=== PATIENT | female | born 1945 | race African-American/Black ===

== ENCOUNTER 2017-06-28 02:36 | Inpatient (IN) | payer MEDICARE, OTHER ==
[2017-06-28] VITALS (8 sets, daily range): BP systolic 96–124; BP diastolic 43–59
[~2017-06-28] VITALS: Ht 172.7 cm; Wt 132.5 kg
--- NOTE | 2017-06-28 02:41 | Emergency Room Report ---
History of Present Illness General Chief Complaint: Abdominal Pain Source: Patient Present Illness HPI Is a 71-year-old female who had a laparoscopic cholecystectomy 2 days ago. She was discharged home and was doing well. Since then she's been vomiting. Unable to keep anything down. She was passing gas after the surgery but since then none. Complaining of diffuse abdominal pain also. Vomiting is nonbloody nonbilious. No diarrhea. No fever or chills. Allergies: Coded Allergies: No Known Allergies (Unverified , 06/28/17) Patient History Past Medical History: see triage record, old chart reviewed Past Surgical History: bridget Pertinent Family History: none Social History: Denies: smoking Now: No Immunizations: other Reviewed Nursing Documentation: PMH: Agreed, PSxH: Agreed Nursing Documentation-PMH Hx Cardiac Problems: No - hyperlipidemia Hx Hypertension: Yes Hx Diabetes: Yes Hx Gastrointestinal Problems: No - cholecystectomy Review of Systems Eye: Denies: eye pain, blurred vision ENT: Denies: ear pain, nose congestion, throat swelling Respiratory: Denies: cough, shortness of breath Cardiovascular: Denies: chest pain, palpitations Gastrointestinal: Reports: nausea, vomiting, Denies: abdominal pain, diarrhea Musculoskeletal: Denies: back pain, joint pain Skin: Denies: rash Neurological: Denies: headache, numbness Endocrine: Denies: increased thirst, increased urine Hematologic/Lymphatic: Denies: easy bruising All Other Systems: negative except mentioned in HPI Physical Exam Vital Signs Date Time Temp Pulse Resp B/P (MAP) Pulse Ox O2 Delivery O2 Flow Rate FiO2 06/28/17 02:29 98.2 120 14 99/42 96 Room Air vitals with tachycardia Sp02 EP Interpretation: reviewed, normal General Appearance: well appearing, no apparent distress, alert Head: normocephalic, atraumatic Eyes: bilateral eye PERRL, bilateral eye EOMI ENT: hearing grossly normal, normal pharynx Neck: full range of motion, supple, no meningismus Respiratory: chest non-tender, lungs clear, normal breath sounds Cardiovascular #1: regular rate, rhythm, no murmur Gastrointestinal: normal bowel sounds, no mass, no organomegaly, no bruit, non- distended, tenderness - Mild, diffuse, decreased bowel sounds Musculoskeletal: back normal, gait/station normal, normal range of motion Psychiatric: mood/affect normal Skin: warm/dry Medical Decision Making Diagnostic Impression: Primary Impression: Postoperative ileus Additional Impressions: Hyperglycemia due to type 2 diabetes mellitus Qualified Codes: E11.65 - Type 2 diabetes mellitus with hyperglycemia Abdominal pain of unknown etiology Intractable vomiting with nausea Qualified Codes: R11.2 - Nausea with vomiting, unspecified ER Course Patient presents with postoperative ileus. No evidence of infection. His glucose is high. She was a little it better but still vomiting. Because of this will admit or transfer for further IV fluids and monitoring. Laboratory Tests Test 06/28/17 03:00 06/28/17 03:05 White Blood Count 12.3 K/UL (4.8-10.8) H Red Blood Count 5.24 M/UL (4.20-5.40) Hemoglobin 14.7 G/DL (12.0-16.0) Hematocrit 47.0 % (37.0-47.0) Mean Corpuscular Volume 90 FL (80-99) Mean Corpuscular Hemoglobin 28.1 PG (27.0-31.0) Mean Corpuscular Hemoglobin Concent 31.3 G/DL (32.0-36.0) L Red Cell Distribution Width 12.7 % (11.6-14.8) Platelet Count 128 K/UL (150-450) L Mean Platelet Volume 14.2 FL (6.5-10.1) H Neutrophils (%) (Auto) % (45.0-75.0) Lymphocytes (%) (Auto) % (20.0-45.0) Monocytes (%) (Auto) % (1.0-10.0) Eosinophils (%) (Auto) % (0.0-3.0) Basophils (%) (Auto) % (0.0-2.0) Differential Total Cells Counted 100 Neutrophils % (Manual) 88 % (45-75) H Lymphocytes % (Manual) 7 % (20-45) L Monocytes % (Manual) 3 % (1-10) Eosinophils % (Manual) 0 % (0-3) Basophils % (Manual) 0 % (0-2) Band Neutrophils 2 % (0-8) Platelet Estimate Decreased L Platelet Morphology Normal Urine Color Brown Urine Appearance Slightly cloudy Urine pH 6 (4.5-8.0) Urine Specific [place] 1.020 (1.005-1.035) Urine Protein 2+ (NEGATIVE) H Urine Glucose (UA) 4+ (NEGATIVE) H Urine Ketones 2+ (NEGATIVE) H Urine Occult Blood 1+ (NEGATIVE) H Urine Nitrite Negative (NEGATIVE) Urine Bilirubin Negative (NEGATIVE) Urine Urobilinogen 1 MG/DL (0.0-1.0) H Urine Leukocyte Esterase Negative (NEGATIVE) Urine RBC 0-2 /HPF (0 - 2) Urine WBC 0-2 /HPF (0 - 2) Urine Squamous Epithelial Cells Few /LPF (NONE/OCC) Urine Amorphous Sediment Moderate /LPF (NONE) H Urine Bacteria Few /HPF (NONE) Urine Mucus Few /LPF (NONE/OCC) H Sodium Level 136 MMOL/L (136-145) Potassium Level 3.8 MMOL/L (3.5-5.1) Chloride Level 98 MMOL/L (98-107) Carbon Dioxide Level 25 MMOL/L (21-32) Anion Gap 13 mmol/L (5-15) Blood Urea Nitrogen 33 mg/dL (7-18) H Creatinine 1.9 MG/DL (0.55-1.30) H Estimat Glomerular Filtration Rate mL/min (>60) Glucose Level 436 MG/DL (74-106) H Calcium Level 9.4 MG/DL (8.5-10.1) Total Bilirubin 1.4 MG/DL (0.2-1.0) H Direct Bilirubin 0.5 MG/DL (0.0-0.3) H Aspartate Amino Transf (AST/SGOT) 75 U/L (15-37) H Alanine Aminotransferase (ALT/SGPT) 65 U/L (12-78) Alkaline Phosphatase 74 U/L (46-116) Total Protein 7.5 G/DL (6.4-8.2) Albumin 2.8 G/DL (3.4-5.0) L Globulin 4.7 g/dL Albumin/Globulin Ratio 0.6 (1.0-2.7) L Lipase 47 U/L (73-393) L Lab Results Impression labs with elevated creatinine glucose Rhythm Strip Diag. Results Rhythm Strip Time: 05:26 EP Interpretation: yes Rate: 110 Rhythm: NSR, no PVC's, no ectopy CT/MRI/US Diagnostic Results CT/MRI/US Diagnostic Results : Imaging Test Ordered: CT abdomen and pelvis Impression Read by radiologist. Postsurgical changes. Prominent intra-abdominal gas. Last Vital Signs Date Time Temp Pulse Resp B/P (MAP) Pulse Ox O2 Delivery O2 Flow Rate FiO2 06/28/17 02:29 98.2 120 14 99/42 96 Room Air Status: improved Disposition: ADMITTED INPATIENT Condition: Serious PAUL SWAN M.D. Jun 28, 2017 02:41
[2017-06-28] MEDS ORDERED: CRESTOR10 M2 ORAL (02:44)
[2017-06-28] MEDS ORDERED: BENAZEPRIL HCL10 MG ORAL (02:44)
[2017-06-28] MEDS ORDERED: PANTOPRAZOLE SO40 MG ORAL (02:44)
[2017-06-28] MEDS ORDERED: VESICARE5 MG ORAL (02:44)
[2017-06-28] MEDS ORDERED: AMLODIPINE BES2.5 MG ORAL (02:44)
[2017-06-28] MEDS ORDERED: BENZTROPINE ME0.5 MG PO (02:44)
[2017-06-28] MEDS ORDERED: CEPHALEXIN125 MG/5 M ORAL (02:44)
[2017-06-28] MEDS ORDERED: GABAPENTIN300 MG ORAL (02:44)
[2017-06-28] MEDS ORDERED: VICODIN 5-3001 EACH ORAL (02:44)
[2017-06-28 03:15] LABS: APPEARANCE,URINE SLIGHTLY CLOUDY; BILIRUBIN, URINE NEGATIVE (NEGATIVE); COLOR,URINE BROWN; GLUCOSE, URINE (UA) 4+ (NEGATIVE); KETONES,URINE 2+ (NEGATIVE); LEUKOCYTE ESTERASE ,URINE NEGATIVE (NEGATIVE); NITRITE,URINE NEGATIVE (NEGATIVE); PH,URINE 6 (4.5-8.0); PROTEIN,URINE 2+ (NEGATIVE); UROBILINOGEN,URINE 1 MG/DL (0.0-1.0)
[2017-06-28 03:15] LABS: HEMOGLOBIN 14.7 G/DL (12.0-16.0); MEAN CORPUSCULAR VOLUME 90 FL (80-99); PLATELET COUNT 128 K/UL (150-450); RED BLOOD COUNT 5.24 M/UL (4.20-5.40); RED CELL DISTRIBUTION WIDTH 12.7 % (11.6-14.8); WHITE BLOOD COUNT 12.3 K/UL (4.8-10.8)
[2017-06-28 03:23] LABS: ANION GAP 13 mmol/L (5-15); BLOOD UREA NITROGEN 33 mg/dL (7-18); CALCIUM 9.4 MG/DL (8.5-10.1); CARBON DIOXIDE 25 MMOL/L (21-32); CHLORIDE 98 MMOL/L (98-107); CREATININE 1.9 MG/DL (0.55-1.30); POTASSIUM 3.8 MMOL/L (3.5-5.1); SODIUM 136 MMOL/L (136-145)
[2017-06-28 03:33] LABS: ALANINE AMINOTRANSFERASE 65 U/L (12-78); ALBUMIN 2.8 G/DL (3.4-5.0); ALBUMIN/GLOBULIN RATIO 0.6 (1.0-2.7); ALKALINE PHOSPHATASE 74 U/L (46-116); ASPARTATE AMINO TRANSFERASE 75 U/L (15-37); BILIRUBIN,DIRECT 0.5 MG/DL (0.0-0.3); BILIRUBIN,TOTAL 1.4 MG/DL (0.2-1.0)
[2017-06-28] MEDS ORDERED: HYDROmorphone 1mg/ml Carpuject IVP ONE (04:45)
[2017-06-28] MEDS ORDERED: Enoxaparin 40mg Inj SUBQ SCH (10:00)
[2017-06-28] MEDS: Pantoprazole Inj IVP SCH (10:47)
[2017-06-28] MEDS: D5NS 1,000 ML IV SCH ×2 (10:48→20:00)
--- NOTE | 2017-06-28 10:52 | Diagnostic Imaging Report ---
Indication: Abdominal pain. Recent laparoscopic cholecystectomy Technique: CT of the abdomen and pelvis utilizing automated exposure control without oral or intravenous contrast. CT dose: Total DLP 1760 mGycm; CTDI vol 35.1 mGy Comparison: None Findings: Please note that evaluation of the abdominal and pelvic viscera is limited without the use of intravenous and oral contrast. Within these limitations, the following observations are made: There are trace bilateral pleural effusions with moderate bilateral lower lobe consolidations which may be related to atelectasis. Imposed pneumonia is not entirely excluded. Heart size within normal limits. There is no pericardial effusion. Postsurgical changes along the anterior abdominal wall with subcutaneous foci of gas, skin piper and mild pneumoperitoneum in keeping with history of recent laparoscopic surgery. The gallbladder is surgically absent. There is minimal fluid in the gallbladder fossa which is likely postsurgical in etiology. No well-defined collection is seen. No focal liver lesion is appreciated. Noncontrast evaluation of the spleen and adrenal glands is grossly unremarkable. There is mild fatty atrophy of the pancreas. There is nonspecific bilateral perinephric stranding. No urinary tract stones or hydronephrosis seen. The bladder is decompressed, limiting its evaluation. Bladder wall thickening likely related to underdistention. The patient is status post hysterectomy. A 5.6 cm cystic lesion in the pelvis. The adnexal in origin. This may contain internal septations or soft tissue components along its periphery. Pelvic ultrasound is recommended for better characterization. The stomach is moderately distended. Small bowel loops are normal in caliber. There is fecalization of small bowel contents in the ileum. There is amorphous collection of air and soft tissue attenuation in the right lower abdomen/pelvis with dissection of gas into the abdominal wall musculature and extraperitoneal space. This is cannot entirely be from some adjacent small bowel loops and the possibility of a bowel perforation cannot entirely be excluded. Repeat exam with enteric contrast is recommended for better evaluation. Dominator is normal in caliber with scattered atherosclerotic calcification. Small mesenteric lymph nodes are likely reactive in etiology. No acute osseous abnormality is seen. Impression: Limited evaluation without intravenous or oral contrast. * Postsurgical change in keeping with history of recent laparoscopic cholecystectomy. Minimal fluid in the gallbladder fossa is likely postoperative in etiology. * Mild to moderate amount of pneumoperitoneum with amorphous focus of gas and soft tissue attenuation in the right lower abdomen/pelvis as detailed above. This is closely associated with some adjacent small bowel loops and the possibility of a perforation is not entirely excluded. Repeat exam with enteric contrast is recommended for better evaluation. This was discussed with the treating surgeon Dr. Patrick at approximately 10:30 AM of 06/28/2017. * No bowel obstruction. * 5.6 cm cystic lesion possibly adnexal in origin. There may be septal/soft tissue components within this lesion. Correlation with pelvic ultrasound is recommended for better characterization. * Trace bilateral pleural effusions with moderate bilateral lower lobe atelectasis. Superimposed pneumonia should be excluded clinically. * Bladder wall thickening likely related to underdistention. Correlate with urinalysis to exclude cystitis. This corresponds with the statrad preliminary report. The CT scanner at [facility] is accredited by the [employer] and the scans are performed using protocols designed to limit radiation exposure to as low as reasonably achievable to attain images of sufficient resolution adequate for diagnostic evaluation.
[2017-06-28] MEDS ORDERED: Metoclopramide 10mg/2ml Inj IVP PRN (11:00)
[2017-06-28] MEDS ORDERED: Acetaminophen 650 MG SUPP RECTAL PRN (11:00)
[2017-06-28] MEDS: Morphine Sulfate 2mg/ml Inj IVP PRN (11:09)
--- NOTE | 2017-06-28 12:45 | Consultation ---
Consult Note Consult Note REFERRING PHYSICIAN: Margarito Reilly MD REASON FOR CONSULTATION: Cough/SOB HPI: 71 F smoker h/o HTN, HL and DM POD 2 S/P elective lap bridget p/w epigastric pain, N/V, cough and SOB, no F/C, no CP, no LE pain or inc MT edema, no wheezing, no hemoptysis, last BM this am. CT A/P in the ED was inconclusive for perforation but otherwise showed post-op changes and atelectasis. PMH: HTN, HL, DM PSH: lap bridget ALL: NKDA Active Scripts Medications Dose Route/Sig Max Daily Dose Days Date Category Cogentin* (Benztropine Mesylate) 0.5 Mg Tablet Unknown Dose PO 06/28/17 Reported Pantoprazole* (Pantoprazole) 40 Mg Tablet.dr Unknown Dose ORAL UNKNOWN 06/28/17 Reported Gabapentin* (Gabapentin) 300 Mg Capsule Unknown Dose ORAL UNKNOWN 06/28/17 Reported Crestor* (Rosuvastatin Calcium) 10 Mg Tablet Unknown Dose ORAL UNKNOWN 06/28/17 Reported Vesicare* (Solifenacin) 5 Mg Tablet Unknown Dose ORAL UNKNOWN 06/28/17 Reported Benazepril Hcl* (Benazepril HCl) 10 Mg Tablet Unknown Dose ORAL UNKNOWN 06/28/17 Reported Amlodipine Besylate* (Amlodipine Besylate) 2.5 Mg Tablet Unknown Dose ORAL UNKNOWN 06/28/17 Reported Cephalexin* (Cephalexin) 125 Mg/5 Ml Susp.recon Unknown Dose ORAL UNKNOWN 7 06/28/17 Reported Vicodin 5-300 Mg Tablet (Acetaminophen/Hydrocodone Bitart) 1 Each Tablet Unknown Dose ORAL UNKNOWN PRN 06/28/17 Reported Current Medications Medications (Trade) Dose Ordered Sig/Teresa Route PRN Reason Start Time Stop Time Status Last Admin Dose Admin Acetaminophen (Tylenol) 650 mg Q4H PRN RECTAL Mild Pain (Pain Scale 1-3) 06/28/17 11:00 07/28/17 10:59 Dextrose (Dextrose 50%) STAT PRN IV Hypoglycemia 06/28/17 10:00 07/28/17 09:59 Dextrose/Sodium Chloride 1,000 ml @ 100 mls/hr Q10H IV 06/28/17 10:00 07/28/17 09:59 06/28/17 10:48 Insulin Aspart (NovoLOG) Q6H SUBQ 06/28/17 12:00 07/28/17 11:59 Metoclopramide HCl (Reglan) 10 mg Q8H PRN IVP Nausea & Vomiting 06/28/17 11:00 07/28/17 10:59 06/28/17 11:10 Morphine Sulfate (Morphine Sulfate) 2 mg EVERY 8 HOURS PRN IVP Severe Pain (Pain Scale 7-10) 06/28/17 10:00 07/05/17 09:59 06/28/17 11:09 Pantoprazole (Protonix) 40 mg DAILY IVP 06/28/17 10:00 07/28/17 09:59 06/28/17 10:47 Piperacillin Sod/ Tazobactam Sod 3.375 gm/Dextrose 55 ml @ 13.75 mls/ hr EVERY 8 HOURS IVPB 06/28/17 14:00 07/03/17 13:59 SHx: + tob, no EtOH or drug use FHx: N/C ROS: Negative other than HPI PE: Vital Sign - Last 24 Hours 06/28/17 06/28/17 06/28/17 06/28/17 02:29 03:11 04:44 06:11 Temp 98.2 98.2 98.2 98.2 Pulse 120 114 115 115 Resp 14 36 36 36 B/P (MAP) 99/42 106/56 106/54 96/49 Pulse Ox 96 95 95 95 O2 Delivery Room Air Room Air Room Air Room Air 06/28/17 06/28/17 06/28/17 06/28/17 06:47 06:55 08:57 11:54 Temp 98.2 98.2 97.7 97.9 Pulse 103 103 106 109 Resp 24 24 21 21 B/P (MAP) 113/50 113/50 103/43 124/47 Pulse Ox 95 95 95 95 O2 Delivery Nasal Cannula Nasal Cannula GEN: NAD, obese femal HEENT: NC/AT, OPC c MMM NECK: Supple s LAD or JVD CHEST: CTA COR: RRR ABD: S, wound dressed, mild diffuse TTP, + NABS EXT: No C/C, 1+ edema Laboratory Tests Test 06/28/17 03:00 06/28/17 03:05 White Blood Count 12.3 K/UL (4.8-10.8) H Red Blood Count 5.24 M/UL (4.20-5.40) Hemoglobin 14.7 G/DL (12.0-16.0) Hematocrit 47.0 % (37.0-47.0) Mean Corpuscular Volume 90 FL (80-99) Mean Corpuscular Hemoglobin 28.1 PG (27.0-31.0) Mean Corpuscular Hemoglobin Concent 31.3 G/DL (32.0-36.0) L Red Cell Distribution Width 12.7 % (11.6-14.8) Platelet Count 128 K/UL (150-450) L Mean Platelet Volume 14.2 FL (6.5-10.1) H Neutrophils (%) (Auto) % (45.0-75.0) Lymphocytes (%) (Auto) % (20.0-45.0) Monocytes (%) (Auto) % (1.0-10.0) Eosinophils (%) (Auto) % (0.0-3.0) Basophils (%) (Auto) % (0.0-2.0) Differential Total Cells Counted 100 Neutrophils % (Manual) 88 % (45-75) H Lymphocytes % (Manual) 7 % (20-45) L Monocytes % (Manual) 3 % (1-10) Eosinophils % (Manual) 0 % (0-3) Basophils % (Manual) 0 % (0-2) Band Neutrophils 2 % (0-8) Platelet Estimate Decreased L Platelet Morphology Normal Hemoglobin A1c 8.2 % (4.3-6.0) H Urine Color Brown Urine Appearance Slightly cloudy Urine pH 6 (4.5-8.0) Urine Specific [place] 1.020 (1.005-1.035) Urine Protein 2+ (NEGATIVE) H Urine Glucose (UA) 4+ (NEGATIVE) H Urine Ketones 2+ (NEGATIVE) H Urine Occult Blood 1+ (NEGATIVE) H Urine Nitrite Negative (NEGATIVE) Urine Bilirubin Negative (NEGATIVE) Urine Urobilinogen 1 MG/DL (0.0-1.0) H Urine Leukocyte Esterase Negative (NEGATIVE) Urine RBC 0-2 /HPF (0 - 2) Urine WBC 0-2 /HPF (0 - 2) Urine Squamous Epithelial Cells Few /LPF (NONE/OCC) Urine Amorphous Sediment Moderate /LPF (NONE) H Urine Bacteria Few /HPF (NONE) Urine Mucus Few /LPF (NONE/OCC) H Sodium Level 136 MMOL/L (136-145) Potassium Level 3.8 MMOL/L (3.5-5.1) Chloride Level 98 MMOL/L (98-107) Carbon Dioxide Level 25 MMOL/L (21-32) Anion Gap 13 mmol/L (5-15) Blood Urea Nitrogen 33 mg/dL (7-18) H Creatinine 1.9 MG/DL (0.55-1.30) H Estimat Glomerular Filtration Rate mL/min (>60) Glucose Level 436 MG/DL (74-106) H Calcium Level 9.4 MG/DL (8.5-10.1) Total Bilirubin 1.4 MG/DL (0.2-1.0) H Direct Bilirubin 0.5 MG/DL (0.0-0.3) H Aspartate Amino Transf (AST/SGOT) 75 U/L (15-37) H Alanine Aminotransferase (ALT/SGPT) 65 U/L (12-78) Alkaline Phosphatase 74 U/L (46-116) Total Protein 7.5 G/DL (6.4-8.2) Albumin 2.8 G/DL (3.4-5.0) L Globulin 4.7 g/dL Albumin/Globulin Ratio 0.6 (1.0-2.7) L Lipase 47 U/L (73-393) L Assessment/Plan ASSESSMENT: 71 F smoker h/o HTN, HL and DM POD 2 S/P elective lap bridget p/w epigastric pain , N/V, cough and SOB concerning for acute intra-abdominal pathology, clinically not presenting with acute abdomen but imaging inconclusive for perforation. She is relatively stable from a respiratory standpoint and her symptoms are likely 2/2 post-op atelectasis but will obtain CXR, ABG and LE venous duplex to evaluate for VTE. PROBLEM LIST: -POD 2 S/P lap bridget -Abd pain/N/V, R/O perf -Cough, likely 2/2 atelectasis -Abnormal renal function, ELIDIA vs CKD -DM, HTN, HL PLAN: -Supportive care: pain control, anti-emetic therapy, serial abdominal exam -Optimize pulmonary hygiene/mobilize as tolerated -Incentive spirometry -Abx -NPO -Surgical evaluation -CXR -ABG -Duplex LE US -DVT Px: LMWH Thank you, Dr. Reilly, for allowing me to assist in the care of your patient. If I may be of any assistance in the future please do not hesitate to ask. Vicky Koroma MD, [facility] Pulmonary & Critical Care Medicine. VICKY KOROMA M.D. Jun 28, 2017 12:45
--- NOTE | 2017-06-28 12:53 | History & Physical ---
History and Physical History & Physicial seen and examined. Dict completed Margarito Reilly MD Jun 28, 2017 12:53
--- NOTE | 2017-06-28 12:55 | General Progress Note ---
Assessment/Plan Status: unchanged Assessment/Plan 1- Acute Abdomen 2- Post Elective Lap Veronika 3- DM 4- Abn LFT 5- low PLT 6- Renal Failure Plan: Hepatitis panel Surgeon GI Nephro are consulted Subjective ROS Limited/Unobtainable: No Constitutional: Reports: no symptoms HEENT: Reports: no symptoms Gastrointestinal/Abdominal: Reports: abdomen distended, abdominal pain Allergies: Coded Allergies: No Known Allergies (Unverified , 06/28/17) Objective Last 24 Hour Vital Signs Date Time Temp Pulse Resp B/P (MAP) Pulse Ox O2 Delivery O2 Flow Rate FiO2 06/28/17 11:54 97.9 109 21 124/47 95 06/28/17 11:39 97.9 06/28/17 08:57 97.7 106 21 103/43 95 06/28/17 06:55 98.2 103 24 113/50 95 Nasal Cannula 06/28/17 06:47 98.2 103 24 113/50 95 Nasal Cannula 06/28/17 06:11 98.2 115 36 96/49 95 Room Air 06/28/17 04:44 98.2 115 36 106/54 95 Room Air 06/28/17 03:11 98.2 114 36 106/56 95 Room Air 06/28/17 02:29 98.2 120 14 99/42 96 Room Air Laboratory Tests 06/28/17 03:00: White Blood Count 12.3H, Red Blood Count 5.24, Hemoglobin 14.7, Hematocrit 47.0 , Mean Corpuscular Volume 90, Mean Corpuscular Hemoglobin 28.1, Mean Corpuscular Hemoglobin Concent 31.3L, Red Cell Distribution Width 12.7, Platelet Count 128L, Mean Platelet Volume 14.2H, Neutrophils (%) (Auto) , Lymphocytes (%) (Auto) , Monocytes (%) (Auto) , Eosinophils (%) (Auto) , Basophils (%) (Auto) , Differential Total Cells Counted 100, Neutrophils % ( Manual) 88H, Lymphocytes % (Manual) 7L, Monocytes % (Manual) 3, Eosinophils % ( Manual) 0, Basophils % (Manual) 0, Band Neutrophils 2, Platelet Estimate DecreasedL, Platelet Morphology Normal, Hemoglobin A1c 8.2H 06/28/17 03:05: Urine Color Brown, Urine Appearance Slightly cloudy, Urine pH 6, Urine Specific [place] 1.020, Urine Protein 2+H, Urine Glucose (UA) 4+H, Urine Ketones 2+H, Urine Occult Blood 1+H, Urine Nitrite Negative, Urine Bilirubin Negative, Urine Urobilinogen 1H, Urine Leukocyte Esterase Negative, Urine RBC 0-2, Urine WBC 0-2 , Urine Squamous Epithelial Cells Few, Urine Amorphous Sediment ModerateH, Urine Bacteria Few, Urine Mucus FewH, Sodium Level 136, Potassium Level 3.8, Chloride Level 98, Carbon Dioxide Level 25, Anion Gap 13, Blood Urea Nitrogen 33H, Creatinine 1.9H, Estimat Glomerular Filtration Rate , Glucose Level 436H, Calcium Level 9.4, Total Bilirubin 1.4H, Direct Bilirubin 0.5H, Aspartate Amino Transf (AST/SGOT) 75H, Alanine Aminotransferase (ALT/SGPT) 65, Alkaline Phosphatase 74, Total Protein 7.5, Albumin 2.8L, Globulin 4.7, Albumin/Globulin Ratio 0.6L, Lipase 47L Height (Feet): 5 Height (Inches): 7.00 Weight (Pounds): 261 General Appearance: no apparent distress EENT: PERRL/EOMI Neck: supple Cardiovascular: normal rate Respiratory/Chest: lungs clear Abdomen: guarding Extremities: non-tender Neurologic: retail operations manager II-XII grossly normal Margarito Reilly MD Jun 28, 2017 12:55
[2017-06-28] MEDS: NovoLOG Insulin Flexpen SUBQ SCH ×2 (14:43→19:03)
[2017-06-28] MEDS ORDERED: Albuterol/Ipratropium 3ml neb HHN PRN (16:00)
[2017-06-28] MEDS: Piperacillin/Tazobactam 3.375 GM in D5W 55 ML IVPB SCH ×2 (16:14→22:12)
--- NOTE | 2017-06-28 17:14 | General Progress Note ---
Assessment/Plan Problem List: (1) Hyperglycemia due to type 2 diabetes mellitus ICD Codes: E11.65 - Type 2 diabetes mellitus with hyperglycemia SNOMED: 599153729193642, [id number] Qualifiers: Qualified Codes: E11.65 - Type 2 diabetes mellitus with hyperglycemia (2) Postoperative ileus ICD Codes: K91.89 - Other postprocedural complications and disorders of digestive system; K56.7 - Ileus, unspecified SNOMED: 545573085, 808731071 (3) Intractable vomiting with nausea ICD Codes: R11.2 - Nausea with vomiting, unspecified SNOMED: 637071186, [id number] Qualifiers: Qualified Codes: R11.2 - Nausea with vomiting, unspecified Assessment/Plan add Levemir 10 units bid continue Novolog sliding scale every 6 hours Subjective Allergies: Coded Allergies: No Known Allergies (Unverified , 06/28/17) All Systems: reviewed and negative except above Subjective admitted with post op ileus glucose is 400+ at home she is on Tradenta Objective Last 24 Hour Vital Signs Date Time Temp Pulse Resp B/P (MAP) Pulse Ox O2 Delivery O2 Flow Rate FiO2 06/28/17 16:13 97.6 101 20 118/59 95 06/28/17 15:50 118 26 93 Nasal Cannula 2.0 28 06/28/17 15:40 118 26 93 Nasal Cannula 2.0 28 06/28/17 15:40 28 06/28/17 15:40 118 26 Nasal Cannula 2.0 28 06/28/17 11:54 97.9 109 21 124/47 95 06/28/17 11:39 97.9 06/28/17 08:57 97.7 106 21 103/43 95 06/28/17 06:55 98.2 103 24 113/50 95 Nasal Cannula 06/28/17 06:47 98.2 103 24 113/50 95 Nasal Cannula 06/28/17 06:11 98.2 115 36 96/49 95 Room Air 06/28/17 04:44 98.2 115 36 106/54 95 Room Air 06/28/17 03:11 98.2 114 36 106/56 95 Room Air 06/28/17 02:29 98.2 120 14 99/42 96 Room Air Laboratory Tests 06/28/17 03:00: White Blood Count 12.3H, Red Blood Count 5.24, Hemoglobin 14.7, Hematocrit 47.0 , Mean Corpuscular Volume 90, Mean Corpuscular Hemoglobin 28.1, Mean Corpuscular Hemoglobin Concent 31.3L, Red Cell Distribution Width 12.7, Platelet Count 128L, Mean Platelet Volume 14.2H, Neutrophils (%) (Auto) , Lymphocytes (%) (Auto) , Monocytes (%) (Auto) , Eosinophils (%) (Auto) , Basophils (%) (Auto) , Differential Total Cells Counted 100, Neutrophils % ( Manual) 88H, Lymphocytes % (Manual) 7L, Monocytes % (Manual) 3, Eosinophils % ( Manual) 0, Basophils % (Manual) 0, Band Neutrophils 2, Platelet Estimate DecreasedL, Platelet Morphology Normal, Hemoglobin A1c 8.2H 06/28/17 03:05: Urine Color Brown, Urine Appearance Slightly cloudy, Urine pH 6, Urine Specific Rock 1.020, Urine Protein 2+H, Urine Glucose (UA) 4+H, Urine Ketones 2+H, Urine Occult Blood 1+H, Urine Nitrite Negative, Urine Bilirubin Negative, Urine Urobilinogen 1H, Urine Leukocyte Esterase Negative, Urine RBC 0-2, Urine WBC 0-2 , Urine Squamous Epithelial Cells Few, Urine Amorphous Sediment ModerateH, Urine Bacteria Few, Urine Mucus FewH, Sodium Level 136, Potassium Level 3.8, Chloride Level 98, Carbon Dioxide Level 25, Anion Gap 13, Blood Urea Nitrogen 33H, Creatinine 1.9H, Estimat Glomerular Filtration Rate , Glucose Level 436H, Calcium Level 9.4, Total Bilirubin 1.4H, Direct Bilirubin 0.5H, Aspartate Amino Transf (AST/SGOT) 75H, Alanine Aminotransferase (ALT/SGPT) 65, Alkaline Phosphatase 74, Total Protein 7.5, Albumin 2.8L, Globulin 4.7, Albumin/Globulin Ratio 0.6L, Lipase 47L 06/28/17 16:02: Arterial Blood pH 7.350, Arterial Blood Partial Pressure CO2 36.7, Arterial Blood Partial Pressure O2 57.8L, Arterial Blood HCO3 20.7L, Arterial Blood Oxygen Saturation 89.7L, Arterial Blood Base Excess -4.8, Brandyn Test Positive Height (Feet): 5 Height (Inches): 7.00 Weight (Pounds): 261 General Appearance: no apparent distress EENT: normal ENT inspection Cardiovascular: normal rate Respiratory/Chest: lungs clear Abdomen: absent bowel sounds Edema: no edema noted Arm (L), no edema noted Arm (R), no edema noted Leg (L), no edema noted Leg (R), no edema noted Pedal (L), no edema noted Pedal (R), no edema noted Generalized Objective Current Medications Medications (Trade) Dose Ordered Sig/Teresa Route PRN Reason Start Time Stop Time Status Last Admin Dose Admin Acetaminophen (Tylenol) 650 mg Q4H PRN RECTAL Mild Pain (Pain Scale 1-3) 06/28/17 11:00 07/28/17 10:59 Albuterol/ Ipratropium (Albuterol/ Ipratropium) 3 ml Q4H PRN HHN Shortness of Breath 06/28/17 16:00 07/03/17 15:59 06/28/17 15:39 Albuterol/ Ipratropium (Albuterol/ Ipratropium) 3 ml Q6HRT HHN 06/28/17 19:00 07/03/17 18:59 Dextrose (Dextrose 50%) STAT PRN IV Hypoglycemia 06/28/17 10:00 07/28/17 09:59 Dextrose/Sodium Chloride 1,000 ml @ 100 mls/hr Q10H IV 06/28/17 10:00 07/28/17 09:59 06/28/17 10:48 Insulin Aspart (NovoLOG) Q6H SUBQ 06/28/17 12:00 07/28/17 11:59 06/28/17 14:43 Metoclopramide HCl (Reglan) 10 mg Q8H PRN IVP Nausea & Vomiting 06/28/17 11:00 07/28/17 10:59 06/28/17 11:10 Morphine Sulfate (Morphine Sulfate) 2 mg EVERY 8 HOURS PRN IVP Severe Pain (Pain Scale 7-10) 06/28/17 10:00 07/05/17 09:59 06/28/17 11:09 Pantoprazole (Protonix) 40 mg DAILY IVP 06/28/17 10:00 07/28/17 09:59 06/28/17 10:47 Piperacillin Sod/ Tazobactam Sod 3.375 gm/Dextrose 55 ml @ 13.75 mls/ hr EVERY 8 HOURS IVPB 06/28/17 14:00 07/03/17 13:59 06/28/17 16:14 LEANN COLE Jun 28, 2017 17:14
[2017-06-28] MEDS: Ketorolac 30mg Inj IV PRN (18:41)
[2017-06-28] MEDS: Levemir Flexpen SUBQ SCH (19:04)
[2017-06-28 19:40] LABS: BILIRUBIN,TOTAL 0.8 MG/DL (0.2-1.0)
[2017-06-28] MEDS: Albuterol/Ipratropium 3ml neb HHN SCH (19:56)
--- NOTE | 2017-06-28 21:30 | History and Physical Report ---
DATE OF ADMISSION: 06/28/2017 HISTORY OF PRESENT ILLNESS: The patient is a pleasant 71-year-old female. The patient is status post laparoscopic abdominal surgery at [facility], presented with ileus, nausea, vomitus and pain, it started postop after the discharge from hospital. The patient lives with her sister. Has been presented for treatment to our hospital. At the time of evaluation, the patient is complaining of [id number] pain. Denies any severe pain. Denies any nausea. The patient has 1 bowel movement. No abnormal bleeding is reported. PAST MEDICAL HISTORY: Hypertension, hyperlipidemia and bladder incontinence. PAST SURGICAL HISTORY: Laparoscopic cholecystectomy about a week ago. HOSPITAL MEDICATIONS: Including but not limited to sliding scale insulin, morphine sulfate and Zosyn. ALLERGIES: NKDA. SOCIAL HISTORY: The patient lives with her sister. The patient denies history of illicit drug abuse, smoking, or alcohol abuse. FAMILY HISTORY: Reviewed and noncontributory. PHYSICAL EXAMINATION: VITAL SIGNS: Blood pressure 99/40, temperature 98.2, pulse rate 115-200 to 440, and pulse oximetry 96% on room air. HEAD AND NECK: Atraumatic and normocephalic. CHEST: Clear to auscultation. HEART: S1 and S2. Regular rate and rhythm. ABDOMEN: Positive for tenderness on deep palpation. Positive for bloated and tympanism. MUSCULOSKELETAL: No gross focal motor deficit. NEUROLOGIC: Awake, alert and oriented x3. PSYCHIATRIC: Mood and affect are appropriate. LABORATORY DATA: Laboratories dated 06/28/2017, WBC 12.3, hemoglobin 14.7, and platelets 128. Sodium 136, potassium 3.8, BUN 33, creatinine 1.9, and glucose 446. A1c 8.2. Total bilirubin of 1.4. Urinalysis, unremarkable. ASSESSMENT AND PLAN: 1. Acute abdomen post inpatient surgery. Differential diagnosis are partial to complete obstruction/ileus. 2. Diabetes type 2, uncontrolled. 3. Renal failure, age indeterminate. 4. Thrombocytopenia. 5. Abnormal liver function test. 6. Gastrointestinal and deep vein thrombosis prophylaxes. PLAN OF CARE: I will order the hepatitis panel. Gastrointestinal surgeon consulted, agree with the current empiric antibiotic regimen. We will check hepatitis panel. Product Test Engineer Dr. Donovan is consulted. Margarito Reilly M.D. DR: AMBER JOB#: [id number] CC:
[2017-06-29] VITALS: BP 93/57
[2017-06-29] MEDS: NovoLOG Insulin Flexpen SUBQ SCH ×4 (00:36→18:00)
[2017-06-29 01:14] VITALS: BP 100/50
[2017-06-29] MEDS: Albuterol/Ipratropium 3ml neb HHN SCH ×3 (02:06→13:57)
[2017-06-29 04:00] VITALS: BP 115/73
--- NOTE | 2017-06-29 04:00 | Consultation ---
DATE OF CONSULTATION: 06/28/2017 CONSULTING PHYSICIAN: Mario Patrick M.D. REQUESTING PHYSICIAN: Margarito Reilly M.D. REASON FOR CONSULTATION: Vomiting. HISTORY OF PRESENT ILLNESS: This is a 71-year-old female, who presented to emergency room for vomiting. She stated that two days ago, which was 06/26/2017, she underwent laparoscopic cholecystectomy at [facility] and she was discharged home the same day. She stated that since the surgery, she has been vomiting and she has been unable to tolerate any food or any medication. She claims that she had a bowel movement this morning. She had mild abdominal pain, but she has received injection in the emergency room and at the present time she does not have any pain. She denied any fever, cough, dysuria, or frequency. PAST MEDICAL HISTORY: She denies allergies, asthma, cardiac and renal diseases. She has a history of diabetes and hypertension. PAST SURGICAL HISTORY: Include laparoscopic cholecystectomy and hysterectomy. MEDICATIONS: Please see the medicine reconciliation form. SOCIAL HISTORY: The patient is a 71-year-old female, who is a without any children. She denies smoking or drinking. REVIEW OF SYSTEMS: Noncontributory. PHYSICAL EXAMINATION: GENERAL: The patient appeared to be a well-developed, well-nourished, morbidly obese, 71-year-old female, lying in bed, tachypneic. HEENT: Head is normocephalic and atraumatic. Eyes, pupils are equal, round, and reactive to light. Mouth is clear, but dry. NECK: There is no palpable thyromegaly or adenopathy. CHEST: She has mild wheezing on both sides. HEART: There is no gallop or murmur. S1 and S2 are within normal limits. ABDOMEN: Obese, pendulous, and protuberant. She has a scar of the laparoscopic cholecystectomy, which includes paraumbilical incision and three small incisions at the upper abdomen. The abdomen seems to be hard, but it is not rigid. Bowel sounds are hypoactive. The patient did not have tenderness. GENITAL: Deferred. EXTREMITIES: Within normal limits. LABORATORY AND DIAGNOSTIC DATA: CBC has shown WBC of 12,300 with left shift. Chemistry is within normal limits except for the glucose, which is 436, creatinine 1.9, and BUN of 33. Total bilirubin is 1.4 with direct bilirubin of 0.5, but alkaline phosphatase is normal. Liver enzymes are normal. The CAT scan of the abdomen, I had a long discussion with the radiologist. It showed a small amount of the intraperitoneal air, which is due to the surgery, but there is an area of air which we were not sure if it was intraabdominal or extraabdominal, but anyway the radiologist felt that we have to make sure about the source of this air, which is located at the right lower quadrant. ASSESSMENT: Vomiting, postoperative. RECOMMENDATION: I took the liberty of ordering a stat CAT scan of the abdomen and pelvis with p.o. and rectal contrast with recommendation of the radiologist. Besides, she requires to be NPO on IV fluids and I feel that she requires a GI consultation. Thank you, Dr. Reilly, for asking me to participate in the management of this patient. I will follow the patient with you. Mario Patrick M.D. DR: Mata JOB#: [id number] CC:
[2017-06-29] MEDS: Morphine Sulfate 2mg/ml Inj IVP PRN ×2 (05:07→14:58)
[2017-06-29] MEDS: Piperacillin/Tazobactam 3.375 GM in D5W 55 ML IVPB SCH (05:57)
[2017-06-29] MEDS: D5NS 1,000 ML IV SCH ×2 (05:57→16:00)
[2017-06-29 08:15] VITALS: BP 100/67
--- NOTE | 2017-06-29 08:24 | General Progress Note ---
Assessment/Plan Status: stable Assessment/Plan 1. Acute abdomen post inpatient surgery. Differential diagnosis are partial to complete obstruction/ileus. 2. Diabetes type 2, uncontrolled. 3. Renal failure, age indeterminate. 4. Thrombocytopenia. 5. Abnormal liver function test. 6. Gastrointestinal and deep vein thrombosis prophylaxes. Plan: Surgeon GI notes are reviewed current surgical observation management. D/c pending to surgeon's clearance Subjective ROS Limited/Unobtainable: No Gastrointestinal/Abdominal: Reports: no symptoms, abdomen distended, other - FLANK PAIN Neurologic/Psychiatric: Reports: no symptoms Allergies: Coded Allergies: No Known Allergies (Unverified , 06/28/17) Objective Last 24 Hour Vital Signs Date Time Temp Pulse Resp B/P (MAP) Pulse Ox O2 Delivery O2 Flow Rate FiO2 06/29/17 06:17 112 Venturi Mask 8.0 06/29/17 05:37 98.2 06/29/17 04:00 98.2 117 22 115/73 94 06/29/17 02:19 112 20 97 Venturi Mask 8.0 40 06/29/17 02:04 105 22 94 Venturi Mask 8.0 40 06/29/17 01:14 106 100/50 06/29/17 00:00 98.1 107 20 93/57 98 06/29/17 00:00 Venturi Mask 10.0 06/28/17 20:10 108 20 94 Venturi Mask 8.0 40 06/28/17 20:00 Nasal Cannula 3.0 06/28/17 20:00 98.6 111 20 108/57 94 06/28/17 19:55 Nasal Cannula 2.0 28 06/28/17 19:55 97 22 91 Nasal Cannula 2.0 28 06/28/17 19:55 91 Nasal Cannula 2.0 28 06/28/17 19:11 97.6 06/28/17 16:13 97.6 101 20 118/59 95 06/28/17 16:00 Nasal Cannula 2.0 06/28/17 15:50 118 26 93 Nasal Cannula 2.0 28 06/28/17 15:40 118 26 93 Nasal Cannula 2.0 28 06/28/17 15:40 28 06/28/17 15:40 118 26 Nasal Cannula 2.0 28 06/28/17 12:00 Nasal Cannula 2.0 06/28/17 11:54 97.9 109 21 124/47 95 06/28/17 08:57 97.7 106 21 103/43 95 Laboratory Tests 06/28/17 16:02: Arterial Blood pH 7.350, Arterial Blood Partial Pressure CO2 36.7, Arterial Blood Partial Pressure O2 57.8L, Arterial Blood HCO3 20.7L, Arterial Blood Oxygen Saturation 89.7L, Arterial Blood Base Excess -4.8, Brandyn Test Positive 06/28/17 19:05: Total Bilirubin 0.8, Gamma Glutamyl Transpeptidase 19, Hepatitis A IgM Antibody [Pending], Hepatitis B Surface Antigen [Pending], Hepatitis B Core IgM Antibody [Pending], Hepatitis C Antibody [Pending] Height (Feet): 5 Height (Inches): 7.00 Weight (Pounds): 261 General Appearance: no apparent distress EENT: PERRL/EOMI Neck: supple Cardiovascular: normal rate Respiratory/Chest: lungs clear Abdomen: soft Extremities: non-tender Neurologic: explosive expert II-XII grossly normal Margarito Reilly MD Jun 29, 2017 08:24
[2017-06-29] MEDS: Pantoprazole Inj IVP SCH (09:00)
[2017-06-29] MEDS: Levemir Flexpen SUBQ SCH ×2 (09:03→18:00)
[2017-06-29 09:38] LABS: ALANINE AMINOTRANSFERASE 55 U/L (12-78); ALBUMIN 2.1 G/DL (3.4-5.0); ALBUMIN/GLOBULIN RATIO 0.5 (1.0-2.7); ALKALINE PHOSPHATASE 86 U/L (46-116); AMYLASE 59 U/L (25-115); ANION GAP 14 mmol/L (5-15); ASPARTATE AMINO TRANSFERASE 64 U/L (15-37); BILIRUBIN,TOTAL 0.8 MG/DL (0.2-1.0); BLOOD UREA NITROGEN 51 mg/dL (7-18); CALCIUM 8.4 MG/DL (8.5-10.1); CARBON DIOXIDE 20 MMOL/L (21-32); CHLORIDE 102 MMOL/L (98-107); CREATININE 3.1 MG/DL (0.55-1.30); POTASSIUM 4.4 MMOL/L (3.5-5.1); SODIUM 135 MMOL/L (136-145)
--- NOTE | 2017-06-29 10:39 | GI Initial Consult Note ---
Kaylan Pradhanh Gary N.P. 06/29/17 1039: History of Present Illness General Date patient seen: Jun 29, 2017 Time patient seen: 10:37 Reason for Hospitalization: Abdominal Pain Referring physician: MAGUE Reason for Consultation: POST OPERATIVE ILEUS Present Illness HPI Is a 71-year-old female who had a laparoscopic cholecystectomy 2 days ago. She was discharged home and was doing well. Since then she's been vomiting. Unable to keep anything down. She was passing gas after the surgery but since then none. Complaining of diffuse abdominal pain also. Vomiting is nonbloody nonbilious. No diarrhea. No fever or chills. GI consulted for post operative ileus. HPI as noted above. Pt seen on floor , awake A&Ox4 NAD with no active s/sx of N/V/D. Surgical incisions noted. Abdomen distended and tympanic. Just returned from [facility]. Presents today mild leukocytosis and hyperbilirubinemia. Lipase normal. Unknown history of endoscopic /colonoscopies. Home Meds Reported Medications Benztropine Mesylate* (COGENTIN*) 0.5 Mg Tablet, PO, TAB 06/28/17 Pantoprazole* (PANTOPRAZOLE*) 40 Mg Tablet.dr, ORAL unknown , TAB 06/28/17 Gabapentin* (GABAPENTIN*) 300 Mg Capsule, ORAL unknown , CAP 0 Refills 06/28/17 Rosuvastatin Calcium* (CRESTOR*) 10 Mg Tablet, ORAL unknown , TAB 06/28/17 Solifenacin Succinate* (VESICARE*) 5 Mg Tablet, ORAL unknown , TAB 06/28/17 Benazepril Hcl* (BENAZEPRIL HCL*) 10 Mg Tablet, ORAL unknown , TAB 06/28/17 Amlodipine Besylate* (AMLODIPINE BESYLATE*) 2.5 Mg Tablet, ORAL unknown , TAB 06/28/17 Cephalexin* (CEPHALEXIN*) 125 Mg/5 Ml Susp.recon, ORAL unknown for 7 Days, ML 0 Refills 06/28/17 Hydrocodone Bit/Acetaminophen (VICODIN 5-300 MG TABLET) 1 Each Tablet, ORAL unknown Y for For Pain, #30 TAB 0 Refills 06/28/17 Med list reviewed/reconciled: Yes Allergies: Coded Allergies: No Known Allergies (Unverified , 06/28/17) Patient History PMH Narrative Past Medical History: see triage record, old chart reviewed Past Surgical History: bridget Pertinent Family History: none Social History: Denies: smoking Now: No Immunizations: other Reviewed Nursing Documentation: PMH: Agreed, PSxH: Agreed Nursing Documentation-PMH Hx Cardiac Problems: No - hyperlipidemia Hx Hypertension: Yes Hx Diabetes: Yes Hx Gastrointestinal Problems: No - cholecystectomy ER ROS - General Review of Systems Eye: Denies: eye pain, blurred vision ENT: Denies: ear pain, nose congestion, throat swelling Respiratory: Denies: cough, shortness of breath Cardiovascular: Denies: chest pain, palpitations Gastrointestinal: Reports: nausea, vomiting, Denies: abdominal pain, diarrhea Musculoskeletal: Denies: back pain, joint pain Skin: Denies: rash Neurological: Denies: headache, numbness Endocrine: Denies: increased thirst, increased urine Hematologic/Lymphatic: Denies: easy bruising All Other Systems: negative except mentioned in HPI Review of Systems All Other Systems: negative except mentioned in HPI Physical Exam Vital Signs Date Time Temp Pulse Resp B/P (MAP) Pulse Ox O2 Delivery O2 Flow Rate FiO2 06/28/17 02:29 98.2 120 14 99/42 96 Room Air 06/28/17 08:00 2.0 06/28/17 15:40 28 Sp02 EP Interpretation: reviewed, normal Labs Laboratory Tests Test 06/28/17 16:02 06/28/17 19:05 06/29/17 07:30 Arterial Blood pH 7.350 (7.350-7.450) Arterial Blood Partial Pressure CO2 36.7 mmHg (35.0-45.0) Arterial Blood Partial Pressure O2 57.8 mmHg (75.0-100.0) L Arterial Blood HCO3 20.7 mmol/L (22.0-26.0) L Arterial Blood Oxygen Saturation 89.7 % (92.0-98.0) L Arterial Blood Base Excess -4.8 Brandyn Test Positive Total Bilirubin 0.8 MG/DL (0.2-1.0) 0.8 MG/DL (0.2-1.0) Gamma Glutamyl Transpeptidase 19 U/L (5-85) Hepatitis A IgM Antibody Pending Hepatitis B Surface Antigen Pending Hepatitis B Core IgM Antibody Pending Hepatitis C Antibody Pending Sodium Level 135 MMOL/L (136-145) L Potassium Level 4.4 MMOL/L (3.5-5.1) Chloride Level 102 MMOL/L (98-107) Carbon Dioxide Level 20 MMOL/L (21-32) L Anion Gap 14 mmol/L (5-15) Blood Urea Nitrogen 51 mg/dL (7-18) H Creatinine 3.1 MG/DL (0.55-1.30) #H Estimat Glomerular Filtration Rate mL/min (>60) Glucose Level 301 MG/DL (74-106) #H Calcium Level 8.4 MG/DL (8.5-10.1) L Aspartate Amino Transf (AST/SGOT) 64 U/L (15-37) H Alanine Aminotransferase (ALT/SGPT) 55 U/L (12-78) Alkaline Phosphatase 86 U/L (46-116) Total Protein 6.7 G/DL (6.4-8.2) Albumin 2.1 G/DL (3.4-5.0) L Globulin 4.6 g/dL Albumin/Globulin Ratio 0.5 (1.0-2.7) L Amylase Level 59 U/L (25-115) Lipase 47 U/L (73-393) L General Appearance: well appearing, no apparent distress, alert, obese Head: normocephalic EENT: PERRL/EOMI, normal ENT inspection Neck: supple Respiratory: normal breath sounds, no respiratory distress Cardiovascular: normal rate Gastrointestinal: non tender, distended - tympanic Rectal: deferred Genitourinary: no CVA tenderness Musculoskeletal: normal inspection, back normal Neurologic: normal inspection, alert, oriented x3, responsive Psychiatric: normal inspection, judgement/insight normal, memory normal Skin: normal inspection, normal color, no rash, warm/dry, palpation normal, well hydrated Lymphatic: normal inspection, no adenopathy Current Medications Current Medications Medications (Trade) Dose Ordered Sig/Teresa Route PRN Reason Start Time Stop Time Status Last Admin Dose Admin Acetaminophen (Tylenol) 650 mg Q4H PRN RECTAL Mild Pain (Pain Scale 1-3) 06/28/17 11:00 07/28/17 10:59 Albuterol/ Ipratropium (Albuterol/ Ipratropium) 3 ml Q4H PRN HHN Shortness of Breath 06/28/17 16:00 07/03/17 15:59 06/28/17 15:39 Albuterol/ Ipratropium (Albuterol/ Ipratropium) 3 ml Q6HRT HHN 06/28/17 19:00 07/03/17 18:59 06/29/17 08:33 Dextrose (Dextrose 50%) STAT PRN IV Hypoglycemia 06/28/17 10:00 07/28/17 09:59 Dextrose/Sodium Chloride 1,000 ml @ 100 mls/hr Q10H IV 06/28/17 10:00 07/28/17 09:59 06/29/17 05:57 Insulin Aspart (NovoLOG) Q6H SUBQ 06/28/17 12:00 07/28/17 11:59 06/29/17 05:57 Insulin Detemir (Levemir) 10 units BID SUBQ 06/28/17 18:30 07/28/17 18:29 06/29/17 09:03 Ketorolac Tromethamine (Toradol 30mg) 30 mg BIDPRN PRN IV breakthrough pain 06/28/17 18:15 07/03/17 18:14 06/28/17 18:41 Metoclopramide HCl (Reglan) 10 mg Q8H PRN IVP Nausea & Vomiting 06/28/17 11:00 07/28/17 10:59 06/28/17 11:10 Morphine Sulfate (Morphine Sulfate) 2 mg EVERY 8 HOURS PRN IVP Severe Pain (Pain Scale 7-10) 06/28/17 10:00 07/05/17 09:59 06/29/17 05:07 Pantoprazole (Protonix) 40 mg DAILY IVP 06/28/17 10:00 07/28/17 09:59 06/29/17 09:00 Piperacillin Sod/ Tazobactam Sod 3.375 gm/Dextrose 55 ml @ 13.75 mls/ hr EVERY 8 HOURS IVPB 06/28/17 14:00 07/03/17 13:59 06/29/17 05:57 GI: Plan Problems: (1) Postoperative ileus (2) Intractable vomiting with nausea (3) Hyperglycemia due to type 2 diabetes mellitus (4) Abdominal pain of unknown etiology Plan supportive care pain mgmt IV/PO hydration electrolyte correction bowel rest >> NPO + IVFs bowel decompression if indicated nutritional support fu CT AP with contrast >> serial imaging prn ppi fu labs Discussed with Dr. Mckeon. Thank you for this patient referral, we will follow. CANDIS MCKEON 06/30/17 0834: History of Present Illness General Reason for Hospitalization: Abdominal Pain Present Illness Home Meds Reported Medications Benztropine Mesylate* (COGENTIN*) 0.5 Mg Tablet, PO, TAB 06/28/17 Pantoprazole* (PANTOPRAZOLE*) 40 Mg Tablet.dr, ORAL unknown , TAB 06/28/17 Gabapentin* (GABAPENTIN*) 300 Mg Capsule, ORAL unknown , CAP 0 Refills 06/28/17 Rosuvastatin Calcium* (CRESTOR*) 10 Mg Tablet, ORAL unknown , TAB 06/28/17 Solifenacin Succinate* (VESICARE*) 5 Mg Tablet, ORAL unknown , TAB 06/28/17 Benazepril Hcl* (BENAZEPRIL HCL*) 10 Mg Tablet, ORAL unknown , TAB 06/28/17 Amlodipine Besylate* (AMLODIPINE BESYLATE*) 2.5 Mg Tablet, ORAL unknown , TAB 06/28/17 Cephalexin* (CEPHALEXIN*) 125 Mg/5 Ml Susp.recon, ORAL unknown for 7 Days, ML 0 Refills 06/28/17 Hydrocodone Bit/Acetaminophen (VICODIN 5-300 MG TABLET) 1 Each Tablet, ORAL unknown Y for For Pain, #30 TAB 0 Refills 06/28/17 Allergies: Coded Allergies: No Known Allergies (Unverified , 06/28/17) GI: Plan Plan The patient was seen and examined at bedside and all new and available data was reviewed in the patients chart. I agree with the above findings, impression and plan. (Patient seen earlier today. Signature stamp does not reflect patient encounter time.). - MD Carolynn JacobsenDignity Health [facility] Gary N.P. Jun 29, 2017 10:39 CANDIS MCKEON Jun 30, 2017 08:34
--- NOTE | 2017-06-29 11:07 | Wound Nurse Progress Note ---
Wound RN Progress Note Wound Consult FOLLOW UP WITH MD for further orders regarding surgical sites. MELE CLEMONS Jun 29, 2017 11:07
[2017-06-29] MEDS: Ketorolac 30mg Inj IV PRN (11:17)
--- NOTE | 2017-06-29 11:35 | Pulmonology Progress Note ---
Assessment/Plan Assessment/Plan ASSESSMENT: 71 F smoker h/o HTN, HL and DM POD 3 S/P elective lap bridget p/w epigastric pain , N/V, cough and SOB concerning for acute intra-abdominal pathology, clinically not presenting with acute abdomen but imaging inconclusive for perforation. She has become progressively more hypoxemic last 24 hours, concern Re: pulmonary edema vs atelectasis vs VE/PTE, does not clinically appear infected. PROBLEM LIST: -Hypoxemic RF likely 2/2 atx vs edema vs VTE, doubt PNA -POD 3 S/P lap bridget -Abd pain/N/V, R/O perf -Cough, likely 2/2 atelectasis -Abnormal renal function, ELIDIA on likely CKD -DM, HTN, HL PLAN: -STAT CXR and ABG -FC to be placed, ELIDIA needs to be w/u, consider renal consult -TTE, BNP, monitor volumes -F/U DUPLEX -F/U GI and surgery recs -Supportive care: pain control, anti-emetic therapy, serial abdominal exam -Optimize pulmonary hygiene/mobilize as tolerated -RTC and PRN DUOnebs -Incentive spirometry -Continue Abx, F/U Cx's -NPO -DVT Px: LMWH Subjective Allergies: Coded Allergies: No Known Allergies (Unverified , 06/28/17) Subjective Inc O2 needs --> now on 8L VM, + SOB, no cough, no F/C, no CP UO unrecorded but states voided this am, BUN/CR 51/3.1 + pain, no N/V, hungry, no F/C Objective Last 24 Hour Vital Signs Date Time Temp Pulse Resp B/P (MAP) Pulse Ox O2 Delivery O2 Flow Rate FiO2 06/29/17 08:42 103 20 98 Venturi Mask 8.0 40 06/29/17 08:36 98 Venturi Mask 8.0 40 06/29/17 08:36 Venturi Mask 8.0 40 06/29/17 08:36 102 22 98 Venturi Mask 8.0 40 06/29/17 08:15 97.4 109 21 100/67 94 06/29/17 06:17 112 Venturi Mask 8.0 06/29/17 05:37 98.2 06/29/17 04:00 98.2 117 22 115/73 94 06/29/17 02:19 112 20 97 Venturi Mask 8.0 40 06/29/17 02:04 105 22 94 Venturi Mask 8.0 40 06/29/17 01:14 106 100/50 06/29/17 00:00 98.1 107 20 93/57 98 06/29/17 00:00 Venturi Mask 10.0 06/28/17 20:10 108 20 94 Venturi Mask 8.0 40 06/28/17 20:00 Nasal Cannula 3.0 06/28/17 20:00 98.6 111 20 108/57 94 06/28/17 19:55 Nasal Cannula 2.0 28 06/28/17 19:55 97 22 91 Nasal Cannula 2.0 28 06/28/17 19:55 91 Nasal Cannula 2.0 28 06/28/17 19:11 97.6 06/28/17 16:13 97.6 101 20 118/59 95 06/28/17 16:00 Nasal Cannula 2.0 06/28/17 15:50 118 26 93 Nasal Cannula 2.0 28 06/28/17 15:40 118 26 93 Nasal Cannula 2.0 28 06/28/17 15:40 28 06/28/17 15:40 118 26 Nasal Cannula 2.0 28 06/28/17 12:00 Nasal Cannula 2.0 06/28/17 11:54 97.9 109 21 124/47 95 General Appearance: other - mild distress, AAOX3 HEENT: normocephalic, atraumatic, mucous membranes moist, other - MP 4 Respiratory/Chest: chest wall non-tender, lungs clear, crackles/rales - BiB rales Cardiovascular: normal peripheral pulses, normal rate, regular rhythm Abdomen: normal bowel sounds, distended, tender Extremities: no cyanosis, other - Trace MT Laboratory Tests 06/28/17 16:02: Arterial Blood pH 7.350, Arterial Blood Partial Pressure CO2 36.7, Arterial Blood Partial Pressure O2 57.8L, Arterial Blood HCO3 20.7L, Arterial Blood Oxygen Saturation 89.7L, Arterial Blood Base Excess -4.8, Brandyn Test Positive 06/28/17 19:05: Total Bilirubin 0.8, Gamma Glutamyl Transpeptidase 19, Hepatitis A IgM Antibody [Pending], Hepatitis B Surface Antigen [Pending], Hepatitis B Core IgM Antibody [Pending], Hepatitis C Antibody [Pending] 06/29/17 07:30: Total Bilirubin 0.8, Sodium Level 135L, Potassium Level 4.4, Chloride Level 102 , Carbon Dioxide Level 20L, Anion Gap 14, Blood Urea Nitrogen 51H, Creatinine 3.1#H, Estimat Glomerular Filtration Rate , Glucose Level 301#H, Calcium Level 8.4L, Aspartate Amino Transf (AST/SGOT) 64H, Alanine Aminotransferase (ALT/SGPT ) 55, Alkaline Phosphatase 86, Total Protein 6.7, Albumin 2.1L, Globulin 4.6, Albumin/Globulin Ratio 0.5L, Amylase Level 59, Lipase 47L Current Medications Medications (Trade) Dose Ordered Sig/Teresa Route PRN Reason Start Time Stop Time Status Last Admin Dose Admin Acetaminophen (Tylenol) 650 mg Q4H PRN RECTAL Mild Pain (Pain Scale 1-3) 06/28/17 11:00 07/28/17 10:59 Albuterol/ Ipratropium (Albuterol/ Ipratropium) 3 ml Q4H PRN HHN Shortness of Breath 06/28/17 16:00 07/03/17 15:59 06/28/17 15:39 Albuterol/ Ipratropium (Albuterol/ Ipratropium) 3 ml Q6HRT HHN 06/28/17 19:00 07/03/17 18:59 06/29/17 08:33 Dextrose (Dextrose 50%) STAT PRN IV Hypoglycemia 06/28/17 10:00 07/28/17 09:59 Dextrose/Sodium Chloride 1,000 ml @ 100 mls/hr Q10H IV 06/28/17 10:00 07/28/17 09:59 06/29/17 05:57 Insulin Aspart (NovoLOG) Q6H SUBQ 06/28/17 12:00 07/28/17 11:59 06/29/17 05:57 Insulin Detemir (Levemir) 10 units BID SUBQ 06/28/17 18:30 07/28/17 18:29 06/29/17 09:03 Ketorolac Tromethamine (Toradol 30mg) 30 mg BIDPRN PRN IV breakthrough pain 06/28/17 18:15 07/03/17 18:14 06/29/17 11:17 Metoclopramide HCl (Reglan) 10 mg Q8H PRN IVP Nausea & Vomiting 06/28/17 11:00 07/28/17 10:59 06/28/17 11:10 Morphine Sulfate (Morphine Sulfate) 2 mg EVERY 8 HOURS PRN IVP Severe Pain (Pain Scale 7-10) 06/28/17 10:00 07/05/17 09:59 06/29/17 05:07 Pantoprazole (Protonix) 40 mg DAILY IVP 06/28/17 10:00 07/28/17 09:59 06/29/17 09:00 Piperacillin Sod/ Tazobactam Sod 3.375 gm/Dextrose 55 ml @ 13.75 mls/ hr EVERY 8 HOURS IVPB 06/28/17 14:00 07/03/17 13:59 06/29/17 05:57 VICKY GUERRERO M.D. Jun 29, 2017 11:35
[2017-06-29 12:15] VITALS: BP 106/67
--- NOTE | 2017-06-29 12:40 | Diagnostic Imaging Report ---
Indication: Dyspnea Comparison: 06/28/2017 A single view chest radiograph was obtained. Findings: Interstitial edema has improved since the last examination. Basilar atelectasis is mild at the moment. Infiltrate not entirely excluded at the left lung base. IMPRESSION: Improved CHF. Left basal infiltrate versus atelectasis
--- NOTE | 2017-06-29 12:54 | Diagnostic Imaging Report ---
Indication: Tachypnea Comparison: None A single view chest radiograph was obtained. Findings: Suspected interstitial edema with prominent vascularity although lung volumes are quite low. Heart size is prominent. IMPRESSION: Suspected CHF
[2017-06-29 15:37] LABS: HEMATOCRIT 33.6 % (37.0-47.0); HEMOGLOBIN 10.6 G/DL (12.0-16.0); MEAN CORPUSCULAR VOLUME 90 FL (80-99); PLATELET COUNT 112 K/UL (150-450); RED BLOOD COUNT 3.75 M/UL (4.20-5.40); RED CELL DISTRIBUTION WIDTH 12.8 % (11.6-14.8); WHITE BLOOD COUNT 12.2 K/UL (4.8-10.8)
--- NOTE | 2017-06-29 16:16 | Consultation ---
Consult Note Consult Note asked to eval for rising Cr Cr 1.9 to 3.1 s a 71-year-old female who had a laparoscopic cholecystectomy 2 days ago. She was discharged home and was doing well. Since then she's been vomiting. Unable to keep anything down. She was passing gas after the surgery but since then none. Complaining of diffuse abdominal pain also. Vomiting is nonbloody nonbilious. No diarrhea. No fever or chills. Past Surgical History: bridget Hx Cardiac Problems: No - hyperlipidemia Hx Hypertension: Yes Hx Diabetes: Yes Hx Gastrointestinal Problems: No - cholecystectomy Assessment/Plan Acute renal failure, post op ( done 3 days ago in [facility]) , likely multifactorial including low BP, and dehydration due to vomiting Underlying chronic renal failure due to DM and HTN with 3+ Proteinuria Other: - Acute abdomen post inpatient surgery , Lap Bridget. - Diabetes type 2, uncontrolled. - Thrombocytopenia. - Abnormal liver function test. Plan: Rocha Hydrate Monitor renal parameters Avoid Nephrotoxics- Stopped TORADOL for pain urine studies monitor renal parameters ANU FAIRBANKS Jun 29, 2017 16:16
--- NOTE | 2017-06-29 16:20 | Diagnostic Imaging Report ---
Indication: Abdominal pain Technique: Continuous helical transaxial imaging of the abdomen and pelvis was obtained from the lung bases to the pubic symphysis. No intravenous contrast was administered. Coronal 2-D reformats were also obtained. Automatic Exposure Control was utilized. Total Dose length Product (DLP): 1152.[address] Dose Index Volume (CTDIvol): 19.95 mGy Comparison: 06/29/2017 Findings: There is a small collection of contrast 3.8 x 3.3 cm in the right lower quadrant of the abdomen which is probably extraluminal (for example image 122 of series 5.). Findings are suspicious for a focus of perforated bowel with extraluminal extension of air and contrast material. The patient has had recent abdominal surgery accounting for some of the free air. However there is moderate asymmetric accumulation of air in the right anterior abdominal wall extending into the right groin which may be associated with the perforation. Please correlate clinically. There is an umbilical hernia containing fat. There is a 5 cm cyst in the right adnexa likely ovarian. Moderate arterial calcification of the aorta and iliac arteries noted. Cholecystectomy clips are present. Basilar atelectasis and/or pneumonia noted at the visualized lung bases. Small hiatal hernia is present. There is no evidence of bowel obstruction. Rocha catheter is present in good position. This is present on the initial scan but on the subsequent repeat Rocha catheter was removed. IMPRESSION: Probable extraluminal contrast collection measuring 3.8 x 3.3 cm in the right lower quadrant likely associated with perforated small bowel. Extraluminal air in the lower part of the right anterior abdominal wall and right inguinal region likely associated with this, but has improved since the previous day. Findings discussed with Dr. Patrick and Tommie critical value communication Other findings as above The CT scanner at [facility] is accredited by the [employer] and the scans are performed using dose optimization techniques as appropriate to a performed exam including Automatic Exposure control.
[2017-06-29] MEDS ORDERED: Sodium Chloride 500ML 500 ML IV ONE (16:45)
[2017-06-29] MEDS ORDERED: Nimbex 2mg/ml Inj 10ML IVP ONE (17:00)
[2017-06-29] MEDS ORDERED: LR 1000ml ONE (17:00)
[2017-06-29] MEDS ORDERED: Propofol 200mg/20ml IV ONE (17:00)
[2017-06-29] MEDS ORDERED: Midazolam 2mg/2ml Inj ONE ×2 (17:00)
[2017-06-29] MEDS ORDERED: fentaNYL 100 mcg/2 mL IV ONE (17:00)
[2017-06-29] MEDS ORDERED: Sodium Chloride 500ML 550 ML IV ONE (17:15)
[2017-06-29] MEDS ORDERED: NeoSporin Gu Irrig 1ml Amp IRRIG ONE ×2 (19:06→20:57)
[2017-06-29] MEDS ORDERED: Bacitracin 50000 Units Vial ONE ×2 (19:06→20:57)
--- NOTE | 2017-06-29 19:13 | General Progress Note ---
Assessment/Plan Problem List: (1) Hyperglycemia due to type 2 diabetes mellitus ICD Codes: E11.65 - Type 2 diabetes mellitus with hyperglycemia SNOMED: 144318719464160, [id number] Qualifiers: Qualified Codes: E11.65 - Type 2 diabetes mellitus with hyperglycemia (2) Postoperative ileus ICD Codes: K91.89 - Other postprocedural complications and disorders of digestive system; K56.7 - Ileus, unspecified SNOMED: 278813727, 685013724 (3) Intractable vomiting with nausea ICD Codes: R11.2 - Nausea with vomiting, unspecified SNOMED: 654034218, [id number] Qualifiers: Qualified Codes: R11.2 - Nausea with vomiting, unspecified (4) ELIDIA (acute kidney injury) ICD Codes: N17.9 - Acute kidney failure, unspecified SNOMED: 86124971 Assessment/Plan increase Levemir to 16 units bid continue Novolog sliding scale every 6 hours Subjective Allergies: Coded Allergies: No Known Allergies (Unverified , 06/28/17) All Systems: reviewed and negative except above Subjective events noted Objective Last 24 Hour Vital Signs Date Time Temp Pulse Resp B/P (MAP) Pulse Ox O2 Delivery O2 Flow Rate FiO2 06/29/17 15:28 98.1 06/29/17 14:04 84 22 98 Nasal Cannula 4.0 36 06/29/17 14:00 93 Nasal Cannula 4.0 06/29/17 13:57 84 22 94 Nasal Cannula 3.0 32 06/29/17 12:15 98.1 77 20 106/67 99 06/29/17 12:00 Venturi Mask 8.0 06/29/17 11:47 98.1 06/29/17 08:42 103 20 98 Venturi Mask 8.0 40 06/29/17 08:36 98 Venturi Mask 8.0 40 06/29/17 08:36 Venturi Mask 8.0 40 06/29/17 08:36 102 22 98 Venturi Mask 8.0 40 06/29/17 08:15 97.4 109 21 100/67 94 06/29/17 08:00 Venturi Mask 8.0 06/29/17 06:17 112 Venturi Mask 8.0 06/29/17 04:00 98.2 117 22 115/73 94 06/29/17 02:19 112 20 97 Venturi Mask 8.0 40 06/29/17 02:04 105 22 94 Venturi Mask 8.0 40 06/29/17 01:14 106 100/50 06/29/17 00:00 98.1 107 20 93/57 98 06/29/17 00:00 Venturi Mask 10.0 06/28/17 20:10 108 20 94 Venturi Mask 8.0 40 06/28/17 20:00 Nasal Cannula 3.0 06/28/17 20:00 98.6 111 20 108/57 94 06/28/17 19:55 Nasal Cannula 2.0 28 06/28/17 19:55 97 22 91 Nasal Cannula 2.0 28 06/28/17 19:55 91 Nasal Cannula 2.0 28 Intake and Output 06/29/17 06/30/17 19:00 07:00 Output Total 100 ml Balance -100 ml Output Urine Total 100 ml Laboratory Tests 06/29/17 07:30: Sodium Level 135L, Potassium Level 4.4, Chloride Level 102, Carbon Dioxide Level 20L, Anion Gap 14, Blood Urea Nitrogen 51H, Creatinine 3.1#H, Estimat Glomerular Filtration Rate , Glucose Level 301#H, Calcium Level 8.4L, Total Bilirubin 0.8, Aspartate Amino Transf (AST/SGOT) 64H, Alanine Aminotransferase ( ALT/SGPT) 55, Alkaline Phosphatase 86, Total Protein 6.7, Albumin 2.1L, Globulin 4.6, Albumin/Globulin Ratio 0.5L, Amylase Level 59, Lipase 47L 06/29/17 14:50: White Blood Count 12.2H, Red Blood Count 3.75L, Hemoglobin 10.6L, Hematocrit 33.6L, Mean Corpuscular Volume 90, Mean Corpuscular Hemoglobin 28.3, Mean Corpuscular Hemoglobin Concent 31.5L, Red Cell Distribution Width 12.8, Platelet Count 112L, Mean Platelet Volume 12.1H, Neutrophils (%) (Auto) , Lymphocytes (%) (Auto) , Monocytes (%) (Auto) , Eosinophils (%) (Auto) , Basophils (%) (Auto) , Differential Total Cells Counted 100, Neutrophils % ( Manual) 68, Lymphocytes % (Manual) 13L, Monocytes % (Manual) 4, Eosinophils % ( Manual) 3, Basophils % (Manual) 0, Band Neutrophils 12H, Platelet Estimate DecreasedL, Platelet Morphology Normal, Hypochromasia 1+, Anisocytosis 1+, D- Dimer 17.47H, Lactic Acid Level 1.70, Pro-B-Type Natriuretic Peptide 266H 06/29/17 15:00: Urine Random Sodium 22 Height (Feet): 5 Height (Inches): 8.00 Weight (Pounds): 267 General Appearance: no apparent distress EENT: pale conjunctivae Neck: normal alignment Cardiovascular: normal rate Respiratory/Chest: decreased breath sounds Abdomen: hypoactive bowel sounds Pelvis: normal external exam Edema: 1+ Arm (L), 1+ Arm (R), 1+ Leg (L), 1+ Leg (R), 1+ Pedal (L), 1+ Pedal ( R), 1+ Generalized Objective Current Medications Medications (Trade) Dose Ordered Sig/Teresa Route PRN Reason Start Time Stop Time Status Last Admin Dose Admin Acetaminophen (Tylenol) 650 mg Q4H PRN RECTAL Mild Pain (Pain Scale 1-3) 06/28/17 11:00 07/28/17 10:59 Albuterol/ Ipratropium (Albuterol/ Ipratropium) 3 ml Q4H PRN HHN Shortness of Breath 06/28/17 16:00 07/03/17 15:59 06/28/17 15:39 Albuterol/ Ipratropium (Albuterol/ Ipratropium) 3 ml Q6HRT HHN 06/28/17 19:00 07/03/17 18:59 06/29/17 13:57 Dextrose (Dextrose 50%) STAT PRN IV Hypoglycemia 06/28/17 10:00 07/28/17 09:59 Dextrose/Sodium Chloride 1,000 ml @ 100 mls/hr Q10H IV 06/28/17 10:00 07/28/17 09:59 06/29/17 05:57 Enoxaparin Sodium (Lovenox) 60 mg DAILY SUBQ 06/30/17 09:00 07/30/17 08:59 Insulin Aspart (NovoLOG) Q6H SUBQ 06/28/17 12:00 07/28/17 11:59 06/29/17 13:33 Insulin Detemir (Levemir) 10 units BID SUBQ 06/28/17 18:30 07/28/17 18:29 06/29/17 09:03 Metoclopramide HCl (Reglan) 10 mg Q8H PRN IVP Nausea & Vomiting 06/28/17 11:00 07/28/17 10:59 06/28/17 11:10 Morphine Sulfate (Morphine Sulfate) 2 mg EVERY 8 HOURS PRN IVP Severe Pain (Pain Scale 7-10) 06/28/17 10:00 07/05/17 09:59 06/29/17 14:58 Pantoprazole (Protonix) 40 mg Q12HR IVP 06/29/17 21:00 07/28/17 09:59 Piperacillin Sod/ Tazobactam Sod 3.375 gm/Dextrose 55 ml @ 13.75 mls/ hr Q12HR IVPB 06/29/17 21:00 07/06/17 20:59 Item Value Date Time Bedside Blood Glucose 229 mg/dl H 06/29/17 1800 Bedside Blood Glucose 304 mg/dl H 06/29/17 1333 Bedside Blood Glucose 348 mg/dl H 06/29/17 0903 Bedside Blood Glucose 348 mg/dl H 06/29/17 0617 Bedside Blood Glucose 299 mg/dl H 06/29/17 0036 Bedside Blood Glucose 311 mg/dl H 06/28/17 1904 Bedside Blood Glucose 311 mg/dl H 06/28/17 1800 Bedside Blood Glucose 351 mg/dl H 06/28/17 1443 LEANN COLE Jun 29, 2017 19:13
--- NOTE | 2017-06-29 19:22 | Pre-Procedure Note/Attestation ---
Pre-Procedure Note/Attestation Complete Prior to Procedure Planned Procedure: not applicable Procedure Narrative: Exploratory Laparotomy Indications for Procedure Pre-Operative Diagnosis: R/O perforated Bowel Attestation I attest that I discussed the nature of the procedure; its benefits; risks and complications; and alternatives (and the risks and benefits of such alternatives ), prior to the procedure, with the patient (or the patient's legal sales representative malt liquors). I attest that, if there was a reasonable possibility of needing a blood transfusion, the patient (or the patient's legal sales representative malt liquors) was given the [facility] standardized written summary, pursuant to the [place] Blood Safety Act ([place] Health and Safety Code # 1645, as amended). I attest that I re-evaluated the patient just prior to the surgery and that there has been no change in the patient's H&P, except as documented below: KIRT BECK Jun 29, 2017 19:22
[2017-06-29] MEDS ORDERED: LORazepam Inj 2mg/ml 1ml IV PRN ×2 (21:00→23:45)
[2017-06-29] MEDS ORDERED: Hydromorphone 0.5mg/0.5ml inj IVP PRN ×2 (21:00→22:15)
[2017-06-29] MEDS ORDERED: Piperacillin/Tazobactam 3.375 GM in D5W 55 ML IVPB SCH ×2 (21:00→22:15)
[2017-06-29] MEDS ORDERED: DiphenhydrAMINE 50mg/ml Inj IVP PRN ×2 (21:00→23:45)
[2017-06-29] MEDS ORDERED: Pantoprazole Inj IVP SCH (21:00)
--- NOTE | 2017-06-29 21:02 | Anethesia Preoperative Eval ---
Anesthesia Pre-op PMH/ROS General Date of Evaluation: Jun 29, 2017 Time of Evaluation: 19:00 Anesthesiologist: Steve ASA Score: ASA 4 Mallampati Score Class I : Soft palate, uvula, fauces, pillars visible Class II: Soft palate, uvula, fauces visible Class III: Soft palate, base of uvula visible Class IV: Only hard plate visible Mallampati Classification: Class IV Surgeon: Celina Diagnosis: Perforated bowel Surgical Procedure: Exploratory laparotomy, SB repair Family History: no anesthesia problems Allergies: Coded Allergies: No Known Allergies (Unverified , 06/28/17) Medications: see eMAR Past Medical History Cardiovascular: Reports: HTN, Denies: CAD, [place], valve dz, arrhythmia, other Pulmonary: Denies: asthma, COPD, GE[place]GINA, other Gastrointestinal/Genitourinary: Reports: other - ARF, Denies: GERD, CRI, ESRD Neurologic/Psychiatric: Denies: dementia, CVA, depression/anxiety, TIA, other Endocrine: Reports: DM, Denies: hypothyroidism, steroids, other HEENT: Denies: cataract (L), cataract (R), glaucoma, [place] (L), [place] (R), other Hematology/Immune: Denies: anemia, DVT, bleeding disorder, other Other: obesity PMH Narrative: HTN, DM, Morbid obesity, oxygen dependent, s/p lap bridget, now with perforated small bowel PSxH Narrative: Lap bridget, Hysterectomy Anesthesia Pre-op Phys. Exam Physician Exam Last Vital Signs Date Time Temp Pulse Resp B/P (MAP) Pulse Ox O2 Delivery O2 Flow Rate FiO2 06/29/17 19:40 Nasal Cannula 3.0 32 06/29/17 15:28 98.1 06/29/17 14:04 84 22 98 06/29/17 12:15 106/67 Constitutional: other - Patient is on NC oxygen and is tachypneic Neurologic: CN 2-12 intact Respiratory: other - Oxygen dependent, NC O2, tachypneic, hypoxic (SaO2= 89% on 4L NCO2), using accessory muscles Gastrointestinal: other - Distended, tender Airway Exam Mallampati Score: Class IV MO: full ROM: full Teeth: intact Anesthesia Pre-op A/P Labs Hematology Test 06/29/17 14:50 White Blood Count 12.2 K/UL (4.8-10.8) H Red Blood Count 3.75 M/UL (4.20-5.40) L Hemoglobin 10.6 G/DL (12.0-16.0) L Hematocrit 33.6 % (37.0-47.0) L Mean Corpuscular Volume 90 FL (80-99) Mean Corpuscular Hemoglobin 28.3 PG (27.0-31.0) Mean Corpuscular Hemoglobin Concent 31.5 G/DL (32.0-36.0) L Red Cell Distribution Width 12.8 % (11.6-14.8) Platelet Count 112 K/UL (150-450) L Mean Platelet Volume 12.1 FL (6.5-10.1) H Neutrophils (%) (Auto) % (45.0-75.0) Lymphocytes (%) (Auto) % (20.0-45.0) Monocytes (%) (Auto) % (1.0-10.0) Eosinophils (%) (Auto) % (0.0-3.0) Basophils (%) (Auto) % (0.0-2.0) Differential Total Cells Counted 100 Neutrophils % (Manual) 68 % (45-75) Lymphocytes % (Manual) 13 % (20-45) L Monocytes % (Manual) 4 % (1-10) Eosinophils % (Manual) 3 % (0-3) Basophils % (Manual) 0 % (0-2) Band Neutrophils 12 % (0-8) H Platelet Estimate Decreased L Platelet Morphology Normal Hypochromasia 1+ Anisocytosis 1+ Coagulation Test 06/29/17 14:50 D-Dimer 17.47 mg/L FEU (0.00-0.49) H Chemistry Test 06/29/17 07:30 06/29/17 14:50 Sodium Level 135 MMOL/L (136-145) L Potassium Level 4.4 MMOL/L (3.5-5.1) Chloride Level 102 MMOL/L (98-107) Carbon Dioxide Level 20 MMOL/L (21-32) L Anion Gap 14 mmol/L (5-15) Blood Urea Nitrogen 51 mg/dL (7-18) H Creatinine 3.1 MG/DL (0.55-1.30) #H Estimat Glomerular Filtration Rate mL/min (>60) Glucose Level 301 MG/DL (74-106) #H Calcium Level 8.4 MG/DL (8.5-10.1) L Total Bilirubin 0.8 MG/DL (0.2-1.0) Aspartate Amino Transf (AST/SGOT) 64 U/L (15-37) H Alanine Aminotransferase (ALT/SGPT) 55 U/L (12-78) Alkaline Phosphatase 86 U/L (46-116) Total Protein 6.7 G/DL (6.4-8.2) Albumin 2.1 G/DL (3.4-5.0) L Globulin 4.6 g/dL Albumin/Globulin Ratio 0.5 (1.0-2.7) L Amylase Level 59 U/L (25-115) Lipase 47 U/L (73-393) L Lactic Acid Level 1.70 mmol/L (0.66-2.22) Pro-B-Type Natriuretic Peptide 266 pg/mL (0-125) H Studies Pre-op Studies: other - CT abdomen- free air suspicious of bowel perforation Risk Assessment & Plan Assessment: Class 4 patient for emergency exploratory laparotomy. Plan: GETA, transfer directly to ICU intubated. Status Change Before Surgery: No Pre-Antibiotics Drug: Patient on antibiotics THUAN PEREZ M.D. Jun 29, 2017 21:02
--- NOTE | 2017-06-29 21:03 | Immediate Post-Op Evaluation ---
Immediate Post-Op Evalulation Immediate Post-Op Evalulation Procedure: Exploratory laparotomy, repair of small bowel perforation Date of Evaluation: Jun 29, 2017 Time of Evaluation: 23:00 IV Fluids: 4400 Estimated Blood Loss: 50 Urinary Output: 100 Blood Pressure Systolic: 136 Blood Pressure Diastolic: 44 Pulse Rate: 98 Respiratory Rate: 16 O2 Sat by Pulse Oximetry: 100 Pain Score (1-10): 0 Nausea: No Vomiting: No Complications No complication Patient Status: no response, ventilated, none Hydration Status: adequate Drug: None THUAN PEREZ M.D. Jun 29, 2017 21:03
[2017-06-29] MEDS ORDERED: LR 1000ml 1,000 ML IVLG SCH ×2 (21:30→23:45)
[2017-06-29] MEDS ORDERED: D5 1/2NS w/KCl 20mEq 1,000 ML IV SCH ×2 (22:10→23:45)
--- NOTE | 2017-06-29 22:10 | Brief Operative Note ---
Immediate Post Operative Note Operative Note Pre-op Diagnosis: R/O perforated Bowel Procedure: Exploratory Laparotomy, Small Bowel resection with primary anastomosis, Lysis of adhesions , Drainage of intra abdominal abscess Post-op Diagnosis: perforated small bowel and intra abdominal abscess Surgeon: MD Barry [employer] Supervisor: none Anesthesiologist: Dr. Stephenson Anesthesia: general Specimen: yes Complications: none Condition: stable Fluids: per anesthesialogist Estimated Blood Loss: volume - 100 Drains: BAKARI Implant(s) used?: No KIRT BECK Jun 29, 2017 22:10
[2017-06-29] MEDS ORDERED: Metoclopramide 10mg/2ml Inj IVP PRN (22:15)
[2017-06-29] MEDS ORDERED: Acetaminophen 650 MG SUPP RECTAL PRN (22:15)
[2017-06-29] MEDS ORDERED: HYDROmorphone 1mg/ml Carpuject IVP PRN (22:15)
--- NOTE | 2017-06-29 22:44 | 48 Hour Post Anesthesia Eval ---
Post Anesthesia Evaluation Procedure: Exploratory laparotomy, repair of small bowel perforation Date of Evaluation: Jun 29, 2017 Time of Evaluation: 23:30 Blood Pressure Systolic: 133 0: 52 Pulse Rate: 108 Respiratory Rate: 12 O2 Sat by Pulse Oximetry: 100 Airway: other - Vent-550/12/30%/Peep 5. Nausea: No Vomiting: No Pain Intensity: 0 Hydration Status: adequate Cardiopulmonary Status: Stable Mental Status/LOC: other - Patient intubated. To be evaluated for extubation tomorrow. Follow-up Care/Observations: As per surgery and ICU Post-Anesthesia Complications: No anesthetic complication Follow-up care needed: N/A THUAN PEREZ M.D. Jun 29, 2017 22:44
[2017-06-29 23:00] VITALS: BP 100/40
[2017-06-29] MEDS ORDERED: D5NS 1,000 ML IV SCH (23:45)
[2017-06-30] VITALS (25 sets, daily range): BP systolic 80–119; BP diastolic 30–54
[2017-06-30] MEDS ORDERED: NovoLOG Insulin Flexpen SUBQ SCH
[2017-06-30] MEDS ORDERED: Albuterol/Ipratropium 3ml neb HHN PRN
[2017-06-30] MEDS: NovoLOG Insulin Flexpen SUBQ SCH ×4 (00:29→17:35)
[2017-06-30] MEDS ORDERED: HYDROmorphone 1mg/ml Carpuject IVP PRN (01:15)
[2017-06-30] MEDS: Albuterol/Ipratropium 3ml neb HHN SCH ×4 (01:52→19:00)
[2017-06-30] MEDS ORDERED: Acetaminophen 650 MG SUPP RECTAL PRN (02:15)
--- NOTE | 2017-06-30 02:15 | Operative Note - Dictated ---
DATE OF OPERATION: 06/29/2017 PREOPERATIVE DIAGNOSIS: Rule out perforated bowel. POSTOPERATIVE DIAGNOSIS: Perforated small bowel with intra-abdominal abscess. OPERATIONS: 1. Exploratory laparotomy. 2. Small bowel resection and primary anastomosis. 3. Lysis of the adhesion. 4. Drainage of the intra-abdominal abscess. COMPLICATIONS: None. SURGEON: Mario Patrick M.D. WEB SERVICES MANAGER: None. ANESTHESIA: General with endotracheal tube. ANESTHESIOLOGIST: Dr. Wilson. INDICATIONS: This is a 71-year-old female with history of diabetes, who has undergone laparoscopic cholecystectomy on 06/26/2017 at [facility]. She stated that she was discharged home the same afternoon. She had severe vomiting. Finally, she presented to our facility yesterday afternoon. The physical examination on admission showed morbidly obese female and abdomen was not tender, but at the time of the examination, the patient was under the effect of the injection, analgesic, but the abdomen was not very soft, but she had bowel sounds and she in fact had bowel movement. CBC showed WBC of 12,000 with left shift. Chemistry showed the blood glucose over 400 and the CAT scan of the abdomen showed extraluminal air, which the radiologist was not sure about the location. I had a long discussion with the radiologist about this air, the source of which was not very clear, but this was located at right lower quadrant and extended in the subcutaneous. As I felt that that was probably the cause of the perforation of the bowel with a Veress needle, we decided to order CAT scan with p.o. contrast and rectal contrast. This study was finally performed today, which was reported possible perforated small bowel, but the patient developed drainage of the bilious fluid from the incision below the umbilicus. It should be noted that this patient has had hysterectomy before and she has a scar of the incision, which extends from above the umbilicus to pubis and for the laparoscopic cholecystectomy. It seemed that the trocar was placed below the umbilicus through the scar tissue. As the patient had drainage of the bilious fluid, the decision was made to go ahead with exploratory laparotomy. The risks and benefits were explained to the patient. DESCRIPTION OF PROCEDURE: The patient was placed supine on the operating table and after general anesthesia with endotracheal tube, the abdomen was properly prepped and draped. A midline incision was given above the umbilicus and was extended all the way to the pubis. Later, I had to extend this incision cephalad. The intra-abdominal cavity was entered and it was noticed that there was extensive adhesion of the omentum to the posterior aspect of the anterior abdominal wall and the patient had a large amount of bilious fluid. The adhesion of the omentum was released and the intra-abdominal cavity was entered. The patient had extensive adhesion, but anyway gradually initially the omentum was released from over the small bowel and it was noticed that the patient had perforation of the small bowel with small bowel feces in the area. After this, the adhesion of the small bowel to the pelvis was gradually released with sharp dissection. During this procedure, the laceration in the small bowel was extended, but anyway after extensive lysis of the adhesion, the loop of the bowel, which was perforated was completely exposed and as far as possible, the small bowel was released. The perforated area was ligated and transected with the help of the RYLAN stapler. The mesentery was ligated with #0 silk and the perforated part was removed. The end-to-end functional anastomosis was performed with a RYLAN stapler and the mesentery was repaired with multiple interrupted suture of 3-0 silk. Further exploration was performed and large abscess containing the bilious fluid was discovered in the right lower quadrant, which was completely drained. The intra-abdominal cavity was thoroughly irrigated with antibiotic solution and the infected part was debrided as much as possible. Again, the area was copiously irrigated with antibiotic solution. A Bernardo drain was placed in the area of the abscess on the right lower quadrant and extended into the pelvis and was brought out from the separate stab wound at the left lower quadrant of the abdomen. After this, the incision was approximated with running suture of #1 Prolene. The skin was approximated with multiple skin piper. Prior to this, the umbilicus and the infected incision below the umbilicus was removed. After the closure of the incision, the incision was packed in between the piper with the iodoform new gauze. The patient tolerated the procedure very well and was transferred to ICU intubated. The sponge and needle count correct. Estimated blood loss 100 mL. Condition of the patient at the end of procedure is stable. Mario Patrick M.D. DR: Mata JOB#: [id number] CC:
[2017-06-30] MEDS ORDERED: Metoclopramide 10mg/2ml Inj IVP PRN (04:15)
[2017-06-30 05:22] LABS: HEMATOCRIT 28.9 % (37.0-47.0); HEMOGLOBIN 9.2 G/DL (12.0-16.0); MEAN CORPUSCULAR VOLUME 90 FL (80-99); PLATELET COUNT 115 K/UL (150-450); RED CELL DISTRIBUTION WIDTH 12.8 % (11.6-14.8); WHITE BLOOD COUNT 9.3 K/UL (4.8-10.8)
[2017-06-30 05:54] LABS: CREATINE KINASE 1039 U/L (26-308); GAMMA GLUTAMYL TRANSPEPTIDASE 23 U/L (5-85); PHOSPHORUS 4.2 MG/DL (2.5-4.9)
[2017-06-30 05:57] LABS: ALANINE AMINOTRANSFERASE 62 U/L (12-78); ALBUMIN 1.8 G/DL (3.4-5.0); ALBUMIN/GLOBULIN RATIO 0.4 (1.0-2.7); ALKALINE PHOSPHATASE 78 U/L (46-116); ANION GAP 10 mmol/L (5-15); ASPARTATE AMINO TRANSFERASE 70 U/L (15-37); BILIRUBIN,TOTAL 0.8 MG/DL (0.2-1.0); BLOOD UREA NITROGEN 57 mg/dL (7-18); CALCIUM 7.9 MG/DL (8.5-10.1); CARBON DIOXIDE 22 MMOL/L (21-32); CHLORIDE 105 MMOL/L (98-107); CREATININE 3.5 MG/DL (0.55-1.30); POTASSIUM 3.8 MMOL/L (3.5-5.1); SODIUM 137 MMOL/L (136-145)
[2017-06-30] MEDS ORDERED: Piperacillin/Tazobactam 3.375 GM in D5W 55 ML IVPB SCH (06:00)
[2017-06-30] MEDS ORDERED: Morphine Sulfate 2mg/ml Inj IVP PRN (06:00)
[2017-06-30] MEDS: Hydromorphone 0.5mg/0.5ml inj IVP PRN ×2 (06:01→22:52)
[2017-06-30] MEDS ORDERED: Sodium Chloride 500ML 500 ML IV PRN (06:45)
--- NOTE | 2017-06-30 08:31 | General Progress Note ---
Assessment/Plan Status: stable, unchanged Assessment/Plan 1. Acute abdomen 2- RLL abdominal Abcess secondary to Iatrogenic SB perforation 3- S/P Expl Lap and SB resection with Primary Anastomosis, POST OP #1 2. Diabetes type 2, uncontrolled. 3. Renal failure, age indeterminate. 4. Thrombocytopenia. 5. Abnormal liver function test. 7. Asthma 8. Abnormal BNP, pending Echo 6. Gastrointestinal and deep vein thrombosis prophylaxes. Plan: Surgeon GI notes are reviewed Discussed the care with surgeon Worsening Renal Function, Nephro will follows. Subjective ROS Limited/Unobtainable: Yes Allergies: Coded Allergies: No Known Allergies (Unverified , 06/28/17) Objective Last 24 Hour Vital Signs Date Time Temp Pulse Resp B/P (MAP) Pulse Ox O2 Delivery O2 Flow Rate FiO2 06/30/17 08:06 113 20 99 Mechanical Ventilator 45 06/30/17 07:53 115 21 98 Mechanical Ventilator 45 06/30/17 07:50 117 24 45 06/30/17 07:00 114 20 86/38 100 Mechanical Ventilator 50 06/30/17 06:31 98.7 06/30/17 06:00 114 20 101/41 100 Mechanical Ventilator 50 06/30/17 05:53 118 20 50 06/30/17 05:00 117 24 114/43 100 Mechanical Ventilator 50 06/30/17 04:00 98.7 120 24 108/53 100 Mechanical Ventilator 50 06/30/17 04:00 50 06/30/17 03:00 112 24 106/50 100 Mechanical Ventilator 50 06/30/17 02:40 111 20 50 06/30/17 02:00 112 24 119/44 100 Mechanical Ventilator 50 06/30/17 01:59 118 22 98 Mechanical Ventilator 50 06/30/17 01:49 110 22 97 Mechanical Ventilator 50 06/30/17 01:49 110 21 50 06/30/17 01:00 110 24 100/40 100 Mechanical Ventilator 50 06/30/17 00:52 98.1 06/30/17 00:14 50 06/30/17 00:05 116 20 50 06/30/17 00:00 110 24 100/40 100 Mechanical Ventilator 50 06/30/17 00:00 120 06/30/17 00:00 50 06/29/17 23:00 98.7 118 24 100/40 100 Mechanical Ventilator 50 06/29/17 22:44 108 12 100 12/18/17 22:40 98 16 100 06/29/17 19:40 Nasal Cannula 3.0 32 06/29/17 19:39 Nasal Cannula 3.0 32 06/29/17 19:39 Venturi Mask 8.0 40 06/29/17 19:39 8.0 40 06/29/17 15:28 98.1 06/29/17 14:04 84 22 98 Nasal Cannula 4.0 36 06/29/17 14:00 93 Nasal Cannula 4.0 06/29/17 13:57 84 22 94 Nasal Cannula 3.0 32 06/29/17 12:15 98.1 77 20 106/67 99 06/29/17 12:00 Venturi Mask 8.0 06/29/17 11:47 98.1 06/29/17 08:42 103 20 98 Venturi Mask 8.0 40 06/29/17 08:36 98 Venturi Mask 8.0 40 06/29/17 08:36 Venturi Mask 8.0 40 06/29/17 08:36 102 22 98 Venturi Mask 8.0 40 Laboratory Tests 06/29/17 14:50: White Blood Count 12.2H, Red Blood Count 3.75L, Hemoglobin 10.6L, Hematocrit 33.6L, Mean Corpuscular Volume 90, Mean Corpuscular Hemoglobin 28.3, Mean Corpuscular Hemoglobin Concent 31.5L, Red Cell Distribution Width 12.8, Platelet Count 112L, Mean Platelet Volume 12.1H, Neutrophils (%) (Auto) , Lymphocytes (%) (Auto) , Monocytes (%) (Auto) , Eosinophils (%) (Auto) , Basophils (%) (Auto) , Differential Total Cells Counted 100, Neutrophils % ( Manual) 68, Lymphocytes % (Manual) 13L, Monocytes % (Manual) 4, Eosinophils % ( Manual) 3, Basophils % (Manual) 0, Band Neutrophils 12H, Platelet Estimate DecreasedL, Platelet Morphology Normal, Hypochromasia 1+, Anisocytosis 1+, D- Dimer 17.47H, Lactic Acid Level 1.70, Pro-B-Type Natriuretic Peptide 266H 06/29/17 15:00: Urine Random Sodium 22 06/29/17 22:40: Arterial Blood pH 7.220*L, Arterial Blood Partial Pressure CO2 46.7H, Arterial Blood Partial Pressure O2 64.9L, Arterial Blood HCO3 18.7L, Arterial Blood Oxygen Saturation 89.7L, Arterial Blood Base Excess -8.7, Brandyn Test Positive 06/30/17 04:00: Urine Eosinophils [Pending] 06/30/17 04:05: White Blood Count 9.3, Red Blood Count 3.20L, Hemoglobin 9.2L, Hematocrit 28.9L , Mean Corpuscular Volume 90, Mean Corpuscular Hemoglobin 28.8, Mean Corpuscular Hemoglobin Concent 31.8L, Red Cell Distribution Width 12.8, Platelet Count 115L, Mean Platelet Volume 10.6H, Neutrophils (%) (Auto) , Lymphocytes (%) (Auto) , Monocytes (%) (Auto) , Eosinophils (%) (Auto) , Basophils (%) (Auto) , Hemoglobin A1c 9.8H, Lactic Acid Level 0.90, Uric Acid 9.8H, Phosphorus Level 4.2, Magnesium Level 1.6L, Gamma Glutamyl Transpeptidase 23, Total Creatine Kinase 1039H, C-Reactive Protein, Quantitative > 70.0H, Pro-B -Type Natriuretic Peptide 301H, Amylase Level 45, Lipase 46L, Thyroid Stimulating Hormone (TSH) 0.761 06/30/17 04:25: Sodium Level 137, Potassium Level 3.8, Chloride Level 105, Carbon Dioxide Level 22, Anion Gap 10, Blood Urea Nitrogen 57H, Creatinine 3.5H, Estimat Glomerular Filtration Rate , Glucose Level 198#H, Calcium Level 7.9L, Total Bilirubin 0.8, Aspartate Amino Transf (AST/SGOT) 70H, Alanine Aminotransferase (ALT/SGPT) 62, Alkaline Phosphatase 78, Total Protein 5.9L, Albumin 1.8L, Globulin 4.1, Albumin /Globulin Ratio 0.4L Height (Feet): 5 Height (Inches): 8.00 Weight (Pounds): 295 General Appearance: no apparent distress EENT: PERRL/EOMI Neck: supple Cardiovascular: normal rate Respiratory/Chest: rhonchi - bilaterally Abdomen: soft Extremities: non-tender, other - spontaneous movement Neurologic: other - intubated. limited exam Margarito Reilly MD Jun 30, 2017 08:30
[2017-06-30 08:42] LABS: CHOLESTEROL 64 MG/DL (< 200); HDL CHOLESTEROL 15 MG/DL (40-60); TRIGLYCERIDES 85 MG/DL (30-150)
[2017-06-30 08:54] LABS: FERRITIN 349 NG/ML (8-388)
[2017-06-30] MEDS ORDERED: Enoxaparin 40mg Inj SUBQ SCH (09:00)
[2017-06-30] MEDS ORDERED: Enoxaparin 30mg Inj SUBQ SCH (09:00)
[2017-06-30] MEDS ORDERED: Enoxaparin 60mg Inj SUBQ SCH (09:00)
[2017-06-30] MEDS ORDERED: Pantoprazole Inj IVP SCH (09:00)
[2017-06-30] MEDS ORDERED: Levemir Flexpen SUBQ SCH (09:00)
[2017-06-30] MEDS: Pantoprazole Inj IVP SCH ×2 (09:30→20:44)
[2017-06-30] MEDS: Enoxaparin 60mg Inj SUBQ SCH (09:32)
[2017-06-30] MEDS: Levemir Flexpen SUBQ SCH ×2 (09:33→17:36)
--- NOTE | 2017-06-30 09:43 | Critical Care Progress Note ---
Assessment/Plan Problem List: (1) Metabolic acidosis (2) Obesity (3) Ventilator dependent (4) Small bowel perforation (5) S/P exploratory laparotomy (6) Postoperative ileus (7) ELIDIA (acute kidney injury) (8) Hyperglycemia due to type 2 diabetes mellitus Status Narrative -VDRF -POD 4 S/P lap bridget and POD 1 S/P repeat ex-lab for SB perf -Metabolic acidosis (NAGMA) with respiratory compensation -ELIDIA, likely on CKD -DM, HTN, HL Assessment/Plan PLAN: -SBT, ABG in 30 min, possible extubation -FC to be placed, ELIDIA needs to be w/u, consider renal consult -F/U TTE -Duplex neg, elevated DD likely post-op, doubt VTE, cannot do CT in light of renal failure and VQ would be of limited utility -F/U GI and surgery recs, post-op care -F/U renal recs, IVF, consider HCO3 -Optimize pulmonary hygiene/mobilize as tolerated -RTC and PRN DUOnebs -Incentive spirometry -Continue Abx, F/U Cx's -NPO -DVT Px: LMWH Critical Care - Subjective ROS Limited/Unobtainable: Yes Intubation Day: S/P ex-lap with primary re-anastamosis for SB perf, kept intubated Condition: critical IV Access: central EKG Rhythm: Sinus Rhythm IV Fluids: NS Critical Care - Objective ET-Tube: 7.0 ET Position: 22 Last 24 Hour Vital Signs Date Time Temp Pulse Resp B/P (MAP) Pulse Ox O2 Delivery O2 Flow Rate FiO2 06/30/17 08:06 113 20 99 Mechanical Ventilator 45 06/30/17 07:53 115 21 98 Mechanical Ventilator 45 06/30/17 07:50 117 24 45 06/30/17 07:00 114 20 86/38 100 Mechanical Ventilator 50 06/30/17 06:31 98.7 06/30/17 06:00 114 20 101/41 100 Mechanical Ventilator 50 06/30/17 05:53 118 20 50 06/30/17 05:00 117 24 114/43 100 Mechanical Ventilator 50 06/30/17 04:00 98.7 120 24 108/53 100 Mechanical Ventilator 50 06/30/17 04:00 50 06/30/17 03:00 112 24 106/50 100 Mechanical Ventilator 50 06/30/17 02:40 111 20 50 12/19/17 02:00 112 24 119/44 100 Mechanical Ventilator 50 06/30/17 01:59 118 22 98 Mechanical Ventilator 50 06/30/17 01:49 110 22 97 Mechanical Ventilator 50 06/30/17 01:49 110 21 50 06/30/17 01:00 110 24 100/40 100 Mechanical Ventilator 50 06/30/17 00:52 98.1 06/30/17 00:14 50 06/30/17 00:05 116 20 50 06/30/17 00:00 110 24 100/40 100 Mechanical Ventilator 50 06/30/17 00:00 120 06/30/17 00:00 50 06/29/17 23:00 98.7 118 24 100/40 100 Mechanical Ventilator 50 06/29/17 22:44 108 12 100 06/29/17 22:40 98 16 100 06/29/17 19:40 Nasal Cannula 3.0 32 06/29/17 19:39 Nasal Cannula 3.0 32 06/29/17 19:39 Venturi Mask 8.0 40 06/29/17 19:39 8.0 40 06/29/17 15:28 98.1 06/29/17 14:04 84 22 98 Nasal Cannula 4.0 36 06/29/17 14:00 93 Nasal Cannula 4.0 06/29/17 13:57 84 22 94 Nasal Cannula 3.0 32 06/29/17 12:15 98.1 77 20 106/67 99 06/29/17 12:00 Venturi Mask 8.0 06/29/17 11:47 98.1 Status: awake Condition: improving HEENT: atraumatic, normocephalic, other - ETT, NGT Neck: no JVD Lungs: normal breath sounds Heart: normal peripheral pulses, normal rate, regular rhythm Abdomen: other - Wound dressed, + BAKARI, S, mild diffuse TTP, no R/G Extremities: other - 1+ MT, no C/C Micro: Microbiology Date/Time Source Procedure Growth Status 06/28/17 05:45 Nasal Nares MRSA Culture - Final NO METHICILLIN RESISTANT STAPH AUREUS... Complete 06/29/17 15:00 Indwelling Cath Urine Culture - Preliminary NO GROWTH Resulted 06/28/17 05:45 Rectum VRE Culture - Final NO VANCOMYCIN RESISTANT ENTEROCOCCUS ... Complete Accucheck: 214 NARAGHI,VICKY M.D. Jun 30, 2017 09:43
[2017-06-30 10:06] LABS: % IRON SATURATION 4 % (15-50); IRON 14 ug/dL (50-175); TOTAL IRON BINDING CAPACITY 326 ug/dL (250-450)
--- NOTE | 2017-06-30 12:00 | Nephrology Progress Note ---
Assessment/Plan Problem List: (1) ELIDIA (acute kidney injury) (2) Obesity (3) Small bowel perforation (4) Hyperglycemia due to type 2 diabetes mellitus (5) Anemia Assessment Acute renal failure, post op ( done 3 days ago in [facility]) , likely multifactorial including low BP, and dehydration due to vomiting Post surgery again last night, now in ICu intubated Underlying chronic renal failure due to DM and HTN with 3+ Proteinuria Other: - Acute abdomen post inpatient surgery , Lap Veronika. - Diabetes type 2, uncontrolled. - Thrombocytopenia. - Abnormal liver function test. Plan Plan: Rocha Hydrate Monitor renal parameters Avoid Nephrotoxics- Stopped TORADOL for pain urine studies monitor renal parameters antibiotics gastric support Subjective ROS Limited/Unobtainable: Yes Objective Objective Last 24 Hour Vital Signs Date Time Temp Pulse Resp B/P (MAP) Pulse Ox O2 Delivery O2 Flow Rate FiO2 06/30/17 11:32 40 06/30/17 11:02 133 26 40 06/30/17 11:00 125 20 92/54 100 Mechanical Ventilator 45 06/30/17 10:00 115 20 106/48 100 Mechanical Ventilator 45 06/30/17 09:45 45 06/30/17 09:10 119 19 45 06/30/17 09:00 114 20 97/37 100 Mechanical Ventilator 45 06/30/17 08:06 113 20 99 Mechanical Ventilator 45 06/30/17 08:00 45 06/30/17 08:00 98.7 114 20 97/43 100 Mechanical Ventilator 45 06/30/17 07:53 115 21 98 Mechanical Ventilator 45 06/30/17 07:50 117 24 45 06/30/17 07:30 50 06/30/17 07:00 114 20 86/38 100 Mechanical Ventilator 50 06/30/17 06:31 98.7 06/30/17 06:00 114 20 101/41 100 Mechanical Ventilator 50 06/30/17 05:53 118 20 50 06/30/17 05:00 117 24 114/43 100 Mechanical Ventilator 50 06/30/17 04:00 98.7 120 24 108/53 100 Mechanical Ventilator 50 06/30/17 04:00 50 06/30/17 03:00 112 24 106/50 100 Mechanical Ventilator 50 06/30/17 02:40 111 20 50 06/30/17 02:00 112 24 119/44 100 Mechanical Ventilator 50 06/30/17 01:59 118 22 98 Mechanical Ventilator 50 06/30/17 01:49 110 22 97 Mechanical Ventilator 50 06/30/17 01:49 110 21 50 06/30/17 01:00 110 24 100/40 100 Mechanical Ventilator 50 06/30/17 00:52 98.1 06/30/17 00:14 50 06/30/17 00:05 116 20 50 06/30/17 00:00 110 24 100/40 100 Mechanical Ventilator 50 06/30/17 00:00 120 06/30/17 00:00 50 06/29/17 23:00 98.7 118 24 100/40 100 Mechanical Ventilator 50 06/29/17 22:44 108 12 100 06/29/17 22:40 98 16 100 06/29/17 19:40 Nasal Cannula 3.0 32 06/29/17 19:39 Nasal Cannula 3.0 32 06/29/17 19:39 Venturi Mask 8.0 40 06/29/17 19:39 8.0 40 06/29/17 15:28 98.1 06/29/17 14:04 84 22 98 Nasal Cannula 4.0 36 06/29/17 14:00 93 Nasal Cannula 4.0 06/29/17 13:57 84 22 94 Nasal Cannula 3.0 32 06/29/17 12:15 98.1 77 20 106/67 99 06/29/17 12:00 Venturi Mask 8.0 Intake and Output 06/30/17 07/01/17 19:00 07:00 Output Total 145 ml Balance -145 ml Output Urine Total 25 ml Drainage Total 120 ml Laboratory Tests 06/29/17 14:50: White Blood Count 12.2H, Red Blood Count 3.75L, Hemoglobin 10.6L, Hematocrit 33.6L, Mean Corpuscular Volume 90, Mean Corpuscular Hemoglobin 28.3, Mean Corpuscular Hemoglobin Concent 31.5L, Red Cell Distribution Width 12.8, Platelet Count 112L, Mean Platelet Volume 12.1H, Neutrophils (%) (Auto) , Lymphocytes (%) (Auto) , Monocytes (%) (Auto) , Eosinophils (%) (Auto) , Basophils (%) (Auto) , Differential Total Cells Counted 100, Neutrophils % ( Manual) 68, Lymphocytes % (Manual) 13L, Monocytes % (Manual) 4, Eosinophils % ( Manual) 3, Basophils % (Manual) 0, Band Neutrophils 12H, Platelet Estimate DecreasedL, Platelet Morphology Normal, Hypochromasia 1+, Anisocytosis 1+, D- Dimer 17.47H, Lactic Acid Level 1.70, Pro-B-Type Natriuretic Peptide 266H 06/29/17 15:00: Urine Random Sodium 22 06/29/17 22:40: Arterial Blood pH 7.220*L, Arterial Blood Partial Pressure CO2 46.7H, Arterial Blood Partial Pressure O2 64.9L, Arterial Blood HCO3 18.7L, Arterial Blood Oxygen Saturation 89.7L, Arterial Blood Base Excess -8.7, Brandyn Test Positive 06/30/17 04:00: Urine Eosinophils None seen, Iron Level 14L, Total Iron Binding Capacity 326, Percent Iron Saturation 4L, Unsaturated Iron Binding 312, Ferritin 349, Triglycerides Level 85, Cholesterol Level 64, LDL Cholesterol 32, HDL Cholesterol 15L, Cholesterol/HDL Ratio 4.3, Vitamin B12 Level 2273H, Folate 10.0 06/30/17 04:05: White Blood Count 9.3, Red Blood Count 3.20L, Hemoglobin 9.2L, Hematocrit 28.9L , Mean Corpuscular Volume 90, Mean Corpuscular Hemoglobin 28.8, Mean Corpuscular Hemoglobin Concent 31.8L, Red Cell Distribution Width 12.8, Platelet Count 115L, Mean Platelet Volume 10.6H, Neutrophils (%) (Auto) , Lymphocytes (%) (Auto) , Monocytes (%) (Auto) , Eosinophils (%) (Auto) , Basophils (%) (Auto) , Hemoglobin A1c 9.8H, Lactic Acid Level 0.90, Uric Acid 9.8H, Phosphorus Level 4.2, Magnesium Level 1.6L, Gamma Glutamyl Transpeptidase 23, Total Creatine Kinase 1039H, C-Reactive Protein, Quantitative > 70.0H, Pro-B -Type Natriuretic Peptide 301H, Amylase Level 45, Lipase 46L, Thyroid Stimulating Hormone (TSH) 0.761 06/30/17 04:25: Sodium Level 137, Potassium Level 3.8, Chloride Level 105, Carbon Dioxide Level 22, Anion Gap 10, Blood Urea Nitrogen 57H, Creatinine 3.5H, Estimat Glomerular Filtration Rate , Glucose Level 198#H, Calcium Level 7.9L, Total Bilirubin 0.8, Aspartate Amino Transf (AST/SGOT) 70H, Alanine Aminotransferase (ALT/SGPT) 62, Alkaline Phosphatase 78, Total Protein 5.9L, Albumin 1.8L, Globulin 4.1, Albumin /Globulin Ratio 0.4L 06/30/17 09:10: Arterial Blood pH 7.329L, Arterial Blood Partial Pressure CO2 38.1, Arterial Blood Partial Pressure O2 96.4, Arterial Blood HCO3 19.6L, Arterial Blood Oxygen Saturation 96.9, Arterial Blood Base Excess -5.8, Brandyn Test Positive Height (Feet): 5 Height (Inches): 8.00 Weight (Pounds): 295 General Appearance: other - obese EENT: other - intubated on vent Cardiovascular: tachycardia Respiratory/Chest: decreased breath sounds Abdomen: distended ANU FAIRBANKS Jun 30, 2017 12:00
[2017-06-30] MEDS ORDERED: Sodium Chloride 500ML 500 ML IV ONE (12:30)
[2017-06-30] MEDS ORDERED: Iron Sucrose 200 MG in NS 110 ML IV ONE (13:30)
--- NOTE | 2017-06-30 13:49 | GI Progress Note ---
Assessment/Plan Problems: (1) Anemia ICD Codes: D64.9 - Anemia, unspecified SNOMED: 506550300 (2) Small bowel perforation ICD Codes: K63.1 - Perforation of intestine (nontraumatic) SNOMED: 829470966 (3) Obesity ICD Codes: E66.9 - Obesity, unspecified SNOMED: 510231269 (4) Perforated bowel ICD Codes: K63.1 - Perforation of intestine (nontraumatic) SNOMED: 88694477 (5) Postoperative ileus ICD Codes: K91.89 - Other postprocedural complications and disorders of digestive system; K56.7 - Ileus, unspecified SNOMED: 871488887, 073356763 (6) S/P exploratory laparotomy ICD Codes: Z98.890 - Other specified postprocedural states SNOMED: 67276687, 70722749, 737963048 Status: not improved Status Narrative Discussed with Dr. Mckeon. Assessment/Plan CT AP reviewed > perforated small bowel, see full report. fu surgical recs supportive care pain mgmt IV hydration + electrolyte correction bowel rest >> NPO + IVFs nutritional support ppi fu labs Subjective Gastrointestinal/Abdominal: Reports: abdomen distended Subjective abdominal pain Objective Last 24 Hour Vital Signs Date Time Temp Pulse Resp B/P (MAP) Pulse Ox O2 Delivery O2 Flow Rate FiO2 06/30/17 13:40 121 25 98 Mechanical Ventilator 40 06/30/17 13:40 122 26 40 06/30/17 12:00 115 06/30/17 11:32 40 06/30/17 11:02 133 26 40 06/30/17 11:00 125 20 92/54 100 Mechanical Ventilator 45 06/30/17 10:00 115 20 106/48 100 Mechanical Ventilator 45 06/30/17 09:45 45 06/30/17 09:10 119 19 45 06/30/17 09:00 114 20 97/37 100 Mechanical Ventilator 45 06/30/17 08:06 113 20 99 Mechanical Ventilator 45 06/30/17 08:00 129 06/30/17 08:00 45 06/30/17 08:00 98.7 114 20 97/43 100 Mechanical Ventilator 45 06/30/17 07:53 115 21 98 Mechanical Ventilator 45 06/30/17 07:50 117 24 45 06/30/17 07:30 50 06/30/17 07:00 114 20 86/38 100 Mechanical Ventilator 50 06/30/17 06:31 98.7 06/30/17 06:00 114 20 101/41 100 Mechanical Ventilator 50 06/30/17 05:53 118 20 50 06/30/17 05:00 117 24 114/43 100 Mechanical Ventilator 50 06/30/17 04:00 98.7 120 24 108/53 100 Mechanical Ventilator 50 06/30/17 04:00 50 06/30/17 03:00 112 24 106/50 100 Mechanical Ventilator 50 06/30/17 02:40 111 20 50 06/30/17 02:00 112 24 119/44 100 Mechanical Ventilator 50 06/30/17 01:59 118 22 98 Mechanical Ventilator 50 06/30/17 01:49 110 22 97 Mechanical Ventilator 50 06/30/17 01:49 110 21 50 06/30/17 01:00 110 24 100/40 100 Mechanical Ventilator 50 06/30/17 00:52 98.1 06/30/17 00:14 50 06/30/17 00:05 116 20 50 06/30/17 00:00 110 24 100/40 100 Mechanical Ventilator 50 06/30/17 00:00 120 06/30/17 00:00 50 06/29/17 23:00 98.7 118 24 100/40 100 Mechanical Ventilator 50 06/29/17 22:44 108 12 100 06/29/17 22:40 98 16 100 06/29/17 19:40 Nasal Cannula 3.0 32 06/29/17 19:39 Nasal Cannula 3.0 32 06/29/17 19:39 Venturi Mask 8.0 40 06/29/17 19:39 8.0 40 06/29/17 15:28 98.1 06/29/17 14:04 84 22 98 Nasal Cannula 4.0 36 06/29/17 14:00 93 Nasal Cannula 4.0 06/29/17 13:57 84 22 94 Nasal Cannula 3.0 32 Intake and Output 06/30/17 07/01/17 19:00 07:00 Output Total 145 ml Balance -145 ml Output Urine Total 25 ml Drainage Total 120 ml Laboratory Tests Test 06/29/17 14:50 06/29/17 15:00 06/29/17 22:40 06/30/17 03:00 White Blood Count 12.2 K/UL (4.8-10.8) H Red Blood Count 3.75 M/UL (4.20-5.40) L Hemoglobin 10.6 G/DL (12.0-16.0) L Hematocrit 33.6 % (37.0-47.0) L Mean Corpuscular Volume 90 FL (80-99) Mean Corpuscular Hemoglobin 28.3 PG (27.0-31.0) Mean Corpuscular Hemoglobin Concent 31.5 G/DL (32.0-36.0) L Red Cell Distribution Width 12.8 % (11.6-14.8) Platelet Count 112 K/UL (150-450) L Mean Platelet Volume 12.1 FL (6.5-10.1) H Neutrophils (%) (Auto) % (45.0-75.0) Lymphocytes (%) (Auto) % (20.0-45.0) Monocytes (%) (Auto) % (1.0-10.0) Eosinophils (%) (Auto) % (0.0-3.0) Basophils (%) (Auto) % (0.0-2.0) Differential Total Cells Counted 100 Neutrophils % (Manual) 68 % (45-75) Lymphocytes % (Manual) 13 % (20-45) L Monocytes % (Manual) 4 % (1-10) Eosinophils % (Manual) 3 % (0-3) Basophils % (Manual) 0 % (0-2) Band Neutrophils 12 % (0-8) H Platelet Estimate Decreased L Platelet Morphology Normal Hypochromasia 1+ Anisocytosis 1+ D-Dimer 17.47 mg/L FEU (0.00-0.49) H Lactic Acid Level 1.70 mmol/L (0.66-2.22) Pro-B-Type Natriuretic Peptide 266 pg/mL (0-125) H Urine Random Sodium 22 MEQ/L (20-110) Arterial Blood pH 7.220 (7.350-7.450) Arterial Blood Partial Pressure CO2 46.7 mmHg (35.0-45.0) H Arterial Blood Partial Pressure O2 64.9 mmHg (75.0-100.0) L Arterial Blood HCO3 18.7 mmol/L (22.0-26.0) L Arterial Blood Oxygen Saturation 89.7 % (92.0-98.0) L Arterial Blood Base Excess -8.7 Brandyn Test Positive Random Vancomycin Level < 2.0 ug/mL Test 06/30/17 04:00 06/30/17 04:05 06/30/17 04:25 06/30/17 09:10 Urine Eosinophils None seen Iron Level 14 ug/dL (50-175) L Total Iron Binding Capacity 326 ug/dL (250-450) Percent Iron Saturation 4 % (15-50) L Unsaturated Iron Binding 312 ug/dL (112-346) Ferritin 349 NG/ML (8-388) Triglycerides Level 85 MG/DL (30-150) Cholesterol Level 64 MG/DL (< 200) LDL Cholesterol 32 mg/dL (<100) HDL Cholesterol 15 MG/DL (40-60) L Cholesterol/HDL Ratio 4.3 (3.3-4.4) Vitamin B12 Level 2273 PG/ML (193-986) H Folate 10.0 NG/ML (8.6-58.9) White Blood Count 9.3 K/UL (4.8-10.8) Red Blood Count 3.20 M/UL (4.20-5.40) L Hemoglobin 9.2 G/DL (12.0-16.0) L Hematocrit 28.9 % (37.0-47.0) L Mean Corpuscular Volume 90 FL (80-99) Mean Corpuscular Hemoglobin 28.8 PG (27.0-31.0) Mean Corpuscular Hemoglobin Concent 31.8 G/DL (32.0-36.0) L Red Cell Distribution Width 12.8 % (11.6-14.8) Platelet Count 115 K/UL (150-450) L Mean Platelet Volume 10.6 FL (6.5-10.1) H Neutrophils (%) (Auto) % (45.0-75.0) Lymphocytes (%) (Auto) % (20.0-45.0) Monocytes (%) (Auto) % (1.0-10.0) Eosinophils (%) (Auto) % (0.0-3.0) Basophils (%) (Auto) % (0.0-2.0) Hemoglobin A1c 9.8 % (4.3-6.0) H Lactic Acid Level 0.90 mmol/L (0.66-2.22) Uric Acid 9.8 MG/DL (2.6-7.2) H Phosphorus Level 4.2 MG/DL (2.5-4.9) Magnesium Level 1.6 MG/DL (1.8-2.4) L Gamma Glutamyl Transpeptidase 23 U/L (5-85) Total Creatine Kinase 1039 U/L (26-308) H C-Reactive Protein, Quantitative > 70.0 mg/dL (0.00-0.90) H Pro-B-Type Natriuretic Peptide 301 pg/mL (0-125) H Amylase Level 45 U/L (25-115) Lipase 46 U/L (73-393) L Thyroid Stimulating Hormone (TSH) 0.761 uiU/mL (0.358-3.740) Sodium Level 137 MMOL/L (136-145) Potassium Level 3.8 MMOL/L (3.5-5.1) Chloride Level 105 MMOL/L (98-107) Carbon Dioxide Level 22 MMOL/L (21-32) Anion Gap 10 mmol/L (5-15) Blood Urea Nitrogen 57 mg/dL (7-18) H Creatinine 3.5 MG/DL (0.55-1.30) H Estimat Glomerular Filtration Rate mL/min (>60) Glucose Level 198 MG/DL (74-106) #H Calcium Level 7.9 MG/DL (8.5-10.1) L Total Bilirubin 0.8 MG/DL (0.2-1.0) Aspartate Amino Transf (AST/SGOT) 70 U/L (15-37) H Alanine Aminotransferase (ALT/SGPT) 62 U/L (12-78) Alkaline Phosphatase 78 U/L (46-116) Total Protein 5.9 G/DL (6.4-8.2) L Albumin 1.8 G/DL (3.4-5.0) L Globulin 4.1 g/dL Albumin/Globulin Ratio 0.4 (1.0-2.7) L Arterial Blood pH 7.329 (7.350-7.450) Arterial Blood Partial Pressure CO2 38.1 mmHg (35.0-45.0) Arterial Blood Partial Pressure O2 96.4 mmHg (75.0-100.0) Arterial Blood HCO3 19.6 mmol/L (22.0-26.0) L Arterial Blood Oxygen Saturation 96.9 % (92.0-98.0) Arterial Blood Base Excess -5.8 Brandyn Test Positive Microbiology Date/Time Source Procedure Growth Status 06/29/17 15:00 Indwelling Cath Urine Culture - Preliminary NO GROWTH Resulted 06/29/17 14:13 Abdomen Gram Stain - Final Resulted 06/29/17 14:13 Abdomen Wound Culture Pending Resulted Height (Feet): 5 Height (Inches): 8.00 Weight (Pounds): 295 General Appearance: WD/WN, no apparent distress, alert Cardiovascular: normal rate Respiratory/Chest: normal breath sounds, no respiratory distress Abdominal Exam: normal bowel sounds, non tender, soft, distended Extremities: normal range of motion, non-tender Luisa Pradhan N.P. Jun 30, 2017 13:49
[2017-06-30] MEDS: Acetaminophen 650 MG SUPP RECTAL PRN (14:36)
[2017-06-30] MEDS ORDERED: LR 1000ml ONE (17:00)
--- NOTE | 2017-06-30 17:47 | General Surgery Progress Note ---
General Surgery-Progress Note Subjective Procedure Performed Exploratory Laparotomy, Small Bowel resection with primary anastomosis, Lysis of adhesions , Drainage of intra abdominal abscess Objective Last 24 Hour Vital Signs Date Time Temp Pulse Resp B/P (MAP) Pulse Ox O2 Delivery O2 Flow Rate FiO2 06/30/17 17:08 111 21 45 06/30/17 17:00 99.0 108 20 93/38 98 Mechanical Ventilator 40 06/30/17 16:00 40 06/30/17 16:00 99.4 113 20 83/35 100 Mechanical Ventilator 40 06/30/17 16:00 114 06/30/17 15:53 114 21 45 06/30/17 15:06 99.0 06/30/17 15:00 113 20 97/40 100 Mechanical Ventilator 40 06/30/17 14:30 101.1 96/ 06/30/17 14:05 40 06/30/17 14:04 124 34 97 Mechanical Ventilator 40 06/30/17 14:00 114 20 80/45 100 Mechanical Ventilator 45 06/30/17 13:40 121 25 98 Mechanical Ventilator 40 06/30/17 13:40 122 26 40 06/30/17 13:00 121 20 112/48 100 Mechanical Ventilator 45 06/30/17 12:00 115 06/30/17 12:00 40 06/30/17 12:00 112 20 80/30 100 Mechanical Ventilator 45 06/30/17 11:32 40 06/30/17 11:02 133 26 40 06/30/17 11:00 125 20 92/54 100 Mechanical Ventilator 45 06/30/17 10:00 115 20 106/48 100 Mechanical Ventilator 45 06/30/17 09:45 45 06/30/17 09:10 119 19 45 06/30/17 09:00 114 20 97/37 100 Mechanical Ventilator 45 06/30/17 08:06 113 20 99 Mechanical Ventilator 45 06/30/17 08:00 129 06/30/17 08:00 45 06/30/17 08:00 98.7 114 20 97/43 100 Mechanical Ventilator 45 06/30/17 07:53 115 21 98 Mechanical Ventilator 45 06/30/17 07:50 117 24 45 06/30/17 07:30 50 06/30/17 07:00 114 20 86/38 100 Mechanical Ventilator 50 06/30/17 06:31 98.7 06/30/17 06:00 114 20 101/41 100 Mechanical Ventilator 50 06/30/17 05:53 118 20 50 06/30/17 05:00 117 24 114/43 100 Mechanical Ventilator 50 06/30/17 04:00 98.7 120 24 108/53 100 Mechanical Ventilator 50 06/30/17 04:00 50 06/30/17 03:00 112 24 106/50 100 Mechanical Ventilator 50 06/30/17 02:40 111 20 50 06/30/17 02:00 112 24 119/44 100 Mechanical Ventilator 50 06/30/17 01:59 118 22 98 Mechanical Ventilator 50 06/30/17 01:49 110 22 97 Mechanical Ventilator 50 06/30/17 01:49 110 21 50 06/30/17 01:00 110 24 100/40 100 Mechanical Ventilator 50 06/30/17 00:52 98.1 06/30/17 00:14 50 06/30/17 00:05 116 20 50 06/30/17 00:00 110 24 100/40 100 Mechanical Ventilator 50 06/30/17 00:00 120 06/30/17 00:00 50 06/29/17 23:00 98.7 118 24 100/40 100 Mechanical Ventilator 50 06/29/17 22:44 108 12 100 06/29/17 22:40 98 16 100 06/29/17 19:40 Nasal Cannula 3.0 32 06/29/17 19:39 Nasal Cannula 3.0 32 06/29/17 19:39 Venturi Mask 8.0 40 06/29/17 19:39 8.0 40 I&O Intake and Output 06/30/17 07/01/17 19:00 07:00 Output Total 175 ml Balance -175 ml Output Urine Total 55 ml Drainage Total 120 ml Dressing: dry Drains: chiquita Respiratory: clear Abdomen: soft, flat, tenderness, absent bowel sounds Extremities: no tenderness Laboratory Tests Test 06/29/17 22:40 06/30/17 03:00 06/30/17 04:00 06/30/17 04:05 Arterial Blood pH 7.220 (7.350-7.450) Arterial Blood Partial Pressure CO2 46.7 mmHg (35.0-45.0) H Arterial Blood Partial Pressure O2 64.9 mmHg (75.0-100.0) L Arterial Blood HCO3 18.7 mmol/L (22.0-26.0) L Arterial Blood Oxygen Saturation 89.7 % (92.0-98.0) L Arterial Blood Base Excess -8.7 Brandyn Test Positive Random Vancomycin Level < 2.0 ug/mL Urine Eosinophils None seen Iron Level 14 ug/dL (50-175) L Total Iron Binding Capacity 326 ug/dL (250-450) Percent Iron Saturation 4 % (15-50) L Unsaturated Iron Binding 312 ug/dL (112-346) Ferritin 349 NG/ML (8-388) Triglycerides Level 85 MG/DL (30-150) Cholesterol Level 64 MG/DL (< 200) LDL Cholesterol 32 mg/dL (<100) HDL Cholesterol 15 MG/DL (40-60) L Cholesterol/HDL Ratio 4.3 (3.3-4.4) Vitamin B12 Level 2273 PG/ML (193-986) H Folate 10.0 NG/ML (8.6-58.9) White Blood Count 9.3 K/UL (4.8-10.8) Red Blood Count 3.20 M/UL (4.20-5.40) L Hemoglobin 9.2 G/DL (12.0-16.0) L Hematocrit 28.9 % (37.0-47.0) L Mean Corpuscular Volume 90 FL (80-99) Mean Corpuscular Hemoglobin 28.8 PG (27.0-31.0) Mean Corpuscular Hemoglobin Concent 31.8 G/DL (32.0-36.0) L Red Cell Distribution Width 12.8 % (11.6-14.8) Platelet Count 115 K/UL (150-450) L Mean Platelet Volume 10.6 FL (6.5-10.1) H Neutrophils (%) (Auto) % (45.0-75.0) Lymphocytes (%) (Auto) % (20.0-45.0) Monocytes (%) (Auto) % (1.0-10.0) Eosinophils (%) (Auto) % (0.0-3.0) Basophils (%) (Auto) % (0.0-2.0) Hemoglobin A1c 9.8 % (4.3-6.0) H Lactic Acid Level 0.90 mmol/L (0.66-2.22) Uric Acid 9.8 MG/DL (2.6-7.2) H Phosphorus Level 4.2 MG/DL (2.5-4.9) Magnesium Level 1.6 MG/DL (1.8-2.4) L Gamma Glutamyl Transpeptidase 23 U/L (5-85) Total Creatine Kinase 1039 U/L (26-308) H C-Reactive Protein, Quantitative > 70.0 mg/dL (0.00-0.90) H Pro-B-Type Natriuretic Peptide 301 pg/mL (0-125) H Amylase Level 45 U/L (25-115) Lipase 46 U/L (73-393) L Thyroid Stimulating Hormone (TSH) 0.761 uiU/mL (0.358-3.740) Test 06/30/17 04:25 06/30/17 09:10 Sodium Level 137 MMOL/L (136-145) Potassium Level 3.8 MMOL/L (3.5-5.1) Chloride Level 105 MMOL/L (98-107) Carbon Dioxide Level 22 MMOL/L (21-32) Anion Gap 10 mmol/L (5-15) Blood Urea Nitrogen 57 mg/dL (7-18) H Creatinine 3.5 MG/DL (0.55-1.30) H Estimat Glomerular Filtration Rate mL/min (>60) Glucose Level 198 MG/DL (74-106) #H Calcium Level 7.9 MG/DL (8.5-10.1) L Total Bilirubin 0.8 MG/DL (0.2-1.0) Aspartate Amino Transf (AST/SGOT) 70 U/L (15-37) H Alanine Aminotransferase (ALT/SGPT) 62 U/L (12-78) Alkaline Phosphatase 78 U/L (46-116) Total Protein 5.9 G/DL (6.4-8.2) L Albumin 1.8 G/DL (3.4-5.0) L Globulin 4.1 g/dL Albumin/Globulin Ratio 0.4 (1.0-2.7) L Arterial Blood pH 7.329 (7.350-7.450) Arterial Blood Partial Pressure CO2 38.1 mmHg (35.0-45.0) Arterial Blood Partial Pressure O2 96.4 mmHg (75.0-100.0) Arterial Blood HCO3 19.6 mmol/L (22.0-26.0) L Arterial Blood Oxygen Saturation 96.9 % (92.0-98.0) Arterial Blood Base Excess -5.8 Brandyn Test Positive Assessment Post-op Diagnosis perforated small bowel and intra abdominal abscess Additional Comments low Blood Presser and urine output Plan Additional Comments continue current treatment KIRT BECK Jun 30, 2017 17:47
[2017-06-30] MEDS: Piperacillin/Tazobactam 3.375 GM in D5W 55 ML IVPB SCH (20:44)
[2017-07-01] VITALS (24 sets, daily range): BP systolic 74–127; BP diastolic 31–51
[2017-07-01] MEDS: Albuterol/Ipratropium 3ml neb HHN SCH ×4 (01:44→19:17)
[2017-07-01] MEDS: Hydromorphone 0.5mg/0.5ml inj IVP PRN ×3 (02:39→21:53)
[2017-07-01 04:39] LABS: BASOPHILS % (AUTO) 0.8 % (0.0-2.0); EOSINOPHILS % (AUTO) 2.1 % (0.0-3.0); HEMATOCRIT 27.6 % (37.0-47.0); HEMOGLOBIN 8.5 G/DL (12.0-16.0); LYMPHOCYTES % (AUTO) 7.1 % (20.0-45.0); MEAN CORPUSCULAR VOLUME 89 FL (80-99); MONOCYTES % (AUTO) 9.4 % (1.0-10.0); NEUTROPHILS % (AUTO) 80.6 % (45.0-75.0); PLATELET COUNT 112 K/UL (150-450); RED CELL DISTRIBUTION WIDTH 12.9 % (11.6-14.8); WHITE BLOOD COUNT 9.8 K/UL (4.8-10.8)
[2017-07-01 04:51] LABS: AMYLASE 37 U/L (25-115)
[2017-07-01 05:06] LABS: CREATINE KINASE 1394 U/L (26-308); GAMMA GLUTAMYL TRANSPEPTIDASE 34 U/L (5-85); PHOSPHORUS 3.9 MG/DL (2.5-4.9)
[2017-07-01 05:10] LABS: ALANINE AMINOTRANSFERASE 59 U/L (12-78); ALBUMIN 1.9 G/DL (3.4-5.0); ALBUMIN/GLOBULIN RATIO 0.5 (1.0-2.7); ALKALINE PHOSPHATASE 80 U/L (46-116); ANION GAP 12 mmol/L (5-15); ASPARTATE AMINO TRANSFERASE 81 U/L (15-37); BILIRUBIN,TOTAL 1.1 MG/DL (0.2-1.0); BLOOD UREA NITROGEN 61 mg/dL (7-18); CALCIUM 7.9 MG/DL (8.5-10.1); CARBON DIOXIDE 20 MMOL/L (21-32); CHLORIDE 109 MMOL/L (98-107); CREATININE 4.2 MG/DL (0.55-1.30); POTASSIUM 3.6 MMOL/L (3.5-5.1); SODIUM 141 MMOL/L (136-145)
[2017-07-01 05:17] LABS: BILIRUBIN,DIRECT 0.7 MG/DL (0.0-0.3)
[2017-07-01] MEDS: NovoLOG Insulin Flexpen SUBQ SCH ×5 (05:38→23:59)
[2017-07-01] MEDS: Acetaminophen 650 MG SUPP RECTAL PRN ×2 (06:40→20:04)
--- NOTE | 2017-07-01 07:06 | General Progress Note ---
Assessment/Plan Problem List: (1) Hyperglycemia due to type 2 diabetes mellitus ICD Codes: E11.65 - Type 2 diabetes mellitus with hyperglycemia SNOMED: 859050636915457, 80734091 Qualifiers: Qualified Codes: E11.65 - Type 2 diabetes mellitus with hyperglycemia (2) Postoperative ileus ICD Codes: K91.89 - Other postprocedural complications and disorders of digestive system; K56.7 - Ileus, unspecified SNOMED: 356321279, 378763634 (3) Intractable vomiting with nausea ICD Codes: R11.2 - Nausea with vomiting, unspecified SNOMED: 828190957, 902999202 Qualifiers: Qualified Codes: R11.2 - Nausea with vomiting, unspecified (4) ELIDIA (acute kidney injury) ICD Codes: N17.9 - Acute kidney failure, unspecified SNOMED: 23870338 (5) S/P exploratory laparotomy ICD Codes: Z98.890 - Other specified postprocedural states SNOMED: 82568876, 58582900, 087698324 (6) Small bowel perforation ICD Codes: K63.1 - Perforation of intestine (nontraumatic) SNOMED: 016530259 Assessment/Plan reduce Levemir to 10 units bid continue Novolog sliding scale every 6 hours Subjective Allergies: Coded Allergies: No Known Allergies (Unverified , 06/28/17) All Systems: reviewed and negative except above Subjective events noted status post exploratory Laparotomy, Small Bowel resection with primary anastomosis, Lysis of adhesions , Drainage of intra abdominal abscess in ICU asymptomatic hypoglycemia this morning Objective Last 24 Hour Vital Signs Date Time Temp Pulse Resp B/P (MAP) Pulse Ox O2 Delivery O2 Flow Rate FiO2 07/01/17 06:32 109 24 99 Mechanical Ventilator 40 07/01/17 06:30 110 24 40 07/01/17 06:00 105 24 108/45 98 Mechanical Ventilator 40 07/01/17 05:17 98 22 40 07/01/17 05:00 105 24 108/43 98 Mechanical Ventilator 40 07/01/17 04:00 99.3 105 21 101/38 98 Mechanical Ventilator 40 07/01/17 04:00 40 07/01/17 04:00 100 07/01/17 03:33 98 23 40 07/01/17 03:09 99.3 07/01/17 03:00 101 24 104/39 98 Mechanical Ventilator 40 07/01/17 02:00 100 24 113/44 98 Mechanical Ventilator 40 07/01/17 01:55 112 26 97 Mechanical Ventilator 40 07/01/17 01:44 102 24 98 Mechanical Ventilator 40 07/01/17 01:44 102 25 40 07/01/17 01:00 102 22 88/36 98 Mechanical Ventilator 40 07/01/17 00:00 40 07/01/17 00:00 99.3 102 20 88/38 98 Mechanical Ventilator 40 07/01/17 00:00 103 06/30/17 23:22 99.3 06/30/17 23:13 101 23 40 06/30/17 23:00 100 22 88/40 98 Mechanical Ventilator 40 06/30/17 22:00 102 22 101/41 98 Mechanical Ventilator 40 06/30/17 21:00 104 25 91/38 96 Mechanical Ventilator 40 06/30/17 20:37 101 26 40 06/30/17 20:17 100 21 98 Mechanical Ventilator 40 06/30/17 20:17 Mechanical Ventilator 06/30/17 20:15 101 23 40 06/30/17 20:00 40 06/30/17 20:00 110 06/30/17 20:00 99.3 101 20 96/41 99 Mechanical Ventilator 40 06/30/17 19:00 115 22 83/41 98 Mechanical Ventilator 40 06/30/17 18:00 111 22 91/34 98 Mechanical Ventilator 40 06/30/17 17:08 111 21 45 06/30/17 17:00 99.0 108 20 93/38 98 Mechanical Ventilator 40 06/30/17 16:00 40 06/30/17 16:00 99.4 113 20 83/35 100 Mechanical Ventilator 40 06/30/17 16:00 114 06/30/17 15:53 114 21 45 06/30/17 15:06 99.0 06/30/17 15:00 113 20 97/40 100 Mechanical Ventilator 40 06/30/17 14:30 101.1 96/ 06/30/17 14:05 40 06/30/17 14:04 124 34 97 Mechanical Ventilator 40 06/30/17 14:00 114 20 80/45 100 Mechanical Ventilator 45 06/30/17 13:40 121 25 98 Mechanical Ventilator 40 06/30/17 13:40 122 26 40 06/30/17 13:00 121 20 112/48 100 Mechanical Ventilator 45 06/30/17 12:00 115 06/30/17 12:00 40 06/30/17 12:00 112 20 80/30 100 Mechanical Ventilator 45 06/30/17 11:32 40 06/30/17 11:02 133 26 40 06/30/17 11:00 125 20 92/54 100 Mechanical Ventilator 45 06/30/17 10:00 115 20 106/48 100 Mechanical Ventilator 45 06/30/17 09:45 45 06/30/17 09:10 119 19 45 06/30/17 09:00 114 20 97/37 100 Mechanical Ventilator 45 06/30/17 08:06 113 20 99 Mechanical Ventilator 45 06/30/17 08:00 129 06/30/17 08:00 45 06/30/17 08:00 98.7 114 20 97/43 100 Mechanical Ventilator 45 06/30/17 07:53 115 21 98 Mechanical Ventilator 45 06/30/17 07:50 117 24 45 06/30/17 07:30 50 Laboratory Tests 06/30/17 09:10: Arterial Blood pH 7.329L, Arterial Blood Partial Pressure CO2 38.1, Arterial Blood Partial Pressure O2 96.4, Arterial Blood HCO3 19.6L, Arterial Blood Oxygen Saturation 96.9, Arterial Blood Base Excess -5.8, Brandyn Test Positive 07/01/17 03:25: White Blood Count 9.8, Red Blood Count 3.10L, Hemoglobin 8.5L, Hematocrit 27.6L , Mean Corpuscular Volume 89, Mean Corpuscular Hemoglobin 27.5, Mean Corpuscular Hemoglobin Concent 30.9L, Red Cell Distribution Width 12.9, Platelet Count 112L, Mean Platelet Volume 10.0, Neutrophils (%) (Auto) 80.6H, Lymphocytes (%) (Auto) 7.1L, Monocytes (%) (Auto) 9.4, Eosinophils (%) (Auto) 2.1, Basophils (%) (Auto) 0.8, Sodium Level 141, Potassium Level 3.6, Chloride Level 109H, Carbon Dioxide Level 20L, Anion Gap 12, Blood Urea Nitrogen 61H, Creatinine 4.2H, Estimat Glomerular Filtration Rate , Glucose Level 64#L, Lactic Acid Level 0.70, Uric Acid 10.8H, Calcium Level 7.9L, Phosphorus Level 3.9, Magnesium Level 1.6L, Total Bilirubin 1.1H, Direct Bilirubin 0.7H, Gamma Glutamyl Transpeptidase 34, Aspartate Amino Transf (AST/SGOT) 81H, Alanine Aminotransferase (ALT/SGPT) 59, Alkaline Phosphatase 80, Total Creatine Kinase 1394H, C-Reactive Protein, Quantitative > 70.0H, Pro-B-Type Natriuretic Peptide 1041H, Total Protein 5.6L, Albumin 1.9L, Globulin 3.7, Albumin/Globulin Ratio 0.5L, Amylase Level 37, Lipase 49L 07/01/17 04:00: Urine Eosinophils [Pending] Height (Feet): 5 Height (Inches): 8.00 Weight (Pounds): 295 General Appearance: no apparent distress Neck: normal alignment Cardiovascular: tachycardia Respiratory/Chest: decreased breath sounds Abdomen: hypoactive bowel sounds Pelvis: normal external exam Edema: 1+ Arm (L), 1+ Arm (R), 1+ Leg (L), 1+ Leg (R), 1+ Pedal (L), 1+ Pedal ( R), 1+ Generalized Objective Current Medications Medications (Trade) Dose Ordered Sig/Teresa Route PRN Reason Start Time Stop Time Status Last Admin Dose Admin Acetaminophen (Tylenol) 650 mg Q4H PRN RECTAL FEVER 06/30/17 02:15 07/29/17 22:14 Acetaminophen (Tylenol) 650 mg Q4H PRN RECTAL Mild Pain (Pain Scale 1-3) 06/30/17 03:00 07/28/17 10:59 07/01/17 06:40 Albuterol/ Ipratropium (Albuterol/ Ipratropium) 3 ml Q4H PRN HHN Shortness of Breath 06/30/17 00:00 07/03/17 15:59 Albuterol/ Ipratropium (Albuterol/ Ipratropium) 3 ml Q6HRT HHN 06/30/17 01:00 07/03/17 18:59 07/01/17 06:53 Dextrose (Dextrose 50%) STAT PRN IV Hypoglycemia 06/30/17 10:00 07/28/17 09:59 07/01/17 05:34 Enoxaparin Sodium (Lovenox) 60 mg DAILY SUBQ 06/30/17 09:00 07/30/17 08:59 06/30/17 09:32 Hydromorphone HCl (Dilaudid) 0.5 mg Q3H PRN IVP Pain Score 1-3 06/30/17 01:15 07/06/17 22:14 06/30/17 22:52 Hydromorphone HCl (Dilaudid) 1 mg Q3H PRN IVP pain score 4-6 06/30/17 06:45 07/06/17 22:14 07/01/17 02:39 Hydromorphone HCl (Dilaudid) 2 mg Q3H PRN IVP pain score 7-10 06/30/17 01:15 07/06/17 22:14 Insulin Aspart (NovoLOG) Q6H SUBQ 06/30/17 00:00 07/29/17 00:00 06/30/17 17:35 Insulin Detemir (Levemir) 16 units BID SUBQ 06/30/17 09:00 07/30/17 08:59 06/30/17 17:36 Metoclopramide HCl (Reglan) 5 mg Q6H PRN IVP Nausea & Vomiting 06/30/17 04:15 07/29/17 22:14 Ondansetron HCl (Zofran) 4 mg Q6H PRN IVP Nausea & Vomiting 06/30/17 04:15 07/29/17 22:14 Pantoprazole (Protonix) 40 mg Q12HR IVP 06/30/17 09:00 07/27/17 00:00 06/30/17 20:44 Piperacillin Sod/ Tazobactam Sod 3.375 gm/Dextrose 55 ml @ 13.75 mls/ hr EVERY 12 HOURS IVPB 06/30/17 21:00 07/05/17 20:59 06/30/17 20:44 Sodium Chloride 1,000 ml @ 75 mls/hr [id number] IV 06/30/17 12:05 07/30/17 12:04 07/01/17 01:14 Item Value Date Time Bedside Blood Glucose 87 mg/dl 07/01/17 0625 Glucose Level 64 MG/DL L # 07/01/17 0325 Bedside Blood Glucose 78 mg/dl 07/01/17 0000 Bedside Blood Glucose 130 mg/dl H 06/30/17 1736 Bedside Blood Glucose 170 mg/dl H 06/30/17 1239 Bedside Blood Glucose 214 mg/dl H 06/30/17 0933 Bedside Blood Glucose 214 mg/dl H 06/30/17 0600 LEANN COLE Jul 01, 2017 07:06
[2017-07-01] MEDS: Piperacillin/Tazobactam 3.375 GM in D5W 55 ML IVPB SCH ×2 (09:35→20:41)
[2017-07-01] MEDS: Pantoprazole Inj IVP SCH ×2 (09:35→20:41)
[2017-07-01] MEDS: Enoxaparin 60mg Inj SUBQ SCH (09:36)
--- NOTE | 2017-07-01 09:41 | Nephrology Progress Note ---
Assessment/Plan Problem List: (1) ELIDIA (acute kidney injury) (2) Obesity (3) Small bowel perforation (4) Hyperglycemia due to type 2 diabetes mellitus (5) Anemia Assessment Acute renal failure, post op ( done 3 days ago in [facility]) , likely multifactorial including low BP, and dehydration due to vomiting Post surgery again last night, now in ICu intubated, Cr rising Underlying chronic renal failure due to DM and HTN with 3+ Proteinuria Other: - Acute abdomen post inpatient surgery , Lap Veronika. - Diabetes type 2, uncontrolled. - Thrombocytopenia. - Abnormal liver function test. Plan Plan: Albumin 5% PRN Vanco one dose- ID eval Cath for HD discussed with RN Hydrate Monitor renal parameters Avoid Nephrotoxics- Stopped TORADOL for pain monitor renal parameters antibiotics gastric support Subjective ROS Limited/Unobtainable: Yes Objective Objective Last 24 Hour Vital Signs Date Time Temp Pulse Resp B/P (MAP) Pulse Ox O2 Delivery O2 Flow Rate FiO2 07/01/17 09:14 100 07/01/17 09:10 104 20 40 07/01/17 08:00 40 07/01/17 08:00 101 07/01/17 07:12 105 20 100 Mechanical Ventilator 40 07/01/17 07:10 100.1 07/01/17 07:00 100.1 105 24 115/45 98 Mechanical Ventilator 40 07/01/17 06:32 109 24 99 Mechanical Ventilator 40 07/01/17 06:30 110 24 40 07/01/17 06:00 105 24 108/45 98 Mechanical Ventilator 40 07/01/17 05:17 98 22 40 07/01/17 05:00 105 24 108/43 98 Mechanical Ventilator 40 07/01/17 04:00 99.3 105 21 101/38 98 Mechanical Ventilator 40 07/01/17 04:00 40 07/01/17 04:00 100 07/01/17 03:33 98 23 40 07/01/17 03:09 99.3 07/01/17 03:00 101 24 104/39 98 Mechanical Ventilator 40 07/01/17 02:00 100 24 113/44 98 Mechanical Ventilator 40 07/01/17 01:55 112 26 97 Mechanical Ventilator 40 07/01/17 01:44 102 24 98 Mechanical Ventilator 40 07/01/17 01:44 102 25 40 07/01/17 01:00 102 22 88/36 98 Mechanical Ventilator 40 07/01/17 00:00 40 07/01/17 00:00 99.3 102 20 88/38 98 Mechanical Ventilator 40 07/01/17 00:00 103 06/30/17 23:22 99.3 06/30/17 23:13 101 23 40 06/30/17 23:00 100 22 88/40 98 Mechanical Ventilator 40 06/30/17 22:00 102 22 101/41 98 Mechanical Ventilator 40 06/30/17 21:00 104 25 91/38 96 Mechanical Ventilator 40 06/30/17 20:37 101 26 40 06/30/17 20:17 100 21 98 Mechanical Ventilator 40 06/30/17 20:17 Mechanical Ventilator 06/30/17 20:15 101 23 40 06/30/17 20:00 40 06/30/17 20:00 110 06/30/17 20:00 99.3 101 20 96/41 99 Mechanical Ventilator 40 06/30/17 19:00 115 22 83/41 98 Mechanical Ventilator 40 06/30/17 18:00 111 22 91/34 98 Mechanical Ventilator 40 06/30/17 17:08 111 21 45 06/30/17 17:00 99.0 108 20 93/38 98 Mechanical Ventilator 40 06/30/17 16:00 40 06/30/17 16:00 99.4 113 20 83/35 100 Mechanical Ventilator 40 06/30/17 16:00 114 06/30/17 15:53 114 21 45 06/30/17 15:00 113 20 97/40 100 Mechanical Ventilator 40 06/30/17 14:30 101.1 96/ 06/30/17 14:05 40 06/30/17 14:04 124 34 97 Mechanical Ventilator 40 06/30/17 14:00 114 20 80/45 100 Mechanical Ventilator 45 06/30/17 13:40 121 25 98 Mechanical Ventilator 40 06/30/17 13:40 122 26 40 06/30/17 13:00 121 20 112/48 100 Mechanical Ventilator 45 06/30/17 12:00 115 06/30/17 12:00 40 06/30/17 12:00 112 20 80/30 100 Mechanical Ventilator 45 06/30/17 11:32 40 06/30/17 11:02 133 26 40 06/30/17 11:00 125 20 92/54 100 Mechanical Ventilator 45 06/30/17 10:00 115 20 106/48 100 Mechanical Ventilator 45 06/30/17 09:45 45 Intake and Output 07/01/17 07/02/17 19:00 07:00 Intake Total 75 ml Output Total 30 ml Balance 45 ml IV Total 75 ml Output Urine Total 30 ml Laboratory Tests 07/01/17 03:25: White Blood Count 9.8, Red Blood Count 3.10L, Hemoglobin 8.5L, Hematocrit 27.6L , Mean Corpuscular Volume 89, Mean Corpuscular Hemoglobin 27.5, Mean Corpuscular Hemoglobin Concent 30.9L, Red Cell Distribution Width 12.9, Platelet Count 112L, Mean Platelet Volume 10.0, Neutrophils (%) (Auto) 80.6H, Lymphocytes (%) (Auto) 7.1L, Monocytes (%) (Auto) 9.4, Eosinophils (%) (Auto) 2.1, Basophils (%) (Auto) 0.8, Sodium Level 141, Potassium Level 3.6, Chloride Level 109H, Carbon Dioxide Level 20L, Anion Gap 12, Blood Urea Nitrogen 61H, Creatinine 4.2H, Estimat Glomerular Filtration Rate , Glucose Level 64#L, Lactic Acid Level 0.70, Uric Acid 10.8H, Calcium Level 7.9L, Phosphorus Level 3.9, Magnesium Level 1.6L, Total Bilirubin 1.1H, Direct Bilirubin 0.7H, Gamma Glutamyl Transpeptidase 34, Aspartate Amino Transf (AST/SGOT) 81H, Alanine Aminotransferase (ALT/SGPT) 59, Alkaline Phosphatase 80, Total Creatine Kinase 1394H, C-Reactive Protein, Quantitative > 70.0H, Pro-B-Type Natriuretic Peptide 1041H, Total Protein 5.6L, Albumin 1.9L, Globulin 3.7, Albumin/Globulin Ratio 0.5L, Amylase Level 37, Lipase 49L 07/01/17 04:00: Urine Eosinophils None seen Height (Feet): 5 Height (Inches): 8.00 Weight (Pounds): 295 General Appearance: other - on vent EENT: other - intubated Cardiovascular: tachycardia Respiratory/Chest: decreased breath sounds Abdomen: distended ANU FAIRBANKS Jul 01, 2017 09:41
[2017-07-01] MEDS: Levemir Flexpen SUBQ SCH ×2 (10:02→18:00)
--- NOTE | 2017-07-01 10:04 | General Progress Note ---
Assessment/Plan Status: stable Assessment/Plan 1. Acute abdomen 2- RLL abdominal Abcess secondary to Iatrogenic SB perforation 3- S/P Expl Lap and SB resection with Primary Anastomosis, POST OP #1 2. Diabetes type 2, uncontrolled. 3. Renal failure, age indeterminate. 4. Thrombocytopenia. 5. Abnormal liver function test. 7. Asthma 8. Abnormal BNP, pending Echo 6. Gastrointestinal and deep vein thrombosis prophylaxes. Plan: Surgeon GI notes are reviewed Discussed the care with surgeon Worsening Renal Function, Nephro will follows. low grade fever. Dr Gabriel consulted Subjective ROS Limited/Unobtainable: Yes Allergies: Coded Allergies: No Known Allergies (Unverified , 06/28/17) Objective Last 24 Hour Vital Signs Date Time Temp Pulse Resp B/P (MAP) Pulse Ox O2 Delivery O2 Flow Rate FiO2 07/01/17 09:14 100 07/01/17 09:10 104 20 40 07/01/17 08:00 40 07/01/17 08:00 101 07/01/17 07:12 105 20 100 Mechanical Ventilator 40 07/01/17 07:10 100.1 07/01/17 07:00 100.1 105 24 115/45 98 Mechanical Ventilator 40 07/01/17 06:32 109 24 99 Mechanical Ventilator 40 07/01/17 06:30 110 24 40 07/01/17 06:00 105 24 108/45 98 Mechanical Ventilator 40 07/01/17 05:17 98 22 40 07/01/17 05:00 105 24 108/43 98 Mechanical Ventilator 40 07/01/17 04:00 99.3 105 21 101/38 98 Mechanical Ventilator 40 07/01/17 04:00 40 07/01/17 04:00 100 07/01/17 03:33 98 23 40 07/01/17 03:09 99.3 07/01/17 03:00 101 24 104/39 98 Mechanical Ventilator 40 07/01/17 02:00 100 24 113/44 98 Mechanical Ventilator 40 07/01/17 01:55 112 26 97 Mechanical Ventilator 40 07/01/17 01:44 102 24 98 Mechanical Ventilator 40 07/01/17 01:44 102 25 40 07/01/17 01:00 102 22 88/36 98 Mechanical Ventilator 40 07/01/17 00:00 40 07/01/17 00:00 99.3 102 20 88/38 98 Mechanical Ventilator 40 07/01/17 00:00 103 06/30/17 23:22 99.3 06/30/17 23:13 101 23 40 06/30/17 23:00 100 22 88/40 98 Mechanical Ventilator 40 06/30/17 22:00 102 22 101/41 98 Mechanical Ventilator 40 06/30/17 21:00 104 25 91/38 96 Mechanical Ventilator 40 06/30/17 20:37 101 26 40 06/30/17 20:17 100 21 98 Mechanical Ventilator 40 06/30/17 20:17 Mechanical Ventilator 06/30/17 20:15 101 23 40 06/30/17 20:00 40 06/30/17 20:00 110 06/30/17 20:00 99.3 101 20 96/41 99 Mechanical Ventilator 40 06/30/17 19:00 115 22 83/41 98 Mechanical Ventilator 40 06/30/17 18:00 111 22 91/34 98 Mechanical Ventilator 40 06/30/17 17:08 111 21 45 06/30/17 17:00 99.0 108 20 93/38 98 Mechanical Ventilator 40 06/30/17 16:00 40 06/30/17 16:00 99.4 113 20 83/35 100 Mechanical Ventilator 40 06/30/17 16:00 114 06/30/17 15:53 114 21 45 06/30/17 15:00 113 20 97/40 100 Mechanical Ventilator 40 06/30/17 14:30 101.1 96/ 06/30/17 14:05 40 06/30/17 14:04 124 34 97 Mechanical Ventilator 40 06/30/17 14:00 114 20 80/45 100 Mechanical Ventilator 45 06/30/17 13:40 121 25 98 Mechanical Ventilator 40 06/30/17 13:40 122 26 40 06/30/17 13:00 121 20 112/48 100 Mechanical Ventilator 45 06/30/17 12:00 115 06/30/17 12:00 40 06/30/17 12:00 112 20 80/30 100 Mechanical Ventilator 45 06/30/17 11:32 40 06/30/17 11:02 133 26 40 06/30/17 11:00 125 20 92/54 100 Mechanical Ventilator 45 Intake and Output 07/01/17 07/02/17 19:00 07:00 Intake Total 75 ml Output Total 30 ml Balance 45 ml IV Total 75 ml Output Urine Total 30 ml Laboratory Tests 07/01/17 03:25: White Blood Count 9.8, Red Blood Count 3.10L, Hemoglobin 8.5L, Hematocrit 27.6L , Mean Corpuscular Volume 89, Mean Corpuscular Hemoglobin 27.5, Mean Corpuscular Hemoglobin Concent 30.9L, Red Cell Distribution Width 12.9, Platelet Count 112L, Mean Platelet Volume 10.0, Neutrophils (%) (Auto) 80.6H, Lymphocytes (%) (Auto) 7.1L, Monocytes (%) (Auto) 9.4, Eosinophils (%) (Auto) 2.1, Basophils (%) (Auto) 0.8, Sodium Level 141, Potassium Level 3.6, Chloride Level 109H, Carbon Dioxide Level 20L, Anion Gap 12, Blood Urea Nitrogen 61H, Creatinine 4.2H, Estimat Glomerular Filtration Rate , Glucose Level 64#L, Lactic Acid Level 0.70, Uric Acid 10.8H, Calcium Level 7.9L, Phosphorus Level 3.9, Magnesium Level 1.6L, Total Bilirubin 1.1H, Direct Bilirubin 0.7H, Gamma Glutamyl Transpeptidase 34, Aspartate Amino Transf (AST/SGOT) 81H, Alanine Aminotransferase (ALT/SGPT) 59, Alkaline Phosphatase 80, Total Creatine Kinase 1394H, C-Reactive Protein, Quantitative > 70.0H, Pro-B-Type Natriuretic Peptide 1041H, Total Protein 5.6L, Albumin 1.9L, Globulin 3.7, Albumin/Globulin Ratio 0.5L, Amylase Level 37, Lipase 49L 07/01/17 04:00: Urine Eosinophils None seen Height (Feet): 5 Height (Inches): 8.00 Weight (Pounds): 295 General Appearance: WD/WN, other - intubated and sedated. limited eval Neck: supple Cardiovascular: normal rate Abdomen: other - post o p surgery changes Extremities: non-tender, other - moves x4 extremity Neurologic: other - intubated and sedated Margarito Reilly MD Jul 01, 2017 10:04
--- NOTE | 2017-07-01 10:07 | Diagnostic Imaging Report ---
Indication: Renal failure, hypertension Technique: Grayscale and duplex images of the kidneys, retroperitoneum, and bladder were obtained. Comparison: Findings: Right kidney measures 11.1 cm in length. Left kidney measures 12.4 cm in length. Both kidneys demonstrate normal echogenicity. No hydronephrosis. 6 there is a small cyst in the right renal sinus.. Normal inferior vena cava. Bladder is empty, contains a Rocha catheter. Impression: No evidence of hydronephrosis Empty bladder with Rocha catheter Incidental finding small right renal cyst.
--- NOTE | 2017-07-01 10:22 | Diagnostic Imaging Report ---
Indication: Abdominal distention, pain, recent surgery Technique: Supine view of the abdomen Comparison: Training Manager image from CT scan of 06/29/2017 Findings: Evidence of interim surgery, with a drainage catheter in the right pelvis and right lower quadrant and new midline skin piper. Contrast from prior CT scan is seen in the ascending colon. No gaseous distention of large or small bowel. No evidence of contrast extravasation, although evaluation for such is limited in the absence of IV contrast. Gas collection deep to the inferior skin piper is likely related to the recent surgery. There is a nasogastric tube in place, tip projected at the level of the gastric antrum. The included lung bases are clear Impression: Postsurgical changes, as described. No definite acute process
[2017-07-01] MEDS ORDERED: Vancomycin 1.5gm/D5W 250ml 250 ML IVPB ONE (10:30)
--- NOTE | 2017-07-01 11:24 | Consultation ---
Consult Note Consult Note id Dic # [id number] MARCO WILSON M.D. Jul 01, 2017 11:24
--- NOTE | 2017-07-01 11:43 | Pulmonolgy Critical Care Note ---
Critical Care - Asmt/Plan Problems: (1) Perforated bowel (2) Ventilator dependent (3) ELIDIA (acute kidney injury) (4) Metabolic acidosis (5) Obesity (6) Small bowel perforation Assessment/Plan: -VDRF -POD 5 S/P lap bridget and POD 1 S/P repeat ex-lab for SB perf -Metabolic acidosis (NAGMA) with respiratory compensation -ELIDIA, likely on CKD -DM, HTN, HL Assessment/Plan PLAN: -D/W Dr. Canas, given plan for possible HD will hold off on extubation until metabolic process improved -F/U renal recs, catheter to be placed, possible HD -F/U TTE -Duplex neg, elevated DD likely post-op, doubt VTE, cannot do CT in light of renal failure and VQ would be of limited utility -F/U GI and surgery recs, post-op care -Continue CPAP, can return to A/C if fatigues -Optimize pulmonary hygiene/mobilize as tolerated -RTC and PRN DUOneb -Continue Abx per ID, F/U Cx's -DVT Px: LMWH Critical Care - Objective Last 24 Hour Vital Signs Date Time Temp Pulse Resp B/P (MAP) Pulse Ox O2 Delivery O2 Flow Rate FiO2 07/01/17 11:00 106 24 95/46 99 Mechanical Ventilator 40 07/01/17 10:34 106 31 40 07/01/17 10:30 40 07/01/17 10:00 106 26 93/50 98 Mechanical Ventilator 40 07/01/17 09:20 40 07/01/17 09:14 100 07/01/17 09:10 104 20 40 07/01/17 09:00 106 25 97/45 100 Mechanical Ventilator 40 07/01/17 08:00 99.8 101 24 87/32 100 Mechanical Ventilator 40 07/01/17 08:00 40 07/01/17 08:00 101 07/01/17 07:12 105 20 100 Mechanical Ventilator 40 07/01/17 07:10 100.1 07/01/17 07:00 100.1 105 24 115/45 98 Mechanical Ventilator 40 07/01/17 06:32 109 24 99 Mechanical Ventilator 40 07/01/17 06:30 110 24 40 07/01/17 06:00 105 24 108/45 98 Mechanical Ventilator 40 07/01/17 05:17 98 22 40 07/01/17 05:00 105 24 108/43 98 Mechanical Ventilator 40 07/01/17 04:00 99.3 105 21 101/38 98 Mechanical Ventilator 40 07/01/17 04:00 40 07/01/17 04:00 100 07/01/17 03:33 98 23 40 07/01/17 03:09 99.3 07/01/17 03:00 101 24 104/39 98 Mechanical Ventilator 40 07/01/17 02:00 100 24 113/44 98 Mechanical Ventilator 40 07/01/17 01:55 112 26 97 Mechanical Ventilator 40 07/01/17 01:44 102 24 98 Mechanical Ventilator 40 07/01/17 01:44 102 25 40 07/01/17 01:00 102 22 88/36 98 Mechanical Ventilator 40 07/01/17 00:00 40 07/01/17 00:00 99.3 102 20 88/38 98 Mechanical Ventilator 40 07/01/17 00:00 103 06/30/17 23:22 99.3 06/30/17 23:13 101 23 40 06/30/17 23:00 100 22 88/40 98 Mechanical Ventilator 40 06/30/17 22:00 102 22 101/41 98 Mechanical Ventilator 40 06/30/17 21:00 104 25 91/38 96 Mechanical Ventilator 40 06/30/17 20:37 101 26 40 06/30/17 20:17 100 21 98 Mechanical Ventilator 40 06/30/17 20:17 Mechanical Ventilator 06/30/17 20:15 101 23 40 06/30/17 20:00 40 06/30/17 20:00 110 06/30/17 20:00 99.3 101 20 96/41 99 Mechanical Ventilator 40 06/30/17 19:00 115 22 83/41 98 Mechanical Ventilator 40 06/30/17 18:00 111 22 91/34 98 Mechanical Ventilator 40 06/30/17 17:08 111 21 45 06/30/17 17:00 99.0 108 20 93/38 98 Mechanical Ventilator 40 06/30/17 16:00 40 06/30/17 16:00 99.4 113 20 83/35 100 Mechanical Ventilator 40 06/30/17 16:00 114 06/30/17 15:53 114 21 45 06/30/17 15:00 113 20 97/40 100 Mechanical Ventilator 40 06/30/17 14:30 101.1 96/ 06/30/17 14:05 40 06/30/17 14:04 124 34 97 Mechanical Ventilator 40 06/30/17 14:00 114 20 80/45 100 Mechanical Ventilator 45 06/30/17 13:40 121 25 98 Mechanical Ventilator 40 06/30/17 13:40 122 26 40 06/30/17 13:00 121 20 112/48 100 Mechanical Ventilator 45 06/30/17 12:00 115 06/30/17 12:00 40 06/30/17 12:00 112 20 80/30 100 Mechanical Ventilator 45 Status: awake, other - intubated, obese Condition: improving, other - ETT, NGT HEENT: atraumatic, normocephalic Lungs: clear Heart: HR/BP stable Abdomen: soft, non-tender, active bowel sounds, other - drain intact, wound dressed Extremities: no C/C/E Micro: Microbiology Date/Time Source Procedure Growth Status 06/29/17 15:00 Indwelling Cath Urine Culture - Preliminary Resulted 06/29/17 14:13 Abdomen Gram Stain - Final Resulted 06/29/17 14:13 Wound Culture - Preliminary Gram Negative Bacillus 1 Strep Species, Gamma-Hemolytic Resulted Accucheck: 87 Critical Care - Subjective ROS Limited/Unobtainable: Yes ICU Day: 3 Intubation Day: 3 Interval Events: Awake, beatriz SBT, gas exchange adequate, renal function worse, awaiting catheter, no F/C, AFVSS, pain well controlled, feels better FI02: 40 Vent Support Breath Rate: 20 Vent Support Mode: CPAP Vent Tidal Volume: 550 Sputum Amount: Small PEEP: 5.0 PIP: 15 I&O: Intake and Output 07/01/17 07/02/17 19:00 07:00 Intake Total 307 ml Output Total 100 ml Balance 207 ml IV Total 307 ml Output Urine Total 100 ml ET-Tube: 7.0 ET Position: 22 Labs: Laboratory Tests Test 07/01/17 03:25 07/01/17 04:00 07/01/17 10:05 07/01/17 10:23 White Blood Count 9.8 K/UL (4.8-10.8) Red Blood Count 3.10 M/UL (4.20-5.40) L Hemoglobin 8.5 G/DL (12.0-16.0) L Hematocrit 27.6 % (37.0-47.0) L Mean Corpuscular Volume 89 FL (80-99) Mean Corpuscular Hemoglobin 27.5 PG (27.0-31.0) Mean Corpuscular Hemoglobin Concent 30.9 G/DL (32.0-36.0) L Red Cell Distribution Width 12.9 % (11.6-14.8) Platelet Count 112 K/UL (150-450) L Mean Platelet Volume 10.0 FL (6.5-10.1) Neutrophils (%) (Auto) 80.6 % (45.0-75.0) H Lymphocytes (%) (Auto) 7.1 % (20.0-45.0) L Monocytes (%) (Auto) 9.4 % (1.0-10.0) Eosinophils (%) (Auto) 2.1 % (0.0-3.0) Basophils (%) (Auto) 0.8 % (0.0-2.0) Sodium Level 141 MMOL/L (136-145) Potassium Level 3.6 MMOL/L (3.5-5.1) Chloride Level 109 MMOL/L (98-107) H Carbon Dioxide Level 20 MMOL/L (21-32) L Anion Gap 12 mmol/L (5-15) Blood Urea Nitrogen 61 mg/dL (7-18) H Creatinine 4.2 MG/DL (0.55-1.30) H Estimat Glomerular Filtration Rate mL/min (>60) Glucose Level 64 MG/DL (74-106) #L Lactic Acid Level 0.70 mmol/L (0.66-2.22) Uric Acid 10.8 MG/DL (2.6-7.2) H Calcium Level 7.9 MG/DL (8.5-10.1) L Phosphorus Level 3.9 MG/DL (2.5-4.9) Magnesium Level 1.6 MG/DL (1.8-2.4) L Total Bilirubin 1.1 MG/DL (0.2-1.0) H Direct Bilirubin 0.7 MG/DL (0.0-0.3) H Gamma Glutamyl Transpeptidase 34 U/L (5-85) Aspartate Amino Transf (AST/SGOT) 81 U/L (15-37) H Alanine Aminotransferase (ALT/SGPT) 59 U/L (12-78) Alkaline Phosphatase 80 U/L (46-116) Total Creatine Kinase 1394 U/L (26-308) H C-Reactive Protein, Quantitative > 70.0 mg/dL (0.00-0.90) H Pro-B-Type Natriuretic Peptide 1041 pg/mL (0-125) H Total Protein 5.6 G/DL (6.4-8.2) L Albumin 1.9 G/DL (3.4-5.0) L Globulin 3.7 g/dL Albumin/Globulin Ratio 0.5 (1.0-2.7) L Amylase Level 37 U/L (25-115) Lipase 49 U/L (73-393) L Urine Eosinophils None seen Prothrombin Time 10.0 SEC (9.30-11.50) Prothromb Time International Ratio 1.0 (0.9-1.1) Activated Partial Thromboplast Time 43 SEC (23-33) H Arterial Blood pH 7.330 (7.350-7.450) Arterial Blood Partial Pressure CO2 33.4 mmHg (35.0-45.0) L Arterial Blood Partial Pressure O2 74.5 mmHg (75.0-100.0) L Arterial Blood HCO3 17.3 mmol/L (22.0-26.0) L Arterial Blood Oxygen Saturation 94.7 % (92.0-98.0) Arterial Blood Base Excess -7.8 Brandyn Test Positive VICKY GUERRERO M.D. Jul 01, 2017 11:42
--- NOTE | 2017-07-01 12:55 | Diagnostic Imaging Report ---
Indication: Renal failure Technique: Procedure performed at bedside. Procedural timeout performed. Total sterile technique, including sterile probe cover and sterile gel, sterile gloves, hand hygiene, hat, mask, sterile gown, large sterile drape, and preparation with 2% chlorhexidine utilized. Local anesthesia with 1% lidocaine. Under real-time ultrasound guidance, puncture right internal jugular vein using 21-gauge needle, passage 0.018 guidewire, insertion 4 Icelandic micropuncture introducer, passage 0.035 guidewire, over which was passed serial dilators and then a 13 Icelandic 15 cm triple-lumen temporary dialysis catheter. Guidewire was removed. Catheter ports were aspirated and flushed. The catheter was fixed to the skin. Patient tolerated procedure well. A chest x-ray was obtained, documents catheter tip position at the cavoatrial junction. Comparison: Chest radiograph compared to 06/29/2017 Findings: As above, satisfactory position of the dialysis catheter, no pneumothorax. Interstitial congestive changes are similar to the prior study Impression: Successful bedside placement of right transjugular temporary dialysis catheter, as described.
--- NOTE | 2017-07-01 13:24 | General Surgery Progress Note ---
General Surgery-Progress Note Subjective Procedure Performed Exploratory Laparotomy, Small Bowel resection with primary anastomosis, Lysis of adhesions , Drainage of intra abdominal abscess Symptoms: passing flatus Objective Last 24 Hour Vital Signs Date Time Temp Pulse Resp B/P (MAP) Pulse Ox O2 Delivery O2 Flow Rate FiO2 07/01/17 11:00 106 24 95/46 99 Mechanical Ventilator 40 07/01/17 10:34 106 31 40 07/01/17 10:30 40 07/01/17 10:00 106 26 93/50 98 Mechanical Ventilator 40 07/01/17 09:20 40 07/01/17 09:14 100 07/01/17 09:10 104 20 40 07/01/17 09:00 106 25 97/45 100 Mechanical Ventilator 40 07/01/17 08:00 99.8 101 24 87/32 100 Mechanical Ventilator 40 07/01/17 08:00 40 07/01/17 08:00 101 07/01/17 07:12 105 20 100 Mechanical Ventilator 40 07/01/17 07:10 100.1 07/01/17 07:00 100.1 105 24 115/45 98 Mechanical Ventilator 40 07/01/17 06:32 109 24 99 Mechanical Ventilator 40 07/01/17 06:30 110 24 40 07/01/17 06:00 105 24 108/45 98 Mechanical Ventilator 40 07/01/17 05:17 98 22 40 07/01/17 05:00 105 24 108/43 98 Mechanical Ventilator 40 07/01/17 04:00 99.3 105 21 101/38 98 Mechanical Ventilator 40 07/01/17 04:00 40 07/01/17 04:00 100 07/01/17 03:33 98 23 40 07/01/17 03:09 99.3 07/01/17 03:00 101 24 104/39 98 Mechanical Ventilator 40 07/01/17 02:00 100 24 113/44 98 Mechanical Ventilator 40 07/01/17 01:55 112 26 97 Mechanical Ventilator 40 07/01/17 01:44 102 24 98 Mechanical Ventilator 40 07/01/17 01:44 102 25 40 07/01/17 01:00 102 22 88/36 98 Mechanical Ventilator 40 07/01/17 00:00 40 07/01/17 00:00 99.3 102 20 88/38 98 Mechanical Ventilator 40 07/01/17 00:00 103 06/30/17 23:22 99.3 06/30/17 23:13 101 23 40 06/30/17 23:00 100 22 88/40 98 Mechanical Ventilator 40 06/30/17 22:00 102 22 101/41 98 Mechanical Ventilator 40 06/30/17 21:00 104 25 91/38 96 Mechanical Ventilator 40 06/30/17 20:37 101 26 40 06/30/17 20:17 100 21 98 Mechanical Ventilator 40 06/30/17 20:17 Mechanical Ventilator 06/30/17 20:15 101 23 40 06/30/17 20:00 40 06/30/17 20:00 110 06/30/17 20:00 99.3 101 20 96/41 99 Mechanical Ventilator 40 06/30/17 19:00 115 22 83/41 98 Mechanical Ventilator 40 06/30/17 18:00 111 22 91/34 98 Mechanical Ventilator 40 06/30/17 17:08 111 21 45 06/30/17 17:00 99.0 108 20 93/38 98 Mechanical Ventilator 40 06/30/17 16:00 40 06/30/17 16:00 99.4 113 20 83/35 100 Mechanical Ventilator 40 06/30/17 16:00 114 06/30/17 15:53 114 21 45 06/30/17 15:00 113 20 97/40 100 Mechanical Ventilator 40 06/30/17 14:30 101.1 96/ 06/30/17 14:05 40 06/30/17 14:04 124 34 97 Mechanical Ventilator 40 06/30/17 14:00 114 20 80/45 100 Mechanical Ventilator 45 06/30/17 13:40 121 25 98 Mechanical Ventilator 40 06/30/17 13:40 122 26 40 I&O Intake and Output 06/30/17 07/01/17 19:00 07:00 Intake Total 2265 ml 955.00 ml Output Total 240 ml 285 ml Balance 2025 ml 670.00 ml IV Total 2265 ml 955.00 ml Output Urine Total 80 ml 165 ml Gastric Drainage Total 100 ml Drainage Total 160 ml 20 ml Dressing: other - packing was removed Wound: clean Drains: chiquita Respiratory: clear Abdomen: soft, tenderness, absent bowel sounds Extremities: no tenderness Laboratory Tests Test 07/01/17 03:25 07/01/17 04:00 07/01/17 10:05 07/01/17 10:23 White Blood Count 9.8 K/UL (4.8-10.8) Red Blood Count 3.10 M/UL (4.20-5.40) L Hemoglobin 8.5 G/DL (12.0-16.0) L Hematocrit 27.6 % (37.0-47.0) L Mean Corpuscular Volume 89 FL (80-99) Mean Corpuscular Hemoglobin 27.5 PG (27.0-31.0) Mean Corpuscular Hemoglobin Concent 30.9 G/DL (32.0-36.0) L Red Cell Distribution Width 12.9 % (11.6-14.8) Platelet Count 112 K/UL (150-450) L Mean Platelet Volume 10.0 FL (6.5-10.1) Neutrophils (%) (Auto) 80.6 % (45.0-75.0) H Lymphocytes (%) (Auto) 7.1 % (20.0-45.0) L Monocytes (%) (Auto) 9.4 % (1.0-10.0) Eosinophils (%) (Auto) 2.1 % (0.0-3.0) Basophils (%) (Auto) 0.8 % (0.0-2.0) Sodium Level 141 MMOL/L (136-145) Potassium Level 3.6 MMOL/L (3.5-5.1) Chloride Level 109 MMOL/L (98-107) H Carbon Dioxide Level 20 MMOL/L (21-32) L Anion Gap 12 mmol/L (5-15) Blood Urea Nitrogen 61 mg/dL (7-18) H Creatinine 4.2 MG/DL (0.55-1.30) H Estimat Glomerular Filtration Rate mL/min (>60) Glucose Level 64 MG/DL (74-106) #L Lactic Acid Level 0.70 mmol/L (0.66-2.22) Uric Acid 10.8 MG/DL (2.6-7.2) H Calcium Level 7.9 MG/DL (8.5-10.1) L Phosphorus Level 3.9 MG/DL (2.5-4.9) Magnesium Level 1.6 MG/DL (1.8-2.4) L Total Bilirubin 1.1 MG/DL (0.2-1.0) H Direct Bilirubin 0.7 MG/DL (0.0-0.3) H Gamma Glutamyl Transpeptidase 34 U/L (5-85) Aspartate Amino Transf (AST/SGOT) 81 U/L (15-37) H Alanine Aminotransferase (ALT/SGPT) 59 U/L (12-78) Alkaline Phosphatase 80 U/L (46-116) Total Creatine Kinase 1394 U/L (26-308) H C-Reactive Protein, Quantitative > 70.0 mg/dL (0.00-0.90) H Pro-B-Type Natriuretic Peptide 1041 pg/mL (0-125) H Total Protein 5.6 G/DL (6.4-8.2) L Albumin 1.9 G/DL (3.4-5.0) L Globulin 3.7 g/dL Albumin/Globulin Ratio 0.5 (1.0-2.7) L Amylase Level 37 U/L (25-115) Lipase 49 U/L (73-393) L Urine Eosinophils None seen Prothrombin Time 10.0 SEC (9.30-11.50) Prothromb Time International Ratio 1.0 (0.9-1.1) Activated Partial Thromboplast Time 43 SEC (23-33) H Arterial Blood pH 7.330 (7.350-7.450) Arterial Blood Partial Pressure CO2 33.4 mmHg (35.0-45.0) L Arterial Blood Partial Pressure O2 74.5 mmHg (75.0-100.0) L Arterial Blood HCO3 17.3 mmol/L (22.0-26.0) L Arterial Blood Oxygen Saturation 94.7 % (92.0-98.0) Arterial Blood Base Excess -7.8 Brandyn Test Positive Assessment Post-op Diagnosis perforated small bowel and intra abdominal abscess Additional Comments renal failure hypotension Plan Additional Comments continue current treatment KIRT BECK Jul 01, 2017 13:24
--- NOTE | 2017-07-01 13:44 | GI Progress Note ---
Assessment/Plan Problems: (1) Anemia ICD Codes: D64.9 - Anemia, unspecified SNOMED: 654953010 (2) Small bowel perforation ICD Codes: K63.1 - Perforation of intestine (nontraumatic) SNOMED: 854958136 (3) Obesity ICD Codes: E66.9 - Obesity, unspecified SNOMED: 045208719 (4) Perforated bowel ICD Codes: K63.1 - Perforation of intestine (nontraumatic) SNOMED: 27301521 (5) Postoperative ileus ICD Codes: K91.89 - Other postprocedural complications and disorders of digestive system; K56.7 - Ileus, unspecified SNOMED: 878818565, 346271662 (6) S/P exploratory laparotomy ICD Codes: Z98.890 - Other specified postprocedural states SNOMED: 93096454, 65855889, 590413502 Status: unchanged Status Narrative Discussed with Dr. Mckeon. Assessment/Plan CT AP reviewed > perforated small bowel, see full report. fu surgical recs >> s/p Exploratory Laparotomy, Small Bowel resection with primary anastomosis, Lysis of adhesions , Drainage of intra abdominal abscess supportive care pain mgmt IV hydration + electrolyte correction bowel rest >> NPO + IVFs nutritional support ppi fu labs Subjective Subjective abdominal pain Objective Last 24 Hour Vital Signs Date Time Temp Pulse Resp B/P (MAP) Pulse Ox O2 Delivery O2 Flow Rate FiO2 07/01/17 13:29 105 20 100 Mechanical Ventilator 40 07/01/17 13:19 110 24 40 07/01/17 13:19 107 31 100 Mechanical Ventilator 40 07/01/17 11:00 106 24 95/46 99 Mechanical Ventilator 40 07/01/17 10:34 106 31 40 07/01/17 10:30 40 07/01/17 10:00 106 26 93/50 98 Mechanical Ventilator 40 07/01/17 09:20 40 07/01/17 09:14 100 07/01/17 09:10 104 20 40 07/01/17 09:00 106 25 97/45 100 Mechanical Ventilator 40 07/01/17 08:00 99.8 101 24 87/32 100 Mechanical Ventilator 40 07/01/17 08:00 40 07/01/17 08:00 101 07/01/17 07:12 105 20 100 Mechanical Ventilator 40 07/01/17 07:10 100.1 12/20/17 07:00 100.1 105 24 115/45 98 Mechanical Ventilator 40 07/01/17 06:32 109 24 99 Mechanical Ventilator 40 07/01/17 06:30 110 24 40 07/01/17 06:00 105 24 108/45 98 Mechanical Ventilator 40 07/01/17 05:17 98 22 40 07/01/17 05:00 105 24 108/43 98 Mechanical Ventilator 40 07/01/17 04:00 99.3 105 21 101/38 98 Mechanical Ventilator 40 07/01/17 04:00 40 07/01/17 04:00 100 07/01/17 03:33 98 23 40 07/01/17 03:09 99.3 07/01/17 03:00 101 24 104/39 98 Mechanical Ventilator 40 07/01/17 02:00 100 24 113/44 98 Mechanical Ventilator 40 07/01/17 01:55 112 26 97 Mechanical Ventilator 40 07/01/17 01:44 102 24 98 Mechanical Ventilator 40 07/01/17 01:44 102 25 40 07/01/17 01:00 102 22 88/36 98 Mechanical Ventilator 40 07/01/17 00:00 40 07/01/17 00:00 99.3 102 20 88/38 98 Mechanical Ventilator 40 07/01/17 00:00 103 06/30/17 23:22 99.3 06/30/17 23:13 101 23 40 06/30/17 23:00 100 22 88/40 98 Mechanical Ventilator 40 06/30/17 22:00 102 22 101/41 98 Mechanical Ventilator 40 06/30/17 21:00 104 25 91/38 96 Mechanical Ventilator 40 06/30/17 20:37 101 26 40 06/30/17 20:17 100 21 98 Mechanical Ventilator 40 06/30/17 20:17 Mechanical Ventilator 06/30/17 20:15 101 23 40 06/30/17 20:00 40 06/30/17 20:00 110 06/30/17 20:00 99.3 101 20 96/41 99 Mechanical Ventilator 40 06/30/17 19:00 115 22 83/41 98 Mechanical Ventilator 40 06/30/17 18:00 111 22 91/34 98 Mechanical Ventilator 40 06/30/17 17:08 111 21 45 06/30/17 17:00 99.0 108 20 93/38 98 Mechanical Ventilator 40 06/30/17 16:00 40 06/30/17 16:00 99.4 113 20 83/35 100 Mechanical Ventilator 40 06/30/17 16:00 114 06/30/17 15:53 114 21 45 06/30/17 15:00 113 20 97/40 100 Mechanical Ventilator 40 06/30/17 14:30 101.1 96/ 06/30/17 14:05 40 06/30/17 14:04 124 34 97 Mechanical Ventilator 40 06/30/17 14:00 114 20 80/45 100 Mechanical Ventilator 45 Intake and Output 06/30/17 07/01/17 19:00 07:00 Intake Total 2265 ml 955.00 ml Output Total 240 ml 285 ml Balance 2025 ml 670.00 ml IV Total 2265 ml 955.00 ml Output Urine Total 80 ml 165 ml Gastric Drainage Total 100 ml Drainage Total 160 ml 20 ml Laboratory Tests Test 07/01/17 03:25 07/01/17 04:00 07/01/17 10:05 07/01/17 10:23 White Blood Count 9.8 K/UL (4.8-10.8) Red Blood Count 3.10 M/UL (4.20-5.40) L Hemoglobin 8.5 G/DL (12.0-16.0) L Hematocrit 27.6 % (37.0-47.0) L Mean Corpuscular Volume 89 FL (80-99) Mean Corpuscular Hemoglobin 27.5 PG (27.0-31.0) Mean Corpuscular Hemoglobin Concent 30.9 G/DL (32.0-36.0) L Red Cell Distribution Width 12.9 % (11.6-14.8) Platelet Count 112 K/UL (150-450) L Mean Platelet Volume 10.0 FL (6.5-10.1) Neutrophils (%) (Auto) 80.6 % (45.0-75.0) H Lymphocytes (%) (Auto) 7.1 % (20.0-45.0) L Monocytes (%) (Auto) 9.4 % (1.0-10.0) Eosinophils (%) (Auto) 2.1 % (0.0-3.0) Basophils (%) (Auto) 0.8 % (0.0-2.0) Sodium Level 141 MMOL/L (136-145) Potassium Level 3.6 MMOL/L (3.5-5.1) Chloride Level 109 MMOL/L (98-107) H Carbon Dioxide Level 20 MMOL/L (21-32) L Anion Gap 12 mmol/L (5-15) Blood Urea Nitrogen 61 mg/dL (7-18) H Creatinine 4.2 MG/DL (0.55-1.30) H Estimat Glomerular Filtration Rate mL/min (>60) Glucose Level 64 MG/DL (74-106) #L Lactic Acid Level 0.70 mmol/L (0.66-2.22) Uric Acid 10.8 MG/DL (2.6-7.2) H Calcium Level 7.9 MG/DL (8.5-10.1) L Phosphorus Level 3.9 MG/DL (2.5-4.9) Magnesium Level 1.6 MG/DL (1.8-2.4) L Total Bilirubin 1.1 MG/DL (0.2-1.0) H Direct Bilirubin 0.7 MG/DL (0.0-0.3) H Gamma Glutamyl Transpeptidase 34 U/L (5-85) Aspartate Amino Transf (AST/SGOT) 81 U/L (15-37) H Alanine Aminotransferase (ALT/SGPT) 59 U/L (12-78) Alkaline Phosphatase 80 U/L (46-116) Total Creatine Kinase 1394 U/L (26-308) H C-Reactive Protein, Quantitative > 70.0 mg/dL (0.00-0.90) H Pro-B-Type Natriuretic Peptide 1041 pg/mL (0-125) H Total Protein 5.6 G/DL (6.4-8.2) L Albumin 1.9 G/DL (3.4-5.0) L Globulin 3.7 g/dL Albumin/Globulin Ratio 0.5 (1.0-2.7) L Amylase Level 37 U/L (25-115) Lipase 49 U/L (73-393) L Urine Eosinophils None seen Prothrombin Time 10.0 SEC (9.30-11.50) Prothromb Time International Ratio 1.0 (0.9-1.1) Activated Partial Thromboplast Time 43 SEC (23-33) H Arterial Blood pH 7.330 (7.350-7.450) Arterial Blood Partial Pressure CO2 33.4 mmHg (35.0-45.0) L Arterial Blood Partial Pressure O2 74.5 mmHg (75.0-100.0) L Arterial Blood HCO3 17.3 mmol/L (22.0-26.0) L Arterial Blood Oxygen Saturation 94.7 % (92.0-98.0) Arterial Blood Base Excess -7.8 Brandyn Test Positive Height (Feet): 5 Height (Inches): 8.00 Weight (Pounds): 295 General Appearance: WD/WN, no apparent distress, alert, obese Cardiovascular: normal rate Respiratory/Chest: normal breath sounds, no respiratory distress, other - intubated Abdominal Exam: non tender, soft, other - BAKARI drain Luisa Pradhan N.P. Jul 01, 2017 13:44
[2017-07-01] MEDS ORDERED: Betadine 4oz Bottle TOPIC ONE (14:00)
[2017-07-01] MEDS ORDERED: D5NS 1000ml IV ONE (14:26)
[2017-07-01] MEDS ORDERED: Tubing IV Secondary IV ONE (14:26)
--- NOTE | 2017-07-01 16:45 | Consultation ---
DATE OF CONSULTATION: 07/01/2017 INFECTIOUS DISEASE CONSULTATION CONSULTING PHYSICIAN: Maico Gabriel M.D. REQUESTING PHYSICIAN: Margarito Reilly M.D. REASON FOR CONSULTATION: Evaluation of the patient for sepsis and antibiotic management. HISTORY OF PRESENT ILLNESS: The patient is a 71-year-old female, who was admitted three days ago with abdominal pain, nausea, vomiting, and ileus. The patient had recently laparoscopic cholecystectomy. The patient was found to have a small bowel perforation. The patient underwent surgery. Currently, the patient is in the intensive care unit and intubated. An Infectious Disease consultation has been requested for further evaluation of the patient and antibiotic management. The patient is not able to provide much information, which is gathered through the chart and speaking to the staff. The patient has low-grade fever. PAST MEDICAL HISTORY: 1. History of laparoscopic cholecystectomy on 06/26/2017. 2. Perforated small bowel obstruction, status post small-bowel resection and primary anastomosis on 06/29/2017. 3. Hypertension. 4. History of back pain. 5. Diabetes. MEDICATIONS: IV vancomycin and Zosyn. ALLERGIES: No known drug allergies. SOCIAL HISTORY: No history of alcohol or drug abuse. FAMILY HISTORY: Not contributing. PHYSICAL EXAMINATION: VITAL SIGNS: Temperature 100.1, T-max 101, pulse 100, blood pressure 95/46, and respiratory rate 18. HEENT: No pale conjunctivae. No icterus. Mouth, endotracheal tube in place. NECK: No lymphadenopathy. CHEST: Clear. Coarse breathing sounds. HEART: S1 and S2. ABDOMEN: Obese and covered by dressing. BAKARI drain present. EXTREMITIES: No cyanosis. NEUROLOGIC: Awake and alert. On vent. LABORATORY DATA: BUN 61 and creatinine 3.1. Liver function tests is unremarkable just AST of 81. White blood cells 9.8, hemoglobin 8.5, and platelets 112,000. Urine culture is pending. Abdominal x-ray, no acute process. Ultrasound of kidneys, there is no hydronephrosis. Chest x-ray showed left basilar infiltrate versus atelectasis. ASSESSMENT: The patient is a 71-year-old female with multiple medical problems who has, 1. Sepsis. 2. Status post fever. 3. Status post leukocytosis. 4. Possible aspiration pneumonia. 5. Fever mostly due to postop, status post repair of small bowel perforation on 06/29/2017. 6. Status post cholecystectomy on 06/26/2017. 7. Anemia. 8. Acute renal insufficiency. 9. Ventilator-dependent respiratory failure. PLAN: 1. We will continue the patient on Zosyn day #3 and vancomycin day #1. 2. Monitor CBC. 3. Monitor BMP. 4. Monitor chest x-ray. 5. Monitor cultures (blood, sputum, and urine). 6. Monitor the patient's clinical course and laboratories and based on those, we will do further recommendation. Thank you, Dr. Montero, for allowing me to participate in the care of this patient. I will follow the patient with you during this hospitalization. Maico Gabriel M.D. DR: TONY JOB#: [id number] CC:
[2017-07-02] VITALS (24 sets, daily range): BP systolic 90–149; BP diastolic 35–88
[2017-07-02] MEDS: Albuterol/Ipratropium 3ml neb HHN SCH ×4 (01:23→19:00)
[2017-07-02 04:47] LABS: BASOPHILS % (AUTO) 0.5 % (0.0-2.0); EOSINOPHILS % (AUTO) 1.1 % (0.0-3.0); HEMATOCRIT 25.8 % (37.0-47.0); HEMOGLOBIN 8.1 G/DL (12.0-16.0); LYMPHOCYTES % (AUTO) 6.7 % (20.0-45.0); MEAN CORPUSCULAR VOLUME 90 FL (80-99); MONOCYTES % (AUTO) 8.8 % (1.0-10.0); PLATELET COUNT 130 K/UL (150-450); RED BLOOD COUNT 2.87 M/UL (4.20-5.40); RED CELL DISTRIBUTION WIDTH 13.4 % (11.6-14.8); WHITE BLOOD COUNT 12.5 K/UL (4.8-10.8)
[2017-07-02 05:26] LABS: ALANINE AMINOTRANSFERASE 56 U/L (12-78); ALBUMIN 1.9 G/DL (3.4-5.0); ALBUMIN/GLOBULIN RATIO 0.5 (1.0-2.7); ALKALINE PHOSPHATASE 90 U/L (46-116); ANION GAP 15 mmol/L (5-15); ASPARTATE AMINO TRANSFERASE 85 U/L (15-37); BILIRUBIN,TOTAL 1.6 MG/DL (0.2-1.0); BLOOD UREA NITROGEN 59 mg/dL (7-18); CALCIUM 8.1 MG/DL (8.5-10.1); CARBON DIOXIDE 18 MMOL/L (21-32); CHLORIDE 108 MMOL/L (98-107); CREATINE KINASE 1561 U/L (26-308); GAMMA GLUTAMYL TRANSPEPTIDASE 36 U/L (5-85); PHOSPHORUS 4.9 MG/DL (2.5-4.9); POTASSIUM 3.6 MMOL/L (3.5-5.1); SODIUM 141 MMOL/L (136-145)
[2017-07-02 05:29] LABS: BILIRUBIN,DIRECT 1.1 MG/DL (0.0-0.3)
[2017-07-02] MEDS: NovoLOG Insulin Flexpen SUBQ SCH ×3 (05:47→17:44)
--- NOTE | 2017-07-02 06:51 | General Progress Note ---
Assessment/Plan Problem List: (1) Hyperglycemia due to type 2 diabetes mellitus ICD Codes: E11.65 - Type 2 diabetes mellitus with hyperglycemia SNOMED: 088300972017310, 41968041 Qualifiers: Qualified Codes: E11.65 - Type 2 diabetes mellitus with hyperglycemia (2) Postoperative ileus ICD Codes: K91.89 - Other postprocedural complications and disorders of digestive system; K56.7 - Ileus, unspecified SNOMED: 419173143, 399143679 (3) Intractable vomiting with nausea ICD Codes: R11.2 - Nausea with vomiting, unspecified SNOMED: 572034252, 476786778 Qualifiers: Qualified Codes: R11.2 - Nausea with vomiting, unspecified (4) ELIDIA (acute kidney injury) ICD Codes: N17.9 - Acute kidney failure, unspecified SNOMED: 50881338 (5) S/P exploratory laparotomy ICD Codes: Z98.890 - Other specified postprocedural states SNOMED: 61234492, 49896949, 028893352 (6) Small bowel perforation ICD Codes: K63.1 - Perforation of intestine (nontraumatic) SNOMED: 208326034 Assessment/Plan DC Levemir continue Novolog sliding scale every 6 hours Subjective Allergies: Coded Allergies: No Known Allergies (Unverified , 06/28/17) Subjective events noted asymptomatic hypoglycemia NPO Objective Last 24 Hour Vital Signs Date Time Temp Pulse Resp B/P (MAP) Pulse Ox O2 Delivery O2 Flow Rate FiO2 07/02/17 06:00 106 24 116/51 100 Mechanical Ventilator 40 07/02/17 05:29 108 24 40 07/02/17 05:00 107 24 117/44 100 Mechanical Ventilator 40 07/02/17 04:00 112 07/02/17 04:00 99.4 95 21 110/35 99 Mechanical Ventilator 40 07/02/17 04:00 40 07/02/17 03:04 105 24 40 07/02/17 03:00 104 21 114/41 100 Mechanical Ventilator 40 07/02/17 02:00 100 21 100/40 99 Mechanical Ventilator 40 07/02/17 01:35 91 20 100 Mechanical Ventilator 40 07/02/17 01:22 102 20 100 Mechanical Ventilator 40 07/02/17 01:20 102 22 40 07/02/17 01:00 96 21 109/40 99 Mechanical Ventilator 40 07/02/17 00:00 99.3 95 21 95/35 99 Mechanical Ventilator 40 07/02/17 00:00 97 07/02/17 00:00 40 07/01/17 23:19 96 21 40 07/01/17 23:00 96 21 82/37 99 Mechanical Ventilator 40 07/01/17 22:23 99.3 07/01/17 22:00 103 21 74/31 99 Mechanical Ventilator 40 07/01/17 21:09 110 20 40 07/01/17 21:00 99.3 102 21 93/35 99 Mechanical Ventilator 40 07/01/17 20:34 99.4 07/01/17 20:00 40 07/01/17 20:00 100.1 106 25 93/35 99 Mechanical Ventilator 40 07/01/17 20:00 107 07/01/17 19:24 109 21 100 Mechanical Ventilator 40 07/01/17 19:16 111 23 99 Mechanical Ventilator 40 07/01/17 19:14 111 23 40 07/01/17 19:00 111 21 98/39 99 Mechanical Ventilator 40 07/01/17 18:00 106 21 107/43 99 Mechanical Ventilator 40 07/01/17 17:06 111 24 40 07/01/17 17:00 112 21 121/44 100 Mechanical Ventilator 40 07/01/17 16:00 110 07/01/17 16:00 99.3 113 25 118/50 99 Mechanical Ventilator 40 07/01/17 15:16 102 20 40 07/01/17 15:00 113 24 118/50 99 Mechanical Ventilator 40 07/01/17 14:00 103 21 127/51 100 Mechanical Ventilator 40 07/01/17 13:29 105 20 100 Mechanical Ventilator 40 07/01/17 13:19 110 24 40 07/01/17 13:19 107 31 100 Mechanical Ventilator 40 07/01/17 13:00 40 07/01/17 13:00 107 29 123/50 100 Mechanical Ventilator 40 07/01/17 12:00 105 07/01/17 12:00 98.9 114 24 117/49 97 Mechanical Ventilator 40 07/01/17 11:00 106 24 95/46 99 Mechanical Ventilator 40 07/01/17 10:34 106 31 40 07/01/17 10:30 40 07/01/17 10:00 106 26 93/50 98 Mechanical Ventilator 40 07/01/17 09:20 40 07/01/17 09:14 100 07/01/17 09:10 104 20 40 07/01/17 09:00 106 25 97/45 100 Mechanical Ventilator 40 07/01/17 08:00 99.8 101 24 87/32 100 Mechanical Ventilator 40 07/01/17 08:00 40 07/01/17 08:00 101 07/01/17 07:12 105 20 100 Mechanical Ventilator 40 07/01/17 07:00 100.1 105 24 115/45 98 Mechanical Ventilator 40 Intake and Output 07/01/17 07/02/17 19:00 07:00 Intake Total 1582 ml 889.75 ml Output Total 700 ml 370 ml Balance 882 ml 519.75 ml IV Total 1582 ml 889.75 ml Output Urine Total 660 ml 370 ml Gastric Drainage Total 20 ml Drainage Total 20 ml Laboratory Tests 07/01/17 10:05: Prothrombin Time 10.0, Prothromb Time International Ratio 1.0, Activated Partial Thromboplast Time 43H 07/01/17 10:23: Arterial Blood pH 7.330L, Arterial Blood Partial Pressure CO2 33.4L, Arterial Blood Partial Pressure O2 74.5L, Arterial Blood HCO3 17.3L, Arterial Blood Oxygen Saturation 94.7, Arterial Blood Base Excess -7.8, Brandyn Test Positive 07/02/17 04:00: Urine Eosinophils [Pending] 07/02/17 04:05: White Blood Count 12.5H, Red Blood Count 2.87L, Hemoglobin 8.1L, Hematocrit 25.8L, Mean Corpuscular Volume 90, Mean Corpuscular Hemoglobin 28.3, Mean Corpuscular Hemoglobin Concent 31.5L, Red Cell Distribution Width 13.4, Platelet Count 130L, Mean Platelet Volume 8.8, Neutrophils (%) (Auto) 83.0H, Lymphocytes (%) (Auto) 6.7L, Monocytes (%) (Auto) 8.8, Eosinophils (%) (Auto) 1.1, Basophils (%) (Auto) 0.5, Sodium Level 141, Potassium Level 3.6, Chloride Level 108H, Carbon Dioxide Level 18L, Anion Gap 15, Blood Urea Nitrogen 59H, Creatinine 4.0H, Estimat Glomerular Filtration Rate , Glucose Level 67L, Uric Acid 10.2H, Calcium Level 8.1L, Phosphorus Level 4.9, Magnesium Level 1.8, Total Bilirubin 1.6H, Direct Bilirubin 1.1H, Gamma Glutamyl Transpeptidase 36, Aspartate Amino Transf (AST/SGOT) 85H, Alanine Aminotransferase (ALT/SGPT) 56, Alkaline Phosphatase 90, Total Creatine Kinase 1561H, C-Reactive Protein, Quantitative > 70.0H, Pro-B-Type Natriuretic Peptide 2259H, Total Protein 6.1L, Albumin 1.9L, Globulin 4.2, Albumin/Globulin Ratio 0.5L, Random Vancomycin Level 11.3 Height (Feet): 5 Height (Inches): 8.00 Weight (Pounds): 298 General Appearance: no apparent distress Neck: normal alignment Cardiovascular: normal rate Respiratory/Chest: lungs clear Abdomen: hypoactive bowel sounds Pelvis: normal external exam Edema: 1+ Arm (L), 1+ Arm (R), 1+ Leg (L), 1+ Leg (R), 1+ Pedal (L), 1+ Pedal ( R), 1+ Generalized Objective Current Medications Medications (Trade) Dose Ordered Sig/Teresa Route PRN Reason Start Time Stop Time Status Last Admin Dose Admin Acetaminophen (Tylenol) 650 mg Q4H PRN RECTAL FEVER 06/30/17 02:15 07/29/17 22:14 Acetaminophen (Tylenol) 650 mg Q4H PRN RECTAL Mild Pain (Pain Scale 1-3) 06/30/17 03:00 07/28/17 10:59 07/01/17 20:04 Albuterol/ Ipratropium (Albuterol/ Ipratropium) 3 ml Q4H PRN HHN Shortness of Breath 06/30/17 00:00 07/03/17 15:59 Albuterol/ Ipratropium (Albuterol/ Ipratropium) 3 ml Q6HRT HHN 06/30/17 01:00 07/03/17 18:59 07/02/17 01:23 Chlorhexidine Gluconate (Susan-Hex 2%) 1 applic Q24H TOPIC 07/02/17 20:00 08/01/17 19:59 Dextrose (Dextrose 50%) STAT PRN IV Hypoglycemia 06/30/17 10:00 07/28/17 09:59 07/01/17 18:06 Enoxaparin Sodium (Lovenox) 60 mg DAILY SUBQ 06/30/17 09:00 07/30/17 08:59 07/01/17 09:36 Hydromorphone HCl (Dilaudid) 0.5 mg Q3H PRN IVP Pain Score 1-3 06/30/17 01:15 07/06/17 22:14 06/30/17 22:52 Hydromorphone HCl (Dilaudid) 1 mg Q3H PRN IVP pain score 4-6 06/30/17 06:45 07/06/17 22:14 07/01/17 21:53 Hydromorphone HCl (Dilaudid) 2 mg Q3H PRN IVP pain score 7-10 06/30/17 01:15 07/06/17 22:14 Insulin Aspart (NovoLOG) Q6H SUBQ 06/30/17 00:00 07/29/17 00:00 06/30/17 17:35 Metoclopramide HCl (Reglan) 5 mg Q6H PRN IVP Nausea & Vomiting 06/30/17 04:15 07/29/17 22:14 Ondansetron HCl (Zofran) 4 mg Q6H PRN IVP Nausea & Vomiting 06/30/17 04:15 07/29/17 22:14 Pantoprazole (Protonix) 40 mg Q12HR IVP 06/30/17 09:00 07/27/17 00:00 07/01/17 20:41 Piperacillin Sod/ Tazobactam Sod 3.375 gm/Dextrose 55 ml @ 13.75 mls/ hr EVERY 12 HOURS IVPB 06/30/17 21:00 07/05/17 20:59 07/01/17 20:41 Sodium Chloride 1,000 ml @ 75 mls/hr [id number] IV 06/30/17 12:05 07/30/17 12:04 07/01/17 20:41 Item Value Date Time Bedside Blood Glucose 72 mg/dl 07/02/17 0602 Bedside Blood Glucose 79 mg/dl 07/02/17 0000 Bedside Blood Glucose 120 mg/dl 07/01/17 1830 Bedside Blood Glucose 62 mg/dl L 07/01/17 1437 Bedside Blood Glucose 87 mg/dl 07/01/17 1002 Bedside Blood Glucose 87 mg/dl 07/01/17 0625 LEANN COLE 21, 2017 06:51
[2017-07-02] MEDS: Enoxaparin 60mg Inj SUBQ SCH (09:00)
[2017-07-02] MEDS: Pantoprazole Inj IVP SCH ×2 (09:03→20:56)
[2017-07-02] MEDS: Piperacillin/Tazobactam 3.375 GM in D5W 55 ML IVPB SCH ×2 (09:04→20:56)
--- NOTE | 2017-07-02 10:03 | Pulmonolgy Critical Care Note ---
Critical Care - Asmt/Plan Problems: (1) Perforated bowel (2) Ventilator dependent (3) ELIDIA (acute kidney injury) (4) Metabolic acidosis (5) Obesity (6) Small bowel perforation Assessment/Plan: -VDRF -POD 6 S/P lap bridget and POD 1 S/P repeat ex-lab for SB perf -Metabolic acidosis (NAGMA + AGMA) with respiratory compensation -ELIDIA, likely on CKD -DM, HTN, HL -Worsening LFT's and mild leukocytosis Assessment/Plan PLAN: -CXR -Continue SBT --> check ABG in 30 minutes --> will need to make a final determination on extubation in light of other factors (volume overload, hemodynamic instability, possible HD) -F/U renal recs, monitor UO and renal function, consider starting HD -F/U TTE (not done yet) -Duplex neg, elevated DD likely post-op, doubt VTE, cannot do CT in light of renal failure and VQ would be of limited utility, patient is on DVT Px -F/U GI and surgery recs, post-op care -Optimize pulmonary hygiene/mobilize as tolerated -RTC and PRN DUOneb -Continue Abx per ID, F/U Cx's -Monitor LFT's and WCt -DVT Px: D/C LMWH, start Hep SQ TID given ELIDIA CC 45 Critical Care - Objective Last 24 Hour Vital Signs Date Time Temp Pulse Resp B/P (MAP) Pulse Ox O2 Delivery O2 Flow Rate FiO2 07/02/17 09:13 131 40 40 07/02/17 09:00 122 20 108/88 96 Mechanical Ventilator 07/02/17 08:56 100 07/02/17 08:54 113 28 40 07/02/17 08:50 113 26 40 07/02/17 08:49 100 07/02/17 08:00 40 07/02/17 08:00 122 07/02/17 08:00 100.2 122 22 122/46 99 Mechanical Ventilator 07/02/17 07:20 104 30 100 Mechanical Ventilator 40 07/02/17 07:10 106 30 40 07/02/17 07:10 106 30 100 Mechanical Ventilator 40 07/02/17 07:00 113 24 100/79 94 Mechanical Ventilator 40 07/02/17 06:00 106 24 116/51 100 Mechanical Ventilator 40 07/02/17 05:29 108 24 40 07/02/17 05:00 107 24 117/44 100 Mechanical Ventilator 40 07/02/17 04:00 112 07/02/17 04:00 99.4 95 21 110/35 99 Mechanical Ventilator 40 07/02/17 04:00 40 07/02/17 03:04 105 24 40 07/02/17 03:00 104 21 114/41 100 Mechanical Ventilator 40 07/02/17 02:00 100 21 100/40 99 Mechanical Ventilator 40 07/02/17 01:35 91 20 100 Mechanical Ventilator 40 07/02/17 01:22 102 20 100 Mechanical Ventilator 40 07/02/17 01:20 102 22 40 07/02/17 01:00 96 21 109/40 99 Mechanical Ventilator 40 07/02/17 00:00 99.3 95 21 95/35 99 Mechanical Ventilator 40 07/02/17 00:00 97 07/02/17 00:00 40 07/01/17 23:19 96 21 40 07/01/17 23:00 96 21 82/37 99 Mechanical Ventilator 40 07/01/17 22:23 99.3 07/01/17 22:00 103 21 74/31 99 Mechanical Ventilator 40 07/01/17 21:09 110 20 40 07/01/17 21:00 99.3 102 21 93/35 99 Mechanical Ventilator 40 07/01/17 20:34 99.4 07/01/17 20:00 40 07/01/17 20:00 100.1 106 25 93/35 99 Mechanical Ventilator 40 07/01/17 20:00 107 07/01/17 19:24 109 21 100 Mechanical Ventilator 40 07/01/17 19:16 111 23 99 Mechanical Ventilator 40 07/01/17 19:14 111 23 40 07/01/17 19:00 111 21 98/39 99 Mechanical Ventilator 40 07/01/17 18:00 106 21 107/43 99 Mechanical Ventilator 40 07/01/17 17:06 111 24 40 07/01/17 17:00 112 21 121/44 100 Mechanical Ventilator 40 07/01/17 16:00 110 07/01/17 16:00 99.3 113 25 118/50 99 Mechanical Ventilator 40 07/01/17 15:16 102 20 40 07/01/17 15:00 113 24 118/50 99 Mechanical Ventilator 40 07/01/17 14:00 103 21 127/51 100 Mechanical Ventilator 40 07/01/17 13:29 105 20 100 Mechanical Ventilator 40 07/01/17 13:19 110 24 40 07/01/17 13:19 107 31 100 Mechanical Ventilator 40 07/01/17 13:00 40 07/01/17 13:00 107 29 123/50 100 Mechanical Ventilator 40 07/01/17 12:00 105 07/01/17 12:00 98.9 114 24 117/49 97 Mechanical Ventilator 40 07/01/17 11:00 106 24 95/46 99 Mechanical Ventilator 40 07/01/17 10:34 106 31 40 07/01/17 10:30 40 07/01/17 10:00 106 26 93/50 98 Mechanical Ventilator 40 Status: awake, other - obese intubated Condition: critical HEENT: atraumatic, normocephalic, other - ETT, NGT Lungs: rhonchi - distant scattered rhonchi Heart: HR/BP unstable - BP stable, + ST Abdomen: soft, active bowel sounds - hypoactive BS, other - mild diffuse TTP, drain intact and draining, wound dressed Extremities: edema - 1+ bLEE Micro: Microbiology Date/Time Source Procedure Growth Status 06/29/17 21:55 Intestine Gram Stain - Final Resulted 06/29/17 21:55 Intestine Aerobic Culture - Preliminary Resulted 06/29/17 21:55 Intestine Anaerobic Culture Pending Resulted 07/01/17 17:00 Sputum Gram Stain Pending Resulted 07/01/17 17:00 Sputum Sputum Culture - Preliminary NO GROWTH AFTER 24 HOURS Resulted 06/29/17 15:00 Indwelling Cath Urine Culture - Preliminary Yeast Species Resulted 06/29/17 14:13 Abdomen Gram Stain - Final Resulted 06/29/17 14:13 Wound Culture - Preliminary Gram Negative Bacillus 1 Strep Species, Gamma-Hemolytic Resulted Accucheck: 72 Blood Sugars: BS controlled Critical Care - Subjective ROS Limited/Unobtainable: Yes ICU Day: 4 Intubation Day: 4 Interval Events: S/P R IJ CVC for HD Tm 100, ST to 100's, RR 20-30, beatriz PS 8 Pain well controlled, + flatus, no BM, NGT to LIS WCT 12.5, HCO3- 18, gap 15, BUN/Cr 59/4.0, LFT's worse Condition: critical IV Access: central EKG Rhythm: Sinus Tachycardia FI02: 40 Vent Support Breath Rate: 20 Vent Support Mode: AC Vent Tidal Volume: 550 Sputum Amount: Moderate PEEP: 5.0 PIP: 35 I&O: Intake and Output 07/01/17 07/02/17 19:00 07:00 Intake Total 1582 ml 1039.75 ml Output Total 700 ml 430 ml Balance 882 ml 609.75 ml IV Total 1582 ml 1039.75 ml Output Urine Total 660 ml 430 ml Gastric Drainage Total 20 ml Drainage Total 20 ml Subjective: No F/C, pain better, + BM, no flatus, no distress ET-Tube: 7.0 ET Position: 22 Labs: Laboratory Tests Test 07/01/17 10:05 07/01/17 10:23 07/02/17 04:00 07/02/17 04:05 Prothrombin Time 10.0 SEC (9.30-11.50) Prothromb Time International Ratio 1.0 (0.9-1.1) Activated Partial Thromboplast Time 43 SEC (23-33) H Arterial Blood pH 7.330 (7.350-7.450) Arterial Blood Partial Pressure CO2 33.4 mmHg (35.0-45.0) L Arterial Blood Partial Pressure O2 74.5 mmHg (75.0-100.0) L Arterial Blood HCO3 17.3 mmol/L (22.0-26.0) L Arterial Blood Oxygen Saturation 94.7 % (92.0-98.0) Arterial Blood Base Excess -7.8 Brandyn Test Positive Urine Eosinophils None seen White Blood Count 12.5 K/UL (4.8-10.8) H Red Blood Count 2.87 M/UL (4.20-5.40) L Hemoglobin 8.1 G/DL (12.0-16.0) L Hematocrit 25.8 % (37.0-47.0) L Mean Corpuscular Volume 90 FL (80-99) Mean Corpuscular Hemoglobin 28.3 PG (27.0-31.0) Mean Corpuscular Hemoglobin Concent 31.5 G/DL (32.0-36.0) L Red Cell Distribution Width 13.4 % (11.6-14.8) Platelet Count 130 K/UL (150-450) L Mean Platelet Volume 8.8 FL (6.5-10.1) Neutrophils (%) (Auto) 83.0 % (45.0-75.0) H Lymphocytes (%) (Auto) 6.7 % (20.0-45.0) L Monocytes (%) (Auto) 8.8 % (1.0-10.0) Eosinophils (%) (Auto) 1.1 % (0.0-3.0) Basophils (%) (Auto) 0.5 % (0.0-2.0) Sodium Level 141 MMOL/L (136-145) Potassium Level 3.6 MMOL/L (3.5-5.1) Chloride Level 108 MMOL/L (98-107) H Carbon Dioxide Level 18 MMOL/L (21-32) L Anion Gap 15 mmol/L (5-15) Blood Urea Nitrogen 59 mg/dL (7-18) H Creatinine 4.0 MG/DL (0.55-1.30) H Estimat Glomerular Filtration Rate mL/min (>60) Glucose Level 67 MG/DL (74-106) L Uric Acid 10.2 MG/DL (2.6-7.2) H Calcium Level 8.1 MG/DL (8.5-10.1) L Phosphorus Level 4.9 MG/DL (2.5-4.9) Magnesium Level 1.8 MG/DL (1.8-2.4) Total Bilirubin 1.6 MG/DL (0.2-1.0) H Direct Bilirubin 1.1 MG/DL (0.0-0.3) H Gamma Glutamyl Transpeptidase 36 U/L (5-85) Aspartate Amino Transf (AST/SGOT) 85 U/L (15-37) H Alanine Aminotransferase (ALT/SGPT) 56 U/L (12-78) Alkaline Phosphatase 90 U/L (46-116) Total Creatine Kinase 1561 U/L (26-308) H C-Reactive Protein, Quantitative > 70.0 mg/dL (0.00-0.90) H Pro-B-Type Natriuretic Peptide 2259 pg/mL (0-125) H Total Protein 6.1 G/DL (6.4-8.2) L Albumin 1.9 G/DL (3.4-5.0) L Globulin 4.2 g/dL Albumin/Globulin Ratio 0.5 (1.0-2.7) L Random Vancomycin Level 11.3 ug/mL VICKY GUERRERO M.D. Jul 02, 2017 10:03
--- NOTE | 2017-07-02 11:51 | GI Progress Note ---
Assessment/Plan Problems: (1) Anemia ICD Codes: D64.9 - Anemia, unspecified SNOMED: 453720719 (2) Small bowel perforation ICD Codes: K63.1 - Perforation of intestine (nontraumatic) SNOMED: 526910043 (3) Obesity ICD Codes: E66.9 - Obesity, unspecified SNOMED: 921804583 (4) Perforated bowel ICD Codes: K63.1 - Perforation of intestine (nontraumatic) SNOMED: 01440559 (5) Postoperative ileus ICD Codes: K91.89 - Other postprocedural complications and disorders of digestive system; K56.7 - Ileus, unspecified SNOMED: 596197821, 549720584 (6) S/P exploratory laparotomy ICD Codes: Z98.890 - Other specified postprocedural states SNOMED: 15182522, 18346146, 352054779 Status: unchanged Status Narrative Discussed with Dr. Mckeon. Assessment/Plan CT AP reviewed > perforated small bowel, see full report. fu surgical recs >> s/p Exploratory Laparotomy, Small Bowel resection with primary anastomosis, Lysis of adhesions , Drainage of intra abdominal abscess supportive care pain mgmt IV hydration + electrolyte correction bowel rest >> NPO + IVFs nutritional support ppi fu labs Subjective Subjective limited, abdominal pain Objective Last 24 Hour Vital Signs Date Time Temp Pulse Resp B/P (MAP) Pulse Ox O2 Delivery O2 Flow Rate FiO2 07/02/17 11:00 115 20 135/66 99 Endotracheal Tube 07/02/17 10:00 115 22 105/40 99 07/02/17 09:13 131 40 40 07/02/17 09:00 122 20 108/88 96 Mechanical Ventilator 07/02/17 08:56 100 07/02/17 08:54 113 28 40 07/02/17 08:50 113 26 40 07/02/17 08:49 100 07/02/17 08:00 40 07/02/17 08:00 122 07/02/17 08:00 100.2 122 22 122/46 99 Mechanical Ventilator 07/02/17 07:20 104 30 100 Mechanical Ventilator 40 07/02/17 07:10 106 30 40 07/02/17 07:10 106 30 100 Mechanical Ventilator 40 07/02/17 07:00 113 24 100/79 94 Mechanical Ventilator 40 07/02/17 06:00 106 24 116/51 100 Mechanical Ventilator 40 07/02/17 05:29 108 24 40 07/02/17 05:00 107 24 117/44 100 Mechanical Ventilator 40 07/02/17 04:00 112 07/02/17 04:00 99.4 95 21 110/35 99 Mechanical Ventilator 40 07/02/17 04:00 40 07/02/17 03:04 105 24 40 07/02/17 03:00 104 21 114/41 100 Mechanical Ventilator 40 07/02/17 02:00 100 21 100/40 99 Mechanical Ventilator 40 07/02/17 01:35 91 20 100 Mechanical Ventilator 40 07/02/17 01:22 102 20 100 Mechanical Ventilator 40 07/02/17 01:20 102 22 40 07/02/17 01:00 96 21 109/40 99 Mechanical Ventilator 40 07/02/17 00:00 99.3 95 21 95/35 99 Mechanical Ventilator 40 07/02/17 00:00 97 07/02/17 00:00 40 07/01/17 23:19 96 21 40 07/01/17 23:00 96 21 82/37 99 Mechanical Ventilator 40 07/01/17 22:23 99.3 07/01/17 22:00 103 21 74/31 99 Mechanical Ventilator 40 07/01/17 21:09 110 20 40 07/01/17 21:00 99.3 102 21 93/35 99 Mechanical Ventilator 40 07/01/17 20:34 99.4 07/01/17 20:00 40 07/01/17 20:00 100.1 106 25 93/35 99 Mechanical Ventilator 40 07/01/17 20:00 107 07/01/17 19:24 109 21 100 Mechanical Ventilator 40 07/01/17 19:16 111 23 99 Mechanical Ventilator 40 07/01/17 19:14 111 23 40 07/01/17 19:00 111 21 98/39 99 Mechanical Ventilator 40 07/01/17 18:00 106 21 107/43 99 Mechanical Ventilator 40 07/01/17 17:06 111 24 40 07/01/17 17:00 112 21 121/44 100 Mechanical Ventilator 40 07/01/17 16:00 110 07/01/17 16:00 99.3 113 25 118/50 99 Mechanical Ventilator 40 07/01/17 15:16 102 20 40 07/01/17 15:00 113 24 118/50 99 Mechanical Ventilator 40 07/01/17 14:00 103 21 127/51 100 Mechanical Ventilator 40 07/01/17 13:29 105 20 100 Mechanical Ventilator 40 07/01/17 13:19 110 24 40 07/01/17 13:19 107 31 100 Mechanical Ventilator 40 07/01/17 13:00 40 07/01/17 13:00 107 29 123/50 100 Mechanical Ventilator 40 07/01/17 12:00 105 07/01/17 12:00 98.9 114 24 117/49 97 Mechanical Ventilator 40 Intake and Output 07/01/17 07/02/17 19:00 07:00 Intake Total 1582 ml 1039.75 ml Output Total 700 ml 430 ml Balance 882 ml 609.75 ml IV Total 1582 ml 1039.75 ml Output Urine Total 660 ml 430 ml Gastric Drainage Total 20 ml Drainage Total 20 ml Laboratory Tests Test 07/02/17 04:00 07/02/17 04:05 07/02/17 10:55 Urine Eosinophils None seen White Blood Count 12.5 K/UL (4.8-10.8) H Red Blood Count 2.87 M/UL (4.20-5.40) L Hemoglobin 8.1 G/DL (12.0-16.0) L Hematocrit 25.8 % (37.0-47.0) L Mean Corpuscular Volume 90 FL (80-99) Mean Corpuscular Hemoglobin 28.3 PG (27.0-31.0) Mean Corpuscular Hemoglobin Concent 31.5 G/DL (32.0-36.0) L Red Cell Distribution Width 13.4 % (11.6-14.8) Platelet Count 130 K/UL (150-450) L Mean Platelet Volume 8.8 FL (6.5-10.1) Neutrophils (%) (Auto) 83.0 % (45.0-75.0) H Lymphocytes (%) (Auto) 6.7 % (20.0-45.0) L Monocytes (%) (Auto) 8.8 % (1.0-10.0) Eosinophils (%) (Auto) 1.1 % (0.0-3.0) Basophils (%) (Auto) 0.5 % (0.0-2.0) Sodium Level 141 MMOL/L (136-145) Potassium Level 3.6 MMOL/L (3.5-5.1) Chloride Level 108 MMOL/L (98-107) H Carbon Dioxide Level 18 MMOL/L (21-32) L Anion Gap 15 mmol/L (5-15) Blood Urea Nitrogen 59 mg/dL (7-18) H Creatinine 4.0 MG/DL (0.55-1.30) H Estimat Glomerular Filtration Rate mL/min (>60) Glucose Level 67 MG/DL (74-106) L Uric Acid 10.2 MG/DL (2.6-7.2) H Calcium Level 8.1 MG/DL (8.5-10.1) L Phosphorus Level 4.9 MG/DL (2.5-4.9) Magnesium Level 1.8 MG/DL (1.8-2.4) Total Bilirubin 1.6 MG/DL (0.2-1.0) H Direct Bilirubin 1.1 MG/DL (0.0-0.3) H Gamma Glutamyl Transpeptidase 36 U/L (5-85) Aspartate Amino Transf (AST/SGOT) 85 U/L (15-37) H Alanine Aminotransferase (ALT/SGPT) 56 U/L (12-78) Alkaline Phosphatase 90 U/L (46-116) Total Creatine Kinase 1561 U/L (26-308) H C-Reactive Protein, Quantitative > 70.0 mg/dL (0.00-0.90) H Pro-B-Type Natriuretic Peptide 2259 pg/mL (0-125) H Total Protein 6.1 G/DL (6.4-8.2) L Albumin 1.9 G/DL (3.4-5.0) L Globulin 4.2 g/dL Albumin/Globulin Ratio 0.5 (1.0-2.7) L Random Vancomycin Level 11.3 ug/mL Arterial Blood pH 7.269 (7.350-7.450) Arterial Blood Partial Pressure CO2 34.7 mmHg (35.0-45.0) L Arterial Blood Partial Pressure O2 78.6 mmHg (75.0-100.0) Arterial Blood HCO3 15.5 mmol/L (22.0-26.0) L Arterial Blood Oxygen Saturation 93.9 % (92.0-98.0) Arterial Blood Base Excess -10.4 Brandyn Test Positive Microbiology Date/Time Source Procedure Growth Status 07/01/17 17:00 Sputum Gram Stain - Final Resulted 07/01/17 17:00 Sputum Sputum Culture - Preliminary NO GROWTH AFTER 24 HOURS Resulted Height (Feet): 5 Height (Inches): 8.00 Weight (Pounds): 298 General Appearance: WD/WN, no apparent distress, alert, overweight Cardiovascular: normal rate Respiratory/Chest: no respiratory distress, other - ET Abdominal Exam: distended, incision site Extremities: non-tender Luisa Pradhan N.P. Jul 02, 2017 11:51
--- NOTE | 2017-07-02 12:40 | General Surgery Progress Note ---
General Surgery-Progress Note Subjective Procedure Performed Exploratory Laparotomy, Small Bowel resection with primary anastomosis, Lysis of adhesions , Drainage of intra abdominal abscess Symptoms: passing flatus Objective Last 24 Hour Vital Signs Date Time Temp Pulse Resp B/P (MAP) Pulse Ox O2 Delivery O2 Flow Rate FiO2 07/02/17 11:00 115 20 135/66 99 Endotracheal Tube 07/02/17 11:00 119 33 40 07/02/17 10:00 115 22 105/40 99 07/02/17 09:50 114 30 40 07/02/17 09:13 131 40 40 07/02/17 09:00 122 20 108/88 96 Mechanical Ventilator 07/02/17 08:56 100 07/02/17 08:54 113 28 40 07/02/17 08:50 113 26 40 07/02/17 08:49 100 07/02/17 08:00 40 07/02/17 08:00 122 07/02/17 08:00 100.2 122 22 122/46 99 Mechanical Ventilator 07/02/17 07:20 104 30 100 Mechanical Ventilator 40 07/02/17 07:10 106 30 40 07/02/17 07:10 106 30 100 Mechanical Ventilator 40 07/02/17 07:00 113 24 100/79 94 Mechanical Ventilator 40 07/02/17 06:00 106 24 116/51 100 Mechanical Ventilator 40 07/02/17 05:29 108 24 40 07/02/17 05:00 107 24 117/44 100 Mechanical Ventilator 40 07/02/17 04:00 112 07/02/17 04:00 99.4 95 21 110/35 99 Mechanical Ventilator 40 07/02/17 04:00 40 07/02/17 03:04 105 24 40 07/02/17 03:00 104 21 114/41 100 Mechanical Ventilator 40 07/02/17 02:00 100 21 100/40 99 Mechanical Ventilator 40 07/02/17 01:35 91 20 100 Mechanical Ventilator 40 07/02/17 01:22 102 20 100 Mechanical Ventilator 40 07/02/17 01:20 102 22 40 07/02/17 01:00 96 21 109/40 99 Mechanical Ventilator 40 07/02/17 00:00 99.3 95 21 95/35 99 Mechanical Ventilator 40 07/02/17 00:00 97 07/02/17 00:00 40 07/01/17 23:19 96 21 40 07/01/17 23:00 96 21 82/37 99 Mechanical Ventilator 40 07/01/17 22:23 99.3 07/01/17 22:00 103 21 74/31 99 Mechanical Ventilator 40 07/01/17 21:09 110 20 40 07/01/17 21:00 99.3 102 21 93/35 99 Mechanical Ventilator 40 07/01/17 20:34 99.4 07/01/17 20:00 40 07/01/17 20:00 100.1 106 25 93/35 99 Mechanical Ventilator 40 07/01/17 20:00 107 07/01/17 19:24 109 21 100 Mechanical Ventilator 40 07/01/17 19:16 111 23 99 Mechanical Ventilator 40 07/01/17 19:14 111 23 40 07/01/17 19:00 111 21 98/39 99 Mechanical Ventilator 40 07/01/17 18:00 106 21 107/43 99 Mechanical Ventilator 40 07/01/17 17:06 111 24 40 07/01/17 17:00 112 21 121/44 100 Mechanical Ventilator 40 07/01/17 16:00 110 07/01/17 16:00 99.3 113 25 118/50 99 Mechanical Ventilator 40 07/01/17 15:16 102 20 40 07/01/17 15:00 113 24 118/50 99 Mechanical Ventilator 40 07/01/17 14:00 103 21 127/51 100 Mechanical Ventilator 40 07/01/17 13:29 105 20 100 Mechanical Ventilator 40 07/01/17 13:19 110 24 40 07/01/17 13:19 107 31 100 Mechanical Ventilator 40 07/01/17 13:00 40 07/01/17 13:00 107 29 123/50 100 Mechanical Ventilator 40 I&O Intake and Output 07/01/17 07/02/17 19:00 07:00 Intake Total 1582 ml 1039.75 ml Output Total 700 ml 430 ml Balance 882 ml 609.75 ml IV Total 1582 ml 1039.75 ml Output Urine Total 660 ml 430 ml Gastric Drainage Total 20 ml Drainage Total 20 ml Drains: chiquita Respiratory: clear Abdomen: soft, tenderness, absent bowel sounds Extremities: no tenderness Laboratory Tests Test 07/02/17 04:00 07/02/17 04:05 07/02/17 10:55 Urine Eosinophils None seen White Blood Count 12.5 K/UL (4.8-10.8) H Red Blood Count 2.87 M/UL (4.20-5.40) L Hemoglobin 8.1 G/DL (12.0-16.0) L Hematocrit 25.8 % (37.0-47.0) L Mean Corpuscular Volume 90 FL (80-99) Mean Corpuscular Hemoglobin 28.3 PG (27.0-31.0) Mean Corpuscular Hemoglobin Concent 31.5 G/DL (32.0-36.0) L Red Cell Distribution Width 13.4 % (11.6-14.8) Platelet Count 130 K/UL (150-450) L Mean Platelet Volume 8.8 FL (6.5-10.1) Neutrophils (%) (Auto) 83.0 % (45.0-75.0) H Lymphocytes (%) (Auto) 6.7 % (20.0-45.0) L Monocytes (%) (Auto) 8.8 % (1.0-10.0) Eosinophils (%) (Auto) 1.1 % (0.0-3.0) Basophils (%) (Auto) 0.5 % (0.0-2.0) Sodium Level 141 MMOL/L (136-145) Potassium Level 3.6 MMOL/L (3.5-5.1) Chloride Level 108 MMOL/L (98-107) H Carbon Dioxide Level 18 MMOL/L (21-32) L Anion Gap 15 mmol/L (5-15) Blood Urea Nitrogen 59 mg/dL (7-18) H Creatinine 4.0 MG/DL (0.55-1.30) H Estimat Glomerular Filtration Rate mL/min (>60) Glucose Level 67 MG/DL (74-106) L Uric Acid 10.2 MG/DL (2.6-7.2) H Calcium Level 8.1 MG/DL (8.5-10.1) L Phosphorus Level 4.9 MG/DL (2.5-4.9) Magnesium Level 1.8 MG/DL (1.8-2.4) Total Bilirubin 1.6 MG/DL (0.2-1.0) H Direct Bilirubin 1.1 MG/DL (0.0-0.3) H Gamma Glutamyl Transpeptidase 36 U/L (5-85) Aspartate Amino Transf (AST/SGOT) 85 U/L (15-37) H Alanine Aminotransferase (ALT/SGPT) 56 U/L (12-78) Alkaline Phosphatase 90 U/L (46-116) Total Creatine Kinase 1561 U/L (26-308) H C-Reactive Protein, Quantitative > 70.0 mg/dL (0.00-0.90) H Pro-B-Type Natriuretic Peptide 2259 pg/mL (0-125) H Total Protein 6.1 G/DL (6.4-8.2) L Albumin 1.9 G/DL (3.4-5.0) L Globulin 4.2 g/dL Albumin/Globulin Ratio 0.5 (1.0-2.7) L Random Vancomycin Level 11.3 ug/mL Arterial Blood pH 7.269 (7.350-7.450) Arterial Blood Partial Pressure CO2 34.7 mmHg (35.0-45.0) L Arterial Blood Partial Pressure O2 78.6 mmHg (75.0-100.0) Arterial Blood HCO3 15.5 mmol/L (22.0-26.0) L Arterial Blood Oxygen Saturation 93.9 % (92.0-98.0) Arterial Blood Base Excess -10.4 Brandyn Test Positive Assessment Post-op Diagnosis perforated small bowel and intra abdominal abscess Additional Comments renal failure Plan Additional Comments continue current treatment KIRT BECK Jul 02, 2017 12:40
--- NOTE | 2017-07-02 12:53 | General Progress Note ---
Assessment/Plan Status: stable Assessment/Plan 1. Acute abdomen 2- RLL abdominal Abcess secondary to Iatrogenic SB perforation 3- S/P Expl Lap and SB resection with Primary Anastomosis, POST OP #1 2. Diabetes type 2, uncontrolled. 3. Renal failure, age indeterminate. 4. Thrombocytopenia. 5. Abnormal liver function test. 7. Asthma 8. Abnormal BNP, pending Echo 6. Gastrointestinal and deep vein thrombosis prophylaxes. Plan: Surgeon GI notes are reviewed Discussed the care with surgeon Worsening Renal Function, Nephro will follows. low grade fever and leukocytosis. Dr Gabriel consulted Subjective ROS Limited/Unobtainable: Yes Allergies: Coded Allergies: No Known Allergies (Unverified , 06/28/17) Objective Last 24 Hour Vital Signs Date Time Temp Pulse Resp B/P (MAP) Pulse Ox O2 Delivery O2 Flow Rate FiO2 07/02/17 12:47 106 29 40 07/02/17 12:47 106 30 99 Mechanical Ventilator 40 07/02/17 12:00 117 07/02/17 12:00 40 07/02/17 12:00 98.1 22 113/49 100 Mechanical Ventilator 07/02/17 11:00 115 20 135/66 99 Endotracheal Tube 07/02/17 11:00 119 33 40 07/02/17 10:00 115 22 105/40 99 07/02/17 09:50 114 30 40 07/02/17 09:13 131 40 40 07/02/17 09:00 122 20 108/88 96 Mechanical Ventilator 07/02/17 08:56 100 07/02/17 08:54 113 28 40 07/02/17 08:50 113 26 40 07/02/17 08:49 100 07/02/17 08:00 40 07/02/17 08:00 122 07/02/17 08:00 100.2 122 22 122/46 99 Mechanical Ventilator 07/02/17 07:20 104 30 100 Mechanical Ventilator 40 07/02/17 07:10 106 30 40 07/02/17 07:10 106 30 100 Mechanical Ventilator 40 07/02/17 07:00 113 24 100/79 94 Mechanical Ventilator 40 07/02/17 06:00 106 24 116/51 100 Mechanical Ventilator 40 07/02/17 05:29 108 24 40 07/02/17 05:00 107 24 117/44 100 Mechanical Ventilator 40 07/02/17 04:00 112 07/02/17 04:00 99.4 95 21 110/35 99 Mechanical Ventilator 40 07/02/17 04:00 40 07/02/17 03:04 105 24 40 07/02/17 03:00 104 21 114/41 100 Mechanical Ventilator 40 07/02/17 02:00 100 21 100/40 99 Mechanical Ventilator 40 07/02/17 01:35 91 20 100 Mechanical Ventilator 40 07/02/17 01:22 102 20 100 Mechanical Ventilator 40 07/02/17 01:20 102 22 40 07/02/17 01:00 96 21 109/40 99 Mechanical Ventilator 40 07/02/17 00:00 99.3 95 21 95/35 99 Mechanical Ventilator 40 07/02/17 00:00 97 07/02/17 00:00 40 07/01/17 23:19 96 21 40 07/01/17 23:00 96 21 82/37 99 Mechanical Ventilator 40 07/01/17 22:23 99.3 07/01/17 22:00 103 21 74/31 99 Mechanical Ventilator 40 07/01/17 21:09 110 20 40 07/01/17 21:00 99.3 102 21 93/35 99 Mechanical Ventilator 40 07/01/17 20:34 99.4 07/01/17 20:00 40 07/01/17 20:00 100.1 106 25 93/35 99 Mechanical Ventilator 40 07/01/17 20:00 107 07/01/17 19:24 109 21 100 Mechanical Ventilator 40 07/01/17 19:16 111 23 99 Mechanical Ventilator 40 07/01/17 19:14 111 23 40 07/01/17 19:00 111 21 98/39 99 Mechanical Ventilator 40 07/01/17 18:00 106 21 107/43 99 Mechanical Ventilator 40 07/01/17 17:06 111 24 40 07/01/17 17:00 112 21 121/44 100 Mechanical Ventilator 40 07/01/17 16:00 110 07/01/17 16:00 99.3 113 25 118/50 99 Mechanical Ventilator 40 07/01/17 15:16 102 20 40 07/01/17 15:00 113 24 118/50 99 Mechanical Ventilator 40 07/01/17 14:00 103 21 127/51 100 Mechanical Ventilator 40 07/01/17 13:29 105 20 100 Mechanical Ventilator 40 07/01/17 13:19 110 24 40 07/01/17 13:19 107 31 100 Mechanical Ventilator 40 07/01/17 13:00 40 07/01/17 13:00 107 29 123/50 100 Mechanical Ventilator 40 Intake and Output 07/01/17 07/02/17 19:00 07:00 Intake Total 1582 ml 1039.75 ml Output Total 700 ml 430 ml Balance 882 ml 609.75 ml IV Total 1582 ml 1039.75 ml Output Urine Total 660 ml 430 ml Gastric Drainage Total 20 ml Drainage Total 20 ml Laboratory Tests 07/02/17 04:00: Urine Eosinophils None seen 07/02/17 04:05: White Blood Count 12.5H, Red Blood Count 2.87L, Hemoglobin 8.1L, Hematocrit 25.8L, Mean Corpuscular Volume 90, Mean Corpuscular Hemoglobin 28.3, Mean Corpuscular Hemoglobin Concent 31.5L, Red Cell Distribution Width 13.4, Platelet Count 130L, Mean Platelet Volume 8.8, Neutrophils (%) (Auto) 83.0H, Lymphocytes (%) (Auto) 6.7L, Monocytes (%) (Auto) 8.8, Eosinophils (%) (Auto) 1.1, Basophils (%) (Auto) 0.5, Sodium Level 141, Potassium Level 3.6, Chloride Level 108H, Carbon Dioxide Level 18L, Anion Gap 15, Blood Urea Nitrogen 59H, Creatinine 4.0H, Estimat Glomerular Filtration Rate , Glucose Level 67L, Uric Acid 10.2H, Calcium Level 8.1L, Phosphorus Level 4.9, Magnesium Level 1.8, Total Bilirubin 1.6H, Direct Bilirubin 1.1H, Gamma Glutamyl Transpeptidase 36, Aspartate Amino Transf (AST/SGOT) 85H, Alanine Aminotransferase (ALT/SGPT) 56, Alkaline Phosphatase 90, Total Creatine Kinase 1561H, C-Reactive Protein, Quantitative > 70.0H, Pro-B-Type Natriuretic Peptide 2259H, Total Protein 6.1L, Albumin 1.9L, Globulin 4.2, Albumin/Globulin Ratio 0.5L, Random Vancomycin Level 11.3 07/02/17 10:55: Arterial Blood pH 7.269L, Arterial Blood Partial Pressure CO2 34.7L, Arterial Blood Partial Pressure O2 78.6, Arterial Blood HCO3 15.5L, Arterial Blood Oxygen Saturation 93.9, Arterial Blood Base Excess -10.4, Brandyn Test Positive Height (Feet): 5 Height (Inches): 8.00 Weight (Pounds): 298 General Appearance: no apparent distress EENT: PERRL/EOMI Neck: supple Cardiovascular: normal rate Respiratory/Chest: rhonchi - bilaterally Abdomen: soft, other - midline surgery scar. limited eval as patient is not following commands Extremities: other - limited eval as patient is not following commands Neurologic: other - limited eval as patient is not following commands Margarito Reilly MD Jul 02, 2017 12:52
--- NOTE | 2017-07-02 13:06 | Diagnostic Imaging Report ---
Indication: Reason For Exam: COUGH Technique: One view of the chest Comparison: 07/01/2017 Findings: Stable satisfactory positions of endotracheal and nasogastric tubes, right jugular temporary dialysis catheter. There is slightly increased atelectasis and possible patchy consolidation at the left lung base and left perihilar region. The pleural spaces remain clear. There is better aeration of the right lung. The heart size is upper limits of normal Impression: Slightly increased left basilar and perihilar patchy consolidation, over one day Other stable findings as described
[2017-07-02] MEDS: Heparin 5000 units/ml inj SUBQ SCH ×2 (13:56→21:44)
--- NOTE | 2017-07-02 14:09 | Nephrology Progress Note ---
Assessment/Plan Problem List: (1) ELIDIA (acute kidney injury) (2) Obesity (3) Small bowel perforation (4) Hyperglycemia due to type 2 diabetes mellitus (5) Anemia Assessment Acute renal failure, post op ( done 3 days ago in [facility]) , likely multifactorial including low BP, and dehydration due to vomiting Post surgery again last night, now in ICu intubated, Cr rising Underlying chronic renal failure due to DM and HTN with 3+ Proteinuria Other: - Acute abdomen post inpatient surgery , Lap Veronika. - Diabetes type 2, uncontrolled. - Thrombocytopenia. - Abnormal liver function test. Plan Plan: HD today Albumin 5% PRN Vanco one dose- ID eval Cath for HD done discussed with RN Hydrate Monitor renal parameters Avoid Nephrotoxics- Stopped TORADOL for pain monitor renal parameters antibiotics gastric support Subjective ROS Limited/Unobtainable: Yes Objective Objective Last 24 Hour Vital Signs Date Time Temp Pulse Resp B/P (MAP) Pulse Ox O2 Delivery O2 Flow Rate FiO2 07/02/17 13:07 107 29 100 Mechanical Ventilator 40 07/02/17 13:00 107 22 124/52 100 Mechanical Ventilator 07/02/17 12:47 106 29 40 07/02/17 12:47 106 30 99 Mechanical Ventilator 40 07/02/17 12:00 117 07/02/17 12:00 40 07/02/17 12:00 98.1 22 113/49 100 Mechanical Ventilator 07/02/17 11:00 115 20 135/66 99 Endotracheal Tube 07/02/17 11:00 119 33 40 07/02/17 10:00 115 22 105/40 99 07/02/17 09:50 114 30 40 07/02/17 09:13 131 40 40 07/02/17 09:00 122 20 108/88 96 Mechanical Ventilator 07/02/17 08:56 100 07/02/17 08:54 113 28 40 07/02/17 08:50 113 26 40 07/02/17 08:49 100 07/02/17 08:00 40 07/02/17 08:00 122 07/02/17 08:00 100.2 122 22 122/46 99 Mechanical Ventilator 07/02/17 07:20 104 30 100 Mechanical Ventilator 40 07/02/17 07:10 106 30 40 07/02/17 07:10 106 30 100 Mechanical Ventilator 40 07/02/17 07:00 113 24 100/79 94 Mechanical Ventilator 40 07/02/17 06:00 106 24 116/51 100 Mechanical Ventilator 40 07/02/17 05:29 108 24 40 07/02/17 05:00 107 24 117/44 100 Mechanical Ventilator 40 07/02/17 04:00 112 07/02/17 04:00 99.4 95 21 110/35 99 Mechanical Ventilator 40 07/02/17 04:00 40 07/02/17 03:04 105 24 40 07/02/17 03:00 104 21 114/41 100 Mechanical Ventilator 40 07/02/17 02:00 100 21 100/40 99 Mechanical Ventilator 40 07/02/17 01:35 91 20 100 Mechanical Ventilator 40 07/02/17 01:22 102 20 100 Mechanical Ventilator 40 07/02/17 01:20 102 22 40 07/02/17 01:00 96 21 109/40 99 Mechanical Ventilator 40 07/02/17 00:00 99.3 95 21 95/35 99 Mechanical Ventilator 40 07/02/17 00:00 97 07/02/17 00:00 40 07/01/17 23:19 96 21 40 07/01/17 23:00 96 21 82/37 99 Mechanical Ventilator 40 07/01/17 22:23 99.3 07/01/17 22:00 103 21 74/31 99 Mechanical Ventilator 40 07/01/17 21:09 110 20 40 07/01/17 21:00 99.3 102 21 93/35 99 Mechanical Ventilator 40 07/01/17 20:34 99.4 07/01/17 20:00 40 07/01/17 20:00 100.1 106 25 93/35 99 Mechanical Ventilator 40 07/01/17 20:00 107 07/01/17 19:24 109 21 100 Mechanical Ventilator 40 07/01/17 19:16 111 23 99 Mechanical Ventilator 40 07/01/17 19:14 111 23 40 07/01/17 19:00 111 21 98/39 99 Mechanical Ventilator 40 07/01/17 18:00 106 21 107/43 99 Mechanical Ventilator 40 07/01/17 17:06 111 24 40 07/01/17 17:00 112 21 121/44 100 Mechanical Ventilator 40 07/01/17 16:00 110 07/01/17 16:00 99.3 113 25 118/50 99 Mechanical Ventilator 40 07/01/17 15:16 102 20 40 07/01/17 15:00 113 24 118/50 99 Mechanical Ventilator 40 Intake and Output 07/01/17 07/02/17 19:00 07:00 Intake Total 1582 ml 1039.75 ml Output Total 700 ml 430 ml Balance 882 ml 609.75 ml IV Total 1582 ml 1039.75 ml Output Urine Total 660 ml 430 ml Gastric Drainage Total 20 ml Drainage Total 20 ml Laboratory Tests 07/02/17 04:00: Urine Eosinophils None seen 07/02/17 04:05: White Blood Count 12.5H, Red Blood Count 2.87L, Hemoglobin 8.1L, Hematocrit 25.8L, Mean Corpuscular Volume 90, Mean Corpuscular Hemoglobin 28.3, Mean Corpuscular Hemoglobin Concent 31.5L, Red Cell Distribution Width 13.4, Platelet Count 130L, Mean Platelet Volume 8.8, Neutrophils (%) (Auto) 83.0H, Lymphocytes (%) (Auto) 6.7L, Monocytes (%) (Auto) 8.8, Eosinophils (%) (Auto) 1.1, Basophils (%) (Auto) 0.5, Sodium Level 141, Potassium Level 3.6, Chloride Level 108H, Carbon Dioxide Level 18L, Anion Gap 15, Blood Urea Nitrogen 59H, Creatinine 4.0H, Estimat Glomerular Filtration Rate , Glucose Level 67L, Uric Acid 10.2H, Calcium Level 8.1L, Phosphorus Level 4.9, Magnesium Level 1.8, Total Bilirubin 1.6H, Direct Bilirubin 1.1H, Gamma Glutamyl Transpeptidase 36, Aspartate Amino Transf (AST/SGOT) 85H, Alanine Aminotransferase (ALT/SGPT) 56, Alkaline Phosphatase 90, Total Creatine Kinase 1561H, C-Reactive Protein, Quantitative > 70.0H, Pro-B-Type Natriuretic Peptide 2259H, Total Protein 6.1L, Albumin 1.9L, Globulin 4.2, Albumin/Globulin Ratio 0.5L, Random Vancomycin Level 11.3 07/02/17 10:55: Arterial Blood pH 7.269L, Arterial Blood Partial Pressure CO2 34.7L, Arterial Blood Partial Pressure O2 78.6, Arterial Blood HCO3 15.5L, Arterial Blood Oxygen Saturation 93.9, Arterial Blood Base Excess -10.4, Brandyn Test Positive Height (Feet): 5 Height (Inches): 8.00 Weight (Pounds): 298 General Appearance: mild distress EENT: other - on vent Cardiovascular: tachycardia Respiratory/Chest: decreased breath sounds Abdomen: distended ANU FAIRBANKS Jul 02, 2017 14:09
[2017-07-02] MEDS ORDERED: NS 500ML ONE ×2 (15:54→16:36)
[2017-07-02] MEDS ORDERED: Tubing IV Secondary IV ONE ×2 (15:54→16:36)
[2017-07-02] MEDS ORDERED: Vancomycin 1250mg/D5W 250ml IVPB ONE (16:00)
[2017-07-02] MEDS: Dyna-Hex 2% Top Sol 2oz TOPIC SCH (20:56)
--- NOTE | 2017-07-02 22:07 | Infectious Diseases Prog Note ---
Assessment/Plan Assessment/Plan ASSESSMENT: The patient is a 71-year-old female with Sepsis low grade fever. t leukocytosis , mild Possible aspiration pneumonia. Fever mostly due to postop, status post repair of small bowel perforation on Status post cholecystectomy on 06/26/2017 Anemia. Acute renal insufficiency. Ventilator-dependent respiratory failure. History of laparoscopic cholecystectomy on 06/26/2017. Perforated small bowel obstruction, status post small-bowel resection and primary anastomosis on 06/29/2017 Hypertension History of back pain. Diabetes PLAN: continue the patient on Zosyn day # 4 and vancomycin day # 2 Monitor CBC. Monitor BMP. Monitor chest x-ray. Monitor cultures (blood, sputum, and urine). Subjective Allergies: Coded Allergies: No Known Allergies (Unverified , 06/28/17) Subjective afebrile Objective Vital Signs Last 24 Hour Vital Signs Date Time Temp Pulse Resp B/P (MAP) Pulse Ox O2 Delivery O2 Flow Rate FiO2 07/02/17 21:30 109 25 40 07/02/17 20:00 124 Mechanical Ventilator 07/02/17 20:00 40 07/02/17 20:00 99.6 121 31 116/55 97 Mechanical Ventilator 40 07/02/17 20:00 121 07/02/17 20:00 122 30 99 Mechanical Ventilator 40 07/02/17 19:30 122 30 40 07/02/17 19:00 118 22 139/50 98 Mechanical Ventilator 40 07/02/17 18:00 114 20 135/50 99 Endotracheal Tube 07/02/17 17:01 116 32 40 07/02/17 17:00 115 22 132/79 98 Endotracheal Tube 07/02/17 16:00 40 07/02/17 16:00 97.9 115 20 149/55 97 Endotracheal Tube 07/02/17 16:00 115 07/02/17 15:00 115 22 127/45 97 Mechanical Ventilator 07/02/17 14:54 118 30 40 07/02/17 14:10 Mechanical Ventilator 40 07/02/17 14:00 118 22 122/44 97 Mechanical Ventilator 07/02/17 13:07 107 29 100 Mechanical Ventilator 40 07/02/17 13:00 107 22 124/52 100 Mechanical Ventilator 07/02/17 12:47 106 29 40 07/02/17 12:47 106 30 99 Mechanical Ventilator 40 07/02/17 12:00 117 07/02/17 12:00 40 07/02/17 12:00 98.1 22 113/49 100 Mechanical Ventilator 07/02/17 11:00 115 20 135/66 99 Endotracheal Tube 07/02/17 11:00 119 33 40 07/02/17 10:00 115 22 105/40 99 07/02/17 09:50 114 30 40 07/02/17 09:13 131 40 40 07/02/17 09:00 122 20 108/88 96 Mechanical Ventilator 07/02/17 08:56 100 07/02/17 08:54 113 28 40 07/02/17 08:50 113 26 40 07/02/17 08:49 100 07/02/17 08:00 40 07/02/17 08:00 122 07/02/17 08:00 100.2 122 22 122/46 99 Mechanical Ventilator 07/02/17 07:20 104 30 100 Mechanical Ventilator 40 07/02/17 07:10 106 30 40 07/02/17 07:10 106 30 100 Mechanical Ventilator 40 07/02/17 07:00 113 24 100/79 94 Mechanical Ventilator 40 07/02/17 06:00 106 24 116/51 100 Mechanical Ventilator 40 07/02/17 05:29 108 24 40 07/02/17 05:00 107 24 117/44 100 Mechanical Ventilator 40 07/02/17 04:00 112 07/02/17 04:00 99.4 95 21 110/35 99 Mechanical Ventilator 40 07/02/17 04:00 40 07/02/17 03:04 105 24 40 07/02/17 03:00 104 21 114/41 100 Mechanical Ventilator 40 07/02/17 02:00 100 21 100/40 99 Mechanical Ventilator 40 07/02/17 01:35 91 20 100 Mechanical Ventilator 40 07/02/17 01:22 102 20 100 Mechanical Ventilator 40 07/02/17 01:20 102 22 40 07/02/17 01:00 96 21 109/40 99 Mechanical Ventilator 40 07/02/17 00:00 99.3 95 21 95/35 99 Mechanical Ventilator 40 07/02/17 00:00 97 07/02/17 00:00 40 07/01/17 23:19 96 21 40 07/01/17 23:00 96 21 82/37 99 Mechanical Ventilator 40 07/01/17 22:23 99.3 Height (Feet): 5 Height (Inches): 8.00 Weight (Pounds): 298 HEENT: anicteric Respiratory/Chest: normal breath sounds Cardiovascular: regular rhythm Abdomen: no organomegaly Microbiology Date/Time Source Procedure Growth Status 07/01/17 17:00 Sputum Gram Stain - Final Resulted 07/01/17 17:00 Sputum Sputum Culture - Preliminary NO GROWTH AFTER 24 HOURS Resulted Laboratory Tests Test 07/02/17 04:00 07/02/17 04:05 07/02/17 10:55 Urine Eosinophils None seen White Blood Count 12.5 K/UL (4.8-10.8) H Red Blood Count 2.87 M/UL (4.20-5.40) L Hemoglobin 8.1 G/DL (12.0-16.0) L Hematocrit 25.8 % (37.0-47.0) L Mean Corpuscular Volume 90 FL (80-99) Mean Corpuscular Hemoglobin 28.3 PG (27.0-31.0) Mean Corpuscular Hemoglobin Concent 31.5 G/DL (32.0-36.0) L Red Cell Distribution Width 13.4 % (11.6-14.8) Platelet Count 130 K/UL (150-450) L Mean Platelet Volume 8.8 FL (6.5-10.1) Neutrophils (%) (Auto) 83.0 % (45.0-75.0) H Lymphocytes (%) (Auto) 6.7 % (20.0-45.0) L Monocytes (%) (Auto) 8.8 % (1.0-10.0) Eosinophils (%) (Auto) 1.1 % (0.0-3.0) Basophils (%) (Auto) 0.5 % (0.0-2.0) Sodium Level 141 MMOL/L (136-145) Potassium Level 3.6 MMOL/L (3.5-5.1) Chloride Level 108 MMOL/L (98-107) H Carbon Dioxide Level 18 MMOL/L (21-32) L Anion Gap 15 mmol/L (5-15) Blood Urea Nitrogen 59 mg/dL (7-18) H Creatinine 4.0 MG/DL (0.55-1.30) H Estimat Glomerular Filtration Rate mL/min (>60) Glucose Level 67 MG/DL (74-106) L Uric Acid 10.2 MG/DL (2.6-7.2) H Calcium Level 8.1 MG/DL (8.5-10.1) L Phosphorus Level 4.9 MG/DL (2.5-4.9) Magnesium Level 1.8 MG/DL (1.8-2.4) Total Bilirubin 1.6 MG/DL (0.2-1.0) H Direct Bilirubin 1.1 MG/DL (0.0-0.3) H Gamma Glutamyl Transpeptidase 36 U/L (5-85) Aspartate Amino Transf (AST/SGOT) 85 U/L (15-37) H Alanine Aminotransferase (ALT/SGPT) 56 U/L (12-78) Alkaline Phosphatase 90 U/L (46-116) Total Creatine Kinase 1561 U/L (26-308) H C-Reactive Protein, Quantitative > 70.0 mg/dL (0.00-0.90) H Pro-B-Type Natriuretic Peptide 2259 pg/mL (0-125) H Total Protein 6.1 G/DL (6.4-8.2) L Albumin 1.9 G/DL (3.4-5.0) L Globulin 4.2 g/dL Albumin/Globulin Ratio 0.5 (1.0-2.7) L Random Vancomycin Level 11.3 ug/mL Arterial Blood pH 7.269 (7.350-7.450) Arterial Blood Partial Pressure CO2 34.7 mmHg (35.0-45.0) L Arterial Blood Partial Pressure O2 78.6 mmHg (75.0-100.0) Arterial Blood HCO3 15.5 mmol/L (22.0-26.0) L Arterial Blood Oxygen Saturation 93.9 % (92.0-98.0) Arterial Blood Base Excess -10.4 Brandyn Test Positive Current Medications Medications (Trade) Dose Ordered Sig/Teresa Route PRN Reason Start Time Stop Time Status Last Admin Dose Admin Acetaminophen (Tylenol) 650 mg Q4H PRN RECTAL FEVER 06/30/17 02:15 07/29/17 22:14 Acetaminophen (Tylenol) 650 mg Q4H PRN RECTAL Mild Pain (Pain Scale 1-3) 06/30/17 03:00 07/28/17 10:59 07/01/17 20:04 Albuterol/ Ipratropium (Albuterol/ Ipratropium) 3 ml Q4H PRN HHN Shortness of Breath 06/30/17 00:00 07/03/17 15:59 Albuterol/ Ipratropium (Albuterol/ Ipratropium) 3 ml Q6HRT HHN 06/30/17 01:00 07/03/17 18:59 07/02/17 12:46 Chlorhexidine Gluconate (Susan-Hex 2%) 1 applic Q24H TOPIC 07/02/17 20:00 08/01/17 19:59 07/02/17 20:56 Dextrose (Dextrose 50%) STAT PRN IV Hypoglycemia 06/30/17 10:00 07/28/17 09:59 07/01/17 18:06 Heparin Sodium (Porcine) (Heparin 5000 units/ml) 5,000 units EVERY 8 HOURS SUBQ 07/02/17 14:00 08/01/17 13:59 07/02/17 21:44 Hydromorphone HCl (Dilaudid) 0.5 mg Q3H PRN IVP Pain Score 1-3 06/30/17 01:15 07/06/17 22:14 06/30/17 22:52 Hydromorphone HCl (Dilaudid) 1 mg Q3H PRN IVP pain score 4-6 06/30/17 06:45 07/06/17 22:14 07/01/17 21:53 Hydromorphone HCl (Dilaudid) 2 mg Q3H PRN IVP pain score 7-10 06/30/17 01:15 07/06/17 22:14 Insulin Aspart (NovoLOG) Q6H SUBQ 06/30/17 00:00 07/29/17 00:00 06/30/17 17:35 Metoclopramide HCl (Reglan) 5 mg Q6H PRN IVP Nausea & Vomiting 06/30/17 04:15 07/29/17 22:14 Ondansetron HCl (Zofran) 4 mg Q6H PRN IVP Nausea & Vomiting 06/30/17 04:15 07/29/17 22:14 Pantoprazole (Protonix) 40 mg Q12HR IVP 06/30/17 09:00 07/27/17 00:00 07/02/17 20:56 Piperacillin Sod/ Tazobactam Sod 3.375 gm/Dextrose 55 ml @ 13.75 mls/ hr EVERY 12 HOURS IVPB 06/30/17 21:00 07/05/17 20:59 07/02/17 20:56 Sodium Chloride 1,000 ml @ 75 mls/hr [id number] IV 06/30/17 12:05 07/30/17 12:04 07/02/17 09:03 Vancomycin HCl (Vanco rx to dose) 1 ea DAILY PRN MISC Per rx protocol 07/02/17 14:15 08/01/17 14:14 MARCO WILSON M.D. Jul 02, 2017 22:07
[2017-07-03] VITALS (24 sets, daily range): BP systolic 95–140; BP diastolic 40–69
[2017-07-03] MEDS: Albuterol/Ipratropium 3ml neb HHN SCH ×3 (01:06→13:20)
[2017-07-03 05:50] LABS: HEMATOCRIT 25.2 % (37.0-47.0); MEAN CORPUSCULAR VOLUME 90 FL (80-99); PLATELET COUNT 150 K/UL (150-450); RED BLOOD COUNT 2.81 M/UL (4.20-5.40); RED CELL DISTRIBUTION WIDTH 13.4 % (11.6-14.8); WHITE BLOOD COUNT 16.3 K/UL (4.8-10.8)
[2017-07-03] MEDS: Heparin 5000 units/ml inj SUBQ SCH ×3 (05:51→21:11)
[2017-07-03] MEDS: NovoLOG Insulin Flexpen SUBQ SCH ×5 (05:52→23:47)
[2017-07-03 06:09] LABS: ALANINE AMINOTRANSFERASE 49 U/L (12-78); ALBUMIN 1.7 G/DL (3.4-5.0); ALBUMIN/GLOBULIN RATIO 0.4 (1.0-2.7); ALKALINE PHOSPHATASE 113 U/L (46-116); ANION GAP 17 mmol/L (5-15); ASPARTATE AMINO TRANSFERASE 81 U/L (15-37); BILIRUBIN,TOTAL 1.8 MG/DL (0.2-1.0); BLOOD UREA NITROGEN 37 mg/dL (7-18); CALCIUM 7.3 MG/DL (8.5-10.1); CARBON DIOXIDE 23 MMOL/L (21-32); CHLORIDE 106 MMOL/L (98-107); CREATININE 2.2 MG/DL (0.55-1.30); POTASSIUM 3.1 MMOL/L (3.5-5.1); SODIUM 145 MMOL/L (136-145)
[2017-07-03 07:37] LABS: PHOSPHORUS 3.9 MG/DL (2.5-4.9)
--- NOTE | 2017-07-03 07:57 | General Progress Note ---
Assessment/Plan Problem List: (1) Hyperglycemia due to type 2 diabetes mellitus ICD Codes: E11.65 - Type 2 diabetes mellitus with hyperglycemia SNOMED: 125244920075628, [id number] Qualifiers: Qualified Codes: E11.65 - Type 2 diabetes mellitus with hyperglycemia (2) Postoperative ileus ICD Codes: K91.89 - Other postprocedural complications and disorders of digestive system; K56.7 - Ileus, unspecified SNOMED: 238716969, 053396448 (3) Intractable vomiting with nausea ICD Codes: R11.2 - Nausea with vomiting, unspecified SNOMED: 237592189, 794264810 Qualifiers: Qualified Codes: R11.2 - Nausea with vomiting, unspecified (4) ELIDIA (acute kidney injury) ICD Codes: N17.9 - Acute kidney failure, unspecified SNOMED: 99679072 (5) S/P exploratory laparotomy ICD Codes: Z98.890 - Other specified postprocedural states SNOMED: 23163811, 85479163, 625380244 (6) Small bowel perforation ICD Codes: K63.1 - Perforation of intestine (nontraumatic) SNOMED: 340968385 Assessment/Plan no need for basal insulin continue Novolog sliding scale every 6 hours Subjective Allergies: Coded Allergies: No Known Allergies (Unverified , 06/28/17) Subjective events noted Objective Last 24 Hour Vital Signs Date Time Temp Pulse Resp B/P (MAP) Pulse Ox O2 Delivery O2 Flow Rate FiO2 07/03/17 07:46 99 20 98 Mechanical Ventilator 30 07/03/17 07:44 97 22 30 07/03/17 07:00 99 21 129/49 99 Mechanical Ventilator 40 07/03/17 06:00 97 23 124/49 99 Mechanical Ventilator 40 07/03/17 05:26 96 22 30 07/03/17 05:00 106 25 114/50 97 Mechanical Ventilator 40 07/03/17 04:00 40 07/03/17 04:00 108 07/03/17 04:00 99.0 108 26 128/51 98 Mechanical Ventilator 40 07/03/17 03:30 106 22 30 07/03/17 03:00 105 25 99/44 99 Mechanical Ventilator 40 07/03/17 02:00 100 24 95/40 99 Mechanical Ventilator 40 07/03/17 01:10 105 25 100 Mechanical Ventilator 30 07/03/17 01:09 104 27 99 Mechanical Ventilator 30 07/03/17 01:06 103 24 30 07/03/17 01:00 98 17 95/43 98 Mechanical Ventilator 40 07/03/17 00:00 99.1 106 26 96/41 98 Mechanical Ventilator 40 07/02/17 23:18 102 23 30 07/02/17 23:00 100 22 90/39 100 Mechanical Ventilator 40 07/02/17 22:00 105 22 95/42 100 Mechanical Ventilator 40 07/02/17 21:30 109 25 40 07/02/17 21:00 105 23 111/44 99 Mechanical Ventilator 40 07/02/17 20:00 124 Mechanical Ventilator 07/02/17 20:00 40 07/02/17 20:00 99.6 121 31 116/55 97 Mechanical Ventilator 40 07/02/17 20:00 121 07/02/17 20:00 122 30 99 Mechanical Ventilator 40 07/02/17 19:30 122 30 40 07/02/17 19:00 118 22 139/50 98 Mechanical Ventilator 40 07/02/17 18:00 114 20 135/50 99 Endotracheal Tube 07/02/17 17:01 116 32 40 07/02/17 17:00 115 22 132/79 98 Endotracheal Tube 07/02/17 16:00 40 07/02/17 16:00 97.9 115 20 149/55 97 Endotracheal Tube 07/02/17 16:00 115 07/02/17 15:00 115 22 127/45 97 Mechanical Ventilator 07/02/17 14:54 118 30 40 07/02/17 14:10 Mechanical Ventilator 40 07/02/17 14:00 118 22 122/44 97 Mechanical Ventilator 07/02/17 13:07 107 29 100 Mechanical Ventilator 40 07/02/17 13:00 107 22 124/52 100 Mechanical Ventilator 07/02/17 12:47 106 29 40 07/02/17 12:47 106 30 99 Mechanical Ventilator 40 07/02/17 12:00 117 07/02/17 12:00 40 07/02/17 12:00 98.1 22 113/49 100 Mechanical Ventilator 07/02/17 11:00 115 20 135/66 99 Endotracheal Tube 07/02/17 11:00 119 33 40 07/02/17 10:00 115 22 105/40 99 07/02/17 09:50 114 30 40 07/02/17 09:13 131 40 40 07/02/17 09:00 122 20 108/88 96 Mechanical Ventilator 07/02/17 08:56 100 07/02/17 08:54 113 28 40 07/02/17 08:50 113 26 40 07/02/17 08:49 100 07/02/17 08:00 40 07/02/17 08:00 122 07/02/17 08:00 100.2 122 22 122/46 99 Mechanical Ventilator Intake and Output 07/02/17 07/03/17 19:00 07:00 Intake Total 750 ml 955.00 ml Output Total 965 ml 595 ml Balance -215 ml 360.00 ml Intake Oral 0 ml 0 ml IV Total 750 ml 955.00 ml Output Urine Total 860 ml 540 ml Gastric Drainage Total 100 ml 50 ml Drainage Total 5 ml 5 ml # Bowel Movements 3 4 Laboratory Tests 07/02/17 10:55: Arterial Blood pH 7.269L, Arterial Blood Partial Pressure CO2 34.7L, Arterial Blood Partial Pressure O2 78.6, Arterial Blood HCO3 15.5L, Arterial Blood Oxygen Saturation 93.9, Arterial Blood Base Excess -10.4, Brandyn Test Positive 07/03/17 04:30: White Blood Count 16.3H, Red Blood Count 2.81L, Hemoglobin 8.0L, Hematocrit 25.2L, Mean Corpuscular Volume 90, Mean Corpuscular Hemoglobin 28.3, Mean Corpuscular Hemoglobin Concent 31.6L, Red Cell Distribution Width 13.4, Platelet Count 150, Mean Platelet Volume 7.8, Neutrophils (%) (Auto) , Lymphocytes (%) (Auto) , Monocytes (%) (Auto) , Eosinophils (%) (Auto) , Basophils (%) (Auto) , Neutrophils % (Manual) [Pending], Lymphocytes % (Manual) [Pending], Platelet Estimate [Pending], Platelet Morphology [Pending], Sodium Level 145, Potassium Level 3.1L, Chloride Level 106, Carbon Dioxide Level 23, Anion Gap 17H, Blood Urea Nitrogen 37H, Creatinine 2.2H, Estimat Glomerular Filtration Rate , Glucose Level 93, Uric Acid 6.5, Calcium Level 7.3L, Phosphorus Level 3.9, Magnesium Level 1.8, Total Bilirubin 1.8H, Direct Bilirubin 1.0H, Gamma Glutamyl Transpeptidase 34, Aspartate Amino Transf (AST/ SGOT) 81H, Alanine Aminotransferase (ALT/SGPT) 49, Alkaline Phosphatase 113, Troponin I 0.023, C-Reactive Protein, Quantitative [Pending], Pro-B-Type Natriuretic Peptide 2041H, Total Protein 5.8L, Albumin 1.7L, Globulin 4.1, Albumin/Globulin Ratio 0.4L Height (Feet): 5 Height (Inches): 8.00 Weight (Pounds): 293 General Appearance: no apparent distress EENT: pale conjunctivae Neck: normal alignment Cardiovascular: normal rate Respiratory/Chest: decreased breath sounds Abdomen: hypoactive bowel sounds Objective Current Medications Medications (Trade) Dose Ordered Sig/Teresa Route PRN Reason Start Time Stop Time Status Last Admin Dose Admin Acetaminophen (Tylenol) 650 mg Q4H PRN RECTAL FEVER 06/30/17 02:15 07/29/17 22:14 Acetaminophen (Tylenol) 650 mg Q4H PRN RECTAL Mild Pain (Pain Scale 1-3) 06/30/17 03:00 07/28/17 10:59 07/01/17 20:04 Albuterol/ Ipratropium (Albuterol/ Ipratropium) 3 ml Q4H PRN HHN Shortness of Breath 06/30/17 00:00 07/03/17 15:59 Albuterol/ Ipratropium (Albuterol/ Ipratropium) 3 ml Q6HRT HHN 06/30/17 01:00 07/03/17 18:59 07/03/17 07:00 Chlorhexidine Gluconate (Susan-Hex 2%) 1 applic Q24H TOPIC 07/02/17 20:00 08/01/17 19:59 07/02/17 20:56 Dextrose (Dextrose 50%) STAT PRN IV Hypoglycemia 06/30/17 10:00 07/28/17 09:59 07/01/17 18:06 Heparin Sodium (Porcine) (Heparin 5000 units/ml) 5,000 units EVERY 8 HOURS SUBQ 07/02/17 14:00 08/01/17 13:59 07/03/17 05:51 Hydromorphone HCl (Dilaudid) 0.5 mg Q3H PRN IVP Pain Score 1-3 06/30/17 01:15 07/06/17 22:14 06/30/17 22:52 Hydromorphone HCl (Dilaudid) 1 mg Q3H PRN IVP pain score 4-6 06/30/17 06:45 07/06/17 22:14 07/01/17 21:53 Hydromorphone HCl (Dilaudid) 2 mg Q3H PRN IVP pain score 7-10 06/30/17 01:15 07/06/17 22:14 Insulin Aspart (NovoLOG) Q6H SUBQ 06/30/17 00:00 07/29/17 00:00 06/30/17 17:35 Metoclopramide HCl (Reglan) 5 mg Q6H PRN IVP Nausea & Vomiting 06/30/17 04:15 07/29/17 22:14 Ondansetron HCl (Zofran) 4 mg Q6H PRN IVP Nausea & Vomiting 06/30/17 04:15 07/29/17 22:14 Pantoprazole (Protonix) 40 mg Q12HR IVP 06/30/17 09:00 07/27/17 00:00 07/02/17 20:56 Piperacillin Sod/ Tazobactam Sod 3.375 gm/Dextrose 55 ml @ 13.75 mls/ hr EVERY 12 HOURS IVPB 06/30/17 21:00 07/05/17 20:59 07/02/17 20:56 Potassium Chloride 40 meq/ Sodium Chloride 570 ml @ 142.5 mls/ hr ONCE ONCE IVPB 07/03/17 09:00 07/03/17 12:59 Sodium Chloride 1,000 ml @ 75 mls/hr [id number] IV 06/30/17 12:05 07/30/17 12:04 07/03/17 04:33 Vancomycin HCl (Vanco rx to dose) 1 ea DAILY PRN MISC Per rx protocol 07/02/17 14:15 08/01/17 14:14 Item Value Date Time Bedside Blood Glucose 105 mg/dl 07/03/17 0600 Bedside Blood Glucose 109 mg/dl 07/03/17 0000 Bedside Blood Glucose 87 mg/dl 07/02/17 1800 Bedside Blood Glucose 77 mg/dl 07/02/17 1147 Bedside Blood Glucose 72 mg/dl 07/02/17 0602 LEANN COLE Jul 03, 2017 07:57
[2017-07-03] MEDS ORDERED: Potassium Chloride 40 MEQ in Sodium Chloride 500ML 550 ML IVPB ONE (09:00)
[2017-07-03] MEDS: Piperacillin/Tazobactam 3.375 GM in D5W 55 ML IVPB SCH (09:15)
[2017-07-03] MEDS: Pantoprazole Inj IVP SCH ×2 (09:15→21:06)
--- NOTE | 2017-07-03 09:34 | Pulmonolgy Critical Care Note ---
Critical Care - Asmt/Plan Problems: (1) Perforated bowel (2) Ventilator dependent (3) ELIDIA (acute kidney injury) (4) Metabolic acidosis (5) Obesity (6) Small bowel perforation Assessment/Plan: -VDRF -POD 7S/P lap bridget and POD 3 S/P repeat ex-lab for SB perf -Metabolic acidosis (NAGMA + AGMA) with respiratory compensation -ELIDIA, likely on CKD, now S/P initiation of HD 07/02/17 -DM, HTN, HL -Worsening LFT's and leukocytosis Assessment/Plan PLAN: -Continue CPAP PS 8, PEEP 5 --> Check ABG -F/U renal recs, monitor UO and renal function, iHD per renal -F/U TTE (not done yet) -Duplex neg, elevated DD likely post-op, doubt VTE, cannot do CT in light of renal failure and VQ would be of limited utility, patient is on DVT Px -F/U GI and surgery recs, post-op care -Optimize pulmonary hygiene/mobilize as tolerated -RTC and PRN DUOneb -Continue Abx per ID, F/U Cx's -Monitor LFT's and WCt -DVT Px: Hep SQ TID CC 45 Critical Care - Objective Last 24 Hour Vital Signs Date Time Temp Pulse Resp B/P (MAP) Pulse Ox O2 Delivery O2 Flow Rate FiO2 07/03/17 09:12 98 22 30 07/03/17 09:10 100 07/03/17 08:00 99.3 96 21 118/50 99 Mechanical Ventilator 40 07/03/17 08:00 99 07/03/17 08:00 40 07/03/17 07:46 99 20 98 Mechanical Ventilator 30 07/03/17 07:44 97 22 30 07/03/17 07:00 99 21 129/49 99 Mechanical Ventilator 40 07/03/17 06:00 97 23 124/49 99 Mechanical Ventilator 40 07/03/17 05:26 96 22 30 07/03/17 05:00 106 25 114/50 97 Mechanical Ventilator 40 07/03/17 04:00 40 07/03/17 04:00 108 07/03/17 04:00 99.0 108 26 128/51 98 Mechanical Ventilator 40 07/03/17 03:30 106 22 30 07/03/17 03:00 105 25 99/44 99 Mechanical Ventilator 40 07/03/17 02:00 100 24 95/40 99 Mechanical Ventilator 40 07/03/17 01:10 105 25 100 Mechanical Ventilator 30 07/03/17 01:09 104 27 99 Mechanical Ventilator 30 07/03/17 01:06 103 24 30 07/03/17 01:00 98 17 95/43 98 Mechanical Ventilator 40 07/03/17 00:00 99.1 106 26 96/41 98 Mechanical Ventilator 40 07/02/17 23:18 102 23 30 07/02/17 23:00 100 22 90/39 100 Mechanical Ventilator 40 07/02/17 22:00 105 22 95/42 100 Mechanical Ventilator 40 07/02/17 21:30 109 25 40 07/02/17 21:00 105 23 111/44 99 Mechanical Ventilator 40 07/02/17 20:00 124 Mechanical Ventilator 07/02/17 20:00 40 07/02/17 20:00 99.6 121 31 116/55 97 Mechanical Ventilator 40 07/02/17 20:00 121 07/02/17 20:00 122 30 99 Mechanical Ventilator 40 07/02/17 19:30 122 30 40 07/02/17 19:00 118 22 139/50 98 Mechanical Ventilator 40 07/02/17 18:00 114 20 135/50 99 Endotracheal Tube 07/02/17 17:01 116 32 40 07/02/17 17:00 115 22 132/79 98 Endotracheal Tube 07/02/17 16:00 40 07/02/17 16:00 97.9 115 20 149/55 97 Endotracheal Tube 07/02/17 16:00 115 07/02/17 15:00 115 22 127/45 97 Mechanical Ventilator 07/02/17 14:54 118 30 40 07/02/17 14:10 Mechanical Ventilator 40 07/02/17 14:00 118 22 122/44 97 Mechanical Ventilator 07/02/17 13:07 107 29 100 Mechanical Ventilator 40 07/02/17 13:00 107 22 124/52 100 Mechanical Ventilator 07/02/17 12:47 106 29 40 07/02/17 12:47 106 30 99 Mechanical Ventilator 40 07/02/17 12:00 117 07/02/17 12:00 40 07/02/17 12:00 98.1 22 113/49 100 Mechanical Ventilator 07/02/17 11:00 115 20 135/66 99 Endotracheal Tube 07/02/17 11:00 119 33 40 07/02/17 10:00 115 22 105/40 99 07/02/17 09:50 114 30 40 Status: awake Condition: improving HEENT: atraumatic, normocephalic, other - ETT, NGT Lungs: clear Heart: HR/BP stable Abdomen: soft, non-tender, active bowel sounds, other - Wound dressed, + drain Extremities: no C/C/E Micro: Microbiology Date/Time Source Procedure Growth Status 07/01/17 17:00 Sputum Gram Stain - Final Resulted 07/01/17 17:00 Sputum Culture - Preliminary YEAST Resulted Accucheck: 105 Critical Care - Subjective ROS Limited/Unobtainable: Yes ICU Day: 5 Intubation Day: 5 Interval Events: S/P HD Condition: critical IV Access: central EKG Rhythm: Sinus Rhythm FI02: 30 Vent Support Breath Rate: 20 Vent Support Mode: CPAP Vent Tidal Volume: 550 Sputum Amount: Small PEEP: 5.0 PIP: 16 Secretions: white thick frothy Fluids: N/A I&O: Intake and Output 07/02/17 07/03/17 19:00 07:00 Intake Total 750 ml 955.00 ml Output Total 965 ml 595 ml Balance -215 ml 360.00 ml Intake Oral 0 ml 0 ml IV Total 750 ml 955.00 ml Output Urine Total 860 ml 540 ml Gastric Drainage Total 100 ml 50 ml Drainage Total 5 ml 5 ml # Bowel Movements 3 4 Subjective: No F/C, pain better, + BM, no flatus, no distress CXR: BiB atx/inf ET-Tube: 7.0 ET Position: 22 Labs: Intake and Output 07/02/17 07/03/17 19:00 07:00 Intake Total 750 ml 955.00 ml Output Total 965 ml 595 ml Balance -215 ml 360.00 ml Intake Oral 0 ml 0 ml IV Total 750 ml 955.00 ml Output Urine Total 860 ml 540 ml Gastric Drainage Total 100 ml 50 ml Drainage Total 5 ml 5 ml # Bowel Movements 3 4 VICKY GUERRERO M.D. Jul 03, 2017 09:34
--- NOTE | 2017-07-03 09:37 | General Progress Note ---
Assessment/Plan Status: stable Assessment/Plan 1. Acute abdomen 2- RLL abdominal Abcess secondary to Iatrogenic SB perforation 3- S/P Expl Lap and SB resection with Primary Anastomosis, POST OP #1 2. Diabetes type 2, uncontrolled. 3. Renal failure, age indeterminate. 4. Thrombocytopenia. 5. Abnormal liver function test. 7. Asthma 8. Abnormal BNP, pending Echo 6. Gastrointestinal and deep vein thrombosis prophylaxes. Plan: Surgeon GI notes are reviewed Discussed the care with surgeon Worsening WBC COUNT, Nephro will follows. low grade fever and leukocytosis. Dr Gabriel WILL FOLLOW Subjective ROS Limited/Unobtainable: Yes - intubated Allergies: Coded Allergies: No Known Allergies (Unverified , 06/28/17) Objective Last 24 Hour Vital Signs Date Time Temp Pulse Resp B/P (MAP) Pulse Ox O2 Delivery O2 Flow Rate FiO2 07/03/17 09:12 98 22 30 07/03/17 09:10 100 07/03/17 08:00 99.3 96 21 118/50 99 Mechanical Ventilator 40 07/03/17 08:00 99 07/03/17 08:00 40 07/03/17 07:46 99 20 98 Mechanical Ventilator 30 07/03/17 07:44 97 22 30 07/03/17 07:00 99 21 129/49 99 Mechanical Ventilator 40 07/03/17 06:00 97 23 124/49 99 Mechanical Ventilator 40 07/03/17 05:26 96 22 30 07/03/17 05:00 106 25 114/50 97 Mechanical Ventilator 40 07/03/17 04:00 40 07/03/17 04:00 108 07/03/17 04:00 99.0 108 26 128/51 98 Mechanical Ventilator 40 07/03/17 03:30 106 22 30 07/03/17 03:00 105 25 99/44 99 Mechanical Ventilator 40 07/03/17 02:00 100 24 95/40 99 Mechanical Ventilator 40 07/03/17 01:10 105 25 100 Mechanical Ventilator 30 07/03/17 01:09 104 27 99 Mechanical Ventilator 30 07/03/17 01:06 103 24 30 07/03/17 01:00 98 17 95/43 98 Mechanical Ventilator 40 07/03/17 00:00 99.1 106 26 96/41 98 Mechanical Ventilator 40 07/02/17 23:18 102 23 30 07/02/17 23:00 100 22 90/39 100 Mechanical Ventilator 40 07/02/17 22:00 105 22 95/42 100 Mechanical Ventilator 40 07/02/17 21:30 109 25 40 07/02/17 21:00 105 23 111/44 99 Mechanical Ventilator 40 07/02/17 20:00 124 Mechanical Ventilator 07/02/17 20:00 40 07/02/17 20:00 99.6 121 31 116/55 97 Mechanical Ventilator 40 07/02/17 20:00 121 07/02/17 20:00 122 30 99 Mechanical Ventilator 40 07/02/17 19:30 122 30 40 07/02/17 19:00 118 22 139/50 98 Mechanical Ventilator 40 07/02/17 18:00 114 20 135/50 99 Endotracheal Tube 07/02/17 17:01 116 32 40 07/02/17 17:00 115 22 132/79 98 Endotracheal Tube 07/02/17 16:00 40 07/02/17 16:00 97.9 115 20 149/55 97 Endotracheal Tube 07/02/17 16:00 115 07/02/17 15:00 115 22 127/45 97 Mechanical Ventilator 07/02/17 14:54 118 30 40 07/02/17 14:10 Mechanical Ventilator 40 07/02/17 14:00 118 22 122/44 97 Mechanical Ventilator 07/02/17 13:07 107 29 100 Mechanical Ventilator 40 07/02/17 13:00 107 22 124/52 100 Mechanical Ventilator 07/02/17 12:47 106 29 40 07/02/17 12:47 106 30 99 Mechanical Ventilator 40 07/02/17 12:00 117 07/02/17 12:00 40 07/02/17 12:00 98.1 22 113/49 100 Mechanical Ventilator 07/02/17 11:00 115 20 135/66 99 Endotracheal Tube 07/02/17 11:00 119 33 40 07/02/17 10:00 115 22 105/40 99 07/02/17 09:50 114 30 40 Intake and Output 07/02/17 07/03/17 19:00 07:00 Intake Total 750 ml 955.00 ml Output Total 965 ml 595 ml Balance -215 ml 360.00 ml Intake Oral 0 ml 0 ml IV Total 750 ml 955.00 ml Output Urine Total 860 ml 540 ml Gastric Drainage Total 100 ml 50 ml Drainage Total 5 ml 5 ml # Bowel Movements 3 4 Laboratory Tests 07/02/17 10:55: Arterial Blood pH 7.269L, Arterial Blood Partial Pressure CO2 34.7L, Arterial Blood Partial Pressure O2 78.6, Arterial Blood HCO3 15.5L, Arterial Blood Oxygen Saturation 93.9, Arterial Blood Base Excess -10.4, Brandyn Test Positive 07/03/17 04:30: White Blood Count 16.3H, Red Blood Count 2.81L, Hemoglobin 8.0L, Hematocrit 25.2L, Mean Corpuscular Volume 90, Mean Corpuscular Hemoglobin 28.3, Mean Corpuscular Hemoglobin Concent 31.6L, Red Cell Distribution Width 13.4, Platelet Count 150, Mean Platelet Volume 7.8, Neutrophils (%) (Auto) , Lymphocytes (%) (Auto) , Monocytes (%) (Auto) , Eosinophils (%) (Auto) , Basophils (%) (Auto) , Neutrophils % (Manual) [Pending], Lymphocytes % (Manual) [Pending], Platelet Estimate [Pending], Platelet Morphology [Pending], Sodium Level 145, Potassium Level 3.1L, Chloride Level 106, Carbon Dioxide Level 23, Anion Gap 17H, Blood Urea Nitrogen 37H, Creatinine 2.2H, Estimat Glomerular Filtration Rate , Glucose Level 93, Uric Acid 6.5, Calcium Level 7.3L, Phosphorus Level 3.9, Magnesium Level 1.8, Total Bilirubin 1.8H, Direct Bilirubin 1.0H, Gamma Glutamyl Transpeptidase 34, Aspartate Amino Transf (AST/ SGOT) 81H, Alanine Aminotransferase (ALT/SGPT) 49, Alkaline Phosphatase 113, Troponin I 0.023, C-Reactive Protein, Quantitative 44.6H, Pro-B-Type Natriuretic Peptide 2041H, Total Protein 5.8L, Albumin 1.7L, Globulin 4.1, Albumin/Globulin Ratio 0.4L Height (Feet): 5 Height (Inches): 8.00 Weight (Pounds): 293 General Appearance: WD/WN, no apparent distress, other - intubated and sedated EENT: other - limited eval as patient is not following commands Cardiovascular: normal rate Abdomen: other - mid line scar of prior surgery noted Extremities: other - limited eval as patient is not following commands Neurologic: other - limited eval as patient is not following commands Margarito Reilly MD Jul 03, 2017 09:37
--- NOTE | 2017-07-03 11:38 | General Surgery Progress Note ---
General Surgery-Progress Note Subjective Procedure Performed Exploratory Laparotomy, Small Bowel resection with primary anastomosis, Lysis of adhesions , Drainage of intra abdominal abscess Objective Last 24 Hour Vital Signs Date Time Temp Pulse Resp B/P (MAP) Pulse Ox O2 Delivery O2 Flow Rate FiO2 07/03/17 09:12 98 22 30 07/03/17 09:10 100 07/03/17 08:00 99.3 96 21 118/50 99 Mechanical Ventilator 40 07/03/17 08:00 99 07/03/17 08:00 40 07/03/17 07:54 105 24 100 Mechanical Ventilator 30 07/03/17 07:46 99 20 98 Mechanical Ventilator 30 07/03/17 07:44 97 22 30 07/03/17 07:00 99 21 129/49 99 Mechanical Ventilator 40 07/03/17 06:00 97 23 124/49 99 Mechanical Ventilator 40 07/03/17 05:26 96 22 30 07/03/17 05:00 106 25 114/50 97 Mechanical Ventilator 40 07/03/17 04:00 40 07/03/17 04:00 108 07/03/17 04:00 99.0 108 26 128/51 98 Mechanical Ventilator 40 07/03/17 03:30 106 22 30 07/03/17 03:00 105 25 99/44 99 Mechanical Ventilator 40 07/03/17 02:00 100 24 95/40 99 Mechanical Ventilator 40 07/03/17 01:10 105 25 100 Mechanical Ventilator 30 07/03/17 01:09 104 27 99 Mechanical Ventilator 30 07/03/17 01:06 103 24 30 07/03/17 01:00 98 17 95/43 98 Mechanical Ventilator 40 07/03/17 00:00 99.1 106 26 96/41 98 Mechanical Ventilator 40 07/02/17 23:18 102 23 30 07/02/17 23:00 100 22 90/39 100 Mechanical Ventilator 40 07/02/17 22:00 105 22 95/42 100 Mechanical Ventilator 40 07/02/17 21:30 109 25 40 07/02/17 21:00 105 23 111/44 99 Mechanical Ventilator 40 07/02/17 20:00 124 Mechanical Ventilator 07/02/17 20:00 40 07/02/17 20:00 99.6 121 31 116/55 97 Mechanical Ventilator 40 07/02/17 20:00 121 07/02/17 20:00 122 30 99 Mechanical Ventilator 40 07/02/17 19:30 122 30 40 07/02/17 19:00 118 22 139/50 98 Mechanical Ventilator 40 07/02/17 18:00 114 20 135/50 99 Endotracheal Tube 07/02/17 17:01 116 32 40 07/02/17 17:00 115 22 132/79 98 Endotracheal Tube 07/02/17 16:00 40 07/02/17 16:00 97.9 115 20 149/55 97 Endotracheal Tube 07/02/17 16:00 115 07/02/17 15:00 115 22 127/45 97 Mechanical Ventilator 07/02/17 14:54 118 30 40 07/02/17 14:10 Mechanical Ventilator 40 07/02/17 14:00 118 22 122/44 97 Mechanical Ventilator 07/02/17 13:07 107 29 100 Mechanical Ventilator 40 07/02/17 13:00 107 22 124/52 100 Mechanical Ventilator 07/02/17 12:47 106 29 40 07/02/17 12:47 106 30 99 Mechanical Ventilator 40 07/02/17 12:00 117 07/02/17 12:00 40 07/02/17 12:00 98.1 22 113/49 100 Mechanical Ventilator I&O Intake and Output 07/02/17 07/03/17 19:00 07:00 Intake Total 750 ml 955.00 ml Output Total 965 ml 595 ml Balance -215 ml 360.00 ml Intake Oral 0 ml 0 ml IV Total 750 ml 955.00 ml Output Urine Total 860 ml 540 ml Gastric Drainage Total 100 ml 50 ml Drainage Total 5 ml 5 ml # Bowel Movements 3 4 Laboratory Tests Test 07/03/17 04:30 07/03/17 10:20 White Blood Count 16.3 K/UL (4.8-10.8) H Red Blood Count 2.81 M/UL (4.20-5.40) L Hemoglobin 8.0 G/DL (12.0-16.0) L Hematocrit 25.2 % (37.0-47.0) L Mean Corpuscular Volume 90 FL (80-99) Mean Corpuscular Hemoglobin 28.3 PG (27.0-31.0) Mean Corpuscular Hemoglobin Concent 31.6 G/DL (32.0-36.0) L Red Cell Distribution Width 13.4 % (11.6-14.8) Platelet Count 150 K/UL (150-450) Mean Platelet Volume 7.8 FL (6.5-10.1) Neutrophils (%) (Auto) % (45.0-75.0) Lymphocytes (%) (Auto) % (20.0-45.0) Monocytes (%) (Auto) % (1.0-10.0) Eosinophils (%) (Auto) % (0.0-3.0) Basophils (%) (Auto) % (0.0-2.0) Differential Total Cells Counted 100 Neutrophils % (Manual) 84 % (45-75) H Lymphocytes % (Manual) 13 % (20-45) L Monocytes % (Manual) 3 % (1-10) Eosinophils % (Manual) 0 % (0-3) Basophils % (Manual) 0 % (0-2) Band Neutrophils 0 % (0-8) Platelet Estimate Adequate Platelet Morphology Normal Hypochromasia 1+ Sodium Level 145 MMOL/L (136-145) Potassium Level 3.1 MMOL/L (3.5-5.1) L Chloride Level 106 MMOL/L (98-107) Carbon Dioxide Level 23 MMOL/L (21-32) Anion Gap 17 mmol/L (5-15) H Blood Urea Nitrogen 37 mg/dL (7-18) H Creatinine 2.2 MG/DL (0.55-1.30) H Estimat Glomerular Filtration Rate mL/min (>60) Glucose Level 93 MG/DL (74-106) Uric Acid 6.5 MG/DL (2.6-7.2) Calcium Level 7.3 MG/DL (8.5-10.1) L Phosphorus Level 3.9 MG/DL (2.5-4.9) Magnesium Level 1.8 MG/DL (1.8-2.4) Total Bilirubin 1.8 MG/DL (0.2-1.0) H Direct Bilirubin 1.0 MG/DL (0.0-0.3) H Gamma Glutamyl Transpeptidase 34 U/L (5-85) Aspartate Amino Transf (AST/SGOT) 81 U/L (15-37) H Alanine Aminotransferase (ALT/SGPT) 49 U/L (12-78) Alkaline Phosphatase 113 U/L (46-116) Troponin I 0.023 ng/mL (0.000-0.056) C-Reactive Protein, Quantitative 44.6 mg/dL (0.00-0.90) H Pro-B-Type Natriuretic Peptide 2041 pg/mL (0-125) H Total Protein 5.8 G/DL (6.4-8.2) L Albumin 1.7 G/DL (3.4-5.0) L Globulin 4.1 g/dL Albumin/Globulin Ratio 0.4 (1.0-2.7) L Arterial Blood pH 7.407 (7.350-7.450) Arterial Blood Partial Pressure CO2 31.7 mmHg (35.0-45.0) L Arterial Blood Partial Pressure O2 79.9 mmHg (75.0-100.0) Arterial Blood HCO3 19.5 mmol/L (22.0-26.0) L Arterial Blood Oxygen Saturation 95.4 % (92.0-98.0) Arterial Blood Base Excess -4.5 Brandyn Test Positive Assessment Post-op Diagnosis perforated small bowel and intra abdominal abscess KIRT BECK Jul 03, 2017 11:38
[2017-07-03] MEDS: Hydromorphone 0.5mg/0.5ml inj IVP PRN ×2 (13:25→21:05)
--- NOTE | 2017-07-03 13:50 | Nephrology Progress Note ---
Assessment/Plan Problem List: (1) ELIDIA (acute kidney injury) (2) Obesity (3) Small bowel perforation (4) Hyperglycemia due to type 2 diabetes mellitus (5) Anemia Assessment Acute renal failure, post op ( done 3 days ago in [facility]) , likely multifactorial including low BP, and dehydration due to vomiting Post surgery again last night, now in ICu intubated, Cr rising Underlying chronic renal failure due to DM and HTN with 3+ Proteinuria post HD today Other: - Acute abdomen post inpatient surgery , Lap Veronika. - Diabetes type 2, uncontrolled. - Thrombocytopenia. - Abnormal liver function test. Plan Plan: HD 07/02 , monitor renal parameters Albumin 5% PRN Vanco ID eval Cath for HD done discussed with RN Hydrate Monitor renal parameters Avoid Nephrotoxics- Stopped TORADOL for pain monitor renal parameters antibiotics gastric support Subjective ROS Limited/Unobtainable: Yes Objective Objective Last 24 Hour Vital Signs Date Time Temp Pulse Resp B/P (MAP) Pulse Ox O2 Delivery O2 Flow Rate FiO2 07/03/17 13:22 98 26 99 Mechanical Ventilator 30 07/03/17 12:00 98 07/03/17 12:00 99.4 101 21 112/49 99 Nasal Cannula 4.0 07/03/17 11:00 105 21 112/49 99 Mechanical Ventilator 40 07/03/17 10:00 105 21 108/46 99 Mechanical Ventilator 40 07/03/17 09:12 98 22 30 07/03/17 09:10 100 07/03/17 09:00 106 21 120/57 99 Mechanical Ventilator 40 07/03/17 08:00 99.3 96 21 118/50 99 Mechanical Ventilator 40 07/03/17 08:00 99 07/03/17 08:00 40 07/03/17 07:54 105 24 100 Mechanical Ventilator 30 07/03/17 07:46 99 20 98 Mechanical Ventilator 30 07/03/17 07:44 97 22 30 07/03/17 07:00 99 21 129/49 99 Mechanical Ventilator 40 07/03/17 06:00 97 23 124/49 99 Mechanical Ventilator 40 07/03/17 05:26 96 22 30 07/03/17 05:00 106 25 114/50 97 Mechanical Ventilator 40 07/03/17 04:00 40 07/03/17 04:00 108 07/03/17 04:00 99.0 108 26 128/51 98 Mechanical Ventilator 40 07/03/17 03:30 106 22 30 07/03/17 03:00 105 25 99/44 99 Mechanical Ventilator 40 07/03/17 02:00 100 24 95/40 99 Mechanical Ventilator 40 07/03/17 01:10 105 25 100 Mechanical Ventilator 30 07/03/17 01:09 104 27 99 Mechanical Ventilator 30 07/03/17 01:06 103 24 30 07/03/17 01:00 98 17 95/43 98 Mechanical Ventilator 40 07/03/17 00:00 99.1 106 26 96/41 98 Mechanical Ventilator 40 07/02/17 23:18 102 23 30 07/02/17 23:00 100 22 90/39 100 Mechanical Ventilator 40 07/02/17 22:00 105 22 95/42 100 Mechanical Ventilator 40 07/02/17 21:30 109 25 40 07/02/17 21:00 105 23 111/44 99 Mechanical Ventilator 40 07/02/17 20:00 124 Mechanical Ventilator 07/02/17 20:00 40 07/02/17 20:00 99.6 121 31 116/55 97 Mechanical Ventilator 40 07/02/17 20:00 121 07/02/17 20:00 122 30 99 Mechanical Ventilator 40 07/02/17 19:30 122 30 40 07/02/17 19:00 118 22 139/50 98 Mechanical Ventilator 40 07/02/17 18:00 114 20 135/50 99 Endotracheal Tube 07/02/17 17:01 116 32 40 07/02/17 17:00 115 22 132/79 98 Endotracheal Tube 07/02/17 16:00 40 07/02/17 16:00 97.9 115 20 149/55 97 Endotracheal Tube 07/02/17 16:00 115 07/02/17 15:00 115 22 127/45 97 Mechanical Ventilator 07/02/17 14:54 118 30 40 07/02/17 14:10 Mechanical Ventilator 40 07/02/17 14:00 118 22 122/44 97 Mechanical Ventilator Intake and Output 07/02/17 07/03/17 18:59 06:59 Intake Total 825 ml 955.00 ml Output Total 965 ml 625 ml Balance -140 ml 330.00 ml Intake Oral 0 ml 0 ml IV Total 825 ml 955.00 ml Output Urine Total 860 ml 570 ml Gastric Drainage Total 100 ml 50 ml Drainage Total 5 ml 5 ml # Bowel Movements 3 4 Laboratory Tests 07/03/17 04:30: White Blood Count 16.3H, Red Blood Count 2.81L, Hemoglobin 8.0L, Hematocrit 25.2L, Mean Corpuscular Volume 90, Mean Corpuscular Hemoglobin 28.3, Mean Corpuscular Hemoglobin Concent 31.6L, Red Cell Distribution Width 13.4, Platelet Count 150, Mean Platelet Volume 7.8, Neutrophils (%) (Auto) , Lymphocytes (%) (Auto) , Monocytes (%) (Auto) , Eosinophils (%) (Auto) , Basophils (%) (Auto) , Differential Total Cells Counted 100, Neutrophils % ( Manual) 84H, Lymphocytes % (Manual) 13L, Monocytes % (Manual) 3, Eosinophils % ( Manual) 0, Basophils % (Manual) 0, Band Neutrophils 0, Platelet Estimate Adequate, Platelet Morphology Normal, Hypochromasia 1+, Sodium Level 145, Potassium Level 3.1L, Chloride Level 106, Carbon Dioxide Level 23, Anion Gap 17H , Blood Urea Nitrogen 37H, Creatinine 2.2H, Estimat Glomerular Filtration Rate , Glucose Level 93, Uric Acid 6.5, Calcium Level 7.3L, Phosphorus Level 3.9, Magnesium Level 1.8, Total Bilirubin 1.8H, Direct Bilirubin 1.0H, Gamma Glutamyl Transpeptidase 34, Aspartate Amino Transf (AST/SGOT) 81H, Alanine Aminotransferase (ALT/SGPT) 49, Alkaline Phosphatase 113, Troponin I 0.023, C- Reactive Protein, Quantitative 44.6H, Pro-B-Type Natriuretic Peptide 2041H, Total Protein 5.8L, Albumin 1.7L, Globulin 4.1, Albumin/Globulin Ratio 0.4L 07/03/17 10:20: Arterial Blood pH 7.407, Arterial Blood Partial Pressure CO2 31.7L, Arterial Blood Partial Pressure O2 79.9, Arterial Blood HCO3 19.5L, Arterial Blood Oxygen Saturation 95.4, Arterial Blood Base Excess -4.5, Brandyn Test Positive Height (Feet): 5 Height (Inches): 8.00 Weight (Pounds): 293 General Appearance: no apparent distress Cardiovascular: tachycardia Respiratory/Chest: decreased breath sounds Abdomen: distended Objective no change ANU FAIRBANKS Jul 03, 2017 13:50
--- NOTE | 2017-07-03 14:05 | GI Progress Note ---
Assessment/Plan Problems: (1) Anemia ICD Codes: D64.9 - Anemia, unspecified SNOMED: 400846815 (2) Small bowel perforation ICD Codes: K63.1 - Perforation of intestine (nontraumatic) SNOMED: 639768420 (3) Obesity ICD Codes: E66.9 - Obesity, unspecified SNOMED: 300786945 (4) Perforated bowel ICD Codes: K63.1 - Perforation of intestine (nontraumatic) SNOMED: 08019394 (5) Postoperative ileus ICD Codes: K91.89 - Other postprocedural complications and disorders of digestive system; K56.7 - Ileus, unspecified SNOMED: 064975968, 226207480 (6) S/P exploratory laparotomy ICD Codes: Z98.890 - Other specified postprocedural states SNOMED: 32515191, 39257652, 618106945 Status: progressing Status Narrative Discussed with Dr. Mckeon. Assessment/Plan CT AP reviewed > perforated small bowel, see full report. fu surgical recs >> s/p Exploratory Laparotomy, Small Bowel resection with primary anastomosis, Lysis of adhesions , Drainage of intra abdominal abscess supportive care pain mgmt IV hydration + electrolyte correction bowel rest >> diet per surgery, CLD trial nutritional support ppi fu labs Subjective Subjective abdominal pain improved passing flatus on CLD Objective Last 24 Hour Vital Signs Date Time Temp Pulse Resp B/P (MAP) Pulse Ox O2 Delivery O2 Flow Rate FiO2 07/03/17 13:22 98 26 99 Mechanical Ventilator 30 07/03/17 12:00 98 07/03/17 12:00 99.4 101 21 112/49 99 Nasal Cannula 4.0 07/03/17 11:00 105 21 112/49 99 Mechanical Ventilator 40 07/03/17 10:00 105 21 108/46 99 Mechanical Ventilator 40 07/03/17 09:12 98 22 30 07/03/17 09:10 100 07/03/17 09:00 106 21 120/57 99 Mechanical Ventilator 40 07/03/17 08:00 99.3 96 21 118/50 99 Mechanical Ventilator 40 07/03/17 08:00 99 07/03/17 08:00 40 07/03/17 07:54 105 24 100 Mechanical Ventilator 30 07/03/17 07:46 99 20 98 Mechanical Ventilator 30 07/03/17 07:44 97 22 30 07/03/17 07:00 99 21 129/49 99 Mechanical Ventilator 40 07/03/17 06:00 97 23 124/49 99 Mechanical Ventilator 40 07/03/17 05:26 96 22 30 07/03/17 05:00 106 25 114/50 97 Mechanical Ventilator 40 07/03/17 04:00 40 07/03/17 04:00 108 07/03/17 04:00 99.0 108 26 128/51 98 Mechanical Ventilator 40 07/03/17 03:30 106 22 30 07/03/17 03:00 105 25 99/44 99 Mechanical Ventilator 40 07/03/17 02:00 100 24 95/40 99 Mechanical Ventilator 40 07/03/17 01:10 105 25 100 Mechanical Ventilator 30 07/03/17 01:09 104 27 99 Mechanical Ventilator 30 07/03/17 01:06 103 24 30 07/03/17 01:00 98 17 95/43 98 Mechanical Ventilator 40 07/03/17 00:00 99.1 106 26 96/41 98 Mechanical Ventilator 40 07/02/17 23:18 102 23 30 07/02/17 23:00 100 22 90/39 100 Mechanical Ventilator 40 07/02/17 22:00 105 22 95/42 100 Mechanical Ventilator 40 07/02/17 21:30 109 25 40 07/02/17 21:00 105 23 111/44 99 Mechanical Ventilator 40 07/02/17 20:00 124 Mechanical Ventilator 07/02/17 20:00 40 07/02/17 20:00 99.6 121 31 116/55 97 Mechanical Ventilator 40 07/02/17 20:00 121 07/02/17 20:00 122 30 99 Mechanical Ventilator 40 07/02/17 19:30 122 30 40 07/02/17 19:00 118 22 139/50 98 Mechanical Ventilator 40 07/02/17 18:00 114 20 135/50 99 Endotracheal Tube 07/02/17 17:01 116 32 40 07/02/17 17:00 115 22 132/79 98 Endotracheal Tube 07/02/17 16:00 40 07/02/17 16:00 97.9 115 20 149/55 97 Endotracheal Tube 07/02/17 16:00 115 07/02/17 15:00 115 22 127/45 97 Mechanical Ventilator 07/02/17 14:54 118 30 40 07/02/17 14:10 Mechanical Ventilator 40 Intake and Output 07/02/17 07/03/17 19:00 07:00 Intake Total 750 ml 955.00 ml Output Total 965 ml 595 ml Balance -215 ml 360.00 ml Intake Oral 0 ml 0 ml IV Total 750 ml 955.00 ml Output Urine Total 860 ml 540 ml Gastric Drainage Total 100 ml 50 ml Drainage Total 5 ml 5 ml # Bowel Movements 3 4 Laboratory Tests Test 07/03/17 04:30 07/03/17 10:20 White Blood Count 16.3 K/UL (4.8-10.8) H Red Blood Count 2.81 M/UL (4.20-5.40) L Hemoglobin 8.0 G/DL (12.0-16.0) L Hematocrit 25.2 % (37.0-47.0) L Mean Corpuscular Volume 90 FL (80-99) Mean Corpuscular Hemoglobin 28.3 PG (27.0-31.0) Mean Corpuscular Hemoglobin Concent 31.6 G/DL (32.0-36.0) L Red Cell Distribution Width 13.4 % (11.6-14.8) Platelet Count 150 K/UL (150-450) Mean Platelet Volume 7.8 FL (6.5-10.1) Neutrophils (%) (Auto) % (45.0-75.0) Lymphocytes (%) (Auto) % (20.0-45.0) Monocytes (%) (Auto) % (1.0-10.0) Eosinophils (%) (Auto) % (0.0-3.0) Basophils (%) (Auto) % (0.0-2.0) Differential Total Cells Counted 100 Neutrophils % (Manual) 84 % (45-75) H Lymphocytes % (Manual) 13 % (20-45) L Monocytes % (Manual) 3 % (1-10) Eosinophils % (Manual) 0 % (0-3) Basophils % (Manual) 0 % (0-2) Band Neutrophils 0 % (0-8) Platelet Estimate Adequate Platelet Morphology Normal Hypochromasia 1+ Sodium Level 145 MMOL/L (136-145) Potassium Level 3.1 MMOL/L (3.5-5.1) L Chloride Level 106 MMOL/L (98-107) Carbon Dioxide Level 23 MMOL/L (21-32) Anion Gap 17 mmol/L (5-15) H Blood Urea Nitrogen 37 mg/dL (7-18) H Creatinine 2.2 MG/DL (0.55-1.30) H Estimat Glomerular Filtration Rate mL/min (>60) Glucose Level 93 MG/DL (74-106) Uric Acid 6.5 MG/DL (2.6-7.2) Calcium Level 7.3 MG/DL (8.5-10.1) L Phosphorus Level 3.9 MG/DL (2.5-4.9) Magnesium Level 1.8 MG/DL (1.8-2.4) Total Bilirubin 1.8 MG/DL (0.2-1.0) H Direct Bilirubin 1.0 MG/DL (0.0-0.3) H Gamma Glutamyl Transpeptidase 34 U/L (5-85) Aspartate Amino Transf (AST/SGOT) 81 U/L (15-37) H Alanine Aminotransferase (ALT/SGPT) 49 U/L (12-78) Alkaline Phosphatase 113 U/L (46-116) Troponin I 0.023 ng/mL (0.000-0.056) C-Reactive Protein, Quantitative 44.6 mg/dL (0.00-0.90) H Pro-B-Type Natriuretic Peptide 2041 pg/mL (0-125) H Total Protein 5.8 G/DL (6.4-8.2) L Albumin 1.7 G/DL (3.4-5.0) L Globulin 4.1 g/dL Albumin/Globulin Ratio 0.4 (1.0-2.7) L Arterial Blood pH 7.407 (7.350-7.450) Arterial Blood Partial Pressure CO2 31.7 mmHg (35.0-45.0) L Arterial Blood Partial Pressure O2 79.9 mmHg (75.0-100.0) Arterial Blood HCO3 19.5 mmol/L (22.0-26.0) L Arterial Blood Oxygen Saturation 95.4 % (92.0-98.0) Arterial Blood Base Excess -4.5 Brandyn Test Positive Height (Feet): 5 Height (Inches): 8.00 Weight (Pounds): 293 General Appearance: WD/WN, no apparent distress, alert Cardiovascular: normal rate Respiratory/Chest: normal breath sounds, no respiratory distress Abdominal Exam: normal bowel sounds, non tender, soft, incision site - abdominal binder, other - NGT Luisa Pradhan N.P. Jul 03, 2017 14:05
--- NOTE | 2017-07-03 14:43 | General Surgery Progress Note ---
General Surgery-Progress Note Subjective Procedure Performed Exploratory Laparotomy, Small Bowel resection with primary anastomosis, Lysis of adhesions , Drainage of intra abdominal abscess Symptoms: improved, BM Objective Last 24 Hour Vital Signs Date Time Temp Pulse Resp B/P (MAP) Pulse Ox O2 Delivery O2 Flow Rate FiO2 07/03/17 13:22 98 26 99 Mechanical Ventilator 30 07/03/17 12:00 98 07/03/17 12:00 99.4 101 21 112/49 99 Nasal Cannula 4.0 07/03/17 11:00 105 21 112/49 99 Mechanical Ventilator 40 07/03/17 10:00 105 21 108/46 99 Mechanical Ventilator 40 07/03/17 09:12 98 22 30 07/03/17 09:10 100 07/03/17 09:00 106 21 120/57 99 Mechanical Ventilator 40 07/03/17 08:00 99.3 96 21 118/50 99 Mechanical Ventilator 40 07/03/17 08:00 99 07/03/17 08:00 40 07/03/17 07:54 105 24 100 Mechanical Ventilator 30 07/03/17 07:46 99 20 98 Mechanical Ventilator 30 07/03/17 07:44 97 22 30 07/03/17 07:00 99 21 129/49 99 Mechanical Ventilator 40 07/03/17 06:00 97 23 124/49 99 Mechanical Ventilator 40 07/03/17 05:26 96 22 30 07/03/17 05:00 106 25 114/50 97 Mechanical Ventilator 40 07/03/17 04:00 40 07/03/17 04:00 108 07/03/17 04:00 99.0 108 26 128/51 98 Mechanical Ventilator 40 07/03/17 03:30 106 22 30 07/03/17 03:00 105 25 99/44 99 Mechanical Ventilator 40 07/03/17 02:00 100 24 95/40 99 Mechanical Ventilator 40 07/03/17 01:10 105 25 100 Mechanical Ventilator 30 07/03/17 01:09 104 27 99 Mechanical Ventilator 30 07/03/17 01:06 103 24 30 07/03/17 01:00 98 17 95/43 98 Mechanical Ventilator 40 07/03/17 00:00 99.1 106 26 96/41 98 Mechanical Ventilator 40 07/02/17 23:18 102 23 30 07/02/17 23:00 100 22 90/39 100 Mechanical Ventilator 40 07/02/17 22:00 105 22 95/42 100 Mechanical Ventilator 40 07/02/17 21:30 109 25 40 07/02/17 21:00 105 23 111/44 99 Mechanical Ventilator 40 07/02/17 20:00 124 Mechanical Ventilator 07/02/17 20:00 40 07/02/17 20:00 99.6 121 31 116/55 97 Mechanical Ventilator 40 07/02/17 20:00 121 07/02/17 20:00 122 30 99 Mechanical Ventilator 40 07/02/17 19:30 122 30 40 07/02/17 19:00 118 22 139/50 98 Mechanical Ventilator 40 07/02/17 18:00 114 20 135/50 99 Endotracheal Tube 07/02/17 17:01 116 32 40 07/02/17 17:00 115 22 132/79 98 Endotracheal Tube 07/02/17 16:00 40 07/02/17 16:00 97.9 115 20 149/55 97 Endotracheal Tube 07/02/17 16:00 115 07/02/17 15:00 115 22 127/45 97 Mechanical Ventilator 07/02/17 14:54 118 30 40 I&O Intake and Output 07/02/17 07/03/17 19:00 07:00 Intake Total 750 ml 955.00 ml Output Total 965 ml 595 ml Balance -215 ml 360.00 ml Intake Oral 0 ml 0 ml IV Total 750 ml 955.00 ml Output Urine Total 860 ml 540 ml Gastric Drainage Total 100 ml 50 ml Drainage Total 5 ml 5 ml # Bowel Movements 3 4 Wound: other - has drainage from incision Drains: chiquita Respiratory: clear, other - extubated Abdomen: soft, non-tender, present bowel sounds Extremities: no tenderness Laboratory Tests Test 07/03/17 04:30 07/03/17 10:20 White Blood Count 16.3 K/UL (4.8-10.8) H Red Blood Count 2.81 M/UL (4.20-5.40) L Hemoglobin 8.0 G/DL (12.0-16.0) L Hematocrit 25.2 % (37.0-47.0) L Mean Corpuscular Volume 90 FL (80-99) Mean Corpuscular Hemoglobin 28.3 PG (27.0-31.0) Mean Corpuscular Hemoglobin Concent 31.6 G/DL (32.0-36.0) L Red Cell Distribution Width 13.4 % (11.6-14.8) Platelet Count 150 K/UL (150-450) Mean Platelet Volume 7.8 FL (6.5-10.1) Neutrophils (%) (Auto) % (45.0-75.0) Lymphocytes (%) (Auto) % (20.0-45.0) Monocytes (%) (Auto) % (1.0-10.0) Eosinophils (%) (Auto) % (0.0-3.0) Basophils (%) (Auto) % (0.0-2.0) Differential Total Cells Counted 100 Neutrophils % (Manual) 84 % (45-75) H Lymphocytes % (Manual) 13 % (20-45) L Monocytes % (Manual) 3 % (1-10) Eosinophils % (Manual) 0 % (0-3) Basophils % (Manual) 0 % (0-2) Band Neutrophils 0 % (0-8) Platelet Estimate Adequate Platelet Morphology Normal Hypochromasia 1+ Sodium Level 145 MMOL/L (136-145) Potassium Level 3.1 MMOL/L (3.5-5.1) L Chloride Level 106 MMOL/L (98-107) Carbon Dioxide Level 23 MMOL/L (21-32) Anion Gap 17 mmol/L (5-15) H Blood Urea Nitrogen 37 mg/dL (7-18) H Creatinine 2.2 MG/DL (0.55-1.30) H Estimat Glomerular Filtration Rate mL/min (>60) Glucose Level 93 MG/DL (74-106) Uric Acid 6.5 MG/DL (2.6-7.2) Calcium Level 7.3 MG/DL (8.5-10.1) L Phosphorus Level 3.9 MG/DL (2.5-4.9) Magnesium Level 1.8 MG/DL (1.8-2.4) Total Bilirubin 1.8 MG/DL (0.2-1.0) H Direct Bilirubin 1.0 MG/DL (0.0-0.3) H Gamma Glutamyl Transpeptidase 34 U/L (5-85) Aspartate Amino Transf (AST/SGOT) 81 U/L (15-37) H Alanine Aminotransferase (ALT/SGPT) 49 U/L (12-78) Alkaline Phosphatase 113 U/L (46-116) Troponin I 0.023 ng/mL (0.000-0.056) C-Reactive Protein, Quantitative 44.6 mg/dL (0.00-0.90) H Pro-B-Type Natriuretic Peptide 2041 pg/mL (0-125) H Total Protein 5.8 G/DL (6.4-8.2) L Albumin 1.7 G/DL (3.4-5.0) L Globulin 4.1 g/dL Albumin/Globulin Ratio 0.4 (1.0-2.7) L Arterial Blood pH 7.407 (7.350-7.450) Arterial Blood Partial Pressure CO2 31.7 mmHg (35.0-45.0) L Arterial Blood Partial Pressure O2 79.9 mmHg (75.0-100.0) Arterial Blood HCO3 19.5 mmol/L (22.0-26.0) L Arterial Blood Oxygen Saturation 95.4 % (92.0-98.0) Arterial Blood Base Excess -4.5 Brandyn Test Positive Assessment Post-op Diagnosis perforated small bowel and intra abdominal abscess Additional Comments wound infection Plan Additional Comments clear liquid diet KIRT BECK Jul 03, 2017 14:43
--- NOTE | 2017-07-03 19:36 | Infectious Diseases Prog Note ---
Assessment/Plan Assessment/Plan ASSESSMENT: The patient is a 71-year-old female with Sepsis ( intra-abd ) low grade fever. leukocytosis , mild Possible aspiration pneumonia. Fever mostly due to postop, status post repair of small bowel perforation on Abscess Cx Enterococcus and yeast Wnd Cx : Enterococcus and yeast , PSA Lower Abd wnd infection : purulent discharge Status post cholecystectomy on 06/26/2017 Anemia. Acute renal insufficiency. Ventilator-dependent respiratory failure. History of laparoscopic cholecystectomy on 06/26/2017. Perforated small bowel obstruction, status post small-bowel resection and primary anastomosis on 06/29/2017 Hypertension History of back pain. Diabetes PLAN: start Unasyn and Cefepime d# 1 , may add Diflucan if WBC does not improve DC Zosyn day # 5 and vancomycin day # 3 Monitor CBC. Monitor BMP. Monitor chest x-ray. Monitor cultures (blood, sputum, and urine, wnd ). Subjective Allergies: Coded Allergies: No Known Allergies (Unverified , 06/28/17) Subjective afebrile Objective Vital Signs Last 24 Hour Vital Signs Date Time Temp Pulse Resp B/P (MAP) Pulse Ox O2 Delivery O2 Flow Rate FiO2 07/03/17 19:00 98 19 140/57 98 Nasal Cannula 4.0 07/03/17 18:00 94 19 133/69 99 Nasal Cannula 4.0 07/03/17 17:00 96 21 111/52 97 Nasal Cannula 4.0 07/03/17 16:00 97 07/03/17 16:00 99.6 98 20 116/51 98 Nasal Cannula 4.0 07/03/17 15:00 102 20 128/53 98 Nasal Cannula 4.0 07/03/17 14:00 101 18 128/53 99 Nasal Cannula 4.0 07/03/17 13:30 102 25 100 Mechanical Ventilator 30 07/03/17 13:22 98 26 99 Mechanical Ventilator 30 07/03/17 13:00 102 21 137/47 99 Nasal Cannula 4.0 07/03/17 12:00 98 07/03/17 12:00 99.4 101 21 112/49 99 Nasal Cannula 4.0 07/03/17 11:00 105 21 112/49 99 Mechanical Ventilator 40 07/03/17 10:00 105 21 108/46 99 Mechanical Ventilator 40 07/03/17 09:12 98 22 30 07/03/17 09:10 100 07/03/17 09:00 106 21 120/57 99 Mechanical Ventilator 40 07/03/17 08:00 99.3 96 21 118/50 99 Mechanical Ventilator 40 07/03/17 08:00 99 07/03/17 08:00 40 07/03/17 07:54 105 24 100 Mechanical Ventilator 30 07/03/17 07:46 99 20 98 Mechanical Ventilator 30 07/03/17 07:44 97 22 30 07/03/17 07:00 99 21 129/49 99 Mechanical Ventilator 40 07/03/17 06:00 97 23 124/49 99 Mechanical Ventilator 40 07/03/17 05:26 96 22 30 07/03/17 05:00 106 25 114/50 97 Mechanical Ventilator 40 07/03/17 04:00 40 07/03/17 04:00 108 07/03/17 04:00 99.0 108 26 128/51 98 Mechanical Ventilator 40 07/03/17 03:30 106 22 30 07/03/17 03:00 105 25 99/44 99 Mechanical Ventilator 40 07/03/17 02:00 100 24 95/40 99 Mechanical Ventilator 40 07/03/17 01:10 105 25 100 Mechanical Ventilator 30 07/03/17 01:09 104 27 99 Mechanical Ventilator 30 07/03/17 01:06 103 24 30 07/03/17 01:00 98 17 95/43 98 Mechanical Ventilator 40 07/03/17 00:00 99.1 106 26 96/41 98 Mechanical Ventilator 40 07/02/17 23:18 102 23 30 07/02/17 23:00 100 22 90/39 100 Mechanical Ventilator 40 07/02/17 22:00 105 22 95/42 100 Mechanical Ventilator 40 07/02/17 21:30 109 25 40 07/02/17 21:00 105 23 111/44 99 Mechanical Ventilator 40 07/02/17 20:00 124 Mechanical Ventilator 07/02/17 20:00 40 07/02/17 20:00 99.6 121 31 116/55 97 Mechanical Ventilator 40 07/02/17 20:00 121 07/02/17 20:00 122 30 99 Mechanical Ventilator 40 Height (Feet): 5 Height (Inches): 8.00 Weight (Pounds): 293 HEENT: anicteric Respiratory/Chest: lungs clear Cardiovascular: regularly irregular Abdomen: non distended, other - wnd : pus ++ Extremities: no cyanosis Microbiology Date/Time Source Procedure Growth Status 07/01/17 17:00 Sputum Gram Stain - Final Resulted 07/01/17 17:00 Sputum Culture - Preliminary YEAST Resulted Laboratory Tests Test 07/03/17 04:30 07/03/17 10:20 White Blood Count 16.3 K/UL (4.8-10.8) H Red Blood Count 2.81 M/UL (4.20-5.40) L Hemoglobin 8.0 G/DL (12.0-16.0) L Hematocrit 25.2 % (37.0-47.0) L Mean Corpuscular Volume 90 FL (80-99) Mean Corpuscular Hemoglobin 28.3 PG (27.0-31.0) Mean Corpuscular Hemoglobin Concent 31.6 G/DL (32.0-36.0) L Red Cell Distribution Width 13.4 % (11.6-14.8) Platelet Count 150 K/UL (150-450) Mean Platelet Volume 7.8 FL (6.5-10.1) Neutrophils (%) (Auto) % (45.0-75.0) Lymphocytes (%) (Auto) % (20.0-45.0) Monocytes (%) (Auto) % (1.0-10.0) Eosinophils (%) (Auto) % (0.0-3.0) Basophils (%) (Auto) % (0.0-2.0) Differential Total Cells Counted 100 Neutrophils % (Manual) 84 % (45-75) H Lymphocytes % (Manual) 13 % (20-45) L Monocytes % (Manual) 3 % (1-10) Eosinophils % (Manual) 0 % (0-3) Basophils % (Manual) 0 % (0-2) Band Neutrophils 0 % (0-8) Platelet Estimate Adequate Platelet Morphology Normal Hypochromasia 1+ Sodium Level 145 MMOL/L (136-145) Potassium Level 3.1 MMOL/L (3.5-5.1) L Chloride Level 106 MMOL/L (98-107) Carbon Dioxide Level 23 MMOL/L (21-32) Anion Gap 17 mmol/L (5-15) H Blood Urea Nitrogen 37 mg/dL (7-18) H Creatinine 2.2 MG/DL (0.55-1.30) H Estimat Glomerular Filtration Rate mL/min (>60) Glucose Level 93 MG/DL (74-106) Uric Acid 6.5 MG/DL (2.6-7.2) Calcium Level 7.3 MG/DL (8.5-10.1) L Phosphorus Level 3.9 MG/DL (2.5-4.9) Magnesium Level 1.8 MG/DL (1.8-2.4) Total Bilirubin 1.8 MG/DL (0.2-1.0) H Direct Bilirubin 1.0 MG/DL (0.0-0.3) H Gamma Glutamyl Transpeptidase 34 U/L (5-85) Aspartate Amino Transf (AST/SGOT) 81 U/L (15-37) H Alanine Aminotransferase (ALT/SGPT) 49 U/L (12-78) Alkaline Phosphatase 113 U/L (46-116) Troponin I 0.023 ng/mL (0.000-0.056) C-Reactive Protein, Quantitative 44.6 mg/dL (0.00-0.90) H Pro-B-Type Natriuretic Peptide 2041 pg/mL (0-125) H Total Protein 5.8 G/DL (6.4-8.2) L Albumin 1.7 G/DL (3.4-5.0) L Globulin 4.1 g/dL Albumin/Globulin Ratio 0.4 (1.0-2.7) L Arterial Blood pH 7.407 (7.350-7.450) Arterial Blood Partial Pressure CO2 31.7 mmHg (35.0-45.0) L Arterial Blood Partial Pressure O2 79.9 mmHg (75.0-100.0) Arterial Blood HCO3 19.5 mmol/L (22.0-26.0) L Arterial Blood Oxygen Saturation 95.4 % (92.0-98.0) Arterial Blood Base Excess -4.5 Brandyn Test Positive Current Medications Medications (Trade) Dose Ordered Sig/Teresa Route PRN Reason Start Time Stop Time Status Last Admin Dose Admin Acetaminophen (Tylenol) 650 mg Q4H PRN RECTAL FEVER 06/30/17 02:15 07/29/17 22:14 Acetaminophen (Tylenol) 650 mg Q4H PRN RECTAL Mild Pain (Pain Scale 1-3) 06/30/17 03:00 07/28/17 10:59 12/20/17 20:04 Chlorhexidine Gluconate (Susan-Hex 2%) 1 applic Q24H TOPIC 07/02/17 20:00 08/01/17 19:59 07/02/17 20:56 Dextrose (Dextrose 50%) STAT PRN IV Hypoglycemia 06/30/17 10:00 07/28/17 09:59 07/01/17 18:06 Heparin Sodium (Porcine) (Heparin 5000 units/ml) 5,000 units EVERY 8 HOURS SUBQ 07/02/17 14:00 08/01/17 13:59 07/03/17 15:08 Hydromorphone HCl (Dilaudid) 0.5 mg Q3H PRN IVP Pain Score 1-3 06/30/17 01:15 07/06/17 22:14 07/03/17 13:25 Hydromorphone HCl (Dilaudid) 1 mg Q3H PRN IVP pain score 4-6 06/30/17 06:45 07/06/17 22:14 07/01/17 21:53 Hydromorphone HCl (Dilaudid) 2 mg Q3H PRN IVP pain score 7-10 06/30/17 01:15 07/06/17 22:14 Insulin Aspart (NovoLOG) Q6H SUBQ 06/30/17 00:00 07/29/17 00:00 07/03/17 17:53 Metoclopramide HCl (Reglan) 5 mg Q6H PRN IVP Nausea & Vomiting 06/30/17 04:15 07/29/17 22:14 Ondansetron HCl (Zofran) 4 mg Q6H PRN IVP Nausea & Vomiting 06/30/17 04:15 07/29/17 22:14 Pantoprazole (Protonix) 40 mg Q12HR IVP 06/30/17 09:00 07/27/17 00:00 07/03/17 09:15 Piperacillin Sod/ Tazobactam Sod 3.375 gm/Dextrose 55 ml @ 13.75 mls/ hr EVERY 12 HOURS IVPB 06/30/17 21:00 07/05/17 20:59 07/03/17 09:15 Sodium Chloride 1,000 ml @ 75 mls/hr [id number] IV 06/30/17 12:05 07/30/17 12:04 07/03/17 04:33 Vancomycin HCl (Vanco rx to dose) 1 ea DAILY PRN MISC Per rx protocol 07/02/17 14:15 08/01/17 14:14 MARCO WILSON M.D. Jul 03, 2017 19:36
[2017-07-03] MEDS: Dyna-Hex 2% Top Sol 2oz TOPIC SCH (21:04)
[2017-07-03] MEDS: Cefepime HCl 2 GM in D5W 55 ML IVPB SCH (21:04)
[2017-07-03] MEDS: Ampicillin/Sulbactam Sod 3 GM in NS 110 ML IVPB SCH (23:45)
[2017-07-04] VITALS (20 sets, daily range): BP systolic 86–152; BP diastolic 39–84
--- NOTE | 2017-07-04 00:18 | Cardiology Report ---
APPROVED REPORT EXAM: Two-dimensional and M-mode echocardiogram with Doppler and color Doppler. INDICATION Congestive Heart Failure M-Mode DIMENSIONS IVSd0.8 (0.7-1.1cm)Left Atrium (MM)3.4 (1.6-4.0cm) LVDd4.7 (3.5-5.6cm)Aortic Root3.7 (2.0-3.7cm) PWd1.4 (0.7-1.1cm)Aortic Cusp Exc.1.6 (1.5-2.0cm) IVSs2.2 cm LVDs2.6 (2.5-4.0cm) PWs1.7 cm Technically difficult study due to poor acoustical windows . Normal left ventricular chamber size, systolic function and wall motion to extent visualized Left ventricular ejection fraction estimated to be 65 %. No evidence of left ventricular hypertrophy . No evidence of pericardial effusion All other cardiac chamber size are within normal. Focal aortic valve sclerosis with adequate cusp excursion. Thickened mitral valve leaflets with normal excursion. Mitral annulus and aortic root calcification. Normal Pulmonic valve structure. Normal tricuspid valve structure. IVC at 1.4 cm with physiologic collapse. A color flow and spectral Doppler study was performed and revealed: No aortic regurgitation. Trace mitral regurgitation. Mitral inflow indicates normal left ventricular diastolic function. / Mitral inflow Mitral diastolic velocities suggest reduced left ventricular relaxation c/w mild LV diastolic dysfunction (Grade I ) Trace tricuspid regurgitation. Tricuspid systolic velocities suggests peak right ventricular systolic pressure of 15mmHg. No Pulmonic regurgitation present.
[2017-07-04] MEDS: Hydromorphone 0.5mg/0.5ml inj IVP PRN ×4 (00:58→20:15)
[2017-07-04 04:51] LABS: HEMATOCRIT 23.6 % (37.0-47.0); HEMOGLOBIN 7.6 G/DL (12.0-16.0); MEAN CORPUSCULAR VOLUME 89 FL (80-99); PLATELET COUNT 152 K/UL (150-450); RED BLOOD COUNT 2.64 M/UL (4.20-5.40); RED CELL DISTRIBUTION WIDTH 13.9 % (11.6-14.8); WHITE BLOOD COUNT 15.7 K/UL (4.8-10.8)
[2017-07-04] MEDS: Ampicillin/Sulbactam Sod 3 GM in NS 110 ML IVPB SCH ×4 (05:38→19:00)
[2017-07-04] MEDS: Heparin 5000 units/ml inj SUBQ SCH ×3 (05:39→20:59)
[2017-07-04] MEDS: NovoLOG Insulin Flexpen SUBQ SCH ×3 (05:39→18:00)
[2017-07-04 05:40] LABS: ALANINE AMINOTRANSFERASE 43 U/L (12-78); ALBUMIN 1.6 G/DL (3.4-5.0); ALBUMIN/GLOBULIN RATIO 0.4 (1.0-2.7); ALKALINE PHOSPHATASE 98 U/L (46-116); ANION GAP 9 mmol/L (5-15); ASPARTATE AMINO TRANSFERASE 59 U/L (15-37); BILIRUBIN,TOTAL 1.9 MG/DL (0.2-1.0); BLOOD UREA NITROGEN 44 mg/dL (7-18); CALCIUM 7.2 MG/DL (8.5-10.1); CARBON DIOXIDE 27 MMOL/L (21-32); CHLORIDE 109 MMOL/L (98-107); GAMMA GLUTAMYL TRANSPEPTIDASE 29 U/L (5-85); PHOSPHORUS 2.9 MG/DL (2.5-4.9); POTASSIUM 3.4 MMOL/L (3.5-5.1); SODIUM 145 MMOL/L (136-145)
[2017-07-04 05:55] LABS: BILIRUBIN,DIRECT 1.2 MG/DL (0.0-0.3)
[2017-07-04] MEDS: Cefepime HCl 2 GM in D5W 55 ML IVPB SCH (09:05)
[2017-07-04] MEDS: Pantoprazole Inj IVP SCH ×2 (09:05→20:50)
--- NOTE | 2017-07-04 09:18 | Pulmonolgy Critical Care Note ---
Critical Care - Asmt/Plan Problems: (1) Perforated bowel (2) Ventilator dependent (3) ELIDIA (acute kidney injury) (4) Metabolic acidosis (5) Obesity (6) Small bowel perforation Assessment/Plan: -VDRF S/p EXTUBATION 07/03/17 -POD 8 S/P lap bridget and POD 4 S/P repeat ex-lab for SB perf -Metabolic acidosis (NAGMA + AGMA) with respiratory compensation - RESOLVED -ELIDIA, likely on CKD, now S/P initiation of iHD 07/02/17 -DM, HTN, HL Assessment/Plan PLAN: -Optimize pulmonary hygiene/mobilize as tolerated -Titrate down FiO2 to keep SaO2 > 90% -Incentive spirometry -RTC and PRN DUOnebs -F/U renal recs, monitor UO, volumes and renal function, iHD per renal, consider D/C IVF once taking in adequate PO -F/U TTE (not done yet) -Duplex neg, elevated DD likely post-op, doubt VTE, cannot do CT in light of renal failure and VQ would be of limited utility, patient is on DVT Px -F/U GI and surgery recs, post-op care -Advance diet per surgery -Continue Abx per ID, F/U Cx's -Monitor LFT's and WCt -OOB today, PT ordered -Replete K and Mg -DVT Px: Hep SQ TID D/W CC RN CC 35 Critical Care - Objective Last 24 Hour Vital Signs Date Time Temp Pulse Resp B/P (MAP) Pulse Ox O2 Delivery O2 Flow Rate FiO2 07/04/17 08:00 104 07/04/17 08:00 98.6 95 28 121/59 98 Nasal Cannula 4.0 07/04/17 07:00 98 30 131/53 98 Nasal Cannula 4.0 07/04/17 06:00 94 21 125/48 98 Nasal Cannula 4.0 07/04/17 05:00 95 21 117/44 97 Nasal Cannula 4.0 07/04/17 04:00 98.3 97 18 123/44 96 Nasal Cannula 4.0 07/04/17 04:00 97 07/04/17 03:00 96 17 106/46 95 Nasal Cannula 4.0 07/04/17 02:00 96 16 86/39 96 Nasal Cannula 4.0 07/04/17 01:00 96 18 107/43 97 Nasal Cannula 4.0 07/04/17 00:00 99 07/04/17 00:00 98.9 97 18 120/39 98 Nasal Cannula 4.0 07/03/17 23:00 98 18 120/47 97 Nasal Cannula 4.0 07/03/17 22:00 101 28 122/48 96 Nasal Cannula 4.0 07/03/17 21:00 98 27 130/54 99 Nasal Cannula 4.0 07/03/17 20:00 98.2 100 27 137/49 98 Nasal Cannula 4.0 07/03/17 20:00 99 07/03/17 19:34 Nasal Cannula 2.0 28 07/03/17 19:34 95 22 98 Nasal Cannula 2.0 28 07/03/17 19:34 98 Nasal Cannula 2.0 28 07/03/17 19:00 98 19 140/57 98 Nasal Cannula 4.0 07/03/17 18:00 94 19 133/69 99 Nasal Cannula 4.0 07/03/17 17:00 96 21 111/52 97 Nasal Cannula 4.0 07/03/17 16:00 97 07/03/17 16:00 99.6 98 20 116/51 98 Nasal Cannula 4.0 07/03/17 15:00 102 20 128/53 98 Nasal Cannula 4.0 07/03/17 14:00 101 18 128/53 99 Nasal Cannula 4.0 07/03/17 13:30 102 25 100 Mechanical Ventilator 30 07/03/17 13:22 98 26 99 Mechanical Ventilator 30 07/03/17 13:00 102 21 137/47 99 Nasal Cannula 4.0 07/03/17 12:00 98 07/03/17 12:00 99.4 101 21 112/49 99 Nasal Cannula 4.0 07/03/17 11:00 105 21 112/49 99 Mechanical Ventilator 40 07/03/17 10:00 105 21 108/46 99 Mechanical Ventilator 40 07/03/17 09:12 98 22 30 07/03/17 09:10 100 Status: awake Condition: improving HEENT: atraumatic, normocephalic Neck: other - R IJ Mahurker Lungs: clear Heart: HR/BP stable Abdomen: soft, non-tender, active bowel sounds, other - BAKARI, wound dressed Extremities: edema - 1+ Micro: Microbiology Date/Time Source Procedure Growth Status 07/01/17 17:00 Sputum Gram Stain - Final Resulted 07/01/17 17:00 Sputum Culture - Preliminary YEAST Resulted 07/03/17 12:40 Abdomen Gram Stain - Final Resulted 07/03/17 12:40 Abdomen Wound Culture - Preliminary NO GROWTH Resulted Accucheck: 176 Blood Sugars: BS controlled Critical Care - Subjective ROS Limited/Unobtainable: Yes ICU Day: 6 Intubation Day: Extubated Interval Events: Extubated yesterday, stable on 4L, no cough, no SOB, no F/C, UO 1.2L, 3.3/1.2 Condition: improving IV Access: central, peripheral FI02: 28 Vent Support Breath Rate: 20 Vent Support Mode: CPAP Vent Tidal Volume: 550 Sputum Amount: None PEEP: 5.0 PIP: 16 Secretions: None Fluids: NS @ 75 I&O: Intake and Output 07/03/17 07/04/17 19:00 07:00 Intake Total 1517.00 ml 1800 ml Output Total 690 ml 575 ml Balance 827.00 ml 1225 ml Intake Oral 300 ml 375 ml IV Total 1217.00 ml 1425 ml Output Urine Total 690 ml 575 ml # Bowel Movements 2 Subjective: Sola CLD, no N/V, + BM, + UO, pain better, + cough/FINANCE CLERK, no SOB, no F/C ET-Tube: 7.0 ET Position: 22 Labs: Laboratory Tests Test 07/03/17 10:20 07/04/17 04:20 Arterial Blood pH 7.407 (7.350-7.450) Arterial Blood Partial Pressure CO2 31.7 mmHg (35.0-45.0) L Arterial Blood Partial Pressure O2 79.9 mmHg (75.0-100.0) Arterial Blood HCO3 19.5 mmol/L (22.0-26.0) L Arterial Blood Oxygen Saturation 95.4 % (92.0-98.0) Arterial Blood Base Excess -4.5 Brandyn Test Positive White Blood Count 15.7 K/UL (4.8-10.8) H Red Blood Count 2.64 M/UL (4.20-5.40) L Hemoglobin 7.6 G/DL (12.0-16.0) L Hematocrit 23.6 % (37.0-47.0) L Mean Corpuscular Volume 89 FL (80-99) Mean Corpuscular Hemoglobin 28.7 PG (27.0-31.0) Mean Corpuscular Hemoglobin Concent 32.1 G/DL (32.0-36.0) Red Cell Distribution Width 13.9 % (11.6-14.8) Platelet Count 152 K/UL (150-450) Mean Platelet Volume 8.6 FL (6.5-10.1) Neutrophils (%) (Auto) % (45.0-75.0) Lymphocytes (%) (Auto) % (20.0-45.0) Monocytes (%) (Auto) % (1.0-10.0) Eosinophils (%) (Auto) % (0.0-3.0) Basophils (%) (Auto) % (0.0-2.0) Differential Total Cells Counted 100 Neutrophils % (Manual) 84 % (45-75) H Lymphocytes % (Manual) 6 % (20-45) L Monocytes % (Manual) 9 % (1-10) Eosinophils % (Manual) 1 % (0-3) Basophils % (Manual) 0 % (0-2) Band Neutrophils 0 % (0-8) Platelet Estimate Adequate Platelet Morphology Normal Hypochromasia 3+ Anisocytosis 1+ Sodium Level 145 MMOL/L (136-145) Potassium Level 3.4 MMOL/L (3.5-5.1) L Chloride Level 109 MMOL/L (98-107) H Carbon Dioxide Level 27 MMOL/L (21-32) Anion Gap 9 mmol/L (5-15) Blood Urea Nitrogen 44 mg/dL (7-18) H Creatinine 2.0 MG/DL (0.55-1.30) H Estimat Glomerular Filtration Rate mL/min (>60) Glucose Level 165 MG/DL (74-106) H Uric Acid 6.2 MG/DL (2.6-7.2) Calcium Level 7.2 MG/DL (8.5-10.1) L Phosphorus Level 2.9 MG/DL (2.5-4.9) Magnesium Level 1.6 MG/DL (1.8-2.4) L Total Bilirubin 1.9 MG/DL (0.2-1.0) H Direct Bilirubin 1.2 MG/DL (0.0-0.3) H Gamma Glutamyl Transpeptidase 29 U/L (5-85) Aspartate Amino Transf (AST/SGOT) 59 U/L (15-37) H Alanine Aminotransferase (ALT/SGPT) 43 U/L (12-78) Alkaline Phosphatase 98 U/L (46-116) C-Reactive Protein, Quantitative 34.4 mg/dL (0.00-0.90) H Pro-B-Type Natriuretic Peptide 1910 pg/mL (0-125) H Total Protein 6.0 G/DL (6.4-8.2) L Albumin 1.6 G/DL (3.4-5.0) L Globulin 4.4 g/dL Albumin/Globulin Ratio 0.4 (1.0-2.7) L VICKY GUERRERO M.D. Jul 04, 2017 09:18
--- NOTE | 2017-07-04 09:21 | General Progress Note ---
Assessment/Plan Problem List: (1) Obesity ICD Codes: E66.9 - Obesity, unspecified SNOMED: 947874564 (2) Small bowel perforation ICD Codes: K63.1 - Perforation of intestine (nontraumatic) SNOMED: 157439850 (3) Anemia ICD Codes: D64.9 - Anemia, unspecified SNOMED: 379868166 (4) S/P exploratory laparotomy ICD Codes: Z98.890 - Other specified postprocedural states SNOMED: 22412455, 95161179, 425773554 Assessment/Plan on clears per surgery fu labs PRN blood transfusion abx post op care fu Subjective ROS Limited/Unobtainable: Yes Allergies: Coded Allergies: No Known Allergies (Unverified , 06/28/17) Subjective +flatus no abd pain Objective Last 24 Hour Vital Signs Date Time Temp Pulse Resp B/P (MAP) Pulse Ox O2 Delivery O2 Flow Rate FiO2 07/04/17 08:00 104 07/04/17 08:00 98.6 95 28 121/59 98 Nasal Cannula 4.0 07/04/17 07:00 98 30 131/53 98 Nasal Cannula 4.0 07/04/17 06:00 94 21 125/48 98 Nasal Cannula 4.0 07/04/17 05:00 95 21 117/44 97 Nasal Cannula 4.0 07/04/17 04:00 98.3 97 18 123/44 96 Nasal Cannula 4.0 07/04/17 04:00 97 07/04/17 03:00 96 17 106/46 95 Nasal Cannula 4.0 07/04/17 02:00 96 16 86/39 96 Nasal Cannula 4.0 07/04/17 01:00 96 18 107/43 97 Nasal Cannula 4.0 07/04/17 00:00 99 07/04/17 00:00 98.9 97 18 120/39 98 Nasal Cannula 4.0 07/03/17 23:00 98 18 120/47 97 Nasal Cannula 4.0 07/03/17 22:00 101 28 122/48 96 Nasal Cannula 4.0 07/03/17 21:00 98 27 130/54 99 Nasal Cannula 4.0 07/03/17 20:00 98.2 100 27 137/49 98 Nasal Cannula 4.0 07/03/17 20:00 99 07/03/17 19:34 Nasal Cannula 2.0 28 07/03/17 19:34 95 22 98 Nasal Cannula 2.0 28 07/03/17 19:34 98 Nasal Cannula 2.0 28 07/03/17 19:00 98 19 140/57 98 Nasal Cannula 4.0 07/03/17 18:00 94 19 133/69 99 Nasal Cannula 4.0 07/03/17 17:00 96 21 111/52 97 Nasal Cannula 4.0 07/03/17 16:00 97 07/03/17 16:00 99.6 98 20 116/51 98 Nasal Cannula 4.0 07/03/17 15:00 102 20 128/53 98 Nasal Cannula 4.0 07/03/17 14:00 101 18 128/53 99 Nasal Cannula 4.0 07/03/17 13:30 102 25 100 Mechanical Ventilator 30 07/03/17 13:22 98 26 99 Mechanical Ventilator 30 07/03/17 13:00 102 21 137/47 99 Nasal Cannula 4.0 07/03/17 12:00 98 07/03/17 12:00 99.4 101 21 112/49 99 Nasal Cannula 4.0 07/03/17 11:00 105 21 112/49 99 Mechanical Ventilator 40 07/03/17 10:00 105 21 108/46 99 Mechanical Ventilator 40 Intake and Output 07/03/17 07/04/17 19:00 07:00 Intake Total 1517.00 ml 1800 ml Output Total 690 ml 575 ml Balance 827.00 ml 1225 ml Intake Oral 300 ml 375 ml IV Total 1217.00 ml 1425 ml Output Urine Total 690 ml 575 ml # Bowel Movements 2 Laboratory Tests 07/03/17 10:20: Arterial Blood pH 7.407, Arterial Blood Partial Pressure CO2 31.7L, Arterial Blood Partial Pressure O2 79.9, Arterial Blood HCO3 19.5L, Arterial Blood Oxygen Saturation 95.4, Arterial Blood Base Excess -4.5, Brandyn Test Positive 07/04/17 04:20: White Blood Count 15.7H, Red Blood Count 2.64L, Hemoglobin 7.6L, Hematocrit 23.6L, Mean Corpuscular Volume 89, Mean Corpuscular Hemoglobin 28.7, Mean Corpuscular Hemoglobin Concent 32.1, Red Cell Distribution Width 13.9, Platelet Count 152, Mean Platelet Volume 8.6, Neutrophils (%) (Auto) , Lymphocytes (%) ( Auto) , Monocytes (%) (Auto) , Eosinophils (%) (Auto) , Basophils (%) (Auto) , Differential Total Cells Counted 100, Neutrophils % (Manual) 84H, Lymphocytes % (Manual) 6L, Monocytes % (Manual) 9, Eosinophils % (Manual) 1, Basophils % ( Manual) 0, Band Neutrophils 0, Platelet Estimate Adequate, Platelet Morphology Normal, Hypochromasia 3+, Anisocytosis 1+, Sodium Level 145, Potassium Level 3.4L, Chloride Level 109H, Carbon Dioxide Level 27, Anion Gap 9, Blood Urea Nitrogen 44H, Creatinine 2.0H, Estimat Glomerular Filtration Rate , Glucose Level 165H, Uric Acid 6.2, Calcium Level 7.2L, Phosphorus Level 2.9, Magnesium Level 1.6L, Total Bilirubin 1.9H, Direct Bilirubin 1.2H, Gamma Glutamyl Transpeptidase 29, Aspartate Amino Transf (AST/SGOT) 59H, Alanine Aminotransferase (ALT/SGPT) 43, Alkaline Phosphatase 98, C-Reactive Protein, Quantitative 34.4H, Pro-B-Type Natriuretic Peptide 1910H, Total Protein 6.0L, Albumin 1.6L, Globulin 4.4, Albumin/Globulin Ratio 0.4L Height (Feet): 5 Height (Inches): 8.00 Weight (Pounds): 295 General Appearance: alert EENT: normal ENT inspection Neck: supple Cardiovascular: normal rate Respiratory/Chest: decreased breath sounds Abdomen: other - post surgical Extremities: non-tender CANDIS MARTIN Jul 04, 2017 09:20
--- NOTE | 2017-07-04 10:54 | General Surgery Progress Note ---
General Surgery-Progress Note Subjective Procedure Performed Exploratory Laparotomy, Small Bowel resection with primary anastomosis, Lysis of adhesions , Drainage of intra abdominal abscess Symptoms: improved, BM Objective Last 24 Hour Vital Signs Date Time Temp Pulse Resp B/P (MAP) Pulse Ox O2 Delivery O2 Flow Rate FiO2 07/04/17 08:00 104 07/04/17 08:00 98.6 95 28 121/59 98 Nasal Cannula 4.0 07/04/17 07:00 98 30 131/53 98 Nasal Cannula 4.0 07/04/17 06:00 94 21 125/48 98 Nasal Cannula 4.0 07/04/17 05:00 95 21 117/44 97 Nasal Cannula 4.0 07/04/17 04:00 98.3 97 18 123/44 96 Nasal Cannula 4.0 07/04/17 04:00 97 07/04/17 03:00 96 17 106/46 95 Nasal Cannula 4.0 07/04/17 02:00 96 16 86/39 96 Nasal Cannula 4.0 07/04/17 01:00 96 18 107/43 97 Nasal Cannula 4.0 07/04/17 00:00 99 07/04/17 00:00 98.9 97 18 120/39 98 Nasal Cannula 4.0 07/03/17 23:00 98 18 120/47 97 Nasal Cannula 4.0 07/03/17 22:00 101 28 122/48 96 Nasal Cannula 4.0 07/03/17 21:00 98 27 130/54 99 Nasal Cannula 4.0 07/03/17 20:00 98.2 100 27 137/49 98 Nasal Cannula 4.0 07/03/17 20:00 99 07/03/17 19:34 Nasal Cannula 2.0 28 07/03/17 19:34 95 22 98 Nasal Cannula 2.0 28 07/03/17 19:34 98 Nasal Cannula 2.0 28 07/03/17 19:00 98 19 140/57 98 Nasal Cannula 4.0 07/03/17 18:00 94 19 133/69 99 Nasal Cannula 4.0 07/03/17 17:00 96 21 111/52 97 Nasal Cannula 4.0 07/03/17 16:00 97 07/03/17 16:00 99.6 98 20 116/51 98 Nasal Cannula 4.0 07/03/17 15:00 102 20 128/53 98 Nasal Cannula 4.0 07/03/17 14:00 101 18 128/53 99 Nasal Cannula 4.0 07/03/17 13:30 102 25 100 Mechanical Ventilator 30 07/03/17 13:22 98 26 99 Mechanical Ventilator 30 07/03/17 13:00 102 21 137/47 99 Nasal Cannula 4.0 07/03/17 12:00 98 07/03/17 12:00 99.4 101 21 112/49 99 Nasal Cannula 4.0 07/03/17 11:00 105 21 112/49 99 Mechanical Ventilator 40 I&O Intake and Output 07/03/17 07/04/17 19:00 07:00 Intake Total 1517.00 ml 1800 ml Output Total 690 ml 575 ml Balance 827.00 ml 1225 ml Intake Oral 300 ml 375 ml IV Total 1217.00 ml 1425 ml Output Urine Total 690 ml 575 ml # Bowel Movements 2 Wound: other - drainage has reduced Drains: chiquita Respiratory: clear Abdomen: soft, non-tender, present bowel sounds Laboratory Tests Test 07/04/17 04:20 07/04/17 10:35 White Blood Count 15.7 K/UL (4.8-10.8) H Red Blood Count 2.64 M/UL (4.20-5.40) L Hemoglobin 7.6 G/DL (12.0-16.0) L Hematocrit 23.6 % (37.0-47.0) L Mean Corpuscular Volume 89 FL (80-99) Mean Corpuscular Hemoglobin 28.7 PG (27.0-31.0) Mean Corpuscular Hemoglobin Concent 32.1 G/DL (32.0-36.0) Red Cell Distribution Width 13.9 % (11.6-14.8) Platelet Count 152 K/UL (150-450) Mean Platelet Volume 8.6 FL (6.5-10.1) Neutrophils (%) (Auto) % (45.0-75.0) Lymphocytes (%) (Auto) % (20.0-45.0) Monocytes (%) (Auto) % (1.0-10.0) Eosinophils (%) (Auto) % (0.0-3.0) Basophils (%) (Auto) % (0.0-2.0) Differential Total Cells Counted 100 Neutrophils % (Manual) 84 % (45-75) H Lymphocytes % (Manual) 6 % (20-45) L Monocytes % (Manual) 9 % (1-10) Eosinophils % (Manual) 1 % (0-3) Basophils % (Manual) 0 % (0-2) Band Neutrophils 0 % (0-8) Platelet Estimate Adequate Platelet Morphology Normal Hypochromasia 3+ Anisocytosis 1+ Sodium Level 145 MMOL/L (136-145) Potassium Level 3.4 MMOL/L (3.5-5.1) L Chloride Level 109 MMOL/L (98-107) H Carbon Dioxide Level 27 MMOL/L (21-32) Anion Gap 9 mmol/L (5-15) Blood Urea Nitrogen 44 mg/dL (7-18) H Creatinine 2.0 MG/DL (0.55-1.30) H Estimat Glomerular Filtration Rate mL/min (>60) Glucose Level 165 MG/DL (74-106) H Uric Acid 6.2 MG/DL (2.6-7.2) Calcium Level 7.2 MG/DL (8.5-10.1) L Phosphorus Level 2.9 MG/DL (2.5-4.9) Magnesium Level 1.6 MG/DL (1.8-2.4) L Total Bilirubin 1.9 MG/DL (0.2-1.0) H Direct Bilirubin 1.2 MG/DL (0.0-0.3) H Gamma Glutamyl Transpeptidase 29 U/L (5-85) Aspartate Amino Transf (AST/SGOT) 59 U/L (15-37) H Alanine Aminotransferase (ALT/SGPT) 43 U/L (12-78) Alkaline Phosphatase 98 U/L (46-116) C-Reactive Protein, Quantitative 34.4 mg/dL (0.00-0.90) H Pro-B-Type Natriuretic Peptide 1910 pg/mL (0-125) H Total Protein 6.0 G/DL (6.4-8.2) L Albumin 1.6 G/DL (3.4-5.0) L Globulin 4.4 g/dL Albumin/Globulin Ratio 0.4 (1.0-2.7) L Prothrombin Time Pending Prothromb Time International Ratio Pending Assessment Post-op Diagnosis perforated small bowel and intra abdominal abscess Plan Additional Comments advance diet KIRT BECK Jul 04, 2017 10:54
--- NOTE | 2017-07-04 11:37 | Infectious Diseases Prog Note ---
Assessment/Plan Assessment/Plan ASSESSMENT: The patient is a 71-year-old female with Sepsis ( intra-abd ) low grade fever. leukocytosis Possible aspiration pneumonia. Scx : Trichosporon ( Colonizer vs Contaminant ) pt does have ImmSupp risk factor Status post repair of small bowel perforation on 06/29/2017 Abscess Cx Enterococcus and yeast Lower Abd wnd infection : purulent discharge Wnd Cx : Enterococcus and yeast , PSA , repeat WndCx: P Status post cholecystectomy on 06/26/2017 Anemia. Acute renal insufficiency. improving Ventilator-dependent respiratory failure. History of laparoscopic cholecystectomy on 06/26/2017. Perforated small bowel obstruction, status post small-bowel resection and primary anastomosis on 06/29/2017 Hypertension History of back pain. Diabetes PLAN: cont Unasyn and Cefepime d# 2 , add Diflucan d# 1 if WBC does not improve DC Zosyn day # 5 and vancomycin day # 3 Monitor CBC. Monitor BMP. Monitor chest x-ray. Monitor cultures (blood, wnd ) Crypt Ag (as a marker of invasive Trichosporon): P C- CT:P Subjective Allergies: Coded Allergies: No Known Allergies (Unverified , 06/28/17) Subjective started on diet Objective Vital Signs Last 24 Hour Vital Signs Date Time Temp Pulse Resp B/P (MAP) Pulse Ox O2 Delivery O2 Flow Rate FiO2 07/04/17 11:00 97 25 127/54 98 Nasal Cannula 2.0 07/04/17 10:00 96 30 134/61 98 Nasal Cannula 2.0 07/04/17 09:00 97 27 131/53 98 Nasal Cannula 2.0 07/04/17 08:00 104 07/04/17 08:00 98.6 95 28 121/59 98 Nasal Cannula 4.0 07/04/17 07:00 98 30 131/53 98 Nasal Cannula 4.0 07/04/17 06:00 94 21 125/48 98 Nasal Cannula 4.0 07/04/17 05:00 95 21 117/44 97 Nasal Cannula 4.0 07/04/17 04:00 98.3 97 18 123/44 96 Nasal Cannula 4.0 07/04/17 04:00 97 07/04/17 03:00 96 17 106/46 95 Nasal Cannula 4.0 07/04/17 02:00 96 16 86/39 96 Nasal Cannula 4.0 07/04/17 01:00 96 18 107/43 97 Nasal Cannula 4.0 07/04/17 00:00 99 07/04/17 00:00 98.9 97 18 120/39 98 Nasal Cannula 4.0 07/03/17 23:00 98 18 120/47 97 Nasal Cannula 4.0 07/03/17 22:00 101 28 122/48 96 Nasal Cannula 4.0 07/03/17 21:00 98 27 130/54 99 Nasal Cannula 4.0 07/03/17 20:00 98.2 100 27 137/49 98 Nasal Cannula 4.0 07/03/17 20:00 99 07/03/17 19:34 Nasal Cannula 2.0 28 07/03/17 19:34 95 22 98 Nasal Cannula 2.0 28 07/03/17 19:34 98 Nasal Cannula 2.0 28 07/03/17 19:00 98 19 140/57 98 Nasal Cannula 4.0 07/03/17 18:00 94 19 133/69 99 Nasal Cannula 4.0 07/03/17 17:00 96 21 111/52 97 Nasal Cannula 4.0 07/03/17 16:00 97 07/03/17 16:00 99.6 98 20 116/51 98 Nasal Cannula 4.0 07/03/17 15:00 102 20 128/53 98 Nasal Cannula 4.0 07/03/17 14:00 101 18 128/53 99 Nasal Cannula 4.0 07/03/17 13:30 102 25 100 Mechanical Ventilator 30 07/03/17 13:22 98 26 99 Mechanical Ventilator 30 07/03/17 13:00 102 21 137/47 99 Nasal Cannula 4.0 07/03/17 12:00 98 07/03/17 12:00 99.4 101 21 112/49 99 Nasal Cannula 4.0 Height (Feet): 5 Height (Inches): 8.00 Weight (Pounds): 295 HEENT: anicteric Respiratory/Chest: no respiratory distress Cardiovascular: regularly irregular Abdomen: no organomegaly - wuond +, pus ++ Microbiology Date/Time Source Procedure Growth Status 07/01/17 17:00 Sputum Gram Stain - Final Complete 07/01/17 17:00 Sputum Culture - Final Trichosporon Species Complete 07/03/17 12:40 Abdomen Gram Stain - Final Resulted 07/03/17 12:40 Abdomen Wound Culture - Preliminary NO GROWTH Resulted Laboratory Tests Test 07/04/17 04:20 07/04/17 10:35 White Blood Count 15.7 K/UL (4.8-10.8) H Red Blood Count 2.64 M/UL (4.20-5.40) L Hemoglobin 7.6 G/DL (12.0-16.0) L Hematocrit 23.6 % (37.0-47.0) L Mean Corpuscular Volume 89 FL (80-99) Mean Corpuscular Hemoglobin 28.7 PG (27.0-31.0) Mean Corpuscular Hemoglobin Concent 32.1 G/DL (32.0-36.0) Red Cell Distribution Width 13.9 % (11.6-14.8) Platelet Count 152 K/UL (150-450) Mean Platelet Volume 8.6 FL (6.5-10.1) Neutrophils (%) (Auto) % (45.0-75.0) Lymphocytes (%) (Auto) % (20.0-45.0) Monocytes (%) (Auto) % (1.0-10.0) Eosinophils (%) (Auto) % (0.0-3.0) Basophils (%) (Auto) % (0.0-2.0) Differential Total Cells Counted 100 Neutrophils % (Manual) 84 % (45-75) H Lymphocytes % (Manual) 6 % (20-45) L Monocytes % (Manual) 9 % (1-10) Eosinophils % (Manual) 1 % (0-3) Basophils % (Manual) 0 % (0-2) Band Neutrophils 0 % (0-8) Platelet Estimate Adequate Platelet Morphology Normal Hypochromasia 3+ Anisocytosis 1+ Sodium Level 145 MMOL/L (136-145) Potassium Level 3.4 MMOL/L (3.5-5.1) L Chloride Level 109 MMOL/L (98-107) H Carbon Dioxide Level 27 MMOL/L (21-32) Anion Gap 9 mmol/L (5-15) Blood Urea Nitrogen 44 mg/dL (7-18) H Creatinine 2.0 MG/DL (0.55-1.30) H Estimat Glomerular Filtration Rate mL/min (>60) Glucose Level 165 MG/DL (74-106) H Uric Acid 6.2 MG/DL (2.6-7.2) Calcium Level 7.2 MG/DL (8.5-10.1) L Phosphorus Level 2.9 MG/DL (2.5-4.9) Magnesium Level 1.6 MG/DL (1.8-2.4) L Total Bilirubin 1.9 MG/DL (0.2-1.0) H Direct Bilirubin 1.2 MG/DL (0.0-0.3) H Gamma Glutamyl Transpeptidase 29 U/L (5-85) Aspartate Amino Transf (AST/SGOT) 59 U/L (15-37) H Alanine Aminotransferase (ALT/SGPT) 43 U/L (12-78) Alkaline Phosphatase 98 U/L (46-116) C-Reactive Protein, Quantitative 34.4 mg/dL (0.00-0.90) H Pro-B-Type Natriuretic Peptide 1910 pg/mL (0-125) H Total Protein 6.0 G/DL (6.4-8.2) L Albumin 1.6 G/DL (3.4-5.0) L Globulin 4.4 g/dL Albumin/Globulin Ratio 0.4 (1.0-2.7) L Prothrombin Time 10.7 SEC (9.30-11.50) Prothromb Time International Ratio 1.0 (0.9-1.1) Current Medications Medications (Trade) Dose Ordered Sig/Teresa Route PRN Reason Start Time Stop Time Status Last Admin Dose Admin Acetaminophen (Tylenol) 650 mg Q4H PRN RECTAL FEVER 06/30/17 02:15 07/29/17 22:14 Acetaminophen (Tylenol) 650 mg Q4H PRN RECTAL Mild Pain (Pain Scale 1-3) 06/30/17 03:00 07/28/17 10:59 07/01/17 20:04 Ampicillin Sodium/ Sulbactam Sodium 3 gm/Sodium Chloride 110 ml @ 220 mls/hr Q6HR IVPB 07/04/17 00:00 07/11/17 00:00 07/04/17 05:38 Cefepime HCl 2 gm/ Dextrose 55 ml @ 110 mls/hr Q24H IVPB 07/05/17 09:00 07/12/17 08:59 Chlorhexidine Gluconate (Susan-Hex 2%) 1 applic Q24H TOPIC 07/02/17 20:00 08/01/17 19:59 07/03/17 21:04 Dextrose (Dextrose 50%) STAT PRN IV Hypoglycemia 06/30/17 10:00 07/28/17 09:59 07/01/17 18:06 Heparin Sodium (Porcine) (Heparin 5000 units/ml) 5,000 units EVERY 8 HOURS SUBQ 07/02/17 14:00 08/01/17 13:59 07/04/17 05:39 Hydromorphone HCl (Dilaudid) 0.5 mg Q3H PRN IVP Pain Score 1-3 06/30/17 01:15 07/06/17 22:14 07/03/17 21:05 Hydromorphone HCl (Dilaudid) 1 mg Q3H PRN IVP pain score 4-6 06/30/17 06:45 07/06/17 22:14 07/04/17 00:58 Hydromorphone HCl (Dilaudid) 2 mg Q3H PRN IVP pain score 7-10 06/30/17 01:15 07/06/17 22:14 07/03/17 22:36 Insulin Aspart (NovoLOG) Q6H SUBQ 06/30/17 00:00 07/29/17 00:00 07/04/17 05:39 Metoclopramide HCl (Reglan) 5 mg Q6H PRN IVP Nausea & Vomiting 06/30/17 04:15 07/29/17 22:14 Ondansetron HCl (Zofran) 4 mg Q6H PRN IVP Nausea & Vomiting 06/30/17 04:15 07/29/17 22:14 Pantoprazole (Protonix) 40 mg Q12HR IVP 06/30/17 09:00 07/27/17 00:00 07/04/17 09:05 Potassium Chloride 100 ml @ 50 mls/hr ONCE ONCE IVPB 07/04/17 10:30 07/04/17 12:29 Sodium Chloride 1,000 ml @ 75 mls/hr [id number] IV 06/30/17 12:05 07/30/17 12:04 07/04/17 09:55 MARCO WILSON M.D. Jul 04, 2017 11:37
--- NOTE | 2017-07-04 12:50 | Nephrology Progress Note ---
Assessment/Plan Problem List: (1) ELIDIA (acute kidney injury) (2) Obesity (3) Small bowel perforation (4) Hyperglycemia due to type 2 diabetes mellitus (5) Anemia Assessment extubated- more Anemic Acute renal failure, post op ( done 3 days prior to admit in [facility]) , likely multifactorial including low BP, and dehydration due to vomiting Post surgery again last night, now in ICu intubated, Cr rising Underlying chronic renal failure due to DM and HTN with 3+ Proteinuria dialysed once Other: - Acute abdomen post inpatient surgery , Lap Veronika. - Diabetes type 2, uncontrolled. - Thrombocytopenia. - Abnormal liver function test. Plan Plan: HD 07/02 , monitor renal parameters- Cr remains low Albumin 5% PRN antibiotics Hydrate Monitor renal parameters Avoid Nephrotoxics- Stopped TORADOL for pain monitor renal parameters antibiotics gastric support Subjective ROS Limited/Unobtainable: No Constitutional: Reports: malaise, weakness Objective Objective Last 24 Hour Vital Signs Date Time Temp Pulse Resp B/P (MAP) Pulse Ox O2 Delivery O2 Flow Rate FiO2 07/04/17 11:00 97 25 127/54 98 Nasal Cannula 2.0 07/04/17 10:00 96 30 134/61 98 Nasal Cannula 2.0 07/04/17 09:00 97 27 131/53 98 Nasal Cannula 2.0 07/04/17 08:00 104 07/04/17 08:00 98.6 95 28 121/59 98 Nasal Cannula 4.0 07/04/17 07:00 98 30 131/53 98 Nasal Cannula 4.0 07/04/17 06:00 94 21 125/48 98 Nasal Cannula 4.0 07/04/17 05:00 95 21 117/44 97 Nasal Cannula 4.0 07/04/17 04:00 98.3 97 18 123/44 96 Nasal Cannula 4.0 07/04/17 04:00 97 07/04/17 03:00 96 17 106/46 95 Nasal Cannula 4.0 07/04/17 02:00 96 16 86/39 96 Nasal Cannula 4.0 07/04/17 01:00 96 18 107/43 97 Nasal Cannula 4.0 07/04/17 00:00 99 07/04/17 00:00 98.9 97 18 120/39 98 Nasal Cannula 4.0 07/03/17 23:00 98 18 120/47 97 Nasal Cannula 4.0 07/03/17 22:00 101 28 122/48 96 Nasal Cannula 4.0 07/03/17 21:00 98 27 130/54 99 Nasal Cannula 4.0 07/03/17 20:00 98.2 100 27 137/49 98 Nasal Cannula 4.0 07/03/17 20:00 99 07/03/17 19:34 Nasal Cannula 2.0 28 07/03/17 19:34 95 22 98 Nasal Cannula 2.0 28 07/03/17 19:34 98 Nasal Cannula 2.0 28 07/03/17 19:00 98 19 140/57 98 Nasal Cannula 4.0 07/03/17 18:00 94 19 133/69 99 Nasal Cannula 4.0 07/03/17 17:00 96 21 111/52 97 Nasal Cannula 4.0 07/03/17 16:00 97 07/03/17 16:00 99.6 98 20 116/51 98 Nasal Cannula 4.0 07/03/17 15:00 102 20 128/53 98 Nasal Cannula 4.0 07/03/17 14:00 101 18 128/53 99 Nasal Cannula 4.0 07/03/17 13:30 102 25 100 Mechanical Ventilator 30 07/03/17 13:22 98 26 99 Mechanical Ventilator 30 07/03/17 13:00 102 21 137/47 99 Nasal Cannula 4.0 Intake and Output 07/03/17 07/04/17 19:00 07:00 Intake Total 1517.00 ml 1800 ml Output Total 690 ml 575 ml Balance 827.00 ml 1225 ml Intake Oral 300 ml 375 ml IV Total 1217.00 ml 1425 ml Output Urine Total 690 ml 575 ml # Bowel Movements 2 Laboratory Tests 07/04/17 04:20: White Blood Count 15.7H, Red Blood Count 2.64L, Hemoglobin 7.6L, Hematocrit 23.6L, Mean Corpuscular Volume 89, Mean Corpuscular Hemoglobin 28.7, Mean Corpuscular Hemoglobin Concent 32.1, Red Cell Distribution Width 13.9, Platelet Count 152, Mean Platelet Volume 8.6, Neutrophils (%) (Auto) , Lymphocytes (%) ( Auto) , Monocytes (%) (Auto) , Eosinophils (%) (Auto) , Basophils (%) (Auto) , Differential Total Cells Counted 100, Neutrophils % (Manual) 84H, Lymphocytes % (Manual) 6L, Monocytes % (Manual) 9, Eosinophils % (Manual) 1, Basophils % ( Manual) 0, Band Neutrophils 0, Platelet Estimate Adequate, Platelet Morphology Normal, Hypochromasia 3+, Anisocytosis 1+, Sodium Level 145, Potassium Level 3.4L, Chloride Level 109H, Carbon Dioxide Level 27, Anion Gap 9, Blood Urea Nitrogen 44H, Creatinine 2.0H, Estimat Glomerular Filtration Rate , Glucose Level 165H, Uric Acid 6.2, Calcium Level 7.2L, Phosphorus Level 2.9, Magnesium Level 1.6L, Total Bilirubin 1.9H, Direct Bilirubin 1.2H, Gamma Glutamyl Transpeptidase 29, Aspartate Amino Transf (AST/SGOT) 59H, Alanine Aminotransferase (ALT/SGPT) 43, Alkaline Phosphatase 98, C-Reactive Protein, Quantitative 34.4H, Pro-B-Type Natriuretic Peptide 1910H, Total Protein 6.0L, Albumin 1.6L, Globulin 4.4, Albumin/Globulin Ratio 0.4L 07/04/17 10:35: Prothrombin Time 10.7, Prothromb Time International Ratio 1.0 Height (Feet): 5 Height (Inches): 8.00 Weight (Pounds): 295 General Appearance: no apparent distress, lethargic EENT: other - now extubated Cardiovascular: tachycardia Respiratory/Chest: decreased breath sounds Abdomen: other - obese Objective no change ANU FAIRBANKS Jul 04, 2017 12:50
[2017-07-04] MEDS ORDERED: NS 275ml ONE ×2 (17:31→17:41)
[2017-07-04] MEDS ORDERED: Tubing IV Secondary IV ONE ×2 (17:31→17:41)
[2017-07-04] MEDS ORDERED: NS 500ML ONE (17:41)
[2017-07-04] MEDS ORDERED: Acetaminophen 650 MG SUPP RECTAL PRN ×2 (18:15→19:00)
[2017-07-04] MEDS: Dyna-Hex 2% Top Sol 2oz TOPIC SCH (20:49)
[2017-07-04 21:16] LABS: % IRON SATURATION 52 % (15-50); IRON 43 ug/dL (50-175); TOTAL IRON BINDING CAPACITY 83 ug/dL (250-450)
[2017-07-04] MEDS ORDERED: Metoclopramide 10mg/2ml Inj IVP PRN (22:15)
[2017-07-04 22:17] LABS: FERRITIN > 2000 NG/ML (8-388)
[2017-07-05] VITALS: BP 130/61
[2017-07-05] MEDS: NovoLOG Insulin Flexpen SUBQ SCH ×5 (00:11→23:31)
[2017-07-05] MEDS: Ampicillin/Sulbactam Sod 3 GM in NS 110 ML IVPB SCH ×8 (00:24→23:11)
[2017-07-05 04:00] VITALS: BP 137/72
[2017-07-05] MEDS: Heparin 5000 units/ml inj SUBQ SCH ×3 (06:11→21:26)
[2017-07-05 08:00] VITALS: BP 145/78
[2017-07-05] MEDS: Cefepime HCl 2 GM in D5W 55 ML IVPB SCH (08:57)
[2017-07-05] MEDS ORDERED: Cefepime HCl 2 GM in D5W 55 ML IVPB SCH (09:00)
[2017-07-05] MEDS: Pantoprazole Inj IVP SCH (09:01)
[2017-07-05] MEDS: Docusate 100mg cap ORAL SCH ×2 (09:01→17:11)
[2017-07-05 09:20] LABS: BASOPHILS % (AUTO) 0.7 % (0.0-2.0); EOSINOPHILS % (AUTO) 0.8 % (0.0-3.0); HEMATOCRIT 30.5 % (37.0-47.0); HEMOGLOBIN 9.7 G/DL (12.0-16.0); LYMPHOCYTES % (AUTO) 7.5 % (20.0-45.0); MEAN CORPUSCULAR VOLUME 90 FL (80-99); MONOCYTES % (AUTO) 8.2 % (1.0-10.0); NEUTROPHILS % (AUTO) 82.7 % (45.0-75.0); PLATELET COUNT 142 K/UL (150-450); RED BLOOD COUNT 3.38 M/UL (4.20-5.40); RED CELL DISTRIBUTION WIDTH 13.7 % (11.6-14.8)
--- NOTE | 2017-07-05 09:48 | General Progress Note ---
Assessment/Plan Problem List: (1) Obesity ICD Codes: E66.9 - Obesity, unspecified SNOMED: 971495818 (2) Small bowel perforation ICD Codes: K63.1 - Perforation of intestine (nontraumatic) SNOMED: 672297489 (3) Anemia ICD Codes: D64.9 - Anemia, unspecified SNOMED: 501542885 (4) S/P exploratory laparotomy ICD Codes: Z98.890 - Other specified postprocedural states SNOMED: 18330832, 82603560, 336050320 Assessment/Plan on diet per surgery fu labs PRN blood transfusion abx post op care fu Subjective ROS Limited/Unobtainable: Yes Allergies: Coded Allergies: No Known Allergies (Unverified , 06/28/17) Subjective transfered out of ICU no abd pain Objective Last 24 Hour Vital Signs Date Time Temp Pulse Resp B/P (MAP) Pulse Ox O2 Delivery O2 Flow Rate FiO2 07/05/17 08:00 97.4 92 19 145/78 97 07/05/17 04:00 98.1 91 21 137/72 94 07/05/17 00:00 98.0 96 18 130/61 93 Nasal Cannula 07/04/17 20:00 98.3 94 21 130/61 91 Nasal Cannula 07/04/17 19:00 95 30 150/68 96 Nasal Cannula 2.0 07/04/17 17:45 Nasal Cannula 2.0 28 07/04/17 17:45 99 Nasal Cannula 2.0 28 07/04/17 17:00 98.7 90 25 135/68 98 Nasal Cannula 2.0 07/04/17 16:00 96 07/04/17 16:00 94 27 152/65 96 Nasal Cannula 2.0 07/04/17 15:00 96 25 136/57 97 Nasal Cannula 2.0 07/04/17 14:00 98.5 98 35 128/64 98 Nasal Cannula 3.0 07/04/17 13:53 98.5 07/04/17 13:00 98 29 108/84 97 Nasal Cannula 2.0 07/04/17 12:00 99.0 98 31 147/62 96 Nasal Cannula 2.0 07/04/17 12:00 96 07/04/17 11:00 97 25 127/54 98 Nasal Cannula 2.0 07/04/17 10:00 96 30 134/61 98 Nasal Cannula 2.0 Intake and Output 07/04/17 07/05/17 19:00 07:00 Intake Total 940 ml 325 ml Output Total 670 ml 1683 ml Balance 270 ml -1358 ml Intake Oral 250 ml IV Total 940 ml 75 ml Output Urine Total 670 ml 1680 ml Drainage Total 3 ml Laboratory Tests 07/04/17 10:35: Prothrombin Time 10.7, Prothromb Time International Ratio 1.0 07/05/17 08:30: White Blood Count 15.0H, Red Blood Count 3.38L, Hemoglobin 9.7L, Hematocrit 30.5L, Mean Corpuscular Volume 90, Mean Corpuscular Hemoglobin 28.6, Mean Corpuscular Hemoglobin Concent 31.6L, Red Cell Distribution Width 13.7, Platelet Count 142L, Mean Platelet Volume 8.2, Neutrophils (%) (Auto) 82.7H, Lymphocytes (%) (Auto) 7.5L, Monocytes (%) (Auto) 8.2, Eosinophils (%) (Auto) 0.8, Basophils (%) (Auto) 0.7, Sodium Level [Pending], Potassium Level [Pending] , Chloride Level [Pending], Carbon Dioxide Level [Pending], Blood Urea Nitrogen [Pending], Creatinine [Pending], Estimat Glomerular Filtration Rate [Pending], Glucose Level [Pending], Calcium Level [Pending], Phosphorus Level [Pending], Magnesium Level [Pending], Total Bilirubin [Pending], Aspartate Amino Transf ( AST/SGOT) [Pending], Alanine Aminotransferase (ALT/SGPT) [Pending], Alkaline Phosphatase [Pending], C-Reactive Protein, Quantitative [Pending], Pro-B-Type Natriuretic Peptide [Pending], Total Protein [Pending], Albumin [Pending], Globulin [Pending] Height (Feet): 5 Height (Inches): 8.00 Weight (Pounds): 293 General Appearance: alert EENT: normal ENT inspection Neck: supple Cardiovascular: normal rate Respiratory/Chest: decreased breath sounds Abdomen: other - post surgical Extremities: non-tender CANDIS MARTIN Jul 05, 2017 09:48
[2017-07-05] MEDS ORDERED: Tubing Blood Filter IV ONE (10:24)
[2017-07-05] MEDS ORDERED: Tubing IV Secondary IV ONE (10:24)
[2017-07-05] MEDS ORDERED: NS 275ml ONE (10:24)
--- NOTE | 2017-07-05 10:33 | Nephrology Progress Note ---
Assessment/Plan Problem List: (1) ELIDIA (acute kidney injury) (2) Obesity (3) Small bowel perforation (4) Hyperglycemia due to type 2 diabetes mellitus (5) Anemia Assessment extubated- more Anemic Acute renal failure, post op ( done 3 days prior to admit in [facility]) , likely multifactorial including low BP, and dehydration due to vomiting Post surgery again last night, now in ICu intubated, Cr rising Underlying chronic renal failure due to DM and HTN with 3+ Proteinuria dialysed once Other: - Acute abdomen post inpatient surgery , Lap Veronika. - Diabetes type 2, uncontrolled. - Thrombocytopenia. - Abnormal liver function test. Plan Plan: labs pending HD 07/02 , monitor renal parameters- Cr remains low Albumin 5% PRN antibiotics Hydrate Monitor renal parameters Avoid Nephrotoxics- Stopped TORADOL for pain monitor renal parameters antibiotics gastric support Subjective ROS Limited/Unobtainable: No Constitutional: Reports: malaise Objective Objective Last 24 Hour Vital Signs Date Time Temp Pulse Resp B/P (MAP) Pulse Ox O2 Delivery O2 Flow Rate FiO2 07/05/17 09:15 Nasal Cannula 2.0 28 07/05/17 09:14 98 Nasal Cannula 2.0 28 07/05/17 08:00 97.4 92 19 145/78 97 07/05/17 04:00 98.1 91 21 137/72 94 07/05/17 00:00 98.0 96 18 130/61 93 Nasal Cannula 07/04/17 20:00 98.3 94 21 130/61 91 Nasal Cannula 07/04/17 19:00 95 30 150/68 96 Nasal Cannula 2.0 07/04/17 17:45 Nasal Cannula 2.0 28 07/04/17 17:45 99 Nasal Cannula 2.0 28 07/04/17 17:00 98.7 90 25 135/68 98 Nasal Cannula 2.0 07/04/17 16:00 96 07/04/17 16:00 94 27 152/65 96 Nasal Cannula 2.0 07/04/17 15:00 96 25 136/57 97 Nasal Cannula 2.0 07/04/17 14:00 98.5 98 35 128/64 98 Nasal Cannula 3.0 07/04/17 13:53 98.5 07/04/17 13:00 98 29 108/84 97 Nasal Cannula 2.0 07/04/17 12:00 99.0 98 31 147/62 96 Nasal Cannula 2.0 07/04/17 12:00 96 07/04/17 11:00 97 25 127/54 98 Nasal Cannula 2.0 Intake and Output 07/04/17 07/05/17 19:00 07:00 Intake Total 940 ml 325 ml Output Total 670 ml 1683 ml Balance 270 ml -1358 ml Intake Oral 250 ml IV Total 940 ml 75 ml Output Urine Total 670 ml 1680 ml Drainage Total 3 ml Laboratory Tests 07/04/17 10:35: Prothrombin Time 10.7, Prothromb Time International Ratio 1.0 07/05/17 08:30: White Blood Count 15.0H, Red Blood Count 3.38L, Hemoglobin 9.7L, Hematocrit 30.5L, Mean Corpuscular Volume 90, Mean Corpuscular Hemoglobin 28.6, Mean Corpuscular Hemoglobin Concent 31.6L, Red Cell Distribution Width 13.7, Platelet Count 142L, Mean Platelet Volume 8.2, Neutrophils (%) (Auto) 82.7H, Lymphocytes (%) (Auto) 7.5L, Monocytes (%) (Auto) 8.2, Eosinophils (%) (Auto) 0.8, Basophils (%) (Auto) 0.7, Sodium Level [Pending], Potassium Level [Pending] , Chloride Level [Pending], Carbon Dioxide Level [Pending], Blood Urea Nitrogen [Pending], Creatinine [Pending], Estimat Glomerular Filtration Rate [Pending], Glucose Level [Pending], Calcium Level [Pending], Phosphorus Level [Pending], Magnesium Level [Pending], Total Bilirubin [Pending], Aspartate Amino Transf ( AST/SGOT) [Pending], Alanine Aminotransferase (ALT/SGPT) [Pending], Alkaline Phosphatase [Pending], C-Reactive Protein, Quantitative [Pending], Pro-B-Type Natriuretic Peptide [Pending], Total Protein [Pending], Albumin [Pending], Globulin [Pending] Height (Feet): 5 Height (Inches): 8.00 Weight (Pounds): 293 General Appearance: no apparent distress Cardiovascular: regular rhythm Respiratory/Chest: decreased breath sounds Abdomen: distended Objective no change ANU FAIRBANKS Jul 05, 2017 10:33
[2017-07-05 10:56] LABS: ALANINE AMINOTRANSFERASE 43 U/L (12-78); ALBUMIN 1.6 G/DL (3.4-5.0); ALBUMIN/GLOBULIN RATIO 0.3 (1.0-2.7); ALKALINE PHOSPHATASE 104 U/L (46-116); ANION GAP 9 mmol/L (5-15); ASPARTATE AMINO TRANSFERASE 40 U/L (15-37); BILIRUBIN,TOTAL 0.9 MG/DL (0.2-1.0); BLOOD UREA NITROGEN 33 mg/dL (7-18); CALCIUM 7.3 MG/DL (8.5-10.1); CARBON DIOXIDE 26 MMOL/L (21-32); CHLORIDE 106 MMOL/L (98-107); CREATININE 1.6 MG/DL (0.55-1.30); PHOSPHORUS 2.6 MG/DL (2.5-4.9); POTASSIUM 3.5 MMOL/L (3.5-5.1); SODIUM 141 MMOL/L (136-145)
--- NOTE | 2017-07-05 11:29 | Pulmonology Progress Note ---
Assessment/Plan Problems: (1) Metabolic acidosis Assessment & Plan: RESOLVED (2) Obesity (3) Ventilator dependent Assessment & Plan: S/P EXTUBATION (4) Small bowel perforation Assessment & Plan: S/P Ex-LAP with primary re-anastamosis (5) S/P exploratory laparotomy (6) Postoperative ileus Assessment & Plan: RESOLVED (7) ELIDIA (acute kidney injury) Assessment & Plan: S/P INITIATION OF HD, NOW IMPROVED AND NO LONGER REQUIRING HD (8) Hyperglycemia due to type 2 diabetes mellitus (9) Asthma (10) MARTA (iron deficiency anemia) Assessment/Plan PROBLEM LIST -VDRF S/p EXTUBATION 07/03/17 -Asthma now with mild wheezing but no true asthma exacerbation per se -POD 9 S/P lap bridget and POD 5 S/P repeat ex-lab for SB perf -Metabolic acidosis (NAGMA + AGMA) with respiratory compensation - RESOLVED -ELIDIA, likely on CKD, now S/P HD x 1 07/02/17 - IMPROVED and NOT REQUIRING HD -DM, HTN, HL -MARTA Assessment/Plan PLAN: -Optimize pulmonary hygiene/mobilize as tolerated -Titrate down FiO2 to keep SaO2 > 90% -Incentive spirometry -PRN DUOnebs -F/U renal recs, monitor UO, volumes and renal function, iHD per renal, consider D/C IVF once taking in adequate PO -Duplex neg, elevated DD likely post-op, doubt VTE, cannot do CT in light of renal failure and VQ would be of limited utility, patient is on DVT Px -F/U GI and surgery recs, post-op care -Diet per surgery -Continue Abx per ID, F/U Cx's -OOB today, PT ordered -DVT Px: Hep SQ TID Subjective Allergies: Coded Allergies: No Known Allergies (Unverified , 06/28/17) Subjective Transferred to surgical floor. Sola PO, + UO and BM No SOB, + mild wheezing, no coughing, using IS, no F/C 1.2/2.3 (-1.1), AFVSS, stable on 2L, WCt slightly better, H/H stable, renal function better Objective Last 24 Hour Vital Signs Date Time Temp Pulse Resp B/P (MAP) Pulse Ox O2 Delivery O2 Flow Rate FiO2 07/05/17 11:02 97.4 12/24/17 09:15 Nasal Cannula 2.0 28 07/05/17 09:14 98 Nasal Cannula 2.0 28 07/05/17 08:00 97.4 92 19 145/78 97 07/05/17 04:00 98.1 91 21 137/72 94 07/05/17 00:00 98.0 96 18 130/61 93 Nasal Cannula 07/04/17 20:00 98.3 94 21 130/61 91 Nasal Cannula 07/04/17 19:00 95 30 150/68 96 Nasal Cannula 2.0 07/04/17 17:45 Nasal Cannula 2.0 28 07/04/17 17:45 99 Nasal Cannula 2.0 28 07/04/17 17:00 98.7 90 25 135/68 98 Nasal Cannula 2.0 07/04/17 16:00 96 07/04/17 16:00 94 27 152/65 96 Nasal Cannula 2.0 07/04/17 15:00 96 25 136/57 97 Nasal Cannula 2.0 07/04/17 14:00 98.5 98 35 128/64 98 Nasal Cannula 3.0 07/04/17 13:53 98.5 07/04/17 13:00 98 29 108/84 97 Nasal Cannula 2.0 07/04/17 12:00 99.0 98 31 147/62 96 Nasal Cannula 2.0 07/04/17 12:00 96 Intake and Output 07/04/17 07/05/17 19:00 07:00 Intake Total 940 ml 325 ml Output Total 670 ml 1683 ml Balance 270 ml -1358 ml Intake Oral 250 ml IV Total 940 ml 75 ml Output Urine Total 670 ml 1680 ml Drainage Total 3 ml General Appearance: WD/WN, no acute distress, other - obese female HEENT: normocephalic, atraumatic, mucous membranes moist Respiratory/Chest: chest wall non-tender, no respiratory distress, expiratory wheezing - faint Cardiovascular: normal peripheral pulses, normal rate, regular rhythm Abdomen: normal bowel sounds, soft, non tender, no organomegaly, non distended , no mass, other - wound dressed, + BAKARI Extremities: no cyanosis, no clubbing, no edema Microbiology Date/Time Source Procedure Growth Status 07/03/17 12:40 Abdomen Gram Stain - Final Resulted 07/03/17 12:40 Wound Culture - Preliminary Yeast Species Resulted Laboratory Tests 07/05/17 08:30: White Blood Count 15.0H, Red Blood Count 3.38L, Hemoglobin 9.7L, Hematocrit 30.5L, Mean Corpuscular Volume 90, Mean Corpuscular Hemoglobin 28.6, Mean Corpuscular Hemoglobin Concent 31.6L, Red Cell Distribution Width 13.7, Platelet Count 142L, Mean Platelet Volume 8.2, Neutrophils (%) (Auto) 82.7H, Lymphocytes (%) (Auto) 7.5L, Monocytes (%) (Auto) 8.2, Eosinophils (%) (Auto) 0.8, Basophils (%) (Auto) 0.7, Sodium Level 141, Potassium Level 3.5, Chloride Level 106, Carbon Dioxide Level 26, Anion Gap 9, Blood Urea Nitrogen 33H, Creatinine 1.6H, Estimat Glomerular Filtration Rate , Glucose Level 183H, Calcium Level 7.3L, Phosphorus Level 2.6, Magnesium Level 1.5L, Total Bilirubin 0.9, Aspartate Amino Transf (AST/SGOT) 40H, Alanine Aminotransferase (ALT/SGPT) 43, Alkaline Phosphatase 104, C-Reactive Protein, Quantitative < 0.4, Pro-B- Type Natriuretic Peptide 1788H, Total Protein 6.6, Albumin 1.6L, Globulin 5.0, Albumin/Globulin Ratio 0.3L Current Medications Medications (Trade) Dose Ordered Sig/Teresa Route PRN Reason Start Time Stop Time Status Last Admin Dose Admin Acetaminophen (Tylenol) 650 mg Q4H PRN RECTAL FEVER 07/04/17 18:15 07/29/17 22:14 Acetaminophen (Tylenol) 650 mg Q4H PRN RECTAL Mild Pain (Pain Scale 1-3) 07/04/17 19:00 07/28/17 10:59 Ampicillin Sodium/ Sulbactam Sodium 3 gm/Sodium Chloride 110 ml @ 220 mls/hr Q6HR IVPB 07/04/17 19:00 07/11/17 18:59 07/05/17 06:13 Cefepime HCl 2 gm/ Dextrose 55 ml @ 110 mls/hr Q24H IVPB 07/05/17 09:00 07/12/17 08:59 07/05/17 08:57 Chlorhexidine Gluconate (Susan-Hex 2%) 1 applic Q24H TOPIC 07/04/17 20:00 08/01/17 19:59 07/04/17 20:49 Dextrose (Dextrose 50%) STAT PRN IV Hypoglycemia 07/05/17 10:00 07/28/17 09:59 Docusate Sodium (Colace) 100 mg TWICE A DAY ORAL 07/05/17 09:00 08/04/17 08:59 07/05/17 09:01 Ferrous Sulfate (Feosol) 325 mg THREE TIMES A DAY ORAL 07/05/17 09:00 08/04/17 08:59 07/05/17 09:01 Fluconazole/ Sodium Chloride 200 ml @ 100 mls/hr Q24H IV 07/05/17 12:00 07/11/17 11:59 Heparin Sodium (Porcine) (Heparin 5000 units/ml) 5,000 units EVERY 8 HOURS SUBQ 07/04/17 22:00 08/01/17 13:59 07/05/17 06:11 Hydromorphone HCl (Dilaudid) 0.5 mg Q3H PRN IVP Pain Score 1-3 07/04/17 19:15 07/06/17 22:14 Hydromorphone HCl (Dilaudid) 1 mg Q3H PRN IVP pain score 4-6 07/04/17 18:45 07/06/17 22:14 07/04/17 20:15 Hydromorphone HCl (Dilaudid) 2 mg Q3H PRN IVP pain score 7-10 07/04/17 19:15 07/06/17 22:14 07/05/17 10:32 Insulin Aspart (NovoLOG) Q6HR SUBQ 07/04/17 18:00 08/03/17 17:59 07/05/17 06:00 Metoclopramide HCl (Reglan) 5 mg Q6H PRN IVP Nausea & Vomiting 07/04/17 22:15 07/29/17 22:14 Ondansetron HCl (Zofran) 4 mg Q6H PRN IVP Nausea & Vomiting 07/04/17 22:15 07/29/17 22:14 Pantoprazole (Protonix) 40 mg Q12HR IVP 07/04/17 21:00 07/27/17 00:00 07/05/17 09:01 Sodium Chloride 1,000 ml @ 75 mls/hr [id number] IV 07/04/17 19:00 07/30/17 18:59 07/05/17 09:22 VICKY GUERRERO M.D. Jul 05, 2017 11:29
[2017-07-05 12:00] VITALS: BP 145/78
--- NOTE | 2017-07-05 14:06 | General Surgery Progress Note ---
General Surgery-Progress Note Subjective Procedure Performed Exploratory Laparotomy, Small Bowel resection with primary anastomosis, Lysis of adhesions , Drainage of intra abdominal abscess Symptoms: improved, BM Objective Last 24 Hour Vital Signs Date Time Temp Pulse Resp B/P (MAP) Pulse Ox O2 Delivery O2 Flow Rate FiO2 07/05/17 12:00 97.4 92 19 145/78 97 07/05/17 11:02 97.4 07/05/17 09:15 Nasal Cannula 2.0 28 07/05/17 09:14 98 Nasal Cannula 2.0 28 07/05/17 08:00 97.4 92 19 145/78 97 07/05/17 04:00 98.1 91 21 137/72 94 07/05/17 00:00 98.0 96 18 130/61 93 Nasal Cannula 07/04/17 20:00 98.3 94 21 130/61 91 Nasal Cannula 07/04/17 19:00 95 30 150/68 96 Nasal Cannula 2.0 07/04/17 17:45 Nasal Cannula 2.0 28 07/04/17 17:45 99 Nasal Cannula 2.0 28 07/04/17 17:00 98.7 90 25 135/68 98 Nasal Cannula 2.0 07/04/17 16:00 96 07/04/17 16:00 94 27 152/65 96 Nasal Cannula 2.0 07/04/17 15:00 96 25 136/57 97 Nasal Cannula 2.0 I&O Intake and Output 07/04/17 07/05/17 19:00 07:00 Intake Total 940 ml 325 ml Output Total 670 ml 1683 ml Balance 270 ml -1358 ml Intake Oral 250 ml IV Total 940 ml 75 ml Output Urine Total 670 ml 1680 ml Drainage Total 3 ml Drains: chiquita Respiratory: clear Abdomen: soft, flat, non-tender, present bowel sounds Extremities: no tenderness Laboratory Tests Test 07/05/17 08:30 White Blood Count 15.0 K/UL (4.8-10.8) H Red Blood Count 3.38 M/UL (4.20-5.40) L Hemoglobin 9.7 G/DL (12.0-16.0) L Hematocrit 30.5 % (37.0-47.0) L Mean Corpuscular Volume 90 FL (80-99) Mean Corpuscular Hemoglobin 28.6 PG (27.0-31.0) Mean Corpuscular Hemoglobin Concent 31.6 G/DL (32.0-36.0) L Red Cell Distribution Width 13.7 % (11.6-14.8) Platelet Count 142 K/UL (150-450) L Mean Platelet Volume 8.2 FL (6.5-10.1) Neutrophils (%) (Auto) 82.7 % (45.0-75.0) H Lymphocytes (%) (Auto) 7.5 % (20.0-45.0) L Monocytes (%) (Auto) 8.2 % (1.0-10.0) Eosinophils (%) (Auto) 0.8 % (0.0-3.0) Basophils (%) (Auto) 0.7 % (0.0-2.0) Sodium Level 141 MMOL/L (136-145) Potassium Level 3.5 MMOL/L (3.5-5.1) Chloride Level 106 MMOL/L (98-107) Carbon Dioxide Level 26 MMOL/L (21-32) Anion Gap 9 mmol/L (5-15) Blood Urea Nitrogen 33 mg/dL (7-18) H Creatinine 1.6 MG/DL (0.55-1.30) H Estimat Glomerular Filtration Rate mL/min (>60) Glucose Level 183 MG/DL (74-106) H Calcium Level 7.3 MG/DL (8.5-10.1) L Phosphorus Level 2.6 MG/DL (2.5-4.9) Magnesium Level 1.5 MG/DL (1.8-2.4) L Total Bilirubin 0.9 MG/DL (0.2-1.0) Aspartate Amino Transf (AST/SGOT) 40 U/L (15-37) H Alanine Aminotransferase (ALT/SGPT) 43 U/L (12-78) Alkaline Phosphatase 104 U/L (46-116) C-Reactive Protein, Quantitative < 0.4 mg/dL (0.00-0.90) Pro-B-Type Natriuretic Peptide 1788 pg/mL (0-125) H Total Protein 6.6 G/DL (6.4-8.2) Albumin 1.6 G/DL (3.4-5.0) L Globulin 5.0 g/dL Albumin/Globulin Ratio 0.3 (1.0-2.7) L Assessment Post-op Diagnosis perforated small bowel and intra abdominal abscess Plan Additional Comments continue current treatment KIRT BECK Jul 05, 2017 14:06
[2017-07-05] MEDS ORDERED: traMADol 50mg tab ORAL PRN (14:15)
[2017-07-05 16:00] VITALS: BP 155/81
[2017-07-05] MEDS: Hydromorphone 0.5mg/0.5ml inj IVP PRN ×2 (18:35→23:13)
[2017-07-05 20:00] VITALS: BP 154/80
--- NOTE | 2017-07-05 20:35 | General Progress Note ---
Assessment/Plan Assessment/Plan Assessment/Plan 1. Leukocytosis, ID following 2- RLL abdominal Abcess secondary to Iatrogenic SB perforation 3- S/P Expl Lap and SB resection with Primary Anastomosis, POST OP #3 2. Anemia s/p transfusion. Moitor H/H 3. Renal failure, age indeterminate. 4. Thrombocytopenia. 5. Abnormal liver function test. 7. Asthma 8. Abnormal BNP, pending Echo 6. Gastrointestinal and deep vein thrombosis prophylaxes. Subjective Allergies: Coded Allergies: No Known Allergies (Unverified , 06/28/17) All Systems: reviewed and negative except above Subjective NAD Objective Last 24 Hour Vital Signs Date Time Temp Pulse Resp B/P (MAP) Pulse Ox O2 Delivery O2 Flow Rate FiO2 07/05/17 19:05 98.0 07/05/17 16:00 95 Nasal Cannula 2.0 07/05/17 16:00 98.0 86 18 155/81 95 07/05/17 12:00 97 Nasal Cannula 2.0 07/05/17 12:00 97.4 92 19 145/78 97 07/05/17 11:02 97.4 07/05/17 09:15 Nasal Cannula 2.0 28 07/05/17 09:14 98 Nasal Cannula 2.0 28 07/05/17 08:00 97 Nasal Cannula 2.0 07/05/17 08:00 97.4 92 19 145/78 97 07/05/17 04:00 98.1 91 21 137/72 94 07/05/17 00:00 98.0 96 18 130/61 93 Nasal Cannula Intake and Output 07/04/17 07/05/17 19:00 07:00 Intake Total 940 ml 325 ml Output Total 670 ml 1683 ml Balance 270 ml -1358 ml Intake Oral 250 ml IV Total 940 ml 75 ml Output Urine Total 670 ml 1680 ml Drainage Total 3 ml Laboratory Tests 07/05/17 08:30: White Blood Count 15.0H, Red Blood Count 3.38L, Hemoglobin 9.7L, Hematocrit 30.5L, Mean Corpuscular Volume 90, Mean Corpuscular Hemoglobin 28.6, Mean Corpuscular Hemoglobin Concent 31.6L, Red Cell Distribution Width 13.7, Platelet Count 142L, Mean Platelet Volume 8.2, Neutrophils (%) (Auto) 82.7H, Lymphocytes (%) (Auto) 7.5L, Monocytes (%) (Auto) 8.2, Eosinophils (%) (Auto) 0.8, Basophils (%) (Auto) 0.7, Sodium Level 141, Potassium Level 3.5, Chloride Level 106, Carbon Dioxide Level 26, Anion Gap 9, Blood Urea Nitrogen 33H, Creatinine 1.6H, Estimat Glomerular Filtration Rate , Glucose Level 183H, Calcium Level 7.3L, Phosphorus Level 2.6, Magnesium Level 1.5L, Total Bilirubin 0.9, Aspartate Amino Transf (AST/SGOT) 40H, Alanine Aminotransferase (ALT/SGPT) 43, Alkaline Phosphatase 104, C-Reactive Protein, Quantitative < 0.4, Pro-B- Type Natriuretic Peptide 1788H, Total Protein 6.6, Albumin 1.6L, Globulin 5.0, Albumin/Globulin Ratio 0.3L Height (Feet): 5 Height (Inches): 8.00 Weight (Pounds): 293 General Appearance: no apparent distress EENT: normal ENT inspection Neck: normal alignment Cardiovascular: normal peripheral pulses Edema: trace edema Neurologic: health screener II-XII grossly normal Jay Malone Jul 05, 2017 20:35
[2017-07-05] MEDS: Dyna-Hex 2% Top Sol 2oz TOPIC SCH (21:22)
[2017-07-06] VITALS: BP 152/80
--- NOTE | 2017-07-06 01:00 | Consultation ---
DATE OF CONSULTATION: 07/04/2017 NOTE: POOR AUDIO QUALITY HEMATOLOGY/ONCOLOGY CONSULTATION CONSULTING PHYSICIAN: Jay Malone M.D. REQUESTING PHYSICIAN: Margarito Reilly M.D. REASON FOR CONSULTATION: Evaluation of anemia. IDENTIFICATION DATA: Dear Dr. Reilly, The patient is a pleasant 71-year-old female with past medical history significant for abdominal pain, nausea, and vomiting, who recently had laparoscopic cholecystectomy, recently found to have a small bowel perforation, underwent surgery on 06/26/2017, given Infectious Disease exam or Infectious Disease have evaluated the patient and antibiotic management. The patient is difficult to provide further information. She has low-grade fever. Hematology/Oncology Service consulted for further evaluation as well as followup. PAST MEDICAL HISTORY: Status post small bowel resection, primary anastomosis on 06/29/2017, history of laparoscopic cholecystectomy on 06/26/2017, hypertension, , and diabetes mellitus. MEDICATIONS: IV vancomycin and Zosyn. ALLERGIES: No known drug allergies. SOCIAL HISTORY: No alcohol, tobacco, or illicit drug use. FAMILY HISTORY: Noncontributory. REVIEW OF SYSTEMS: A 12-point review of systems otherwise negative. PHYSICAL EXAMINATION: VITAL SIGNS: Reviewed. GENERAL: She is in no distress. HEENT: Endotracheal tube in place. PULMONARY: Decreased breath sounds. BAKARI drain in place. CARDIOVASCULAR: Regular rate. No S3 or S4. ABDOMEN: Soft, nontender, and nondistended. EXTREMITIES: A 1+ edema. LABORATORY DATA: WBC of 15.7, hemoglobin 7.6, hematocrit 24, and platelet count 152,000, currently improved. INR of 1 and PTT 43. Lactic acid 0.9. Hemoglobin A1c 9.8. Uric acid 9.8. Ferritin . ASSESSMENT AND RECOMMENDATIONS: 1. Anemia, likely related to iron deficiency. Begin the patient on ferrous sulfate. 2. Acute kidney injury, likely multifactorial due to decreased blood pressure and dehydration. 3. Underlying chronic renal failure due to diabetes mellitus, hypertension, 3+ proteinuria, status post dialysis on 07/02/2017, maintained under Dr. Canas. 4. Thrombocytopenia, currently improved. 5. Abnormal liver function tests, transaminitis. 6. . 7. Right lower lobe abdominal abscess secondary to iatrogenic small bowel perforation. I appreciate the consultation. Jay Malone M.D. DR: Ravi JOB#: [id number] CC:
[2017-07-06 04:00] VITALS: BP 150/80
[2017-07-06] MEDS: Ampicillin/Sulbactam Sod 3 GM in NS 110 ML IVPB SCH ×3 (05:52→18:44)
[2017-07-06] MEDS: Heparin 5000 units/ml inj SUBQ SCH ×3 (06:00→21:52)
[2017-07-06] MEDS: NovoLOG Insulin Flexpen SUBQ SCH ×3 (06:07→16:48)
[2017-07-06] MEDS: Hydromorphone 0.5mg/0.5ml inj IVP PRN ×4 (06:26→21:54)
[2017-07-06 07:13] LABS: BASOPHILS % (AUTO) 1.5 % (0.0-2.0); EOSINOPHILS % (AUTO) 0.9 % (0.0-3.0); HEMATOCRIT 31.8 % (37.0-47.0); LYMPHOCYTES % (AUTO) 9.7 % (20.0-45.0); MEAN CORPUSCULAR VOLUME 91 FL (80-99); MONOCYTES % (AUTO) 6.3 % (1.0-10.0); NEUTROPHILS % (AUTO) 81.6 % (45.0-75.0); PLATELET COUNT 146 K/UL (150-450); RED BLOOD COUNT 3.51 M/UL (4.20-5.40); WHITE BLOOD COUNT 14.1 K/UL (4.8-10.8)
[2017-07-06 07:53] LABS: ANION GAP 11 mmol/L (5-15); BLOOD UREA NITROGEN 26 mg/dL (7-18); CALCIUM 7.3 MG/DL (8.5-10.1); CARBON DIOXIDE 23 MMOL/L (21-32); CHLORIDE 107 MMOL/L (98-107); CREATININE 1.3 MG/DL (0.55-1.30); POTASSIUM 3.4 MMOL/L (3.5-5.1); SODIUM 141 MMOL/L (136-145)
[2017-07-06 08:00] VITALS: BP 153/79
[2017-07-06] MEDS: Cefepime HCl 2 GM in D5W 55 ML IVPB SCH (08:43)
[2017-07-06] MEDS: Docusate 100mg cap ORAL SCH ×2 (08:45→17:07)
--- NOTE | 2017-07-06 09:07 | Diagnostic Imaging Report ---
Indication: Reason For Exam: ABSCESS, shortness of breath Technique: CT scan of the chest was performed without intravenous contrast material. Continuous helical scanning was obtained with displayed 5 mm sections in axial and coronal planes. Dose: Total Dose Length Product - DLP [address] Dose Index - CTDIvol(s) 29.57 mGy. Automated exposure control was utilized for dose reduction. Comparison: 06/29/2023 Findings: Study is degraded by artifacts. The heart is enlarged. There is a right pleural effusion. Volume loss is noted in the right lower lobe. Airspace disease is noted in the left lower lobe. There are groundglass densities in the lungs bilaterally with prominent pulmonary vascularity. A catheter is present in the superior vena cava. Small nodes are noted around the distal esophagus, unchanged and nonspecific. Gallbladder surgically absent. Impression: Suboptimal study due to artifact. Right pleural effusion, increased from previous study. Volume loss in the right lower lobe. Left lower lobe infiltrate versus volume loss. Previous cholecystectomy. Cardiomegaly with prominent pulmonary vascularity and some groundglass density. Possibly of congestive heart failure should be considered. The CT scanner at [facility] is accredited by the [employer] and the scans are performed using protocols designed to limit radiation exposure to as low as reasonably achievable to attain images of sufficient resolution adequate for diagnostic evaluation.
[2017-07-06 10:08] LABS: ALANINE AMINOTRANSFERASE 40 U/L (12-78); ALBUMIN 1.6 G/DL (3.4-5.0); ALKALINE PHOSPHATASE 101 U/L (46-116); ASPARTATE AMINO TRANSFERASE 47 U/L (15-37); BILIRUBIN,DIRECT 0.3 MG/DL (0.0-0.3); BILIRUBIN,TOTAL 0.8 MG/DL (0.2-1.0); PHOSPHORUS 2.5 MG/DL (2.5-4.9)
[2017-07-06] MEDS ORDERED: Tubing IV Secondary IV ONE (10:37)
[2017-07-06] MEDS ORDERED: Sterile Water Irrig 1000ml IRRIG ONE (10:37)
--- NOTE | 2017-07-06 10:50 | Nephrology Progress Note ---
Assessment/Plan Problem List: (1) ELIDIA (acute kidney injury) (2) Obesity (3) Small bowel perforation (4) Hyperglycemia due to type 2 diabetes mellitus (5) Anemia Assessment Renal failure now resolved- dialysed only once extubated- more Anemic Acute renal failure, post op ( done 3 days prior to admit in [facility]) , likely multifactorial including low BP, and dehydration due to vomiting Post surgery again last night, now in ICu intubated, Cr rising Underlying chronic renal failure due to DM and HTN with 3+ Proteinuria dialysed once Other: - Acute abdomen post inpatient surgery , Lap Veronika. - Diabetes type 2, uncontrolled. - Thrombocytopenia. - Abnormal liver function test. Plan Plan: DC IV DC po Iron Mag supplement HD 07/02 , monitor renal parameters- Cr remains low antibiotics Monitor renal parameters Avoid Nephrotoxics- Stopped TORADOL for pain monitor renal parameters antibiotics gastric support Subjective ROS Limited/Unobtainable: No Constitutional: Reports: malaise Objective Objective Last 24 Hour Vital Signs Date Time Temp Pulse Resp B/P (MAP) Pulse Ox O2 Delivery O2 Flow Rate FiO2 07/06/17 10:17 Nasal Cannula 2.0 28 07/06/17 10:16 98 Nasal Cannula 2.0 28 07/06/17 04:00 98.0 86 18 150/80 94 Nasal Cannula 2.0 07/06/17 02:16 Nasal Cannula 2.0 28 07/06/17 02:16 99 Nasal Cannula 2.0 28 07/06/17 00:00 98.0 86 18 152/80 96 Nasal Cannula 2.0 07/05/17 20:00 98.0 88 18 154/80 95 Nasal Cannula 2.0 07/05/17 19:05 98.0 07/05/17 16:00 95 Nasal Cannula 2.0 07/05/17 16:00 98.0 86 18 155/81 95 07/05/17 12:00 97 Nasal Cannula 2.0 07/05/17 12:00 97.4 92 19 145/78 97 07/05/17 11:02 97.4 Intake and Output 07/05/17 07/06/17 19:00 07:00 Intake Total 1085 ml 110 ml Output Total 601 ml 281 ml Balance 484 ml -171 ml Intake Oral 440 ml IV Total 645 ml 110 ml Output Urine Total 600 ml 280 ml Drainage Total 1 ml 1 ml # Voids 1 1 # Bowel Movements 1 Laboratory Tests 07/06/17 05:20: White Blood Count 14.1H, Red Blood Count 3.51L, Hemoglobin 10.0L, Hematocrit 31.8L, Mean Corpuscular Volume 91, Mean Corpuscular Hemoglobin 28.4, Mean Corpuscular Hemoglobin Concent 31.4L, Red Cell Distribution Width 14.0, Platelet Count 146L, Mean Platelet Volume 8.6, Neutrophils (%) (Auto) 81.6H, Lymphocytes (%) (Auto) 9.7L, Monocytes (%) (Auto) 6.3, Eosinophils (%) (Auto) 0.9, Basophils (%) (Auto) 1.5, Sodium Level 141, Potassium Level 3.4L, Chloride Level 107, Carbon Dioxide Level 23, Anion Gap 11, Blood Urea Nitrogen 26H, Creatinine 1.3, Estimat Glomerular Filtration Rate , Glucose Level 137H, Calcium Level 7.3L 07/06/17 05:25: Phosphorus Level 2.5, Magnesium Level 1.3L, Total Bilirubin 0.8, Direct Bilirubin 0.3, Aspartate Amino Transf (AST/SGOT) 47H, Alanine Aminotransferase ( ALT/SGPT) 40, Alkaline Phosphatase 101, Total Protein 6.6, Albumin 1.6L Height (Feet): 5 Height (Inches): 8.00 Weight (Pounds): 294 General Appearance: no apparent distress Objective no change ANU FAIRBANKS Jul 06, 2017 10:49
--- NOTE | 2017-07-06 10:56 | General Surgery Progress Note ---
General Surgery-Progress Note Subjective Procedure Performed Exploratory Laparotomy, Small Bowel resection with primary anastomosis, Lysis of adhesions , Drainage of intra abdominal abscess Symptoms: BM Objective Last 24 Hour Vital Signs Date Time Temp Pulse Resp B/P (MAP) Pulse Ox O2 Delivery O2 Flow Rate FiO2 07/06/17 10:17 Nasal Cannula 2.0 28 07/06/17 10:16 98 Nasal Cannula 2.0 28 07/06/17 04:00 98.0 86 18 150/80 94 Nasal Cannula 2.0 07/06/17 02:16 Nasal Cannula 2.0 28 07/06/17 02:16 99 Nasal Cannula 2.0 28 07/06/17 00:00 98.0 86 18 152/80 96 Nasal Cannula 2.0 07/05/17 20:00 98.0 88 18 154/80 95 Nasal Cannula 2.0 07/05/17 19:05 98.0 07/05/17 16:00 95 Nasal Cannula 2.0 07/05/17 16:00 98.0 86 18 155/81 95 07/05/17 12:00 97 Nasal Cannula 2.0 07/05/17 12:00 97.4 92 19 145/78 97 07/05/17 11:02 97.4 I&O Intake and Output 07/05/17 07/06/17 19:00 07:00 Intake Total 1085 ml 110 ml Output Total 601 ml 281 ml Balance 484 ml -171 ml Intake Oral 440 ml IV Total 645 ml 110 ml Output Urine Total 600 ml 280 ml Drainage Total 1 ml 1 ml # Voids 1 1 # Bowel Movements 1 Wound: other - infected I openned it up Drains: none Abdomen: soft, flat, non-tender, present bowel sounds Extremities: no tenderness Laboratory Tests Test 07/06/17 05:20 07/06/17 05:25 White Blood Count 14.1 K/UL (4.8-10.8) H Red Blood Count 3.51 M/UL (4.20-5.40) L Hemoglobin 10.0 G/DL (12.0-16.0) L Hematocrit 31.8 % (37.0-47.0) L Mean Corpuscular Volume 91 FL (80-99) Mean Corpuscular Hemoglobin 28.4 PG (27.0-31.0) Mean Corpuscular Hemoglobin Concent 31.4 G/DL (32.0-36.0) L Red Cell Distribution Width 14.0 % (11.6-14.8) Platelet Count 146 K/UL (150-450) L Mean Platelet Volume 8.6 FL (6.5-10.1) Neutrophils (%) (Auto) 81.6 % (45.0-75.0) H Lymphocytes (%) (Auto) 9.7 % (20.0-45.0) L Monocytes (%) (Auto) 6.3 % (1.0-10.0) Eosinophils (%) (Auto) 0.9 % (0.0-3.0) Basophils (%) (Auto) 1.5 % (0.0-2.0) Sodium Level 141 MMOL/L (136-145) Potassium Level 3.4 MMOL/L (3.5-5.1) L Chloride Level 107 MMOL/L (98-107) Carbon Dioxide Level 23 MMOL/L (21-32) Anion Gap 11 mmol/L (5-15) Blood Urea Nitrogen 26 mg/dL (7-18) H Creatinine 1.3 MG/DL (0.55-1.30) Estimat Glomerular Filtration Rate mL/min (>60) Glucose Level 137 MG/DL (74-106) H Calcium Level 7.3 MG/DL (8.5-10.1) L Phosphorus Level 2.5 MG/DL (2.5-4.9) Magnesium Level 1.3 MG/DL (1.8-2.4) L Total Bilirubin 0.8 MG/DL (0.2-1.0) Direct Bilirubin 0.3 MG/DL (0.0-0.3) Aspartate Amino Transf (AST/SGOT) 47 U/L (15-37) H Alanine Aminotransferase (ALT/SGPT) 40 U/L (12-78) Alkaline Phosphatase 101 U/L (46-116) Total Protein 6.6 G/DL (6.4-8.2) Albumin 1.6 G/DL (3.4-5.0) L Assessment Post-op Diagnosis perforated small bowel and intra abdominal abscess Additional Comments wound infection Plan Additional Comments drain was removed wound packed KIRT BECK Jul 06, 2017 10:56
[2017-07-06] MEDS ORDERED: Vitamin D 50,000 units cap ORAL SCH (11:00)
[2017-07-06] MEDS ORDERED: Betadine 4oz Bottle TOPIC ONE (11:00)
--- NOTE | 2017-07-06 11:10 | General Progress Note ---
Assessment/Plan Problem List: (1) Obesity ICD Codes: E66.9 - Obesity, unspecified SNOMED: 435439598 (2) Small bowel perforation ICD Codes: K63.1 - Perforation of intestine (nontraumatic) SNOMED: 665444785 (3) Anemia ICD Codes: D64.9 - Anemia, unspecified SNOMED: 966968195 (4) S/P exploratory laparotomy ICD Codes: Z98.890 - Other specified postprocedural states SNOMED: 35719999, 71615428, 437331983 Assessment/Plan on diet per surgery fu labs PRN blood transfusion abx post op care BAKARI removed by surgery today Subjective ROS Limited/Unobtainable: Yes Allergies: Coded Allergies: No Known Allergies (Unverified , 06/28/17) Subjective no event over night Objective Last 24 Hour Vital Signs Date Time Temp Pulse Resp B/P (MAP) Pulse Ox O2 Delivery O2 Flow Rate FiO2 07/06/17 10:17 Nasal Cannula 2.0 28 07/06/17 10:16 98 Nasal Cannula 2.0 28 07/06/17 04:00 98.0 86 18 150/80 94 Nasal Cannula 2.0 07/06/17 02:16 Nasal Cannula 2.0 28 07/06/17 02:16 99 Nasal Cannula 2.0 28 07/06/17 00:00 98.0 86 18 152/80 96 Nasal Cannula 2.0 07/05/17 20:00 98.0 88 18 154/80 95 Nasal Cannula 2.0 07/05/17 19:05 98.0 07/05/17 16:00 95 Nasal Cannula 2.0 07/05/17 16:00 98.0 86 18 155/81 95 07/05/17 12:00 97 Nasal Cannula 2.0 07/05/17 12:00 97.4 92 19 145/78 97 Intake and Output 07/05/17 07/06/17 19:00 07:00 Intake Total 1085 ml 110 ml Output Total 601 ml 281 ml Balance 484 ml -171 ml Intake Oral 440 ml IV Total 645 ml 110 ml Output Urine Total 600 ml 280 ml Drainage Total 1 ml 1 ml # Voids 1 1 # Bowel Movements 1 Laboratory Tests 07/06/17 05:20: White Blood Count 14.1H, Red Blood Count 3.51L, Hemoglobin 10.0L, Hematocrit 31.8L, Mean Corpuscular Volume 91, Mean Corpuscular Hemoglobin 28.4, Mean Corpuscular Hemoglobin Concent 31.4L, Red Cell Distribution Width 14.0, Platelet Count 146L, Mean Platelet Volume 8.6, Neutrophils (%) (Auto) 81.6H, Lymphocytes (%) (Auto) 9.7L, Monocytes (%) (Auto) 6.3, Eosinophils (%) (Auto) 0.9, Basophils (%) (Auto) 1.5, Sodium Level 141, Potassium Level 3.4L, Chloride Level 107, Carbon Dioxide Level 23, Anion Gap 11, Blood Urea Nitrogen 26H, Creatinine 1.3, Estimat Glomerular Filtration Rate , Glucose Level 137H, Calcium Level 7.3L 07/06/17 05:25: Phosphorus Level 2.5, Magnesium Level 1.3L, Total Bilirubin 0.8, Direct Bilirubin 0.3, Aspartate Amino Transf (AST/SGOT) 47H, Alanine Aminotransferase ( ALT/SGPT) 40, Alkaline Phosphatase 101, Total Protein 6.6, Albumin 1.6L Height (Feet): 5 Height (Inches): 8.00 Weight (Pounds): 294 General Appearance: alert EENT: normal ENT inspection Neck: supple Cardiovascular: normal rate Respiratory/Chest: decreased breath sounds Abdomen: other - post surgical Extremities: non-tender CANDIS MARTIN Jul 06, 2017 11:10
--- NOTE | 2017-07-06 11:53 | Infectious Diseases Prog Note ---
Assessment/Plan Assessment/Plan ASSESSMENT: The patient is a 71-year-old female with Sepsis ( intra-abd ) low grade fever, SP leukocytosis slow improvement Possible aspiration pneumonia. C- CT: Right pleural effusion, Left lower lobe infiltrate versus volume loss Scx : Trichosporon ( Colonizer vs Contaminant ) pt does not have ImmSupp risk factor Status post repair of small bowel perforation on 06/29/2017 Abscess Cx Enterococcus and C. Lusitaniae Lower Abd wnd infection : purulent discharge Wnd Cx : Enterococcus and yeast , PSA , C albicans repeat WndCx: Lorrie Status post cholecystectomy on 06/26/2017 Anemia. Acute renal insufficiency. improving Ventilator-dependent respiratory failure. History of laparoscopic cholecystectomy on 06/26/2017. Perforated small bowel obstruction, status post small-bowel resection and primary anastomosis on 06/29/2017 Hypertension History of back pain. Diabetes PLAN: cont Unasyn and Cefepime d# 4 , add Diflucan d# 3 Zosyn day # 5 and vancomycin day # 3 Monitor CBC. Monitor BMP. Monitor chest x-ray. Monitor cultures (blood ) Crypt Ag (as a marker of invasive Trichosporon): P Subjective Constitutional: Denies: no symptoms, fever, chills, fatigue, anorexia, drenching sweats, other Allergies: Coded Allergies: No Known Allergies (Unverified , 06/28/17) Subjective afebrile Objective Vital Signs Last 24 Hour Vital Signs Date Time Temp Pulse Resp B/P (MAP) Pulse Ox O2 Delivery O2 Flow Rate FiO2 07/06/17 10:17 Nasal Cannula 2.0 28 07/06/17 10:16 98 Nasal Cannula 2.0 28 07/06/17 04:00 98.0 86 18 150/80 94 Nasal Cannula 2.0 07/06/17 02:16 Nasal Cannula 2.0 28 07/06/17 02:16 99 Nasal Cannula 2.0 28 07/06/17 00:00 98.0 86 18 152/80 96 Nasal Cannula 2.0 07/05/17 20:00 98.0 88 18 154/80 95 Nasal Cannula 2.0 07/05/17 19:05 98.0 07/05/17 16:00 95 Nasal Cannula 2.0 07/05/17 16:00 98.0 86 18 155/81 95 07/05/17 12:00 97 Nasal Cannula 2.0 07/05/17 12:00 97.4 92 19 145/78 97 Height (Feet): 5 Height (Inches): 8.00 Weight (Pounds): 294 HEENT: anicteric Respiratory/Chest: lungs clear Cardiovascular: regular rhythm Abdomen: no organomegaly Microbiology Date/Time Source Procedure Growth Status 07/04/17 18:00 Blood Blood Culture - Preliminary NO GROWTH AFTER 24 HOURS Resulted 07/04/17 18:00 Blood Blood Culture - Preliminary NO GROWTH AFTER 24 HOURS Resulted 07/03/17 12:40 Abdomen Gram Stain - Final Resulted 07/03/17 12:40 Wound Culture - Preliminary Lorrie Albicans Resulted Laboratory Tests Test 07/06/17 05:20 07/06/17 05:25 White Blood Count 14.1 K/UL (4.8-10.8) H Red Blood Count 3.51 M/UL (4.20-5.40) L Hemoglobin 10.0 G/DL (12.0-16.0) L Hematocrit 31.8 % (37.0-47.0) L Mean Corpuscular Volume 91 FL (80-99) Mean Corpuscular Hemoglobin 28.4 PG (27.0-31.0) Mean Corpuscular Hemoglobin Concent 31.4 G/DL (32.0-36.0) L Red Cell Distribution Width 14.0 % (11.6-14.8) Platelet Count 146 K/UL (150-450) L Mean Platelet Volume 8.6 FL (6.5-10.1) Neutrophils (%) (Auto) 81.6 % (45.0-75.0) H Lymphocytes (%) (Auto) 9.7 % (20.0-45.0) L Monocytes (%) (Auto) 6.3 % (1.0-10.0) Eosinophils (%) (Auto) 0.9 % (0.0-3.0) Basophils (%) (Auto) 1.5 % (0.0-2.0) Sodium Level 141 MMOL/L (136-145) Potassium Level 3.4 MMOL/L (3.5-5.1) L Chloride Level 107 MMOL/L (98-107) Carbon Dioxide Level 23 MMOL/L (21-32) Anion Gap 11 mmol/L (5-15) Blood Urea Nitrogen 26 mg/dL (7-18) H Creatinine 1.3 MG/DL (0.55-1.30) Estimat Glomerular Filtration Rate mL/min (>60) Glucose Level 137 MG/DL (74-106) H Calcium Level 7.3 MG/DL (8.5-10.1) L Phosphorus Level 2.5 MG/DL (2.5-4.9) Magnesium Level 1.3 MG/DL (1.8-2.4) L Total Bilirubin 0.8 MG/DL (0.2-1.0) Direct Bilirubin 0.3 MG/DL (0.0-0.3) Aspartate Amino Transf (AST/SGOT) 47 U/L (15-37) H Alanine Aminotransferase (ALT/SGPT) 40 U/L (12-78) Alkaline Phosphatase 101 U/L (46-116) Total Protein 6.6 G/DL (6.4-8.2) Albumin 1.6 G/DL (3.4-5.0) L Current Medications Medications (Trade) Dose Ordered Sig/Teresa Route PRN Reason Start Time Stop Time Status Last Admin Dose Admin Acetaminophen (Tylenol) 650 mg Q4H PRN ORAL Mild Pain/Temp > 100.5 07/05/17 14:15 08/04/17 14:14 Ampicillin Sodium/ Sulbactam Sodium 3 gm/Sodium Chloride 110 ml @ 220 mls/hr Q6HR IVPB 07/04/17 19:00 07/11/17 18:59 07/06/17 11:38 Cefepime HCl 2 gm/ Dextrose 55 ml @ 110 mls/hr Q24H IVPB 07/05/17 09:00 07/12/17 08:59 07/06/17 08:43 Chlorhexidine Gluconate (Susan-Hex 2%) 1 applic Q24H TOPIC 07/04/17 20:00 08/01/17 19:59 07/05/17 21:22 Dextrose (Dextrose 50%) STAT PRN IV Hypoglycemia 07/05/17 10:00 07/28/17 09:59 Docusate Sodium (Colace) 100 mg TWICE A DAY ORAL 07/05/17 09:00 08/04/17 08:59 07/06/17 08:45 Ergocalciferol (Drisdol) 50,000 intlu QWEEK ORAL 07/06/17 11:00 08/05/17 10:59 Fluconazole/ Sodium Chloride 200 ml @ 100 mls/hr Q24H IV 07/05/17 12:00 07/11/17 11:59 07/05/17 14:02 Heparin Sodium (Porcine) (Heparin 5000 units/ml) 5,000 units EVERY 8 HOURS SUBQ 07/04/17 22:00 08/01/17 13:59 07/05/17 06:11 Hydromorphone HCl (Dilaudid) 0.5 mg Q3H PRN IVP Pain Score 1-3 07/04/17 19:15 07/06/17 22:14 07/05/17 23:13 Hydromorphone HCl (Dilaudid) 1 mg Q3H PRN IVP pain score 4-6 07/04/17 18:45 07/06/17 22:14 07/06/17 09:21 Insulin Aspart (NovoLOG) Q6HR SUBQ 07/04/17 18:00 08/03/17 17:59 07/06/17 06:07 Magnesium Sulfate 100 ml @ 100 mls/hr Q1H IVPB 07/06/17 11:00 07/06/17 14:59 Metoclopramide HCl (Reglan) 5 mg Q6H PRN IVP Nausea & Vomiting 07/04/17 22:15 07/29/17 22:14 Ondansetron HCl (Zofran) 4 mg Q6H PRN IVP Nausea & Vomiting 07/04/17 22:15 07/29/17 22:14 Pantoprazole (Protonix) 40 mg DAILY ORAL 07/06/17 09:00 08/05/17 08:59 07/06/17 08:45 Tramadol HCl (Ultram) 100 mg Q6H PRN ORAL For Pain 07/05/17 14:15 07/12/17 14:14 MARCO WILSON M.D. Jul 06, 2017 11:53
[2017-07-06 12:05] VITALS: BP 144/78
[2017-07-06] MEDS ORDERED: Albuterol/Ipratropium 3ml neb HHN PRN (12:15)
--- NOTE | 2017-07-06 12:19 | Pulmonology Progress Note ---
Assessment/Plan Problems: (1) Metabolic acidosis Assessment & Plan: RESOLVED (2) Obesity (3) Ventilator dependent Assessment & Plan: S/P EXTUBATION (4) Small bowel perforation Assessment & Plan: S/P Ex-LAP with primary re-anastamosis (5) S/P exploratory laparotomy (6) Postoperative ileus Assessment & Plan: RESOLVED (7) ELIDIA (acute kidney injury) Assessment & Plan: S/P INITIATION OF HD, NOW IMPROVED AND NO LONGER REQUIRING HD (8) Hyperglycemia due to type 2 diabetes mellitus (9) Asthma (10) MARTA (iron deficiency anemia) Assessment/Plan PROBLEM LIST -VDRF S/p EXTUBATION 07/03/17 -Asthma now with mild wheezing but no true asthma exacerbation per se -POD 10 S/P lap bridget and POD 6 S/P repeat ex-lab for SB perf -Metabolic acidosis (NAGMA + AGMA) with respiratory compensation - RESOLVED -ELIDIA, likely on CKD, now S/P HD x 1 07/02/17 - IMPROVED and NOT REQUIRING HD -DM, HTN, HL -MARTA Assessment/Plan PLAN: -Optimize pulmonary hygiene/mobilize as tolerated -Titrate down FiO2 to keep SaO2 > 90% -Incentive spirometry -PRN DUOnebs -F/U renal recs, monitor UO, volumes and renal function, ? remove catheter now that no longer requiring HD -Duplex neg, elevated DD likely post-op, doubt VTE, cannot do CT in light of renal failure and VQ would be of limited utility, patient is on DVT Px -F/U GI and surgery recs, post-op care -Diet per surgery -Continue Abx per ID, F/U Cx's -OOB today, PT ordered -DVT Px: Hep SQ TID Subjective Allergies: Coded Allergies: No Known Allergies (Unverified , 06/28/17) Subjective Sola PO, + UO and BM No SOB, no more wheezing, no coughing, using IS, no F/C AFVSS, stable on RA-2L, AML pending Objective Last 24 Hour Vital Signs Date Time Temp Pulse Resp B/P (MAP) Pulse Ox O2 Delivery O2 Flow Rate FiO2 07/06/17 10:17 Nasal Cannula 2.0 28 07/06/17 10:16 98 Nasal Cannula 2.0 28 07/06/17 09:51 98.0 07/06/17 04:00 98.0 86 18 150/80 94 Nasal Cannula 2.0 07/06/17 02:16 Nasal Cannula 2.0 28 07/06/17 02:16 99 Nasal Cannula 2.0 28 07/06/17 00:00 98.0 86 18 152/80 96 Nasal Cannula 2.0 07/05/17 20:00 98.0 88 18 154/80 95 Nasal Cannula 2.0 07/05/17 16:00 95 Nasal Cannula 2.0 07/05/17 16:00 98.0 86 18 155/81 95 Intake and Output 07/05/17 07/06/17 19:00 07:00 Intake Total 1085 ml 110 ml Output Total 601 ml 281 ml Balance 484 ml -171 ml Intake Oral 440 ml IV Total 645 ml 110 ml Output Urine Total 600 ml 280 ml Drainage Total 1 ml 1 ml # Voids 1 1 # Bowel Movements 1 General Appearance: no acute distress, other - obese female HEENT: normocephalic, atraumatic, mucous membranes moist Respiratory/Chest: chest wall non-tender, lungs clear, normal breath sounds, no respiratory distress Cardiovascular: normal peripheral pulses, normal rate, regular rhythm Abdomen: normal bowel sounds, soft, non tender, no organomegaly, non distended , other - wound dressed Extremities: no cyanosis, no clubbing, no edema Microbiology Date/Time Source Procedure Growth Status 07/04/17 18:00 Blood Blood Culture - Preliminary NO GROWTH AFTER 24 HOURS Resulted 07/04/17 18:00 Blood Blood Culture - Preliminary NO GROWTH AFTER 24 HOURS Resulted 07/03/17 12:40 Abdomen Gram Stain - Final Resulted 07/03/17 12:40 Wound Culture - Preliminary Lorrie Albicans Resulted Laboratory Tests 07/06/17 05:20: White Blood Count 14.1H, Red Blood Count 3.51L, Hemoglobin 10.0L, Hematocrit 31.8L, Mean Corpuscular Volume 91, Mean Corpuscular Hemoglobin 28.4, Mean Corpuscular Hemoglobin Concent 31.4L, Red Cell Distribution Width 14.0, Platelet Count 146L, Mean Platelet Volume 8.6, Neutrophils (%) (Auto) 81.6H, Lymphocytes (%) (Auto) 9.7L, Monocytes (%) (Auto) 6.3, Eosinophils (%) (Auto) 0.9, Basophils (%) (Auto) 1.5, Sodium Level 141, Potassium Level 3.4L, Chloride Level 107, Carbon Dioxide Level 23, Anion Gap 11, Blood Urea Nitrogen 26H, Creatinine 1.3, Estimat Glomerular Filtration Rate , Glucose Level 137H, Calcium Level 7.3L 07/06/17 05:25: Phosphorus Level 2.5, Magnesium Level 1.3L, Total Bilirubin 0.8, Direct Bilirubin 0.3, Aspartate Amino Transf (AST/SGOT) 47H, Alanine Aminotransferase ( ALT/SGPT) 40, Alkaline Phosphatase 101, Total Protein 6.6, Albumin 1.6L Current Medications Medications (Trade) Dose Ordered Sig/Teresa Route PRN Reason Start Time Stop Time Status Last Admin Dose Admin Acetaminophen (Tylenol) 650 mg Q4H PRN ORAL Mild Pain/Temp > 100.5 07/05/17 14:15 08/04/17 14:14 Albuterol/ Ipratropium (Albuterol/ Ipratropium) 3 ml Q4H PRN HHN Shortness of Breath 07/06/17 12:15 07/11/17 12:14 UNV Albuterol/ Ipratropium (Albuterol/ Ipratropium) 3 ml Q6HRT HHN 07/06/17 13:00 07/11/17 12:59 UNV Ampicillin Sodium/ Sulbactam Sodium 3 gm/Sodium Chloride 110 ml @ 220 mls/hr Q6HR IVPB 07/04/17 19:00 07/11/17 18:59 07/06/17 11:38 Cefepime HCl 2 gm/ Dextrose 55 ml @ 110 mls/hr Q24H IVPB 07/05/17 09:00 07/12/17 08:59 07/06/17 08:43 Chlorhexidine Gluconate (Susan-Hex 2%) 1 applic Q24H TOPIC 07/04/17 20:00 08/01/17 19:59 07/05/17 21:22 Dextrose (Dextrose 50%) STAT PRN IV Hypoglycemia 07/05/17 10:00 07/28/17 09:59 Docusate Sodium (Colace) 100 mg TWICE A DAY ORAL 07/05/17 09:00 08/04/17 08:59 07/06/17 08:45 Ergocalciferol (Drisdol) 50,000 intlu QWEEK ORAL 07/06/17 11:00 08/05/17 10:59 Fluconazole/ Sodium Chloride 200 ml @ 100 mls/hr Q24H IV 07/05/17 12:00 07/11/17 11:59 07/06/17 12:13 Heparin Sodium (Porcine) (Heparin 5000 units/ml) 5,000 units EVERY 8 HOURS SUBQ 07/04/17 22:00 08/01/17 13:59 07/05/17 06:11 Hydromorphone HCl (Dilaudid) 0.5 mg Q3H PRN IVP Pain Score 1-3 07/04/17 19:15 07/06/17 22:14 07/05/17 23:13 Hydromorphone HCl (Dilaudid) 1 mg Q3H PRN IVP pain score 4-6 07/04/17 18:45 07/06/17 22:14 07/06/17 09:21 Insulin Aspart (NovoLOG) Q6HR SUBQ 07/04/17 18:00 08/03/17 17:59 07/06/17 11:48 Magnesium Sulfate 100 ml @ 100 mls/hr Q1H IVPB 07/06/17 11:00 07/06/17 14:59 Metoclopramide HCl (Reglan) 5 mg Q6H PRN IVP Nausea & Vomiting 07/04/17 22:15 07/29/17 22:14 Ondansetron HCl (Zofran) 4 mg Q6H PRN IVP Nausea & Vomiting 07/04/17 22:15 07/29/17 22:14 Pantoprazole (Protonix) 40 mg DAILY ORAL 07/06/17 09:00 08/05/17 08:59 07/06/17 08:45 Tramadol HCl (Ultram) 100 mg Q6H PRN ORAL For Pain 07/05/17 14:15 07/12/17 14:14 VICKY GUERRERO M.D. Jul 06, 2017 12:19
[2017-07-06] MEDS: Albuterol/Ipratropium 3ml neb HHN SCH ×2 (13:27→19:00)
[2017-07-06 16:00] VITALS: BP 157/68
--- NOTE | 2017-07-06 16:00 | Geriatric Medicine Prog Note ---
DATE: 07/05/2017 SUBJECTIVE: she is on renal diet postoperative after_ cholecystectomy. OBJECTIVE: VITAL SIGNS: Stable. RESPIRATORY: Clear. CARDIOVASCULAR: Regular. LABORATORY DATA: Glucose 125. ASSESSMENT: Diabetes mellitus, improved. PLAN: Continue Accu-Chek q.i.d. before meals with insulin sliding scale with NovoLog.Jennifer reyna medication technician acute caare at [facility]. Satish Haines M.D. DR: LÓPEZ JOB#: [id number] CC: MOLLY
[2017-07-06] MEDS: Vancomycin 1250mg/D5W 250ml IVPB SCH (16:58)
[2017-07-06] MEDS: Dyna-Hex 2% Top Sol 2oz TOPIC SCH (19:59)
[2017-07-06 20:32] VITALS: BP 153/72
--- NOTE | 2017-07-06 20:42 | General Progress Note ---
Assessment/Plan Assessment/Plan Assessment/Plan 1. Leukocytosis, ID following. On antibiotics 2- RLL abdominal Abcess secondary to Iatrogenic SB perforation 3- S/P Expl Lap and SB resection with Primary Anastomosis. 2. Anemia s/p transfusion. Moitor H/H 3. Renal failure, age indeterminate. 4. Thrombocytopenia. 5. Abnormal liver function test. 7. Asthma 8. Abnormal BNP, pending Echo 6. Gastrointestinal and deep vein thrombosis prophylaxes. Subjective Hematologic/Lymphatic: Reports: anemia Allergies: Coded Allergies: No Known Allergies (Unverified , 06/28/17) All Systems: reviewed and negative except above Subjective NAD Objective Last 24 Hour Vital Signs Date Time Temp Pulse Resp B/P (MAP) Pulse Ox O2 Delivery O2 Flow Rate FiO2 07/06/17 20:32 97.0 81 20 153/72 99 Nasal Cannula 2.0 07/06/17 19:00 Nasal Cannula 2.0 28 07/06/17 19:00 Nasal Cannula 2.0 28 07/06/17 19:00 Nasal Cannula 2.0 28 07/06/17 19:00 97 Nasal Cannula 2.0 28 07/06/17 17:47 98.1 07/06/17 16:00 98.1 87 20 157/68 96 Nasal Cannula 2.0 07/06/17 13:36 99 24 100 Nasal Cannula 2.0 07/06/17 13:30 28 07/06/17 13:30 95 Nasal Cannula 2.0 28 07/06/17 13:29 Nasal Cannula 2.0 28 07/06/17 13:27 82 22 95 Nasal Cannula 2.0 07/06/17 12:05 97.7 84 20 144/78 96 Nasal Cannula 2.0 07/06/17 10:17 Nasal Cannula 2.0 28 07/06/17 10:16 98 Nasal Cannula 2.0 28 07/06/17 08:00 98.1 98 18 153/79 97 Nasal Cannula 2.0 07/06/17 04:00 98.0 86 18 150/80 94 Nasal Cannula 2.0 07/06/17 02:16 Nasal Cannula 2.0 28 07/06/17 02:16 99 Nasal Cannula 2.0 28 07/06/17 00:00 98.0 86 18 152/80 96 Nasal Cannula 2.0 Intake and Output 07/05/17 07/06/17 19:00 07:00 Intake Total 1085 ml 110 ml Output Total 601 ml 281 ml Balance 484 ml -171 ml Intake Oral 440 ml IV Total 645 ml 110 ml Output Urine Total 600 ml 280 ml Drainage Total 1 ml 1 ml # Voids 1 1 # Bowel Movements 1 Laboratory Tests 07/06/17 05:20: White Blood Count 14.1H, Red Blood Count 3.51L, Hemoglobin 10.0L, Hematocrit 31.8L, Mean Corpuscular Volume 91, Mean Corpuscular Hemoglobin 28.4, Mean Corpuscular Hemoglobin Concent 31.4L, Red Cell Distribution Width 14.0, Platelet Count 146L, Mean Platelet Volume 8.6, Neutrophils (%) (Auto) 81.6H, Lymphocytes (%) (Auto) 9.7L, Monocytes (%) (Auto) 6.3, Eosinophils (%) (Auto) 0.9, Basophils (%) (Auto) 1.5, Sodium Level 141, Potassium Level 3.4L, Chloride Level 107, Carbon Dioxide Level 23, Anion Gap 11, Blood Urea Nitrogen 26H, Creatinine 1.3, Estimat Glomerular Filtration Rate , Glucose Level 137H, Calcium Level 7.3L 07/06/17 05:25: Phosphorus Level 2.5, Magnesium Level 1.3L, Total Bilirubin 0.8, Direct Bilirubin 0.3, Aspartate Amino Transf (AST/SGOT) 47H, Alanine Aminotransferase ( ALT/SGPT) 40, Alkaline Phosphatase 101, Total Protein 6.6, Albumin 1.6L Height (Feet): 5 Height (Inches): 8.00 Weight (Pounds): 294 General Appearance: no apparent distress EENT: normal ENT inspection Neck: normal alignment Cardiovascular: normal rate Respiratory/Chest: chest wall non-tender Abdomen: non tender, soft Edema: trace edema Jay Malone Jul 06, 2017 20:42
[2017-07-07] MEDS: Ampicillin/Sulbactam Sod 3 GM in NS 110 ML IVPB SCH ×4 (00:27→18:04)
[2017-07-07] MEDS: NovoLOG Insulin Flexpen SUBQ SCH ×4 (00:27→18:06)
[2017-07-07] MEDS: Albuterol/Ipratropium 3ml neb HHN SCH ×4 (01:00→20:18)
[2017-07-07 04:00] VITALS: BP 161/85
[2017-07-07] MEDS: Vancomycin 1250mg/D5W 250ml IVPB SCH ×2 (04:30→16:06)
[2017-07-07] MEDS: Heparin 5000 units/ml inj SUBQ SCH ×3 (05:17→21:46)
[2017-07-07 06:08] VITALS: BP 161/85
[2017-07-07 07:56] VITALS: BP 163/86
--- NOTE | 2017-07-07 08:30 | Geriatric Medicine Prog Note ---
DATE: 07/05/2017 ENDOCRINOLOGY PROGRESS NOTE SUBJECTIVE: The patient is postop cholecystectomy, starting on clear liquids. OBJECTIVE: VITAL SIGNS: Blood pressure 130/65, pulse 93, respiratory rate 16___, temperature 98. R#JEREMY:Clear,[facility]-Regular INV:Glucose 170 ASSESSMENT:Diabetes Mellitus stable PLANS:Advance diet with sliding scale novolg QID ac an [facility]___ Satish Haines M.D. DR: LÓPEZ JOB#: [id number] CC: MOLLY
[2017-07-07] MEDS: Cefepime HCl 2 GM in D5W 55 ML IVPB SCH (09:00)
--- NOTE | 2017-07-07 09:16 | Nephrology Progress Note ---
Assessment/Plan Problem List: (1) ELIDIA (acute kidney injury) (2) Obesity (3) Small bowel perforation (4) Hyperglycemia due to type 2 diabetes mellitus (5) Anemia Assessment today's lab pending Renal failure now resolved- dialysed only once extubated- more Anemic Acute renal failure, post op ( done 3 days prior to admit in [facility]) , likely multifactorial including low BP, and dehydration due to vomiting Post surgery again last night, now in ICu intubated, Cr rising Underlying chronic renal failure due to DM and HTN with 3+ Proteinuria dialysed once Other: - Acute abdomen post inpatient surgery , Lap Veronika. - Diabetes type 2, uncontrolled. - Thrombocytopenia. - Abnormal liver function test. Plan Plan: check labs today DC IV DC po Iron Mag supplement HD 07/02 , monitor renal parameters- Cr remains low antibiotics Monitor renal parameters Avoid Nephrotoxics- Stopped TORADOL for pain monitor renal parameters antibiotics gastric support Subjective ROS Limited/Unobtainable: No Constitutional: Reports: malaise Objective Objective Last 24 Hour Vital Signs Date Time Temp Pulse Resp B/P (MAP) Pulse Ox O2 Delivery O2 Flow Rate FiO2 07/07/17 07:56 98.2 79 20 163/86 100 07/07/17 06:08 97.6 80 20 161/85 97 Nasal Cannula 2.0 07/07/17 04:00 97.6 80 20 161/85 97 Nasal Cannula 2.0 07/07/17 01:26 Nasal Cannula 2.0 28 07/07/17 01:26 Nasal Cannula 2.0 28 07/06/17 20:32 97.0 81 20 153/72 99 Nasal Cannula 2.0 07/06/17 19:00 Nasal Cannula 2.0 28 07/06/17 19:00 Nasal Cannula 2.0 28 07/06/17 19:00 Nasal Cannula 2.0 28 07/06/17 19:00 97 Nasal Cannula 2.0 28 07/06/17 17:47 98.1 07/06/17 16:00 98.1 87 20 157/68 96 Nasal Cannula 2.0 07/06/17 13:36 99 24 100 Nasal Cannula 2.0 28 07/06/17 13:30 28 07/06/17 13:30 95 Nasal Cannula 2.0 28 07/06/17 13:29 Nasal Cannula 2.0 28 07/06/17 13:27 82 22 95 Nasal Cannula 2.0 28 07/06/17 12:05 97.7 84 20 144/78 96 Nasal Cannula 2.0 07/06/17 10:17 Nasal Cannula 2.0 28 07/06/17 10:16 98 Nasal Cannula 2.0 28 Intake and Output 07/06/17 07/07/17 19:00 07:00 Intake Total 1140 ml 340 ml Output Total 400 ml 650 ml Balance 740 ml -310 ml Intake Oral 365 ml 240 ml IV Total 775 ml 100 ml Output Urine Total 400 ml 650 ml # Voids 2 Laboratory Tests 07/07/17 07:30: Sodium Level [Pending], Potassium Level [Pending], Chloride Level [Pending], Carbon Dioxide Level [Pending], Blood Urea Nitrogen [Pending], Creatinine [ Pending], Estimat Glomerular Filtration Rate [Pending], Glucose Level [Pending] , Uric Acid [Pending], Calcium Level [Pending], Phosphorus Level [Pending], Magnesium Level [Pending], Ferritin [Pending], Total Bilirubin [Pending], Gamma Glutamyl Transpeptidase [Pending], Aspartate Amino Transf (AST/SGOT) [Pending], Alanine Aminotransferase (ALT/SGPT) [Pending], Alkaline Phosphatase [Pending], C -Reactive Protein, Quantitative [Pending], Pro-B-Type Natriuretic Peptide [ Pending], Total Protein [Pending], Albumin [Pending], Globulin [Pending], Triglycerides Level [Pending], Cholesterol Level [Pending], LDL Cholesterol [ Pending], HDL Cholesterol [Pending], Cholesterol/HDL Ratio [Pending] Height (Feet): 5 Height (Inches): 8.00 Weight (Pounds): 295 General Appearance: no apparent distress Cardiovascular: normal rate Respiratory/Chest: decreased breath sounds Abdomen: distended Objective no change ANU FAIRBANKS Jul 07, 2017 09:16
--- NOTE | 2017-07-07 09:26 | Pulmonology Progress Note ---
Subjective Allergies: Coded Allergies: No Known Allergies (Unverified , 06/28/17) Objective Last 24 Hour Vital Signs Date Time Temp Pulse Resp B/P (MAP) Pulse Ox O2 Delivery O2 Flow Rate FiO2 07/07/17 07:56 98.2 79 20 163/86 100 07/07/17 06:08 97.6 80 20 161/85 97 Nasal Cannula 2.0 07/07/17 04:00 97.6 80 20 161/85 97 Nasal Cannula 2.0 07/07/17 01:26 Nasal Cannula 2.0 28 07/07/17 01:26 Nasal Cannula 2.0 28 07/06/17 20:32 97.0 81 20 153/72 99 Nasal Cannula 2.0 07/06/17 19:00 Nasal Cannula 2.0 28 07/06/17 19:00 Nasal Cannula 2.0 28 07/06/17 19:00 Nasal Cannula 2.0 28 07/06/17 19:00 97 Nasal Cannula 2.0 28 07/06/17 17:47 98.1 07/06/17 16:00 98.1 87 20 157/68 96 Nasal Cannula 2.0 07/06/17 13:36 99 24 100 Nasal Cannula 2.0 28 07/06/17 13:30 28 07/06/17 13:30 95 Nasal Cannula 2.0 28 07/06/17 13:29 Nasal Cannula 2.0 28 07/06/17 13:27 82 22 95 Nasal Cannula 2.0 28 07/06/17 12:05 97.7 84 20 144/78 96 Nasal Cannula 2.0 07/06/17 10:17 Nasal Cannula 2.0 28 07/06/17 10:16 98 Nasal Cannula 2.0 28 Intake and Output 07/06/17 07/07/17 19:00 07:00 Intake Total 1140 ml 340 ml Output Total 400 ml 650 ml Balance 740 ml -310 ml Intake Oral 365 ml 240 ml IV Total 775 ml 100 ml Output Urine Total 400 ml 650 ml # Voids 2 Microbiology Date/Time Source Procedure Growth Status 07/04/17 18:00 Blood Blood Culture - Preliminary NO GROWTH AFTER 48 HOURS Resulted 07/04/17 18:00 Blood Blood Culture - Preliminary Staphylococcus Species Resulted Laboratory Tests 07/07/17 07:30: Sodium Level [Pending], Potassium Level [Pending], Chloride Level [Pending], Carbon Dioxide Level [Pending], Blood Urea Nitrogen [Pending], Creatinine [ Pending], Estimat Glomerular Filtration Rate [Pending], Glucose Level [Pending] , Uric Acid [Pending], Calcium Level [Pending], Phosphorus Level [Pending], Magnesium Level [Pending], Ferritin [Pending], Total Bilirubin [Pending], Gamma Glutamyl Transpeptidase [Pending], Aspartate Amino Transf (AST/SGOT) [Pending], Alanine Aminotransferase (ALT/SGPT) [Pending], Alkaline Phosphatase [Pending], C -Reactive Protein, Quantitative [Pending], Pro-B-Type Natriuretic Peptide [ Pending], Total Protein [Pending], Albumin [Pending], Globulin [Pending], Triglycerides Level [Pending], Cholesterol Level [Pending], LDL Cholesterol [ Pending], HDL Cholesterol [Pending], Cholesterol/HDL Ratio [Pending] Current Medications Medications (Trade) Dose Ordered Sig/Teresa Route PRN Reason Start Time Stop Time Status Last Admin Dose Admin Acetaminophen (Tylenol) 650 mg Q4H PRN ORAL Mild Pain/Temp > 100.5 07/05/17 14:15 08/04/17 14:14 Albuterol/ Ipratropium (Albuterol/ Ipratropium) 3 ml Q4H PRN HHN Shortness of Breath 07/06/17 12:15 07/11/17 12:14 Albuterol/ Ipratropium (Albuterol/ Ipratropium) 3 ml Q6HRT HHN 07/06/17 13:00 07/11/17 12:59 07/06/17 13:27 Ampicillin Sodium/ Sulbactam Sodium 3 gm/Sodium Chloride 110 ml @ 220 mls/hr Q6HR IVPB 07/04/17 19:00 07/11/17 18:59 07/07/17 05:17 Cefepime HCl 2 gm/ Dextrose 55 ml @ 110 mls/hr Q24H IVPB 07/05/17 09:00 07/12/17 08:59 07/06/17 08:43 Chlorhexidine Gluconate (Susan-Hex 2%) 1 applic Q24H TOPIC 07/04/17 20:00 08/01/17 19:59 07/06/17 19:59 Dextrose (Dextrose 50%) STAT PRN IV Hypoglycemia 07/05/17 10:00 07/28/17 09:59 Docusate Sodium (Colace) 100 mg TWICE A DAY ORAL 07/05/17 09:00 08/04/17 08:59 07/06/17 17:07 Ergocalciferol (Drisdol) 50,000 intlu QWEEK ORAL 07/06/17 11:00 08/05/17 10:59 07/06/17 12:58 Fluconazole/ Sodium Chloride 200 ml @ 100 mls/hr Q24H IV 07/05/17 12:00 07/11/17 11:59 07/06/17 12:13 Heparin Sodium (Porcine) (Heparin 5000 units/ml) 5,000 units EVERY 8 HOURS SUBQ 07/04/17 22:00 08/01/17 13:59 07/05/17 06:11 Hydromorphone HCl (Dilaudid) 1 mg Q3H PRN IVP pain score 4-6 07/06/17 20:15 07/13/17 20:14 Insulin Aspart (NovoLOG) Q6HR SUBQ 07/04/17 18:00 08/03/17 17:59 07/07/17 06:00 Metoclopramide HCl (Reglan) 5 mg Q6H PRN IVP Nausea & Vomiting 07/04/17 22:15 07/29/17 22:14 Ondansetron HCl (Zofran) 4 mg Q6H PRN IVP Nausea & Vomiting 07/04/17 22:15 07/29/17 22:14 Pantoprazole (Protonix) 40 mg DAILY ORAL 07/06/17 09:00 08/05/17 08:59 07/06/17 08:45 Tramadol HCl (Ultram) 100 mg Q6H PRN ORAL For Pain 07/05/17 14:15 07/12/17 14:14 Vancomycin HCl (Vanco rx to dose) 1 ea DAILY PRN MISC Per rx protocol 07/06/17 14:45 08/05/17 14:44 Vancomycin HCl/ Dextrose 250 ml @ 166.667 mls/hr Q12HR@0430,1630 IVPB 07/06/17 16:30 07/11/17 16:29 07/07/17 04:30 Garcia (Vanchtein),Racquel NURSE CARE MANAGER Jul 07, 2017 09:26
[2017-07-07 09:29] LABS: ALANINE AMINOTRANSFERASE 41 U/L (12-78); ALBUMIN 1.6 G/DL (3.4-5.0); ALBUMIN/GLOBULIN RATIO 0.3 (1.0-2.7); ALKALINE PHOSPHATASE 85 U/L (46-116); ANION GAP 7 mmol/L (5-15); ASPARTATE AMINO TRANSFERASE 47 U/L (15-37); BILIRUBIN,TOTAL 0.5 MG/DL (0.2-1.0); BLOOD UREA NITROGEN 21 mg/dL (7-18); CALCIUM 7.3 MG/DL (8.5-10.1); CARBON DIOXIDE 26 MMOL/L (21-32); CHLORIDE 107 MMOL/L (98-107); CHOLESTEROL 94 MG/DL (< 200); CREATININE 1.2 MG/DL (0.55-1.30); FERRITIN 1673 NG/ML (8-388); GAMMA GLUTAMYL TRANSPEPTIDASE 30 U/L (5-85); HDL CHOLESTEROL 26 MG/DL (40-60); PHOSPHORUS 2.2 MG/DL (2.5-4.9); POTASSIUM 3.1 MMOL/L (3.5-5.1); SODIUM 140 MMOL/L (136-145); TRIGLYCERIDES 112 MG/DL (30-150)
[2017-07-07] MEDS: Docusate 100mg cap ORAL SCH ×2 (09:58→18:05)
--- NOTE | 2017-07-07 10:02 | Infectious Diseases Prog Note ---
Assessment/Plan Assessment/Plan ASSESSMENT: The patient is a 71-year-old female with Sepsis ( intra-abd ) -Status post repair of small bowel perforation on 06/29/2017 Abscess Cx Enterococcus and C. Lusitaniae Lower Abd wnd infection : purulent discharge Wnd Cx : Enterococcus and yeast , PSA , C albicans repeat WndCx: Lorrie Staph bacteremia- ?real vs contaminant -07/04 2/ Staph sp (from same set); 07/06 BCx p Possible aspiration pneumonia. C- CT: Right pleural effusion, Left lower lobe infiltrate versus volume loss Scx : Trichosporon ( Colonizer vs Contaminant ) pt does not have ImmSupp risk factor low grade fever, SP leukocytosis slow improvement Status post cholecystectomy on 06/26/2017 Anemia. Acute renal insufficiency. improving Ventilator-dependent respiratory failure. History of laparoscopic cholecystectomy on 06/26/2017. Perforated small bowel obstruction, status post small-bowel resection and primary anastomosis on 06/29/2017 Hypertension History of back pain. Diabetes PLAN: cont Unasyn and Cefepime d# 4 and Diflucan d# 4 for abscess/wound infection and IV Vancomycin #2 pending ID and sensi Staph bacteremia and repeat Bcx Zosyn day # 5 and vancomycin day # 3 Monitor CBC. Monitor BMP. Monitor chest x-ray. Monitor cultures (blood ), repeat Crypt Ag (as a marker of invasive Trichosporon): P Subjective Allergies: Coded Allergies: No Known Allergies (Unverified , 06/28/17) Subjective afebrile leukocytosis mildly improved bacteremic with staph sp, repaet bcx pending Objective Vital Signs Last 24 Hour Vital Signs Date Time Temp Pulse Resp B/P (MAP) Pulse Ox O2 Delivery O2 Flow Rate FiO2 07/07/17 07:56 98.2 79 20 163/86 100 07/07/17 06:08 97.6 80 20 161/85 97 Nasal Cannula 2.0 07/07/17 04:00 97.6 80 20 161/85 97 Nasal Cannula 2.0 07/07/17 01:26 Nasal Cannula 2.0 28 07/07/17 01:26 Nasal Cannula 2.0 28 07/06/17 20:32 97.0 81 20 153/72 99 Nasal Cannula 2.0 07/06/17 19:00 Nasal Cannula 2.0 28 07/06/17 19:00 Nasal Cannula 2.0 28 07/06/17 19:00 Nasal Cannula 2.0 28 07/06/17 19:00 97 Nasal Cannula 2.0 28 07/06/17 17:47 98.1 07/06/17 16:00 98.1 87 20 157/68 96 Nasal Cannula 2.0 07/06/17 13:36 99 24 100 Nasal Cannula 2.0 28 07/06/17 13:30 28 07/06/17 13:30 95 Nasal Cannula 2.0 28 07/06/17 13:29 Nasal Cannula 2.0 28 07/06/17 13:27 82 22 95 Nasal Cannula 2.0 28 07/06/17 12:05 97.7 84 20 144/78 96 Nasal Cannula 2.0 07/06/17 10:17 Nasal Cannula 2.0 28 07/06/17 10:16 98 Nasal Cannula 2.0 28 Height (Feet): 5 Height (Inches): 8.00 Weight (Pounds): 295 Objective General Appearance: no apparent distress EENT: normal ENT inspection Neck: normal alignment Cardiovascular: normal rate Respiratory/Chest: chest wall non-tender Abdomen: tender around surgical incisions, bandages on place Edema: trace edema Microbiology Date/Time Source Procedure Growth Status 07/04/17 18:00 Blood Blood Culture - Preliminary NO GROWTH AFTER 48 HOURS Resulted 07/04/17 18:00 Blood Blood Culture - Preliminary Staphylococcus Species Resulted Laboratory Tests Test 07/07/17 07:30 Sodium Level 140 MMOL/L (136-145) Potassium Level 3.1 MMOL/L (3.5-5.1) L Chloride Level 107 MMOL/L (98-107) Carbon Dioxide Level 26 MMOL/L (21-32) Anion Gap 7 mmol/L (5-15) Blood Urea Nitrogen 21 mg/dL (7-18) H Creatinine 1.2 MG/DL (0.55-1.30) Estimat Glomerular Filtration Rate mL/min (>60) Glucose Level 184 MG/DL (74-106) H Uric Acid 4.9 MG/DL (2.6-7.2) Calcium Level 7.3 MG/DL (8.5-10.1) L Phosphorus Level 2.2 MG/DL (2.5-4.9) L Magnesium Level 1.6 MG/DL (1.8-2.4) L Ferritin 1673 NG/ML (8-388) H Total Bilirubin 0.5 MG/DL (0.2-1.0) Gamma Glutamyl Transpeptidase 30 U/L (5-85) Aspartate Amino Transf (AST/SGOT) 47 U/L (15-37) H Alanine Aminotransferase (ALT/SGPT) 41 U/L (12-78) Alkaline Phosphatase 85 U/L (46-116) C-Reactive Protein, Quantitative 16.7 mg/dL (0.00-0.90) H Pro-B-Type Natriuretic Peptide 1825 pg/mL (0-125) H Total Protein 6.7 G/DL (6.4-8.2) Albumin 1.6 G/DL (3.4-5.0) L Globulin 5.1 g/dL Albumin/Globulin Ratio 0.3 (1.0-2.7) L Triglycerides Level 112 MG/DL (30-150) Cholesterol Level 94 MG/DL (< 200) LDL Cholesterol 55 mg/dL (<100) HDL Cholesterol 26 MG/DL (40-60) L Cholesterol/HDL Ratio 3.6 (3.3-4.4) Current Medications Medications (Trade) Dose Ordered Sig/Teresa Route PRN Reason Start Time Stop Time Status Last Admin Dose Admin Acetaminophen (Tylenol) 650 mg Q4H PRN ORAL Mild Pain/Temp > 100.5 07/05/17 14:15 08/04/17 14:14 Albuterol/ Ipratropium (Albuterol/ Ipratropium) 3 ml Q4H PRN HHN Shortness of Breath 07/06/17 12:15 07/11/17 12:14 Albuterol/ Ipratropium (Albuterol/ Ipratropium) 3 ml Q6HRT HHN 07/06/17 13:00 07/11/17 12:59 07/06/17 13:27 Amlodipine Besylate (Norvasc) 2.5 mg DAILY ORAL 07/07/17 10:00 08/06/17 09:59 Ampicillin Sodium/ Sulbactam Sodium 3 gm/Sodium Chloride 110 ml @ 220 mls/hr Q6HR IVPB 07/04/17 19:00 07/11/17 18:59 07/07/17 05:17 Benazepril HCl (Lotensin) 10 mg DAILY ORAL 07/07/17 10:00 08/06/17 09:59 Cefepime HCl 2 gm/ Dextrose 55 ml @ 110 mls/hr Q24H IVPB 07/05/17 09:00 07/12/17 08:59 07/06/17 08:43 Chlorhexidine Gluconate (Susan-Hex 2%) 1 applic Q24H TOPIC 07/04/17 20:00 08/01/17 19:59 07/06/17 19:59 Dextrose (Dextrose 50%) STAT PRN IV Hypoglycemia 07/05/17 10:00 07/28/17 09:59 Docusate Sodium (Colace) 100 mg TWICE A DAY ORAL 07/05/17 09:00 08/04/17 08:59 07/06/17 17:07 Ergocalciferol (Drisdol) 50,000 intlu QWEEK ORAL 07/06/17 11:00 08/05/17 10:59 07/06/17 12:58 Fluconazole/ Sodium Chloride 200 ml @ 100 mls/hr Q24H IV 07/05/17 12:00 07/11/17 11:59 07/06/17 12:13 Heparin Sodium (Porcine) (Heparin 5000 units/ml) 5,000 units EVERY 8 HOURS SUBQ 07/04/17 22:00 08/01/17 13:59 07/05/17 06:11 Hydromorphone HCl (Dilaudid) 1 mg Q3H PRN IVP pain score 4-6 07/06/17 20:15 07/13/17 20:14 Insulin Aspart (NovoLOG) Q6HR SUBQ 07/04/17 18:00 08/03/17 17:59 07/07/17 06:00 Magnesium Sulfate 100 ml @ 100 mls/hr Q1H IVPB 07/07/17 09:55 07/07/17 13:54 Metoclopramide HCl (Reglan) 5 mg Q6H PRN IVP Nausea & Vomiting 07/04/17 22:15 07/29/17 22:14 Ondansetron HCl (Zofran) 4 mg Q6H PRN IVP Nausea & Vomiting 07/04/17 22:15 07/29/17 22:14 Pantoprazole (Protonix) 40 mg DAILY ORAL 07/06/17 09:00 08/05/17 08:59 07/06/17 08:45 Potassium Phosphate 30 mm/ Sodium Chloride 285 ml @ 47.5 mls/hr ONCE ONCE IV 07/07/17 11:00 07/07/17 16:59 Tramadol HCl (Ultram) 100 mg Q6H PRN ORAL For Pain 07/05/17 14:15 07/12/17 14:14 Vancomycin HCl (Vanco rx to dose) 1 ea DAILY PRN MISC Per rx protocol 07/06/17 14:45 08/05/17 14:44 Vancomycin HCl/ Dextrose 250 ml @ 166.667 mls/hr Q12HR@0430,1630 IVPB 07/06/17 16:30 07/11/17 16:29 07/07/17 04:30 Dahiana Lucero M.D. Jul 07, 2017 10:02
[2017-07-07] MEDS ORDERED: Potassium Phosphate 30 MM in NS 275 ML IV ONE (11:00)
[2017-07-07] MEDS: Benazepril 10mg tab ORAL SCH (11:19)
[2017-07-07 11:59] VITALS: BP 186/86
--- NOTE | 2017-07-07 13:49 | Pulmonology Progress Note ---
Assessment/Plan Assessment/Plan ASSESSMENT perforated SB intraabdominal sepsis due to intraabdominal abscess possible bacteremia ( SON)- contaminant vs real s/p exp lap with SB resection, priamry anastomosis, lysis of adhesion and drainage of intraabdominal abscess s/p intubation ( during surgery) s/p extubation asthma Possible aspiration PNA acute anemia requiring blood transfusion MARTA acute renal failure ( due to dehydration, hypotension and infectious process) on CRF( due to HTN and DM, + 3 proteinuria) Hyperglycemia 2 to DM HTN urgency morbid obesity PLAN OF CARE [facility] floor IV abx, Fup with ID rec O2 HHN prn no evidence of asthma exacerbation fup with CXR CT chest noted IS at the bedside and encourage to use OOB to chair and ambulate by PT DVT GI prophylaxis Venous Duplex BLE negative elevated D dimer due to infectious/inflammatory process drain out surgery follows wound care as per surgery pain management tolerates diet , a/emetic prn bowel regimen monitor counts, HH stable after blood transfusion, anemia w/up c/w ID s/p HD x 1 , creat down to normal , nephro follows renal US negative ARF was likely combination due to hypotension, dehydration due to vomiting and infectious process, resolved after one HD ? dc HD catheter - per nephro monitor renal parameters, lytes, correct as needed avoid nephrotoxic monitor volumes ECHO with pEF 65% and RVSP of 25 HgA1c not at goal-9.8; endo follows, SSI BP management with ANKIT and CCB, add Clonidine prn however caution about ANKIT due to recent hx of ARF, watch creat closely if start rising -dc ANKIT case discussed and evaluated by supervising physician Subjective Allergies: Coded Allergies: No Known Allergies (Unverified , 06/28/17) Subjective + postop pain no n/v/ tolerates diet on RA sat stable, no SOB, no CP working with PT Objective Last 24 Hour Vital Signs Date Time Temp Pulse Resp B/P (MAP) Pulse Ox O2 Delivery O2 Flow Rate FiO2 07/07/17 11:59 97.4 85 21 186/86 97 07/07/17 11:19 163/86 07/07/17 11:19 98.2 07/07/17 10:26 80 22 92 Room Air 21 07/07/17 09:59 79 163/86 07/07/17 07:56 98.2 79 20 163/86 100 07/07/17 06:08 97.6 80 20 161/85 97 Nasal Cannula 2.0 07/07/17 04:00 97.6 80 20 161/85 97 Nasal Cannula 2.0 07/07/17 01:26 Nasal Cannula 2.0 28 07/07/17 01:26 Nasal Cannula 2.0 28 07/06/17 20:32 97.0 81 20 153/72 99 Nasal Cannula 2.0 07/06/17 19:00 Nasal Cannula 2.0 28 07/06/17 19:00 Nasal Cannula 2.0 28 07/06/17 19:00 Nasal Cannula 2.0 28 07/06/17 19:00 97 Nasal Cannula 2.0 28 07/06/17 17:47 98.1 07/06/17 16:00 98.1 87 20 157/68 96 Nasal Cannula 2.0 07/06/17 13:36 99 24 100 Nasal Cannula 2.0 28 07/06/17 13:30 28 07/06/17 13:30 95 Nasal Cannula 2.0 28 07/06/17 13:29 Nasal Cannula 2.0 28 07/06/17 13:27 82 22 95 Nasal Cannula 2.0 28 Intake and Output 07/06/17 07/07/17 19:00 07:00 Intake Total 1140 ml 340 ml Output Total 400 ml 650 ml Balance 740 ml -310 ml Intake Oral 365 ml 240 ml IV Total 775 ml 100 ml Output Urine Total 400 ml 650 ml # Voids 2 General Appearance: no acute distress, other - morbidly obese AA female HEENT: normocephalic, atraumatic, anicteric, mucous membranes moist, PERRL Respiratory/Chest: chest wall non-tender, lungs clear - with moderate air intake , no respiratory distress, no accessory muscle use Cardiovascular: normal peripheral pulses, regular rhythm, no JVD Abdomen: normal bowel sounds, soft, non tender, non distended Genitourinary: normal external genitalia Extremities: no edema, pedal pulses normal Neurologic/Psychiatric: no motor/sensory deficits, alert, oriented x 3, responsive Musculoskeletal: normal muscle bulk Microbiology Date/Time Source Procedure Growth Status 07/04/17 18:00 Blood Blood Culture - Preliminary NO GROWTH AFTER 48 HOURS Resulted 07/04/17 18:00 Blood Blood Culture - Preliminary Staphylococcus Species Resulted Laboratory Tests 07/07/17 07:30: Sodium Level 140, Potassium Level 3.1L, Chloride Level 107, Carbon Dioxide Level 26, Anion Gap 7, Blood Urea Nitrogen 21H, Creatinine 1.2, Estimat Glomerular Filtration Rate , Glucose Level 184H, Uric Acid 4.9, Calcium Level 7.3L, Phosphorus Level 2.2L, Magnesium Level 1.6L, Ferritin 1673H, Total Bilirubin 0.5, Gamma Glutamyl Transpeptidase 30, Aspartate Amino Transf (AST/ SGOT) 47H, Alanine Aminotransferase (ALT/SGPT) 41, Alkaline Phosphatase 85, C- Reactive Protein, Quantitative 16.7H, Pro-B-Type Natriuretic Peptide 1825H, Total Protein 6.7, Albumin 1.6L, Globulin 5.1, Albumin/Globulin Ratio 0.3L, Triglycerides Level 112, Cholesterol Level 94, LDL Cholesterol 55, HDL Cholesterol 26L, Cholesterol/HDL Ratio 3.6 Current Medications Medications (Trade) Dose Ordered Sig/Teresa Route PRN Reason Start Time Stop Time Status Last Admin Dose Admin Acetaminophen (Tylenol) 650 mg Q4H PRN ORAL Mild Pain/Temp > 100.5 07/05/17 14:15 08/04/17 14:14 Albuterol/ Ipratropium (Albuterol/ Ipratropium) 3 ml Q4H PRN HHN Shortness of Breath 07/06/17 12:15 07/11/17 12:14 Albuterol/ Ipratropium (Albuterol/ Ipratropium) 3 ml Q6HRT HHN 07/06/17 13:00 07/11/17 12:59 07/07/17 10:26 Amlodipine Besylate (Norvasc) 2.5 mg DAILY ORAL 07/07/17 10:00 08/06/17 09:59 07/07/17 09:59 Ampicillin Sodium/ Sulbactam Sodium 3 gm/Sodium Chloride 110 ml @ 220 mls/hr Q6HR IVPB 07/04/17 19:00 07/11/17 18:59 07/07/17 12:17 Benazepril HCl (Lotensin) 10 mg DAILY ORAL 07/07/17 10:00 08/06/17 09:59 07/07/17 11:19 Cefepime HCl 2 gm/ Dextrose 55 ml @ 110 mls/hr Q24H IVPB 07/05/17 09:00 07/12/17 08:59 07/07/17 09:00 Chlorhexidine Gluconate (Susan-Hex 2%) 1 applic Q24H TOPIC 07/04/17 20:00 08/01/17 19:59 07/06/17 19:59 Dextrose (Dextrose 50%) STAT PRN IV Hypoglycemia 07/05/17 10:00 07/28/17 09:59 Docusate Sodium (Colace) 100 mg TWICE A DAY ORAL 07/05/17 09:00 08/04/17 08:59 07/07/17 09:58 Ergocalciferol (Drisdol) 50,000 intlu QWEEK ORAL 07/06/17 11:00 08/05/17 10:59 07/06/17 12:58 Fluconazole/ Sodium Chloride 200 ml @ 100 mls/hr Q24H IV 07/05/17 12:00 07/11/17 11:59 07/07/17 12:16 Heparin Sodium (Porcine) (Heparin 5000 units/ml) 5,000 units EVERY 8 HOURS SUBQ 07/04/17 22:00 08/01/17 13:59 07/05/17 06:11 Hydromorphone HCl (Dilaudid) 1 mg Q3H PRN IVP pain score 4-6 07/06/17 20:15 07/13/17 20:14 Insulin Aspart (NovoLOG) Q6HR SUBQ 07/04/17 18:00 08/03/17 17:59 07/07/17 12:17 Magnesium Sulfate 100 ml @ 100 mls/hr Q1H IVPB 07/07/17 09:55 07/07/17 13:54 07/07/17 11:19 Metoclopramide HCl (Reglan) 5 mg Q6H PRN ORAL Nausea & Vomiting 07/07/17 12:30 08/06/17 12:29 Ondansetron HCl (Zofran) 4 mg Q6H PRN IVP Nausea & Vomiting 07/04/17 22:15 07/29/17 22:14 Pantoprazole (Protonix) 40 mg DAILY ORAL 07/06/17 09:00 08/05/17 08:59 07/07/17 09:58 Potassium Phosphate 30 mm/ Sodium Chloride 285 ml @ 47.5 mls/hr ONCE ONCE IV 07/07/17 11:00 07/07/17 16:59 07/07/17 11:18 Tramadol HCl (Ultram) 100 mg Q6H PRN ORAL For Pain 07/05/17 14:15 07/12/17 14:14 07/07/17 09:58 Vancomycin HCl (Vanco rx to dose) 1 ea DAILY PRN MISC Per rx protocol 07/06/17 14:45 08/05/17 14:44 Vancomycin HCl/ Dextrose 250 ml @ 166.667 mls/hr Q12HR@0430,1630 IVPB 07/06/17 16:30 07/11/17 16:29 07/07/17 04:30 Jose (Kenneth)Racquel NP Jul 07, 2017 13:49
--- NOTE | 2017-07-07 14:13 | General Surgery Progress Note ---
General Surgery-Progress Note Subjective Procedure Performed Exploratory Laparotomy, Small Bowel resection with primary anastomosis, Lysis of adhesions , Drainage of intra abdominal abscess Symptoms: BM Objective Last 24 Hour Vital Signs Date Time Temp Pulse Resp B/P (MAP) Pulse Ox O2 Delivery O2 Flow Rate FiO2 07/07/17 11:59 97.4 85 21 186/86 97 07/07/17 11:19 163/86 07/07/17 11:19 98.2 07/07/17 10:26 80 22 92 Room Air 21 07/07/17 09:59 79 163/86 07/07/17 07:56 98.2 79 20 163/86 100 07/07/17 06:08 97.6 80 20 161/85 97 Nasal Cannula 2.0 07/07/17 04:00 97.6 80 20 161/85 97 Nasal Cannula 2.0 07/07/17 01:26 Nasal Cannula 2.0 28 07/07/17 01:26 Nasal Cannula 2.0 28 07/06/17 20:32 97.0 81 20 153/72 99 Nasal Cannula 2.0 07/06/17 19:00 Nasal Cannula 2.0 28 07/06/17 19:00 Nasal Cannula 2.0 28 07/06/17 19:00 Nasal Cannula 2.0 28 07/06/17 19:00 97 Nasal Cannula 2.0 28 07/06/17 17:47 98.1 07/06/17 16:00 98.1 87 20 157/68 96 Nasal Cannula 2.0 I&O Intake and Output 07/06/17 07/07/17 19:00 07:00 Intake Total 1140 ml 340 ml Output Total 400 ml 650 ml Balance 740 ml -310 ml Intake Oral 365 ml 240 ml IV Total 775 ml 100 ml Output Urine Total 400 ml 650 ml # Voids 2 Wound: other - packing Abdomen: soft, non-tender, present bowel sounds Laboratory Tests Test 07/07/17 07:30 Sodium Level 140 MMOL/L (136-145) Potassium Level 3.1 MMOL/L (3.5-5.1) L Chloride Level 107 MMOL/L (98-107) Carbon Dioxide Level 26 MMOL/L (21-32) Anion Gap 7 mmol/L (5-15) Blood Urea Nitrogen 21 mg/dL (7-18) H Creatinine 1.2 MG/DL (0.55-1.30) Estimat Glomerular Filtration Rate mL/min (>60) Glucose Level 184 MG/DL (74-106) H Uric Acid 4.9 MG/DL (2.6-7.2) Calcium Level 7.3 MG/DL (8.5-10.1) L Phosphorus Level 2.2 MG/DL (2.5-4.9) L Magnesium Level 1.6 MG/DL (1.8-2.4) L Ferritin 1673 NG/ML (8-388) H Total Bilirubin 0.5 MG/DL (0.2-1.0) Gamma Glutamyl Transpeptidase 30 U/L (5-85) Aspartate Amino Transf (AST/SGOT) 47 U/L (15-37) H Alanine Aminotransferase (ALT/SGPT) 41 U/L (12-78) Alkaline Phosphatase 85 U/L (46-116) C-Reactive Protein, Quantitative 16.7 mg/dL (0.00-0.90) H Pro-B-Type Natriuretic Peptide 1825 pg/mL (0-125) H Total Protein 6.7 G/DL (6.4-8.2) Albumin 1.6 G/DL (3.4-5.0) L Globulin 5.1 g/dL Albumin/Globulin Ratio 0.3 (1.0-2.7) L Triglycerides Level 112 MG/DL (30-150) Cholesterol Level 94 MG/DL (< 200) LDL Cholesterol 55 mg/dL (<100) HDL Cholesterol 26 MG/DL (40-60) L Cholesterol/HDL Ratio 3.6 (3.3-4.4) Assessment Post-op Diagnosis perforated small bowel and intra abdominal abscess Plan Additional Comments continue as before KIRT BECK Jul 07, 2017 14:13
--- NOTE | 2017-07-07 14:23 | GI Progress Note ---
Assessment/Plan Problems: (1) Anemia ICD Codes: D64.9 - Anemia, unspecified SNOMED: 045563603 (2) Small bowel perforation ICD Codes: K63.1 - Perforation of intestine (nontraumatic) SNOMED: 798564038 (3) Obesity ICD Codes: E66.9 - Obesity, unspecified SNOMED: 256542912 (4) Perforated bowel ICD Codes: K63.1 - Perforation of intestine (nontraumatic) SNOMED: 12929466 (5) Postoperative ileus ICD Codes: K91.89 - Other postprocedural complications and disorders of digestive system; K56.7 - Ileus, unspecified SNOMED: 232667467, 658142515 (6) S/P exploratory laparotomy ICD Codes: Z98.890 - Other specified postprocedural states SNOMED: 72823513, 87768220, 477269234 Status: progressing Status Narrative Discussed with Dr. Mckeon. Assessment/Plan CT AP reviewed > perforated small bowel, see full report. fu surgical recs >> s/p Exploratory Laparotomy, Small Bowel resection with primary anastomosis, Lysis of adhesions , Drainage of intra abdominal abscess BAKARI removed by surgery post op care on diet per surgery pain mgmt PRN blood transfusion abx fu labs Subjective Subjective abdominal pain improved passing flatus on diet Objective Last 24 Hour Vital Signs Date Time Temp Pulse Resp B/P (MAP) Pulse Ox O2 Delivery O2 Flow Rate FiO2 07/07/17 11:59 97.4 85 21 186/86 97 07/07/17 11:19 163/86 07/07/17 11:19 98.2 07/07/17 10:26 80 22 92 Room Air 21 07/07/17 09:59 79 163/86 07/07/17 07:56 98.2 79 20 163/86 100 07/07/17 06:08 97.6 80 20 161/85 97 Nasal Cannula 2.0 07/07/17 04:00 97.6 80 20 161/85 97 Nasal Cannula 2.0 07/07/17 01:26 Nasal Cannula 2.0 28 07/07/17 01:26 Nasal Cannula 2.0 28 07/06/17 20:32 97.0 81 20 153/72 99 Nasal Cannula 2.0 07/06/17 19:00 Nasal Cannula 2.0 07/06/17 19:00 Nasal Cannula 2.0 28 07/06/17 19:00 Nasal Cannula 2.0 28 07/06/17 19:00 97 Nasal Cannula 2.0 28 07/06/17 17:47 98.1 07/06/17 16:00 98.1 87 20 157/68 96 Nasal Cannula 2.0 Intake and Output 07/06/17 07/07/17 19:00 07:00 Intake Total 1140 ml 340 ml Output Total 400 ml 650 ml Balance 740 ml -310 ml Intake Oral 365 ml 240 ml IV Total 775 ml 100 ml Output Urine Total 400 ml 650 ml # Voids 2 Laboratory Tests Test 07/07/17 07:30 Sodium Level 140 MMOL/L (136-145) Potassium Level 3.1 MMOL/L (3.5-5.1) L Chloride Level 107 MMOL/L (98-107) Carbon Dioxide Level 26 MMOL/L (21-32) Anion Gap 7 mmol/L (5-15) Blood Urea Nitrogen 21 mg/dL (7-18) H Creatinine 1.2 MG/DL (0.55-1.30) Estimat Glomerular Filtration Rate mL/min (>60) Glucose Level 184 MG/DL (74-106) H Uric Acid 4.9 MG/DL (2.6-7.2) Calcium Level 7.3 MG/DL (8.5-10.1) L Phosphorus Level 2.2 MG/DL (2.5-4.9) L Magnesium Level 1.6 MG/DL (1.8-2.4) L Ferritin 1673 NG/ML (8-388) H Total Bilirubin 0.5 MG/DL (0.2-1.0) Gamma Glutamyl Transpeptidase 30 U/L (5-85) Aspartate Amino Transf (AST/SGOT) 47 U/L (15-37) H Alanine Aminotransferase (ALT/SGPT) 41 U/L (12-78) Alkaline Phosphatase 85 U/L (46-116) C-Reactive Protein, Quantitative 16.7 mg/dL (0.00-0.90) H Pro-B-Type Natriuretic Peptide 1825 pg/mL (0-125) H Total Protein 6.7 G/DL (6.4-8.2) Albumin 1.6 G/DL (3.4-5.0) L Globulin 5.1 g/dL Albumin/Globulin Ratio 0.3 (1.0-2.7) L Triglycerides Level 112 MG/DL (30-150) Cholesterol Level 94 MG/DL (< 200) LDL Cholesterol 55 mg/dL (<100) HDL Cholesterol 26 MG/DL (40-60) L Cholesterol/HDL Ratio 3.6 (3.3-4.4) Height (Feet): 5 Height (Inches): 8.00 Weight (Pounds): 295 General Appearance: WD/WN, no apparent distress, alert, obese Cardiovascular: normal rate Respiratory/Chest: normal breath sounds, no respiratory distress Abdominal Exam: normal bowel sounds, non tender, soft, incision site Extremities: non-tender Luisa Pradhan N.P. Jul 07, 2017 14:23
[2017-07-07 16:00] VITALS: BP 167/67
[2017-07-07 20:00] VITALS: BP 136/75
[2017-07-07] MEDS: Dyna-Hex 2% Top Sol 2oz TOPIC SCH (20:00)
--- NOTE | 2017-07-07 23:04 | General Progress Note ---
Assessment/Plan Assessment/Plan Assessment/Plan 1. Leukocytosis 2/2 infection, ID following. On antibiotics 2- RLL abdominal Abcess secondary to Iatrogenic SB perforation 3- S/P Expl Lap and SB resection with Primary Anastomosis. 4. Anemia s/p transfusion. Monitor H/H 5. Renal failure, resolved after HD 6. Thrombocytopenia. 7. Abnormal liver function test. 8. Asthma Subjective Constitutional: Reports: weakness Hematologic/Lymphatic: Reports: anemia Allergies: Coded Allergies: No Known Allergies (Unverified , 06/28/17) All Systems: reviewed and negative except above Subjective NAD Objective Last 24 Hour Vital Signs Date Time Temp Pulse Resp B/P (MAP) Pulse Ox O2 Delivery O2 Flow Rate FiO2 07/07/17 20:19 99 Nasal Cannula 2.0 28 07/07/17 20:19 Nasal Cannula 2.0 28 07/07/17 20:05 84 20 100 Nasal Cannula 2.0 28 07/07/17 20:00 80 20 98 Nasal Cannula 2.0 28 07/07/17 20:00 97.4 76 18 136/75 95 Nasal Cannula 2.0 07/07/17 16:00 97.8 77 20 167/67 97 07/07/17 15:44 97.4 07/07/17 14:55 Nasal Cannula 2.0 07/07/17 14:55 Nasal Cannula 2.0 28 07/07/17 11:59 97.4 85 21 186/86 97 07/07/17 11:19 163/86 07/07/17 11:19 98.2 07/07/17 10:26 80 22 92 Room Air 21 07/07/17 09:59 79 163/86 07/07/17 07:56 98.2 79 20 163/86 100 07/07/17 07:00 98 Nasal Cannula 2.0 28 07/07/17 07:00 Nasal Cannula 2.0 28 07/07/17 06:08 97.6 80 20 161/85 97 Nasal Cannula 2.0 07/07/17 04:00 97.6 80 20 161/85 97 Nasal Cannula 2.0 07/07/17 01:26 Nasal Cannula 2.0 28 07/07/17 01:26 Nasal Cannula 2.0 28 Intake and Output 07/06/17 07/07/17 19:00 07:00 Intake Total 1140 ml 340 ml Output Total 400 ml 650 ml Balance 740 ml -310 ml Intake Oral 365 ml 240 ml IV Total 775 ml 100 ml Output Urine Total 400 ml 650 ml # Voids 2 Laboratory Tests 07/07/17 07:30: Sodium Level 140, Potassium Level 3.1L, Chloride Level 107, Carbon Dioxide Level 26, Anion Gap 7, Blood Urea Nitrogen 21H, Creatinine 1.2, Estimat Glomerular Filtration Rate , Glucose Level 184H, Uric Acid 4.9, Calcium Level 7.3L, Phosphorus Level 2.2L, Magnesium Level 1.6L, Ferritin 1673H, Total Bilirubin 0.5, Gamma Glutamyl Transpeptidase 30, Aspartate Amino Transf (AST/ SGOT) 47H, Alanine Aminotransferase (ALT/SGPT) 41, Alkaline Phosphatase 85, C- Reactive Protein, Quantitative 16.7H, Pro-B-Type Natriuretic Peptide 1825H, Total Protein 6.7, Albumin 1.6L, Globulin 5.1, Albumin/Globulin Ratio 0.3L, Triglycerides Level 112, Cholesterol Level 94, LDL Cholesterol 55, HDL Cholesterol 26L, Cholesterol/HDL Ratio 3.6 Height (Feet): 5 Height (Inches): 8.00 Weight (Pounds): 295 General Appearance: no apparent distress EENT: normal ENT inspection Neck: normal alignment Cardiovascular: normal peripheral pulses Respiratory/Chest: chest wall non-tender Extremities: non-tender Edema: trace edema Jay Malone Jul 07, 2017 23:04
[2017-07-08] VITALS: BP 142/78
[2017-07-08] MEDS: Ampicillin/Sulbactam Sod 3 GM in NS 110 ML IVPB SCH ×2 (00:10→06:17)
[2017-07-08] MEDS: NovoLOG Insulin Flexpen SUBQ SCH ×4 (00:12→17:27)
[2017-07-08] MEDS: Albuterol/Ipratropium 3ml neb HHN SCH ×4 (01:07→19:23)
[2017-07-08 04:00] VITALS: BP 136/71
[2017-07-08] MEDS: Vancomycin 1250mg/D5W 250ml IVPB SCH (04:30)
[2017-07-08 04:39] LABS: BASOPHILS % (AUTO) 1.7 % (0.0-2.0); EOSINOPHILS % (AUTO) 1.3 % (0.0-3.0); HEMOGLOBIN 8.9 G/DL (12.0-16.0); LYMPHOCYTES % (AUTO) 10.8 % (20.0-45.0); MEAN CORPUSCULAR VOLUME 90 FL (80-99); MONOCYTES % (AUTO) 7.3 % (1.0-10.0); NEUTROPHILS % (AUTO) 78.9 % (45.0-75.0); PLATELET COUNT 151 K/UL (150-450); RED BLOOD COUNT 3.12 M/UL (4.20-5.40); RED CELL DISTRIBUTION WIDTH 13.7 % (11.6-14.8); WHITE BLOOD COUNT 11.4 K/UL (4.8-10.8)
[2017-07-08 05:27] LABS: ALANINE AMINOTRANSFERASE 49 U/L (12-78); ALBUMIN 1.6 G/DL (3.4-5.0); ALBUMIN/GLOBULIN RATIO 0.3 (1.0-2.7); ALKALINE PHOSPHATASE 79 U/L (46-116); ANION GAP 6 mmol/L (5-15); ASPARTATE AMINO TRANSFERASE 46 U/L (15-37); BILIRUBIN,TOTAL 0.5 MG/DL (0.2-1.0); BLOOD UREA NITROGEN 15 mg/dL (7-18); CALCIUM 7.2 MG/DL (8.5-10.1); CARBON DIOXIDE 28 MMOL/L (21-32); CHLORIDE 107 MMOL/L (98-107); CREATININE 1.1 MG/DL (0.55-1.30); SODIUM 141 MMOL/L (136-145)
[2017-07-08] MEDS: Heparin 5000 units/ml inj SUBQ SCH ×3 (06:00→21:51)
[2017-07-08 06:37] LABS: % IRON SATURATION 15 % (15-50); IRON 21 ug/dL (50-175); TOTAL IRON BINDING CAPACITY 136 ug/dL (250-450)
[2017-07-08 08:00] VITALS: BP 135/50
[2017-07-08] MEDS: Docusate 100mg cap ORAL SCH ×2 (08:19→17:26)
[2017-07-08] MEDS: Benazepril 10mg tab ORAL SCH (08:20)
[2017-07-08] MEDS: Cefepime HCl 2 GM in D5W 55 ML IVPB SCH (08:21)
--- NOTE | 2017-07-08 09:52 | Pulmonology Progress Note ---
Assessment/Plan Assessment/Plan ASSESSMENT perforated SB intraabdominal sepsis due to intraabdominal abscess possible bacteremia ( SON)- contaminant vs real s/p exp lap with SB resection, priamry anastomosis, lysis of adhesion and drainage of intraabdominal abscess s/p intubation ( during surgery) s/p extubation asthma Possible aspiration PNA acute anemia requiring blood transfusion MARTA acute renal failure ( due to dehydration, hypotension and infectious process) on CRF( due to HTN and DM, + 3 proteinuria) Hyperglycemia 2 to DM HTN urgency morbid obesity e/lyte imbalance : hypo K hyp Mg PLAN OF CARE MS floor IV abx, Fup with ID rec O2 HHN prn no evidence of asthma exacerbation fup with CXR CT chest noted IS at the bedside and encourage to use OOB to chair and ambulate by PT DVT GI prophylaxis Venous Duplex BLE negative elevated D dimer due to infectious/inflammatory process drain out surgery follows wound care as per surgery pain management tolerates diet , a/emetic prn bowel regimen monitor counts, HH stable after blood transfusion, anemia w/up c/w ID replace K and Mg s/p HD x 1 , creat down to normal , nephro follows renal US negative ARF was likely combination due to hypotension, dehydration due to vomiting and infectious process, resolved after one HD ? dc HD catheter - per nephro monitor renal parameters, lytes, correct as needed avoid nephrotoxic monitor volumes ECHO with pEF 65% and RVSP of 25 HgA1c not at goal-9.8; endo follows, SSI BP management with ANKIT and CCB, add Clonidine prn however caution about ANKIT due to recent hx of ARF, watch creat closely if start rising -dc ANKIT case discussed and evaluated by supervising physician Subjective Allergies: Coded Allergies: No Known Allergies (Unverified , 06/28/17) Subjective leukocytosis trending down, afebrile. less postop pain no n/v/ tolerates diet on RA sat stable, no SOB, no CP workign with PT had BM yesterday Objective Last 24 Hour Vital Signs Date Time Temp Pulse Resp B/P (MAP) Pulse Ox O2 Delivery O2 Flow Rate FiO2 07/08/17 08:20 136/71 07/08/17 08:20 80 136/71 07/08/17 08:00 83 20 100 Nasal Cannula 2.0 28 07/08/17 08:00 Nasal Cannula 2.0 28 07/08/17 08:00 97 Nasal Cannula 2.0 28 07/08/17 08:00 80 20 97 Nasal Cannula 2.0 28 07/08/17 08:00 98.1 80 18 135/50 96 Nasal Cannula 2.0 07/08/17 04:00 98.1 80 18 136/71 94 Nasal Cannula 2.0 07/08/17 00:45 83 20 100 Nasal Cannula 2.0 28 07/08/17 00:40 82 20 98 Nasal Cannula 2.0 28 07/08/17 00:00 97.6 81 18 142/78 96 Nasal Cannula 2.0 07/07/17 20:19 99 Nasal Cannula 2.0 28 07/07/17 20:19 Nasal Cannula 2.0 28 07/07/17 20:05 84 20 100 Nasal Cannula 2.0 28 07/07/17 20:00 80 20 98 Nasal Cannula 2.0 28 07/07/17 20:00 97.4 76 18 136/75 95 Nasal Cannula 2.0 07/07/17 16:00 97.8 77 20 167/67 97 07/07/17 15:44 97.4 07/07/17 14:55 Nasal Cannula 2.0 07/07/17 14:55 Nasal Cannula 2.0 28 07/07/17 11:59 97.4 85 21 186/86 97 07/07/17 11:19 163/86 07/07/17 11:19 98.2 07/07/17 10:26 80 22 92 Room Air 21 07/07/17 09:59 79 163/86 Intake and Output 07/07/17 07/08/17 19:00 07:00 Intake Total 560 ml 240 ml Balance 560 ml 240 ml Intake Oral 560 ml 240 ml # Voids 3 2 Objective General Appearance: no acute distress, morbidly obese AA female HEENT: normocephalic, atraumatic, anicteric, mucous membranes moist, PERRL Respiratory/Chest: chest wall non-tender, lungs clear - with moderate air intake , no respiratory distress, no accessory muscle use Cardiovascular: normal peripheral pulses, regular rhythm, no JVD Abdomen: normal bowel sounds, soft, non tender, non distended Genitourinary: normal external genitalia Extremities: no edema, pedal pulses normal Neurologic/Psychiatric: no motor/sensory deficits, alert, oriented x 3, responsive Musculoskeletal: normal muscle bulk Microbiology Date/Time Source Procedure Growth Status 07/06/17 16:00 Blood Blood Culture - Preliminary NO GROWTH AFTER 24 HOURS Resulted 07/06/17 15:48 Blood Blood Culture - Preliminary NO GROWTH AFTER 24 HOURS Resulted Laboratory Tests 07/08/17 04:10: White Blood Count 11.4H, Red Blood Count 3.12L, Hemoglobin 8.9L, Hematocrit 28.0L, Mean Corpuscular Volume 90, Mean Corpuscular Hemoglobin 28.5, Mean Corpuscular Hemoglobin Concent 31.8L, Red Cell Distribution Width 13.7, Platelet Count 151, Mean Platelet Volume 8.8, Neutrophils (%) (Auto) 78.9H, Lymphocytes (%) (Auto) 10.8L, Monocytes (%) (Auto) 7.3, Eosinophils (%) (Auto) 1.3, Basophils (%) (Auto) 1.7, Sodium Level 141, Potassium Level 3.0L, Chloride Level 107, Carbon Dioxide Level 28, Anion Gap 6, Blood Urea Nitrogen 15, Creatinine 1.1, Estimat Glomerular Filtration Rate , Glucose Level 131H, Uric Acid 4.5, Calcium Level 7.2L, Phosphorus Level 3.0, Magnesium Level 1.6L, Iron Level 21L, Total Iron Binding Capacity 136L, Percent Iron Saturation 15, Unsaturated Iron Binding 115, Total Bilirubin 0.5, Gamma Glutamyl Transpeptidase 30, Aspartate Amino Transf (AST/SGOT) 46H, Alanine Aminotransferase (ALT/SGPT) 49, Alkaline Phosphatase 79, C-Reactive Protein, Quantitative 15.2H, Pro-B-Type Natriuretic Peptide 1614H, Total Protein 6.7, Albumin 1.6L, Globulin 5.1, Albumin/Globulin Ratio 0.3L, Vitamin B12 Level > 2000H, Folate 5.2L, Vancomycin Level Trough 22.5H, Cryptococcus Antigen [Pending ] Current Medications Medications (Trade) Dose Ordered Sig/Teresa Route PRN Reason Start Time Stop Time Status Last Admin Dose Admin Acetaminophen (Tylenol) 650 mg Q4H PRN ORAL Mild Pain/Temp > 100.5 07/05/17 14:15 08/04/17 14:14 Albuterol/ Ipratropium (Albuterol/ Ipratropium) 3 ml Q4H PRN HHN Shortness of Breath 07/06/17 12:15 07/11/17 12:14 Albuterol/ Ipratropium (Albuterol/ Ipratropium) 3 ml Q6HRT HHN 07/06/17 13:00 07/11/17 12:59 07/08/17 08:30 Amlodipine Besylate (Norvasc) 2.5 mg DAILY ORAL 07/07/17 10:00 08/06/17 09:59 07/08/17 08:20 Ampicillin Sodium/ Sulbactam Sodium 3 gm/Sodium Chloride 110 ml @ 220 mls/hr Q6HR IVPB 07/04/17 19:00 07/11/17 18:59 07/08/17 06:17 Benazepril HCl (Lotensin) 10 mg DAILY ORAL 07/07/17 10:00 08/06/17 09:59 07/08/17 08:20 Cefepime HCl 2 gm/ Dextrose 55 ml @ 110 mls/hr Q24H IVPB 07/05/17 09:00 07/12/17 08:59 07/08/17 08:21 Chlorhexidine Gluconate (Susan-Hex 2%) 1 applic Q24H TOPIC 07/04/17 20:00 08/01/17 19:59 07/07/17 20:00 Clonidine HCl (Catapres) 0.1 mg EVERY 6 HOURS PRN ORAL SBP above 160 07/07/17 13:45 08/06/17 13:44 Dextrose (Dextrose 50%) STAT PRN IV Hypoglycemia 07/05/17 10:00 07/28/17 09:59 Docusate Sodium (Colace) 100 mg TWICE A DAY ORAL 07/05/17 09:00 08/04/17 08:59 07/08/17 08:19 Ergocalciferol (Drisdol) 50,000 intlu QWEEK ORAL 07/06/17 11:00 08/05/17 10:59 07/06/17 12:58 Fluconazole/ Sodium Chloride 200 ml @ 100 mls/hr Q24H IV 07/05/17 12:00 07/11/17 11:59 07/07/17 12:16 Heparin Sodium (Porcine) (Heparin 5000 units/ml) 5,000 units EVERY 8 HOURS SUBQ 07/04/17 22:00 08/01/17 13:59 07/05/17 06:11 Hydromorphone HCl (Dilaudid) 1 mg Q3H PRN IVP pain score 4-6 07/06/17 20:15 07/13/17 20:14 07/08/17 08:19 Insulin Aspart (NovoLOG) Q6HR SUBQ 07/04/17 18:00 08/03/17 17:59 07/08/17 06:21 Metoclopramide HCl (Reglan) 5 mg Q6H PRN ORAL Nausea & Vomiting 07/07/17 12:30 08/06/17 12:29 Ondansetron HCl (Zofran) 4 mg Q6H PRN IVP Nausea & Vomiting 07/04/17 22:15 07/29/17 22:14 Pantoprazole (Protonix) 40 mg DAILY ORAL 07/06/17 09:00 08/05/17 08:59 07/08/17 08:20 Tramadol HCl (Ultram) 100 mg Q6H PRN ORAL For Pain 07/05/17 14:15 07/12/17 14:14 07/07/17 09:58 Vancomycin HCl (Vanco rx to dose) 1 ea DAILY PRN MISC Per rx protocol 07/06/17 14:45 08/05/17 14:44 Vancomycin/Sodium Chloride 250 ml @ 166.667 mls/hr Q12HR IVPB 07/08/17 21:00 07/13/17 20:59 Jose (Kenneth)Racquel NP Jul 08, 2017 09:52
--- NOTE | 2017-07-08 10:39 | GI Progress Note ---
Assessment/Plan Problems: (1) Anemia ICD Codes: D64.9 - Anemia, unspecified SNOMED: 520026320 (2) Small bowel perforation ICD Codes: K63.1 - Perforation of intestine (nontraumatic) SNOMED: 979038813 (3) Obesity ICD Codes: E66.9 - Obesity, unspecified SNOMED: 697879755 (4) Perforated bowel ICD Codes: K63.1 - Perforation of intestine (nontraumatic) SNOMED: 60879183 (5) Postoperative ileus ICD Codes: K91.89 - Other postprocedural complications and disorders of digestive system; K56.7 - Ileus, unspecified SNOMED: 252623225, 372907429 (6) S/P exploratory laparotomy ICD Codes: Z98.890 - Other specified postprocedural states SNOMED: 17884627, 93773933, 670909298 Status: stable Status Narrative Discussed with Dr. Mckeon. Assessment/Plan CT AP reviewed > perforated small bowel, see full report. fu surgical recs >> s/p Exploratory Laparotomy, Small Bowel resection with primary anastomosis, Lysis of adhesions , Drainage of intra abdominal abscess BAKARI removed by surgery post op care PT evaluation today on diet per surgery pain mgmt PRN blood transfusion abx fu labs Subjective Subjective abdominal pain improved passing flatus on diet working with PT today Objective Last 24 Hour Vital Signs Date Time Temp Pulse Resp B/P (MAP) Pulse Ox O2 Delivery O2 Flow Rate FiO2 07/08/17 08:20 136/71 07/08/17 08:20 80 136/71 07/08/17 08:00 83 20 100 Nasal Cannula 2.0 07/08/17 08:00 Nasal Cannula 2.0 28 07/08/17 08:00 97 Nasal Cannula 2.0 28 07/08/17 08:00 80 20 97 Nasal Cannula 2.0 28 07/08/17 08:00 98.1 80 18 135/50 96 Nasal Cannula 2.0 07/08/17 04:00 98.1 80 18 136/71 94 Nasal Cannula 2.0 07/08/17 00:45 83 20 100 Nasal Cannula 2.0 28 07/08/17 00:40 82 20 98 Nasal Cannula 2.0 28 07/08/17 00:00 97.6 81 18 142/78 96 Nasal Cannula 2.0 07/07/17 20:19 99 Nasal Cannula 2.0 07/07/17 20:19 Nasal Cannula 2.0 07/07/17 20:05 84 20 100 Nasal Cannula 2.0 07/07/17 20:00 80 20 98 Nasal Cannula 2.0 07/07/17 20:00 97.4 76 18 136/75 95 Nasal Cannula 2.0 07/07/17 16:00 97.8 77 20 167/67 97 07/07/17 15:44 97.4 07/07/17 14:55 Nasal Cannula 2.0 07/07/17 14:55 Nasal Cannula 2.0 07/07/17 11:59 97.4 85 21 186/86 97 07/07/17 11:19 163/86 07/07/17 11:19 98.2 Intake and Output 07/07/17 07/08/17 19:00 07:00 Intake Total 560 ml 240 ml Balance 560 ml 240 ml Intake Oral 560 ml 240 ml # Voids 3 2 Laboratory Tests Test 07/08/17 04:10 White Blood Count 11.4 K/UL (4.8-10.8) H Red Blood Count 3.12 M/UL (4.20-5.40) L Hemoglobin 8.9 G/DL (12.0-16.0) L Hematocrit 28.0 % (37.0-47.0) L Mean Corpuscular Volume 90 FL (80-99) Mean Corpuscular Hemoglobin 28.5 PG (27.0-31.0) Mean Corpuscular Hemoglobin Concent 31.8 G/DL (32.0-36.0) L Red Cell Distribution Width 13.7 % (11.6-14.8) Platelet Count 151 K/UL (150-450) Mean Platelet Volume 8.8 FL (6.5-10.1) Neutrophils (%) (Auto) 78.9 % (45.0-75.0) H Lymphocytes (%) (Auto) 10.8 % (20.0-45.0) L Monocytes (%) (Auto) 7.3 % (1.0-10.0) Eosinophils (%) (Auto) 1.3 % (0.0-3.0) Basophils (%) (Auto) 1.7 % (0.0-2.0) Sodium Level 141 MMOL/L (136-145) Potassium Level 3.0 MMOL/L (3.5-5.1) L Chloride Level 107 MMOL/L (98-107) Carbon Dioxide Level 28 MMOL/L (21-32) Anion Gap 6 mmol/L (5-15) Blood Urea Nitrogen 15 mg/dL (7-18) Creatinine 1.1 MG/DL (0.55-1.30) Estimat Glomerular Filtration Rate mL/min (>60) Glucose Level 131 MG/DL (74-106) H Uric Acid 4.5 MG/DL (2.6-7.2) Calcium Level 7.2 MG/DL (8.5-10.1) L Phosphorus Level 3.0 MG/DL (2.5-4.9) Magnesium Level 1.6 MG/DL (1.8-2.4) L Iron Level 21 ug/dL (50-175) L Total Iron Binding Capacity 136 ug/dL (250-450) L Percent Iron Saturation 15 % (15-50) Unsaturated Iron Binding 115 ug/dL (112-346) Total Bilirubin 0.5 MG/DL (0.2-1.0) Gamma Glutamyl Transpeptidase 30 U/L (5-85) Aspartate Amino Transf (AST/SGOT) 46 U/L (15-37) H Alanine Aminotransferase (ALT/SGPT) 49 U/L (12-78) Alkaline Phosphatase 79 U/L (46-116) C-Reactive Protein, Quantitative 15.2 mg/dL (0.00-0.90) H Pro-B-Type Natriuretic Peptide 1614 pg/mL (0-125) H Total Protein 6.7 G/DL (6.4-8.2) Albumin 1.6 G/DL (3.4-5.0) L Globulin 5.1 g/dL Albumin/Globulin Ratio 0.3 (1.0-2.7) L Vitamin B12 Level > 2000 PG/ML (193-986) H Folate 5.2 NG/ML (8.6-58.9) L Vancomycin Level Trough 22.5 ug/mL (5.0-12.0) H Cryptococcus Antigen Pending Height (Feet): 5 Height (Inches): 8.00 Weight (Pounds): 292 General Appearance: WD/WN, no apparent distress, alert Cardiovascular: normal rate Respiratory/Chest: normal breath sounds, no respiratory distress Abdominal Exam: normal bowel sounds, non tender, soft Extremities: normal range of motion, non-tender Luisa Pradhan N.P. Jul 08, 2017 10:39
[2017-07-08] MEDS ORDERED: Potassium Chloride 50 MEQ in Sodium Chloride 500ML 550 ML IVPB ONE (11:30)
--- NOTE | 2017-07-08 11:53 | Infectious Diseases Prog Note ---
Assessment/Plan Assessment/Plan ASSESSMENT: The patient is a 71-year-old female with Sepsis ( intra-abd ) -Status post repair of small bowel perforation on 06/29/2017 Abscess Cx Enterococcus and C. Lusitaniae Lower Abd wnd infection : purulent discharge Wnd Cx : Enterococcus and yeast , PSA , C albicans repeat WndCx: Lorrie Staph bacteremia- ?real vs contaminant -07/04/ Staph sp (from same set; ID and sensi pending); 07/06 BCx NTD x4 Possible aspiration pneumonia. C- CT: Right pleural effusion, Left lower lobe infiltrate versus volume loss Scx : Trichosporon ( Colonizer vs Contaminant ) pt does not have ImmSupp risk factor low grade fever, SP leukocytosis - improving Elevated inflammatory markers improving Status post cholecystectomy on 06/26/2017 Anemia. Acute renal insufficiency. improving Ventilator-dependent respiratory failure. History of laparoscopic cholecystectomy on 06/26/2017. Perforated small bowel obstruction, status post small-bowel resection and primary anastomosis on 06/29/2017 Hypertension History of back pain. Diabetes PLAN: Switch Unasyn and Cefepime d# 5 (abx d #9/10-14) to Zozyn for Enterococcus and PsA and Diflucan d# 5/7-10 for abscess/wound infection and IV Vancomycin #3 pending ID and sensi Staph bacteremia and repeat Bcx Zosyn day # 5 and vancomycin day # 3 Monitor CBC. Monitor BMP. Monitor chest x-ray. Monitor cultures (blood ), repeat Crypt Ag (as a marker of invasive Trichosporon): P Subjective Allergies: Coded Allergies: No Known Allergies (Unverified , 06/28/17) Subjective afebrile leukocytosis mildly improved bacteremic with staph sp, repaet bcx pending Objective Vital Signs Last 24 Hour Vital Signs Date Time Temp Pulse Resp B/P (MAP) Pulse Ox O2 Delivery O2 Flow Rate FiO2 07/08/17 08:20 136/71 07/08/17 08:20 80 136/71 07/08/17 08:00 83 20 100 Nasal Cannula 2.0 28 07/08/17 08:00 Nasal Cannula 2.0 28 07/08/17 08:00 97 Nasal Cannula 2.0 28 07/08/17 08:00 80 20 97 Nasal Cannula 2.0 28 07/08/17 08:00 98.1 80 18 135/50 96 Nasal Cannula 2.0 07/08/17 04:00 98.1 80 18 136/71 94 Nasal Cannula 2.0 07/08/17 00:45 83 20 100 Nasal Cannula 2.0 28 07/08/17 00:40 82 20 98 Nasal Cannula 2.0 28 07/08/17 00:00 97.6 81 18 142/78 96 Nasal Cannula 2.0 07/07/17 20:19 99 Nasal Cannula 2.0 28 07/07/17 20:19 Nasal Cannula 2.0 28 07/07/17 20:05 84 20 100 Nasal Cannula 2.0 28 07/07/17 20:00 80 20 98 Nasal Cannula 2.0 28 07/07/17 20:00 97.4 76 18 136/75 95 Nasal Cannula 2.0 07/07/17 16:00 97.8 77 20 167/67 97 07/07/17 15:44 97.4 07/07/17 14:55 Nasal Cannula 2.0 07/07/17 14:55 Nasal Cannula 2.0 28 07/07/17 11:59 97.4 85 21 186/86 97 Height (Feet): 5 Height (Inches): 8.00 Weight (Pounds): 292 Objective General Appearance: no apparent distress EENT: normal ENT inspection Neck: normal alignment Cardiovascular: normal rate Respiratory/Chest: chest wall non-tender Abdomen: tender around surgical incisions, bandages on place Edema: trace edema Microbiology Date/Time Source Procedure Growth Status 07/06/17 16:00 Blood Blood Culture - Preliminary NO GROWTH AFTER 24 HOURS Resulted 07/06/17 15:48 Blood Blood Culture - Preliminary NO GROWTH AFTER 24 HOURS Resulted Laboratory Tests Test 07/08/17 04:10 White Blood Count 11.4 K/UL (4.8-10.8) H Red Blood Count 3.12 M/UL (4.20-5.40) L Hemoglobin 8.9 G/DL (12.0-16.0) L Hematocrit 28.0 % (37.0-47.0) L Mean Corpuscular Volume 90 FL (80-99) Mean Corpuscular Hemoglobin 28.5 PG (27.0-31.0) Mean Corpuscular Hemoglobin Concent 31.8 G/DL (32.0-36.0) L Red Cell Distribution Width 13.7 % (11.6-14.8) Platelet Count 151 K/UL (150-450) Mean Platelet Volume 8.8 FL (6.5-10.1) Neutrophils (%) (Auto) 78.9 % (45.0-75.0) H Lymphocytes (%) (Auto) 10.8 % (20.0-45.0) L Monocytes (%) (Auto) 7.3 % (1.0-10.0) Eosinophils (%) (Auto) 1.3 % (0.0-3.0) Basophils (%) (Auto) 1.7 % (0.0-2.0) Sodium Level 141 MMOL/L (136-145) Potassium Level 3.0 MMOL/L (3.5-5.1) L Chloride Level 107 MMOL/L (98-107) Carbon Dioxide Level 28 MMOL/L (21-32) Anion Gap 6 mmol/L (5-15) Blood Urea Nitrogen 15 mg/dL (7-18) Creatinine 1.1 MG/DL (0.55-1.30) Estimat Glomerular Filtration Rate mL/min (>60) Glucose Level 131 MG/DL (74-106) H Uric Acid 4.5 MG/DL (2.6-7.2) Calcium Level 7.2 MG/DL (8.5-10.1) L Phosphorus Level 3.0 MG/DL (2.5-4.9) Magnesium Level 1.6 MG/DL (1.8-2.4) L Iron Level 21 ug/dL (50-175) L Total Iron Binding Capacity 136 ug/dL (250-450) L Percent Iron Saturation 15 % (15-50) Unsaturated Iron Binding 115 ug/dL (112-346) Total Bilirubin 0.5 MG/DL (0.2-1.0) Gamma Glutamyl Transpeptidase 30 U/L (5-85) Aspartate Amino Transf (AST/SGOT) 46 U/L (15-37) H Alanine Aminotransferase (ALT/SGPT) 49 U/L (12-78) Alkaline Phosphatase 79 U/L (46-116) C-Reactive Protein, Quantitative 15.2 mg/dL (0.00-0.90) H Pro-B-Type Natriuretic Peptide 1614 pg/mL (0-125) H Total Protein 6.7 G/DL (6.4-8.2) Albumin 1.6 G/DL (3.4-5.0) L Globulin 5.1 g/dL Albumin/Globulin Ratio 0.3 (1.0-2.7) L Vitamin B12 Level > 2000 PG/ML (193-986) H Folate 5.2 NG/ML (8.6-58.9) L Vancomycin Level Trough 22.5 ug/mL (5.0-12.0) H Cryptococcus Antigen Pending Current Medications Medications (Trade) Dose Ordered Sig/Teresa Route PRN Reason Start Time Stop Time Status Last Admin Dose Admin Acetaminophen (Tylenol) 650 mg Q4H PRN ORAL Mild Pain/Temp > 100.5 07/05/17 14:15 08/04/17 14:14 Albuterol/ Ipratropium (Albuterol/ Ipratropium) 3 ml Q4H PRN HHN Shortness of Breath 07/06/17 12:15 07/11/17 12:14 Albuterol/ Ipratropium (Albuterol/ Ipratropium) 3 ml Q6HRT HHN 07/06/17 13:00 07/11/17 12:59 07/08/17 08:30 Amlodipine Besylate (Norvasc) 2.5 mg DAILY ORAL 07/07/17 10:00 08/06/17 09:59 07/08/17 08:20 Ampicillin Sodium/ Sulbactam Sodium 3 gm/Sodium Chloride 110 ml @ 220 mls/hr Q6HR IVPB 07/04/17 19:00 07/11/17 18:59 07/08/17 06:17 Benazepril HCl (Lotensin) 10 mg DAILY ORAL 07/07/17 10:00 08/06/17 09:59 07/08/17 08:20 Cefepime HCl 2 gm/ Dextrose 55 ml @ 110 mls/hr Q24H IVPB 07/05/17 09:00 07/12/17 08:59 07/08/17 08:21 Chlorhexidine Gluconate (Susan-Hex 2%) 1 applic Q24H TOPIC 07/04/17 20:00 08/01/17 19:59 07/07/17 20:00 Clonidine HCl (Catapres) 0.1 mg EVERY 6 HOURS PRN ORAL SBP above 160 07/07/17 13:45 08/06/17 13:44 Dextrose (Dextrose 50%) STAT PRN IV Hypoglycemia 07/05/17 10:00 07/28/17 09:59 Docusate Sodium (Colace) 100 mg TWICE A DAY ORAL 07/05/17 09:00 08/04/17 08:59 07/08/17 08:19 Ergocalciferol (Drisdol) 50,000 intlu QWEEK ORAL 07/06/17 11:00 08/05/17 10:59 07/06/17 12:58 Fluconazole/ Sodium Chloride 200 ml @ 100 mls/hr Q24H IV 07/05/17 12:00 07/11/17 11:59 07/07/17 12:16 Heparin Sodium (Porcine) (Heparin 5000 units/ml) 5,000 units EVERY 8 HOURS SUBQ 07/04/17 22:00 08/01/17 13:59 07/05/17 06:11 Hydromorphone HCl (Dilaudid) 1 mg Q3H PRN IVP pain score 4-6 07/06/17 20:15 07/13/17 20:14 07/08/17 08:19 Insulin Aspart (NovoLOG) Q6HR SUBQ 07/04/17 18:00 08/03/17 17:59 07/08/17 06:21 Magnesium Sulfate 100 ml @ 100 mls/hr Q1H IVPB 07/08/17 10:00 07/08/17 13:59 07/08/17 10:36 Metoclopramide HCl (Reglan) 5 mg Q6H PRN ORAL Nausea & Vomiting 07/07/17 12:30 08/06/17 12:29 Ondansetron HCl (Zofran) 4 mg Q6H PRN IVP Nausea & Vomiting 07/04/17 22:15 07/29/17 22:14 Pantoprazole (Protonix) 40 mg DAILY ORAL 07/06/17 09:00 08/05/17 08:59 07/08/17 08:20 Potassium Chloride 50 meq/ Sodium Chloride 575 ml @ 115 mls/hr ONCE ONCE IVPB 07/08/17 11:30 07/08/17 16:29 Tramadol HCl (Ultram) 100 mg Q6H PRN ORAL For Pain 07/05/17 14:15 12/31/17 14:14 07/07/17 09:58 Vancomycin HCl (Vanco rx to dose) 1 ea DAILY PRN MISC Per rx protocol 07/06/17 14:45 08/05/17 14:44 Vancomycin/Sodium Chloride 250 ml @ 166.667 mls/hr Q12HR IVPB 07/08/17 21:00 07/13/17 20:59 Dahiana Lucero M.D. Jul 08, 2017 11:53
[2017-07-08 12:00] VITALS: BP 137/78
[2017-07-08] MEDS: Fluconazole 100mg tab ORAL SCH (12:15)
--- NOTE | 2017-07-08 12:55 | General Surgery Progress Note ---
General Surgery-Progress Note Subjective Procedure Performed Exploratory Laparotomy, Small Bowel resection with primary anastomosis, Lysis of adhesions , Drainage of intra abdominal abscess Symptoms: improved, BM Objective Last 24 Hour Vital Signs Date Time Temp Pulse Resp B/P (MAP) Pulse Ox O2 Delivery O2 Flow Rate FiO2 07/08/17 08:20 136/71 07/08/17 08:20 80 136/71 07/08/17 08:00 83 20 100 Nasal Cannula 2.0 28 07/08/17 08:00 Nasal Cannula 2.0 28 07/08/17 08:00 97 Nasal Cannula 2.0 28 07/08/17 08:00 80 20 97 Nasal Cannula 2.0 28 07/08/17 08:00 98.1 80 18 135/50 96 Nasal Cannula 2.0 07/08/17 04:00 98.1 80 18 136/71 94 Nasal Cannula 2.0 07/08/17 00:45 83 20 100 Nasal Cannula 2.0 28 07/08/17 00:40 82 20 98 Nasal Cannula 2.0 28 07/08/17 00:00 97.6 81 18 142/78 96 Nasal Cannula 2.0 07/07/17 20:19 99 Nasal Cannula 2.0 28 07/07/17 20:19 Nasal Cannula 2.0 28 07/07/17 20:05 84 20 100 Nasal Cannula 2.0 28 07/07/17 20:00 80 20 98 Nasal Cannula 2.0 28 07/07/17 20:00 97.4 76 18 136/75 95 Nasal Cannula 2.0 07/07/17 16:00 97.8 77 20 167/67 97 07/07/17 15:44 97.4 07/07/17 14:55 Nasal Cannula 2.0 07/07/17 14:55 Nasal Cannula 2.0 28 I&O Intake and Output 07/07/17 07/08/17 19:00 07:00 Intake Total 560 ml 240 ml Balance 560 ml 240 ml Intake Oral 560 ml 240 ml # Voids 3 2 Drains: none Respiratory: clear Abdomen: soft, non-tender, present bowel sounds Extremities: no tenderness Laboratory Tests Test 07/08/17 04:10 White Blood Count 11.4 K/UL (4.8-10.8) H Red Blood Count 3.12 M/UL (4.20-5.40) L Hemoglobin 8.9 G/DL (12.0-16.0) L Hematocrit 28.0 % (37.0-47.0) L Mean Corpuscular Volume 90 FL (80-99) Mean Corpuscular Hemoglobin 28.5 PG (27.0-31.0) Mean Corpuscular Hemoglobin Concent 31.8 G/DL (32.0-36.0) L Red Cell Distribution Width 13.7 % (11.6-14.8) Platelet Count 151 K/UL (150-450) Mean Platelet Volume 8.8 FL (6.5-10.1) Neutrophils (%) (Auto) 78.9 % (45.0-75.0) H Lymphocytes (%) (Auto) 10.8 % (20.0-45.0) L Monocytes (%) (Auto) 7.3 % (1.0-10.0) Eosinophils (%) (Auto) 1.3 % (0.0-3.0) Basophils (%) (Auto) 1.7 % (0.0-2.0) Sodium Level 141 MMOL/L (136-145) Potassium Level 3.0 MMOL/L (3.5-5.1) L Chloride Level 107 MMOL/L (98-107) Carbon Dioxide Level 28 MMOL/L (21-32) Anion Gap 6 mmol/L (5-15) Blood Urea Nitrogen 15 mg/dL (7-18) Creatinine 1.1 MG/DL (0.55-1.30) Estimat Glomerular Filtration Rate mL/min (>60) Glucose Level 131 MG/DL (74-106) H Uric Acid 4.5 MG/DL (2.6-7.2) Calcium Level 7.2 MG/DL (8.5-10.1) L Phosphorus Level 3.0 MG/DL (2.5-4.9) Magnesium Level 1.6 MG/DL (1.8-2.4) L Iron Level 21 ug/dL (50-175) L Total Iron Binding Capacity 136 ug/dL (250-450) L Percent Iron Saturation 15 % (15-50) Unsaturated Iron Binding 115 ug/dL (112-346) Total Bilirubin 0.5 MG/DL (0.2-1.0) Gamma Glutamyl Transpeptidase 30 U/L (5-85) Aspartate Amino Transf (AST/SGOT) 46 U/L (15-37) H Alanine Aminotransferase (ALT/SGPT) 49 U/L (12-78) Alkaline Phosphatase 79 U/L (46-116) C-Reactive Protein, Quantitative 15.2 mg/dL (0.00-0.90) H Pro-B-Type Natriuretic Peptide 1614 pg/mL (0-125) H Total Protein 6.7 G/DL (6.4-8.2) Albumin 1.6 G/DL (3.4-5.0) L Globulin 5.1 g/dL Albumin/Globulin Ratio 0.3 (1.0-2.7) L Vitamin B12 Level > 2000 PG/ML (193-986) H Folate 5.2 NG/ML (8.6-58.9) L Vancomycin Level Trough 22.5 ug/mL (5.0-12.0) H Cryptococcus Antigen Pending Assessment Post-op Diagnosis perforated small bowel and intra abdominal abscess Plan Additional Comments continue as before KIRT BECK Jul 08, 2017 12:54
[2017-07-08] MEDS: Piperacillin/Tazobactam 3.375 GM in D5W 55 ML IVPB SCH ×2 (14:32→21:31)
--- NOTE | 2017-07-08 15:44 | Nephrology Progress Note ---
Assessment/Plan Problem List: (1) ELIDIA (acute kidney injury) (2) Obesity (3) Small bowel perforation (4) Hyperglycemia due to type 2 diabetes mellitus (5) Anemia Assessment Renal failure now resolved- dialysed only once extubated- more Anemic Acute renal failure, post op ( done 3 days prior to admit in [facility]) , likely multifactorial including low BP, and dehydration due to vomiting Post surgery again last night, now in ICu intubated, Cr rising Underlying chronic renal failure due to DM and HTN with 3+ Proteinuria dialysed once Other: - Acute abdomen post inpatient surgery , Lap Veronika. - Diabetes type 2, uncontrolled. - Thrombocytopenia. - Abnormal liver function test. Plan Plan: DC IV DC po Iron Mag supplement Remove dialysis cath HD 07/02 , monitor renal parameters- Cr remains low antibiotics Monitor renal parameters Avoid Nephrotoxics- Stopped TORADOL for pain monitor renal parameters antibiotics gastric support Subjective ROS Limited/Unobtainable: No Constitutional: Reports: malaise, weakness Objective Objective Last 24 Hour Vital Signs Date Time Temp Pulse Resp B/P (MAP) Pulse Ox O2 Delivery O2 Flow Rate FiO2 07/08/17 14:32 185/70 07/08/17 13:02 8 20 100 Nasal Cannula 2.0 28 07/08/17 13:01 84 20 97 Nasal Cannula 2.0 28 07/08/17 12:00 98.1 77 18 137/78 96 Nasal Cannula 2.0 07/08/17 08:20 136/71 07/08/17 08:20 80 136/71 07/08/17 08:00 83 20 100 Nasal Cannula 2.0 28 07/08/17 08:00 Nasal Cannula 2.0 28 07/08/17 08:00 97 Nasal Cannula 2.0 28 07/08/17 08:00 80 20 97 Nasal Cannula 2.0 28 07/08/17 08:00 98.1 80 18 135/50 96 Nasal Cannula 2.0 07/08/17 04:00 98.1 80 18 136/71 94 Nasal Cannula 2.0 07/08/17 00:45 83 20 100 Nasal Cannula 2.0 28 07/08/17 00:40 82 20 98 Nasal Cannula 2.0 28 07/08/17 00:00 97.6 81 18 142/78 96 Nasal Cannula 2.0 07/07/17 20:19 99 Nasal Cannula 2.0 28 07/07/17 20:19 Nasal Cannula 2.0 07/07/17 20:05 84 20 100 Nasal Cannula 2.0 07/07/17 20:00 80 20 98 Nasal Cannula 2.0 07/07/17 20:00 97.4 76 18 136/75 95 Nasal Cannula 2.0 07/07/17 16:00 97.8 77 20 167/67 97 07/07/17 15:44 97.4 Intake and Output 07/07/17 07/08/17 19:00 07:00 Intake Total 560 ml 240 ml Balance 560 ml 240 ml Intake Oral 560 ml 240 ml # Voids 3 2 Laboratory Tests 07/08/17 04:10: White Blood Count 11.4H, Red Blood Count 3.12L, Hemoglobin 8.9L, Hematocrit 28.0L, Mean Corpuscular Volume 90, Mean Corpuscular Hemoglobin 28.5, Mean Corpuscular Hemoglobin Concent 31.8L, Red Cell Distribution Width 13.7, Platelet Count 151, Mean Platelet Volume 8.8, Neutrophils (%) (Auto) 78.9H, Lymphocytes (%) (Auto) 10.8L, Monocytes (%) (Auto) 7.3, Eosinophils (%) (Auto) 1.3, Basophils (%) (Auto) 1.7, Sodium Level 141, Potassium Level 3.0L, Chloride Level 107, Carbon Dioxide Level 28, Anion Gap 6, Blood Urea Nitrogen 15, Creatinine 1.1, Estimat Glomerular Filtration Rate , Glucose Level 131H, Uric Acid 4.5, Calcium Level 7.2L, Phosphorus Level 3.0, Magnesium Level 1.6L, Iron Level 21L, Total Iron Binding Capacity 136L, Percent Iron Saturation 15, Unsaturated Iron Binding 115, Total Bilirubin 0.5, Gamma Glutamyl Transpeptidase 30, Aspartate Amino Transf (AST/SGOT) 46H, Alanine Aminotransferase (ALT/SGPT) 49, Alkaline Phosphatase 79, C-Reactive Protein, Quantitative 15.2H, Pro-B-Type Natriuretic Peptide 1614H, Total Protein 6.7, Albumin 1.6L, Globulin 5.1, Albumin/Globulin Ratio 0.3L, Vitamin B12 Level > 2000H, Folate 5.2L, Vancomycin Level Trough 22.5H, Cryptococcus Antigen [Pending ] Height (Feet): 5 Height (Inches): 8.00 Weight (Pounds): 292 General Appearance: no apparent distress, lethargic Cardiovascular: normal rate Respiratory/Chest: decreased breath sounds Abdomen: soft Objective no change ANU FAIRBANKS Jul 08, 2017 15:44
[2017-07-08 16:00] VITALS: BP 132/68
--- NOTE | 2017-07-08 17:06 | General Progress Note ---
Assessment/Plan Assessment/Plan Assessment/Plan 1. Leukocytosis 2/2 infection, ID following. On antibiotics, improving 2- RLL abdominal Abcess secondary to Iatrogenic SB perforation 3- S/P Expl Lap and SB resection with Primary Anastomosis. 4. Anemia s/p transfusion. Monitor H/H 5. Renal failure, resolved after HD 6. Thrombocytopenia. Resolved 7. Abnormal liver function test. 8. Asthma Subjective Hematologic/Lymphatic: Reports: anemia Allergies: Coded Allergies: No Known Allergies (Unverified , 06/28/17) All Systems: reviewed and negative except above Subjective leukocytosis down Objective Last 24 Hour Vital Signs Date Time Temp Pulse Resp B/P (MAP) Pulse Ox O2 Delivery O2 Flow Rate FiO2 07/08/17 16:00 99.0 89 19 132/68 97 07/08/17 14:32 185/70 07/08/17 13:02 8 20 100 Nasal Cannula 2.0 28 07/08/17 13:01 84 20 97 Nasal Cannula 2.0 28 07/08/17 12:00 98.1 77 18 137/78 96 Nasal Cannula 2.0 07/08/17 08:20 136/71 07/08/17 08:20 80 136/71 07/08/17 08:00 83 20 100 Nasal Cannula 2.0 28 07/08/17 08:00 Nasal Cannula 2.0 28 07/08/17 08:00 97 Nasal Cannula 2.0 28 07/08/17 08:00 80 20 97 Nasal Cannula 2.0 28 07/08/17 08:00 98.1 80 18 135/50 96 Nasal Cannula 2.0 07/08/17 04:00 98.1 80 18 136/71 94 Nasal Cannula 2.0 07/08/17 00:45 83 20 100 Nasal Cannula 2.0 28 07/08/17 00:40 82 20 98 Nasal Cannula 2.0 28 07/08/17 00:00 97.6 81 18 142/78 96 Nasal Cannula 2.0 07/07/17 20:19 99 Nasal Cannula 2.0 28 07/07/17 20:19 Nasal Cannula 2.0 28 07/07/17 20:05 84 20 100 Nasal Cannula 2.0 28 07/07/17 20:00 80 20 98 Nasal Cannula 2.0 28 07/07/17 20:00 97.4 76 18 136/75 95 Nasal Cannula 2.0 Intake and Output 07/07/17 07/08/17 19:00 07:00 Intake Total 560 ml 240 ml Balance 560 ml 240 ml Intake Oral 560 ml 240 ml # Voids 3 2 Laboratory Tests 07/08/17 04:10: White Blood Count 11.4H, Red Blood Count 3.12L, Hemoglobin 8.9L, Hematocrit 28.0L, Mean Corpuscular Volume 90, Mean Corpuscular Hemoglobin 28.5, Mean Corpuscular Hemoglobin Concent 31.8L, Red Cell Distribution Width 13.7, Platelet Count 151, Mean Platelet Volume 8.8, Neutrophils (%) (Auto) 78.9H, Lymphocytes (%) (Auto) 10.8L, Monocytes (%) (Auto) 7.3, Eosinophils (%) (Auto) 1.3, Basophils (%) (Auto) 1.7, Sodium Level 141, Potassium Level 3.0L, Chloride Level 107, Carbon Dioxide Level 28, Anion Gap 6, Blood Urea Nitrogen 15, Creatinine 1.1, Estimat Glomerular Filtration Rate , Glucose Level 131H, Uric Acid 4.5, Calcium Level 7.2L, Phosphorus Level 3.0, Magnesium Level 1.6L, Iron Level 21L, Total Iron Binding Capacity 136L, Percent Iron Saturation 15, Unsaturated Iron Binding 115, Total Bilirubin 0.5, Gamma Glutamyl Transpeptidase 30, Aspartate Amino Transf (AST/SGOT) 46H, Alanine Aminotransferase (ALT/SGPT) 49, Alkaline Phosphatase 79, C-Reactive Protein, Quantitative 15.2H, Pro-B-Type Natriuretic Peptide 1614H, Total Protein 6.7, Albumin 1.6L, Globulin 5.1, Albumin/Globulin Ratio 0.3L, Vitamin B12 Level > 2000H, Folate 5.2L, Vancomycin Level Trough 22.5H, Cryptococcus Antigen [Pending ] Height (Feet): 5 Height (Inches): 8.00 Weight (Pounds): 292 General Appearance: no apparent distress EENT: normal ENT inspection Neck: normal alignment Cardiovascular: normal peripheral pulses Extremities: non-tender Neurologic: no motor/sensory deficits Jay Malone Jul 08, 2017 17:06
[2017-07-08] MEDS: Dyna-Hex 2% Top Sol 2oz TOPIC SCH (20:00)
[2017-07-08 20:22] VITALS: BP 143/67
[2017-07-08] MEDS: Vancomycin 750mg/NS 250ml IVPB SCH (20:53)
[2017-07-09] VITALS (7 sets, daily range): BP systolic 137–179; BP diastolic 65–86
--- NOTE | 2017-07-09 00:09 | Diagnostic Imaging Report ---
APPROVED REPORT CPT Code: 64580 Present Symptoms Shortness of breath BILATERAL: Imaging reveals a patent deep venous system bilaterally. There is no evidence of thrombus within the femoral, popliteal or tibial segments. The greater saphenous veins are also within normal limits. Doppler indicates normal spontaneous flow within these segments.
[2017-07-09] MEDS: NovoLOG Insulin Flexpen SUBQ SCH ×4 (00:29→17:46)
[2017-07-09] MEDS: Albuterol/Ipratropium 3ml neb HHN SCH ×2 (01:29→07:08)
[2017-07-09 03:56] LABS: BASOPHILS % (AUTO) 2.1 % (0.0-2.0); EOSINOPHILS % (AUTO) 1.4 % (0.0-3.0); HEMATOCRIT 27.4 % (37.0-47.0); HEMOGLOBIN 8.6 G/DL (12.0-16.0); LYMPHOCYTES % (AUTO) 9.4 % (20.0-45.0); MEAN CORPUSCULAR VOLUME 91 FL (80-99); MONOCYTES % (AUTO) 11.4 % (1.0-10.0); NEUTROPHILS % (AUTO) 75.7 % (45.0-75.0); PLATELET COUNT 155 K/UL (150-450); RED BLOOD COUNT 3.01 M/UL (4.20-5.40); RED CELL DISTRIBUTION WIDTH 14.2 % (11.6-14.8); WHITE BLOOD COUNT 9.9 K/UL (4.8-10.8)
[2017-07-09 04:28] LABS: ALANINE AMINOTRANSFERASE 42 U/L (12-78); ALBUMIN 1.5 G/DL (3.4-5.0); ALBUMIN/GLOBULIN RATIO 0.3 (1.0-2.7); ALKALINE PHOSPHATASE 75 U/L (46-116); ANION GAP 6 mmol/L (5-15); ASPARTATE AMINO TRANSFERASE 39 U/L (15-37); BILIRUBIN,TOTAL 0.5 MG/DL (0.2-1.0); BLOOD UREA NITROGEN 12 mg/dL (7-18); CALCIUM 7.3 MG/DL (8.5-10.1); CARBON DIOXIDE 27 MMOL/L (21-32); CHLORIDE 108 MMOL/L (98-107); CREATININE 1.1 MG/DL (0.55-1.30); POTASSIUM 3.5 MMOL/L (3.5-5.1); SODIUM 141 MMOL/L (136-145)
[2017-07-09] MEDS: Piperacillin/Tazobactam 3.375 GM in D5W 55 ML IVPB SCH ×3 (05:05→22:05)
[2017-07-09] MEDS: Heparin 5000 units/ml inj SUBQ SCH ×3 (05:47→22:07)
[2017-07-09] MEDS: Vancomycin 750mg/NS 250ml IVPB SCH (08:43)
[2017-07-09] MEDS: Docusate 100mg cap ORAL SCH ×2 (08:43→17:44)
[2017-07-09] MEDS: Fluconazole 100mg tab ORAL SCH (08:44)
[2017-07-09] MEDS: Benazepril 10mg tab ORAL SCH (08:44)
--- NOTE | 2017-07-09 09:03 | Pulmonology Progress Note ---
Assessment/Plan Assessment/Plan ASSESSMENT perforated SB intraabdominal sepsis due to intraabdominal abscess possible bacteremia *( Strep epidermidis) s/p exp lap with SB resection, priamry anastomosis, lysis of adhesion and drainage of intraabdominal abscess s/p intubation ( during surgery) s/p extubation asthma Possible aspiration PNA acute anemia requiring blood transfusion MARTA acute renal failure ( due to dehydration, hypotension and infectious process) on CRF( due to HTN and DM, + 3 proteinuria) Hyperglycemia 2 to DM HTN urgency morbid obesity e/lyte imbalance : hypo K hyp Mg PLAN OF CARE [facility] floor IV abx, Fup with ID rec O2 HHN prn no evidence of asthma exacerbation fup with CXR CT chest noted IS at the bedside and encourage to use OOB to chair and ambulate by PT DVT GI prophylaxis Venous Duplex BLE negative elevated D dimer due to infectious/inflammatory process drain out surgery follows wound care as per surgery pain management tolerates diet , a/emetic prn bowel regimen monitor counts, HH stable after blood transfusion, anemia w/up c/w ID replace Mg, give additional K s/p HD x 1 , creat down to normal , nephro follows renal US negative ARF was likely combination due to hypotension, dehydration due to vomiting and infectious process, resolved after one HD ? dc HD catheter - per nephro monitor renal parameters, lytes, correct as needed avoid nephrotoxic monitor volumes ECHO with pEF 65% and RVSP of 25 HgA1c not at goal-9.8; endo follows, SSI BP management with ANKIT and CCB, add Clonidine prn however caution about ANKIT due to recent hx of ARF, watch creat closely if start rising -dc ANKIT pending transfer to LTAC ID to clarify antibiotic regimen upon dc - will go o Zosyn and vanco to complete the course as specified by ID case discussed and evaluated by supervising physician Subjective Allergies: Coded Allergies: No Known Allergies (Unverified , 06/28/17) Subjective leukocytosis resolved, afebrile. no pain currently no n/v/ tolerates diet on RA sat stable, no SOB, no CP worked with PT , was OOB yesterday in thr chair had BM yesterday Objective Last 24 Hour Vital Signs Date Time Temp Pulse Resp B/P (MAP) Pulse Ox O2 Delivery O2 Flow Rate FiO2 07/09/17 08:44 174/80 07/09/17 08:44 89 174/80 07/09/17 08:22 98.2 89 20 174/80 96 07/09/17 07:05 99 Nasal Cannula 2.0 07/09/17 07:05 Nasal Cannula 2.0 07/09/17 07:05 84 18 99 Nasal Cannula 2.0 07/09/17 06:52 85 145/65 07/09/17 05:09 97.6 86 18 166/75 98 Nasal Cannula 2.0 07/09/17 05:09 166/75 07/09/17 01:40 93 18 100 Nasal Cannula 2.0 07/09/17 01:29 89 20 98 Nasal Cannula 2.0 07/09/17 00:33 97.7 78 18 137/73 96 07/08/17 20:22 97.7 81 18 143/67 96 07/08/17 19:48 89 20 100 Nasal Cannula 2.0 07/08/17 19:25 Nasal Cannula 2.0 07/08/17 19:25 98 Nasal Cannula 2.0 07/08/17 19:23 81 20 98 Nasal Cannula 2.0 07/08/17 16:00 99.0 89 19 132/68 97 07/08/17 14:32 185/70 07/08/17 13:02 8 20 100 Nasal Cannula 2.0 07/08/17 13:01 84 20 97 Nasal Cannula 2.0 07/08/17 12:00 98.1 77 18 137/78 96 Nasal Cannula 2.0 Intake and Output 07/08/17 07/09/17 19:00 07:00 Intake Total 1115 ml 240 ml Output Total 600 ml Balance 1115 ml -360 ml Intake Oral 285 ml 240 ml IV Total 830 ml Output Urine Total 600 ml # Voids 1 3 Objective General Appearance: no acute distress, morbidly obese AA female HEENT: normocephalic, atraumatic, anicteric, mucous membranes moist, PERRL Respiratory/Chest: chest wall non-tender, lungs clear with moderate air intake , no respiratory distress, no accessory muscle use Cardiovascular: normal peripheral pulses, regular rhythm, no JVD Abdomen: normal bowel sounds, soft, non tender, non distended Genitourinary: normal external genitalia Extremities: no edema, pedal pulses normal Neurologic/Psychiatric: no motor/sensory deficits, alert, oriented x 3, responsive Musculoskeletal: normal muscle bulk Microbiology Date/Time Source Procedure Growth Status 07/06/17 16:00 Blood Blood Culture - Preliminary NO GROWTH AFTER 48 HOURS Resulted 07/06/17 15:48 Blood Blood Culture - Preliminary NO GROWTH AFTER 48 HOURS Resulted Laboratory Tests 07/09/17 03:30: White Blood Count 9.9, Red Blood Count 3.01L, Hemoglobin 8.6L, Hematocrit 27.4L , Mean Corpuscular Volume 91, Mean Corpuscular Hemoglobin 28.5, Mean Corpuscular Hemoglobin Concent 31.3L, Red Cell Distribution Width 14.2, Platelet Count 155, Mean Platelet Volume 9.0, Neutrophils (%) (Auto) 75.7H, Lymphocytes (%) (Auto) 9.4L, Monocytes (%) (Auto) 11.4H, Eosinophils (%) (Auto) 1.4, Basophils (%) (Auto) 2.1H, Sodium Level 141, Potassium Level 3.5, Chloride Level 108H, Carbon Dioxide Level 27, Anion Gap 6, Blood Urea Nitrogen 12, Creatinine 1.1, Estimat Glomerular Filtration Rate , Glucose Level 124H, Calcium Level 7.3L, Phosphorus Level 2.8, Magnesium Level 1.6L, Total Bilirubin 0.5, Aspartate Amino Transf (AST/SGOT) 39H, Alanine Aminotransferase (ALT/SGPT) 42, Alkaline Phosphatase 75, Total Protein 6.6, Albumin 1.5L, Globulin 5.1, Albumin/Globulin Ratio 0.3L Current Medications Medications (Trade) Dose Ordered Sig/Teresa Route PRN Reason Start Time Stop Time Status Last Admin Dose Admin Acetaminophen (Tylenol) 650 mg Q4H PRN ORAL Mild Pain/Temp > 100.5 07/05/17 14:15 08/04/17 14:14 Albuterol/ Ipratropium (Albuterol/ Ipratropium) 3 ml Q4H PRN HHN Shortness of Breath 07/06/17 12:15 07/11/17 12:14 Albuterol/ Ipratropium (Albuterol/ Ipratropium) 3 ml Q6HRT HHN 07/06/17 13:00 07/11/17 12:59 07/09/17 07:08 Amlodipine Besylate (Norvasc) 2.5 mg DAILY ORAL 07/07/17 10:00 08/06/17 09:59 07/09/17 08:44 Benazepril HCl (Lotensin) 10 mg DAILY ORAL 07/07/17 10:00 08/06/17 09:59 07/09/17 08:44 Chlorhexidine Gluconate (Susan-Hex 2%) 1 applic Q24H TOPIC 07/04/17 20:00 08/01/17 19:59 07/07/17 20:00 Clonidine HCl (Catapres) 0.1 mg EVERY 6 HOURS PRN ORAL SBP above 160 07/07/17 13:45 08/06/17 13:44 07/09/17 05:09 Dextrose (Dextrose 50%) STAT PRN IV Hypoglycemia 07/05/17 10:00 07/28/17 09:59 Docusate Sodium (Colace) 100 mg TWICE A DAY ORAL 07/05/17 09:00 08/04/17 08:59 07/09/17 08:43 Ergocalciferol (Drisdol) 50,000 intlu QWEEK ORAL 07/06/17 11:00 08/05/17 10:59 07/06/17 12:58 Fluconazole (Diflucan) 200 mg DAILY ORAL 07/08/17 12:15 07/15/17 12:14 07/09/17 08:44 Heparin Sodium (Porcine) (Heparin 5000 units/ml) 5,000 units EVERY 8 HOURS SUBQ 07/04/17 22:00 08/01/17 13:59 07/05/17 06:11 Hydromorphone HCl (Dilaudid) 1 mg Q3H PRN IVP pain score 4-6 07/06/17 20:15 07/13/17 20:14 07/09/17 05:54 Insulin Aspart (NovoLOG) Q6HR SUBQ 07/04/17 18:00 08/03/17 17:59 07/09/17 06:03 Magnesium Sulfate 100 ml @ 100 mls/hr Q1H IVPB 07/09/17 09:00 07/09/17 12:59 07/09/17 08:43 Metoclopramide HCl (Reglan) 5 mg Q6H PRN ORAL Nausea & Vomiting 07/07/17 12:30 08/06/17 12:29 Ondansetron HCl (Zofran) 4 mg Q6H PRN IVP Nausea & Vomiting 07/04/17 22:15 07/29/17 22:14 Pantoprazole (Protonix) 40 mg DAILY ORAL 07/06/17 09:00 08/05/17 08:59 07/09/17 08:43 Piperacillin Sod/ Tazobactam Sod 3.375 gm/Dextrose 55 ml @ 13.75 mls/ hr EVERY 8 HOURS IVPB 07/08/17 14:00 07/15/17 13:59 07/09/17 05:05 Tramadol HCl (Ultram) 100 mg Q6H PRN ORAL For Pain 07/05/17 14:15 07/12/17 14:14 07/07/17 09:58 Vancomycin HCl (Vanco rx to dose) 1 ea DAILY PRN MISC Per rx protocol 07/06/17 14:45 08/05/17 14:44 Vancomycin/Sodium Chloride 250 ml @ 166.667 mls/hr Q12HR IVPB 07/08/17 21:00 07/13/17 20:59 07/09/17 08:43 Racquel Garcia NP ([facility]) Jul 09, 2017 09:03
--- NOTE | 2017-07-09 10:30 | Geriatric Medicine Prog Note ---
DATE: 07/08/2017 NOTE: POOR AUDIO ENDOCRINE PROGRESS NOTE SUBJECTIVE: The patient tolerating postoperative ileus. OBJECTIVE: VITAL SIGNS: Blood pressure 137/73, pulse 78, respirations 18, and temperature 97.9. RESPIRATORY: Clear. CVS: Regular. LABORATORY DATA: ASSESSMENT AND PLAN: postoperative ileus, resolved. . Satish Haines M.D. DR: LÓPEZ JOB#: [id number] CC:
--- NOTE | 2017-07-09 10:32 | Infectious Diseases Prog Note ---
Assessment/Plan Assessment/Plan ASSESSMENT: The patient is a 71-year-old female with Sepsis ( intra-abd ) -Status post repair of small bowel perforation on 06/29/2017 Abscess Cx Enterococcus and C. Lusitaniae Lower Abd wnd infection c/w intrabdominal abscess : purulent discharge Wnd Cx : Enterococcus and yeast , PSA , C albicans repeat WndCx: Lorrie - s/p I+D Staph epi bacteremia-likely contaminant as positive in same set and repeat Bcx NTD -?line infection (however doesnt specify where Bcx were obtained), now RIJ has been removed -07/04 2/ S.epi (from same set) 07/06 BCx NTD x4 Possible aspiration pneumonia. C- CT: Right pleural effusion, Left lower lobe infiltrate versus volume loss Scx : Trichosporon ( Colonizer vs Contaminant ) pt does not have ImmSupp risk factor low grade fever, SP leukocytosis - resolved Elevated inflammatory markers- improving Status post cholecystectomy on 06/26/2017 Anemia. Acute renal insufficiency. improving Ventilator-dependent respiratory failure. History of laparoscopic cholecystectomy on 06/26/2017. Perforated small bowel obstruction, status post small-bowel resection and primary anastomosis on 06/29/2017 Hypertension History of back pain. Diabetes PLAN: Continue Zozyn #2 (abx d #10/) for Enterococcus and PsA and Diflucan d# 6/14 for abscess/wound infection and d/c IV Vancomycin #4 ; ok to discharge to LTAC on this regimen 07/08 Sp Unasyn/CEfepime #5 Zosyn day # 5 and vancomycin day # 3 Monitor CBC/CMP. Monitor chest x-ray. Monitor cultures (blood ), repeat Crypt Ag (as a marker of invasive Trichosporon): P Wound care Aspiration precautions Dicussed with Racquel Garcia NP Subjective Allergies: Coded Allergies: No Known Allergies (Unverified , 06/28/17) Subjective afebrile leukocytosis resolved repeat Bcx NTD plan to transfer to LTAC Objective Vital Signs Last 24 Hour Vital Signs Date Time Temp Pulse Resp B/P (MAP) Pulse Ox O2 Delivery O2 Flow Rate FiO2 07/09/17 08:44 174/80 07/09/17 08:44 89 174/80 07/09/17 08:22 98.2 89 20 174/80 96 07/09/17 07:18 91 18 99 Room Air 07/09/17 07:18 98 18 99 Room Air 07/09/17 07:05 99 Nasal Cannula 2.0 07/09/17 07:05 Nasal Cannula 2.0 28 07/09/17 07:05 84 18 99 Nasal Cannula 2.0 07/09/17 06:52 85 145/65 07/09/17 05:09 97.6 86 18 166/75 98 Nasal Cannula 2.0 07/09/17 05:09 166/75 07/09/17 01:40 93 18 100 Nasal Cannula 2.0 28 07/09/17 01:29 89 20 98 Nasal Cannula 2.0 28 07/09/17 00:33 97.7 78 18 137/73 96 07/08/17 20:22 97.7 81 18 143/67 96 07/08/17 19:48 89 20 100 Nasal Cannula 2.0 28 07/08/17 19:25 Nasal Cannula 2.0 28 07/08/17 19:25 98 Nasal Cannula 2.0 28 07/08/17 19:23 81 20 98 Nasal Cannula 2.0 28 07/08/17 16:00 99.0 89 19 132/68 97 07/08/17 14:32 185/70 07/08/17 13:02 8 20 100 Nasal Cannula 2.0 28 07/08/17 13:01 84 20 97 Nasal Cannula 2.0 28 07/08/17 12:00 98.1 77 18 137/78 96 Nasal Cannula 2.0 Height (Feet): 5 Height (Inches): 8.00 Weight (Pounds): 292 Objective General Appearance: no apparent distress EENT: normal ENT inspection Neck: normal alignment Cardiovascular: normal rate Respiratory/Chest: chest wall non-tender Abdomen: tender around surgical incisions, bandages on place Edema: trace edema Microbiology Date/Time Source Procedure Growth Status 07/06/17 16:00 Blood Blood Culture - Preliminary NO GROWTH AFTER 48 HOURS Resulted 07/06/17 15:48 Blood Blood Culture - Preliminary NO GROWTH AFTER 48 HOURS Resulted Laboratory Tests Test 07/09/17 03:30 White Blood Count 9.9 K/UL (4.8-10.8) Red Blood Count 3.01 M/UL (4.20-5.40) L Hemoglobin 8.6 G/DL (12.0-16.0) L Hematocrit 27.4 % (37.0-47.0) L Mean Corpuscular Volume 91 FL (80-99) Mean Corpuscular Hemoglobin 28.5 PG (27.0-31.0) Mean Corpuscular Hemoglobin Concent 31.3 G/DL (32.0-36.0) L Red Cell Distribution Width 14.2 % (11.6-14.8) Platelet Count 155 K/UL (150-450) Mean Platelet Volume 9.0 FL (6.5-10.1) Neutrophils (%) (Auto) 75.7 % (45.0-75.0) H Lymphocytes (%) (Auto) 9.4 % (20.0-45.0) L Monocytes (%) (Auto) 11.4 % (1.0-10.0) H Eosinophils (%) (Auto) 1.4 % (0.0-3.0) Basophils (%) (Auto) 2.1 % (0.0-2.0) H Sodium Level 141 MMOL/L (136-145) Potassium Level 3.5 MMOL/L (3.5-5.1) Chloride Level 108 MMOL/L (98-107) H Carbon Dioxide Level 27 MMOL/L (21-32) Anion Gap 6 mmol/L (5-15) Blood Urea Nitrogen 12 mg/dL (7-18) Creatinine 1.1 MG/DL (0.55-1.30) Estimat Glomerular Filtration Rate mL/min (>60) Glucose Level 124 MG/DL (74-106) H Calcium Level 7.3 MG/DL (8.5-10.1) L Phosphorus Level 2.8 MG/DL (2.5-4.9) Magnesium Level 1.6 MG/DL (1.8-2.4) L Total Bilirubin 0.5 MG/DL (0.2-1.0) Aspartate Amino Transf (AST/SGOT) 39 U/L (15-37) H Alanine Aminotransferase (ALT/SGPT) 42 U/L (12-78) Alkaline Phosphatase 75 U/L (46-116) Total Protein 6.6 G/DL (6.4-8.2) Albumin 1.5 G/DL (3.4-5.0) L Globulin 5.1 g/dL Albumin/Globulin Ratio 0.3 (1.0-2.7) L Current Medications Medications (Trade) Dose Ordered Sig/Teresa Route PRN Reason Start Time Stop Time Status Last Admin Dose Admin Acetaminophen (Tylenol) 650 mg Q4H PRN ORAL Mild Pain/Temp > 100.5 07/05/17 14:15 08/04/17 14:14 Albuterol/ Ipratropium (Albuterol/ Ipratropium) 3 ml Q4H PRN HHN Shortness of Breath 07/09/17 12:15 07/14/17 23:59 Albuterol/ Ipratropium (Albuterol/ Ipratropium) 3 ml Q6HRT HHN 07/09/17 13:00 07/14/17 23:59 Amlodipine Besylate (Norvasc) 2.5 mg DAILY ORAL 07/07/17 10:00 08/06/17 09:59 07/09/17 08:44 Benazepril HCl (Lotensin) 10 mg DAILY ORAL 07/07/17 10:00 08/06/17 09:59 07/09/17 08:44 Chlorhexidine Gluconate (Susan-Hex 2%) 1 applic Q24H TOPIC 07/04/17 20:00 08/01/17 19:59 07/07/17 20:00 Clonidine HCl (Catapres) 0.1 mg EVERY 6 HOURS PRN ORAL SBP above 160 07/07/17 13:45 08/06/17 13:44 07/09/17 05:09 Dextrose (Dextrose 50%) STAT PRN IV Hypoglycemia 07/05/17 10:00 07/28/17 09:59 Docusate Sodium (Colace) 100 mg TWICE A DAY ORAL 07/05/17 09:00 08/04/17 08:59 07/09/17 08:43 Ergocalciferol (Drisdol) 50,000 intlu QWEEK ORAL 07/06/17 11:00 08/05/17 10:59 07/06/17 12:58 Fluconazole (Diflucan) 200 mg DAILY ORAL 07/08/17 12:15 07/15/17 12:14 07/09/17 08:44 Heparin Sodium (Porcine) (Heparin 5000 units/ml) 5,000 units EVERY 8 HOURS SUBQ 07/04/17 22:00 08/01/17 13:59 07/05/17 06:11 Hydromorphone HCl (Dilaudid) 1 mg Q3H PRN IVP pain score 4-6 07/06/17 20:15 07/13/17 20:14 07/09/17 05:54 Insulin Aspart (NovoLOG) Q6HR SUBQ 07/04/17 18:00 08/03/17 17:59 07/09/17 06:03 Magnesium Sulfate 100 ml @ 100 mls/hr ONCE ONCE IVPB 07/09/17 10:00 07/09/17 10:59 Magnesium Sulfate 100 ml @ 100 mls/hr Q1H IVPB 07/09/17 09:00 07/09/17 12:59 07/09/17 10:17 Metoclopramide HCl (Reglan) 5 mg Q6H PRN ORAL Nausea & Vomiting 07/07/17 12:30 08/06/17 12:29 Ondansetron HCl (Zofran) 4 mg Q6H PRN IVP Nausea & Vomiting 07/04/17 22:15 07/29/17 22:14 Pantoprazole (Protonix) 40 mg DAILY ORAL 07/06/17 09:00 08/05/17 08:59 07/09/17 08:43 Piperacillin Sod/ Tazobactam Sod 3.375 gm/Dextrose 55 ml @ 13.75 mls/ hr EVERY 8 HOURS IVPB 07/08/17 14:00 07/15/17 13:59 07/09/17 05:05 Tramadol HCl (Ultram) 100 mg Q6H PRN ORAL For Pain 07/05/17 14:15 07/12/17 14:14 07/07/17 09:58 Vancomycin HCl (Vanco rx to dose) 1 ea DAILY PRN MISC Per rx protocol 07/06/17 14:45 08/05/17 14:44 Vancomycin/Sodium Chloride 250 ml @ 166.667 mls/hr Q12HR IVPB 07/08/17 21:00 07/13/17 20:59 07/09/17 08:43 Dahiana Lucero M.D. Jul 09, 2017 10:32
--- NOTE | 2017-07-09 11:04 | GI Progress Note ---
Assessment/Plan Problems: (1) Anemia ICD Codes: D64.9 - Anemia, unspecified SNOMED: 690821420 (2) Small bowel perforation ICD Codes: K63.1 - Perforation of intestine (nontraumatic) SNOMED: 643602024 (3) Obesity ICD Codes: E66.9 - Obesity, unspecified SNOMED: 173615406 (4) Perforated bowel ICD Codes: K63.1 - Perforation of intestine (nontraumatic) SNOMED: 62039456 (5) Postoperative ileus ICD Codes: K91.89 - Other postprocedural complications and disorders of digestive system; K56.7 - Ileus, unspecified SNOMED: 164605377, 605048748 (6) S/P exploratory laparotomy ICD Codes: Z98.890 - Other specified postprocedural states SNOMED: 29591419, 65647401, 502877058 Status: stable Status Narrative Discussed with Dr. Mckeon. Assessment/Plan CT AP reviewed > perforated small bowel, see full report. fu surgical recs >> s/p Exploratory Laparotomy, Small Bowel resection with primary anastomosis, Lysis of adhesions , Drainage of intra abdominal abscess BAKARI removed by surgery post op care PT evaluation today on diet per surgery pain mgmt PRN blood transfusion abx fu labs Subjective Subjective abdominal pain improved passing flatus on diet working with PT today Objective Last 24 Hour Vital Signs Date Time Temp Pulse Resp B/P (MAP) Pulse Ox O2 Delivery O2 Flow Rate FiO2 07/09/17 08:44 174/80 07/09/17 08:44 89 174/80 07/09/17 08:22 98.2 89 20 174/80 96 07/09/17 07:18 91 18 99 Room Air 07/09/17 07:18 98 18 99 Room Air 07/09/17 07:05 99 Nasal Cannula 2.0 07/09/17 07:05 Nasal Cannula 2.0 07/09/17 07:05 84 18 99 Nasal Cannula 2.0 07/09/17 06:52 85 145/65 07/09/17 05:09 97.6 86 18 166/75 98 Nasal Cannula 2.0 07/09/17 05:09 166/75 07/09/17 01:40 93 18 100 Nasal Cannula 2.0 07/09/17 01:29 89 20 98 Nasal Cannula 2.0 07/09/17 00:33 97.7 78 18 137/73 96 07/08/17 20:22 97.7 81 18 143/67 96 07/08/17 19:48 89 20 100 Nasal Cannula 2.0 07/08/17 19:25 Nasal Cannula 2.0 07/08/17 19:25 98 Nasal Cannula 2.0 07/08/17 19:23 81 20 98 Nasal Cannula 2.0 07/08/17 16:00 99.0 89 19 132/68 97 07/08/17 14:32 185/70 07/08/17 13:02 8 20 100 Nasal Cannula 2.0 07/08/17 13:01 84 20 97 Nasal Cannula 2.0 07/08/17 12:00 98.1 77 18 137/78 96 Nasal Cannula 2.0 Intake and Output 07/08/17 07/09/17 18:59 06:59 Intake Total 1115 ml 240 ml Output Total 600 ml Balance 1115 ml -360 ml Intake Oral 285 ml 240 ml IV Total 830 ml Output Urine Total 600 ml # Voids 1 3 Laboratory Tests Test 07/09/17 03:30 White Blood Count 9.9 K/UL (4.8-10.8) Red Blood Count 3.01 M/UL (4.20-5.40) L Hemoglobin 8.6 G/DL (12.0-16.0) L Hematocrit 27.4 % (37.0-47.0) L Mean Corpuscular Volume 91 FL (80-99) Mean Corpuscular Hemoglobin 28.5 PG (27.0-31.0) Mean Corpuscular Hemoglobin Concent 31.3 G/DL (32.0-36.0) L Red Cell Distribution Width 14.2 % (11.6-14.8) Platelet Count 155 K/UL (150-450) Mean Platelet Volume 9.0 FL (6.5-10.1) Neutrophils (%) (Auto) 75.7 % (45.0-75.0) H Lymphocytes (%) (Auto) 9.4 % (20.0-45.0) L Monocytes (%) (Auto) 11.4 % (1.0-10.0) H Eosinophils (%) (Auto) 1.4 % (0.0-3.0) Basophils (%) (Auto) 2.1 % (0.0-2.0) H Sodium Level 141 MMOL/L (136-145) Potassium Level 3.5 MMOL/L (3.5-5.1) Chloride Level 108 MMOL/L (98-107) H Carbon Dioxide Level 27 MMOL/L (21-32) Anion Gap 6 mmol/L (5-15) Blood Urea Nitrogen 12 mg/dL (7-18) Creatinine 1.1 MG/DL (0.55-1.30) Estimat Glomerular Filtration Rate mL/min (>60) Glucose Level 124 MG/DL (74-106) H Calcium Level 7.3 MG/DL (8.5-10.1) L Phosphorus Level 2.8 MG/DL (2.5-4.9) Magnesium Level 1.6 MG/DL (1.8-2.4) L Total Bilirubin 0.5 MG/DL (0.2-1.0) Aspartate Amino Transf (AST/SGOT) 39 U/L (15-37) H Alanine Aminotransferase (ALT/SGPT) 42 U/L (12-78) Alkaline Phosphatase 75 U/L (46-116) Total Protein 6.6 G/DL (6.4-8.2) Albumin 1.5 G/DL (3.4-5.0) L Globulin 5.1 g/dL Albumin/Globulin Ratio 0.3 (1.0-2.7) L Height (Feet): 5 Height (Inches): 8.00 Weight (Pounds): 292 General Appearance: WD/WN, no apparent distress, alert, obese Cardiovascular: normal rate Respiratory/Chest: normal breath sounds, no respiratory distress Abdominal Exam: normal bowel sounds, non tender, soft Extremities: normal range of motion, non-tender Luisa Pradhan N.PAmbar Jul 09, 2017 11:04
--- NOTE | 2017-07-09 11:48 | Nephrology Progress Note ---
Assessment/Plan Problem List: (1) ELIDIA (acute kidney injury) (2) Obesity (3) Small bowel perforation (4) Hyperglycemia due to type 2 diabetes mellitus (5) Anemia Assessment Renal failure now resolved- dialysed only once Stable from renal stand extubated- more Anemic Acute renal failure, post op ( done 3 days prior to admit in [facility]) , likely multifactorial including low BP, and dehydration due to vomiting Post surgery again last night, now in ICu intubated, Cr rising Underlying chronic renal failure due to DM and HTN with 3+ Proteinuria dialysed once Other: - Acute abdomen post inpatient surgery , Lap Veronika. - Diabetes type 2, uncontrolled. - Thrombocytopenia. - Abnormal liver function test. Plan Plan: DC IV DC po Iron Mag supplement Remove dialysis cath HD 07/02 , monitor renal parameters- Cr remains low antibiotics Monitor renal parameters Avoid Nephrotoxics- Stopped TORADOL for pain monitor renal parameters antibiotics gastric support DC planning Subjective ROS Limited/Unobtainable: No Constitutional: Reports: malaise Objective Objective Last 24 Hour Vital Signs Date Time Temp Pulse Resp B/P (MAP) Pulse Ox O2 Delivery O2 Flow Rate FiO2 07/09/17 11:36 98.7 84 20 179/86 97 07/09/17 08:44 174/80 07/09/17 08:44 89 174/80 07/09/17 08:22 98.2 89 20 174/80 96 07/09/17 07:18 91 18 99 Room Air 07/09/17 07:18 98 18 99 Room Air 07/09/17 07:05 99 Nasal Cannula 2.0 07/09/17 07:05 Nasal Cannula 2.0 07/09/17 07:05 84 18 99 Nasal Cannula 2.0 07/09/17 06:52 85 145/65 07/09/17 05:09 97.6 86 18 166/75 98 Nasal Cannula 2.0 07/09/17 05:09 166/75 07/09/17 01:40 93 18 100 Nasal Cannula 2.0 07/09/17 01:29 89 20 98 Nasal Cannula 2.0 07/09/17 00:33 97.7 78 18 137/73 96 07/08/17 20:22 97.7 81 18 143/67 96 07/08/17 19:48 89 20 100 Nasal Cannula 2.0 07/08/17 19:25 Nasal Cannula 2.0 28 07/08/17 19:25 98 Nasal Cannula 2.0 28 07/08/17 19:23 81 20 98 Nasal Cannula 2.0 28 07/08/17 16:00 99.0 89 19 132/68 97 07/08/17 14:32 185/70 07/08/17 13:02 8 20 100 Nasal Cannula 2.0 28 07/08/17 13:01 84 20 97 Nasal Cannula 2.0 28 07/08/17 12:00 98.1 77 18 137/78 96 Nasal Cannula 2.0 Intake and Output 07/08/17 07/09/17 19:00 07:00 Intake Total 1115 ml 240 ml Output Total 600 ml Balance 1115 ml -360 ml Intake Oral 285 ml 240 ml IV Total 830 ml Output Urine Total 600 ml # Voids 1 3 Laboratory Tests 07/09/17 03:30: White Blood Count 9.9, Red Blood Count 3.01L, Hemoglobin 8.6L, Hematocrit 27.4L , Mean Corpuscular Volume 91, Mean Corpuscular Hemoglobin 28.5, Mean Corpuscular Hemoglobin Concent 31.3L, Red Cell Distribution Width 14.2, Platelet Count 155, Mean Platelet Volume 9.0, Neutrophils (%) (Auto) 75.7H, Lymphocytes (%) (Auto) 9.4L, Monocytes (%) (Auto) 11.4H, Eosinophils (%) (Auto) 1.4, Basophils (%) (Auto) 2.1H, Sodium Level 141, Potassium Level 3.5, Chloride Level 108H, Carbon Dioxide Level 27, Anion Gap 6, Blood Urea Nitrogen 12, Creatinine 1.1, Estimat Glomerular Filtration Rate , Glucose Level 124H, Calcium Level 7.3L, Phosphorus Level 2.8, Magnesium Level 1.6L, Total Bilirubin 0.5, Aspartate Amino Transf (AST/SGOT) 39H, Alanine Aminotransferase (ALT/SGPT) 42, Alkaline Phosphatase 75, Total Protein 6.6, Albumin 1.5L, Globulin 5.1, Albumin/Globulin Ratio 0.3L Height (Feet): 5 Height (Inches): 8.00 Weight (Pounds): 292 General Appearance: no apparent distress Cardiovascular: regular rhythm Respiratory/Chest: decreased breath sounds Abdomen: soft Objective no change ANU FAIRBANKS Jul 09, 2017 11:48
[2017-07-09] MEDS ORDERED: Albuterol/Ipratropium 3ml neb HHN PRN (12:15)
[2017-07-09] MEDS ORDERED: Albuterol/Ipratropium 3ml neb HHN SCH (13:00)
[2017-07-09] MEDS ORDERED: NS 275ml ONE ×2 (14:58→22:55)
[2017-07-09] MEDS ORDERED: Tubing IV Secondary IV ONE ×2 (14:58→22:55)
--- NOTE | 2017-07-09 18:11 | General Surgery Progress Note ---
General Surgery-Progress Note Subjective Procedure Performed Exploratory Laparotomy, Small Bowel resection with primary anastomosis, Lysis of adhesions , Drainage of intra abdominal abscess Symptoms: improved, BM Objective Last 24 Hour Vital Signs Date Time Temp Pulse Resp B/P (MAP) Pulse Ox O2 Delivery O2 Flow Rate FiO2 07/09/17 16:59 98.3 88 20 165/69 95 07/09/17 16:40 90 22 98 Nasal Cannula 2.0 07/09/17 16:30 90 26 95 Nasal Cannula 2.0 07/09/17 16:02 164/83 07/09/17 12:41 88 18 99 Nasal Cannula 2.0 07/09/17 12:30 86 20 98 Nasal Cannula 2.0 07/09/17 11:36 98.7 84 20 179/86 97 07/09/17 08:44 174/80 07/09/17 08:44 89 174/80 07/09/17 08:22 98.2 89 20 174/80 96 07/09/17 07:18 91 18 99 Room Air 07/09/17 07:05 99 Nasal Cannula 2.0 07/09/17 07:05 Nasal Cannula 2.0 07/09/17 07:05 84 18 99 Nasal Cannula 2.0 07/09/17 06:52 85 145/65 07/09/17 05:09 97.6 86 18 166/75 98 Nasal Cannula 2.0 07/09/17 05:09 166/75 07/09/17 01:40 93 18 100 Nasal Cannula 2.0 07/09/17 01:29 89 20 98 Nasal Cannula 2.0 07/09/17 00:33 97.7 78 18 137/73 96 07/08/17 20:22 97.7 81 18 143/67 96 07/08/17 19:48 89 20 100 Nasal Cannula 2.0 07/08/17 19:25 Nasal Cannula 2.0 07/08/17 19:25 98 Nasal Cannula 2.0 07/08/17 19:23 81 20 98 Nasal Cannula 2.0 I&O Intake and Output 07/08/17 07/09/17 19:00 07:00 Intake Total 1115 ml 240 ml Output Total 600 ml Balance 1115 ml -360 ml Intake Oral 285 ml 240 ml IV Total 830 ml Output Urine Total 600 ml # Voids 1 3 Drains: none Respiratory: clear Abdomen: soft, flat, non-tender, present bowel sounds Extremities: no tenderness Laboratory Tests Test 07/09/17 03:30 White Blood Count 9.9 K/UL (4.8-10.8) Red Blood Count 3.01 M/UL (4.20-5.40) L Hemoglobin 8.6 G/DL (12.0-16.0) L Hematocrit 27.4 % (37.0-47.0) L Mean Corpuscular Volume 91 FL (80-99) Mean Corpuscular Hemoglobin 28.5 PG (27.0-31.0) Mean Corpuscular Hemoglobin Concent 31.3 G/DL (32.0-36.0) L Red Cell Distribution Width 14.2 % (11.6-14.8) Platelet Count 155 K/UL (150-450) Mean Platelet Volume 9.0 FL (6.5-10.1) Neutrophils (%) (Auto) 75.7 % (45.0-75.0) H Lymphocytes (%) (Auto) 9.4 % (20.0-45.0) L Monocytes (%) (Auto) 11.4 % (1.0-10.0) H Eosinophils (%) (Auto) 1.4 % (0.0-3.0) Basophils (%) (Auto) 2.1 % (0.0-2.0) H Sodium Level 141 MMOL/L (136-145) Potassium Level 3.5 MMOL/L (3.5-5.1) Chloride Level 108 MMOL/L (98-107) H Carbon Dioxide Level 27 MMOL/L (21-32) Anion Gap 6 mmol/L (5-15) Blood Urea Nitrogen 12 mg/dL (7-18) Creatinine 1.1 MG/DL (0.55-1.30) Estimat Glomerular Filtration Rate mL/min (>60) Glucose Level 124 MG/DL (74-106) H Calcium Level 7.3 MG/DL (8.5-10.1) L Phosphorus Level 2.8 MG/DL (2.5-4.9) Magnesium Level 1.6 MG/DL (1.8-2.4) L Total Bilirubin 0.5 MG/DL (0.2-1.0) Aspartate Amino Transf (AST/SGOT) 39 U/L (15-37) H Alanine Aminotransferase (ALT/SGPT) 42 U/L (12-78) Alkaline Phosphatase 75 U/L (46-116) Total Protein 6.6 G/DL (6.4-8.2) Albumin 1.5 G/DL (3.4-5.0) L Globulin 5.1 g/dL Albumin/Globulin Ratio 0.3 (1.0-2.7) L Assessment Post-op Diagnosis perforated small bowel and intra abdominal abscess Plan Additional Comments can be discharged to half-way tomorrow KIRT BECK Jul 09, 2017 18:11
[2017-07-09] MEDS: Dyna-Hex 2% Top Sol 2oz TOPIC SCH (20:00)
[2017-07-10] VITALS: BP 160/71
[2017-07-10] MEDS: NovoLOG Insulin Flexpen SUBQ SCH (00:35)
--- NOTE | 2017-07-14 13:02 | Discharge Summary ---
Discharge Summary Hospital Course Date of Admission Jun 28, 2017 at 05:42 Date of Discharge Jul 10, 2017 at 00:30 Admitting Diagnosis post operative ileus HPI Kendra Bunn is a 71 year old female who was admitted on Jun 28, 2017 at 05:42 for Post Operative Ileus Hospital Course dc summary #[id number] Discharge Discharge Disposition Patient was discharged to [facility] (63) Discharge Diagnoses: Jose ([place]),Racquel ROBBINS Jul 14, 2017 13:02
--- NOTE | 2017-07-15 03:45 | Discharge Summary 2 SIG ---
DATE OF ADMISSION: 06/28/2017 DATE OF DISCHARGE: 07/10/2017 REASON FOR ADMISSION: 71-year-old female, who had laparoscopic cholecystectomy two days ago, was discharged home and was doing relatively well, but then started vomiting and was unable to keep down any food or fluids. She initially was passing gas after the surgery, but upon presentation denied passing any gas and was complaining of diffuse abdominal pain. Vomiting described as nonbloody and nonbilious. No diarrhea. No fever. No chills. The patient with past medical history significant for hyperlipidemia, hypertension, and diabetes. Workup in the emergency department revealed no fever. The patient was tachycardic with heart rate -120, blood pressure was low -99/ 42. Leukocytosis, WBC -12.3. BUN -33, creatinine -1.9, glucose- 436. Lipase -47. AST -75, ALT- 65. EKG showed sinus tachycardia. Surgery consult was requested in ED. Surgeon seen the patient and ordered stat CAT scan of the abdomen and pelvis, which revealed [id number] amount of pneumoperitoneum with amorphous focus of gas and soft tissue attenuation in the right lower abdomen/pelvis, no bowel obstruction, postsurgical change with known history of recent laparoscopic cholecystectomy, minimal fluid in the gallbladder foci likely postoperative, 5.6-cm cystic lesion probably adnexal in origin, bladder wall thickening. The patient was admitted with diagnoses of postoperative ileus, hyperglycemia secondary to type 2 diabetes, abdominal pain, intractable nausea and vomiting. HOSPITAL COURSE: The patient was admitted. The patient kept n.p.o. The patient was on the IV fluids. GI specialist and surgery closely followed the patient. The patient had undergone followup CT of the abdomen and pelvis on 06/29/2017, with extraluminal contrast collection noted, likely associated with perforated small bowel. The patient subsequently on 06/29/2017, had undergone exploratory laparotomy with small bowel resection and primary anastomosis, lysis of adhesion, and drainage of intra-abdominal abscess. Infectious disease doctor was consulted. Wound culture positive for Pseudomonas and Enterococcus. Urine culture positive for Lorrie. Aerobic culture positive for Enterococcus and Lorrei, and sputum culture was positive for Trichosporon. Blood culture one out of two positive for Staphylococcus epidermidis, repeated blood culture negative, per ID blood culture likely contaminant. Infectious disease specialist directed antibiotic regimen. Abscess culture showed Enterococcus faecalis and Lorrie lusitaniae. Lower abdominal wound with infection consistent with intraabdominal abscess. Wound culture revealed enterococci and yeast, Pseudomonas aeruginosa, and Lorrie. Repeated wound culture revealed Lorrie, status post I and D on 06/29/2017. Right internal jugular catheter was discontinued for fear of the possible line infection. Surveillance repeated blood cultures were negative x4. The patient might possibly had aspiration pneumonia. CT showed right pleural effusion, left lower lobe infiltrate versus volume loss. Sputum culture showed Trichosporon, colonizer versus contaminant. Per ID, the patient did not have immunosuppressive risk factor. Low-grade fever resolved. Leukocytosis resolved. The patient felt better. The patient required intubation during the surgery and kept being intubated for few days. Electrical Accessories Assembler closely followed. After extubation, supplemental oxygen provided as needed to keep saturation above 92%. Pulmonary toilet provided. The patient was encouraged to get out of the bed with physical therapy and use incentive spirometry q.1 h. x10 while in the bed. DVT and GI prophylaxis provided. Venous duplex of bilateral lower extremity was negative. The patient demonstrated elevated D-dimer likely secondary to infectious/ inflammatory process. Bernardo drain that initially was put during the surgery was out since output significantly decreased. Wound care provided as per surgery recommendation. Pain management was addressed. Pain was controlled. The patient was able to tolerate diet, had bowel movement. Bowel regimen instituted. Antiemetic provided as needed. Hemoglobin and hematocrit stable after blood transfusion. Anemia workup was consistent with iron-deficiency anemia. The patient required transfusion of total of 2 units of packed red blood cells and prior to transfer, hemoglobin -8.6 and hematocrit- 27.4. The patient during the course of stay developed acute renal failure, likely multifactorial due to dehydration, hypertension, and infectious process. The patient had underlying chronic renal failure due to hypertension and diabetes plus proteinuria. Renal ultrasound with no evidence of hydronephrosis, it showed bilateral kidney normal echogenicity. Medical Records Library Professor followed. The patient subsequently required start of hemodialysis. Dialysis done only once. Creatinine down to normal. Hemodialysis catheter was discontinued. Renal parameters and electrolytes were closely monitored and corrected as needed. Nephrotoxics were avoided. Volumes and cardiorenal parameters were closely monitored. Echocardiogram revealed preserved ejection fraction of 65%, right ventricular systolic pressure of 25. Hemoglobin A1c was not at goal, -9.8. Medical Instructor followed. Blood sugar was managed with sliding scale of insulin. Blood pressure was managed with ANKIT inhibitor, calcium-channel zonia as well as clonidine on as-needed basis. Caution about ANKIT due to the recent history of acute renal failure, watch creatinine closely; if started rising, ANKIT should be discontinued.The patient was working with physical therapy. Transfer was arranged to the LT[facility] for further management. All consultants cleared the patient for discharge. The patient was stable for transfer to LTAC. FINAL DIAGNOSES: 1. Perforated small bowel. 2. Intraabdominal sepsis due to the intraabdominal abscess. 3. Possible bacteremia with Staph epidermidis. 4. Status post exploratory laparotomy with small bowel resection, primary anastomosis, lysis of adhesion, and drainage of intraabdominal abscess. 5. Status post intubation during surgery and then status post extubation. 6. Asthma. 7. Possible aspiration pneumonia. 8. Acute anemia, requiring blood transfusion. 9. Iron-deficiency anemia. 10. Acute renal failure (due to dehydration, hypotension, and infectious process) on chronic renal failure (due to hypertension, diabetes, +3 proteinuria), requiring start of hemodialysis. 11. Hyperglycemia secondary to diabetes. 12. Hypertensive urgency. 13. Morbid obesity. 14. Electrolyte imbalance: hypokalemia and hypomagnesemia. DISCHARGE MEDICATIONS: See medication reconciliation list. Complete antibiotic at the LTAC as outlined in medication reconciliation list. DISCHARGE INSTRUCTIONS: The patient discharged to LTAC. Follow up with medical doctor at the facility. Margarito Reilly M.D. [facility]: Chidi JOB#: [id number] CC: MOLLY
[2019-07-08] MEDS ORDERED: NS 275ml ONE (18:03)
[2019-07-08] MEDS ORDERED: Tubing IV Secondary IV ONE (18:03)
== END 2017-07-10 00:30 | DRG 856 ==
LOC: EDBD 02:36 → EMR 02:48 → 4E 05:42 → ENRESERV 05:57 → EDBEDREQ 06:10 → ICU 06-29 23:35 → 3E 07-04 18:31
PROC: 0W9G0ZZ Drainage of Peritoneal Cavity, Open Approach (ICD-10-PCS; principal; 2017-06-29 14:30)
PROC: 0DB80ZX Excision of Small Intestine, Open Approach, Diagnostic (ICD-10-PCS; principal; 2017-06-29 14:30)
PROC: 5A1945Z Respiratory Ventilation, 24-96 Consecutive Hours (ICD-10-PCS; 2017-06-30)
PROC: 0BH17EZ Insertion of Endotracheal Airway into Trachea, Via Natural or Artificial Opening (ICD-10-PCS; 2017-06-30)
PROC: 02HV33Z Insertion of Infusion Device into Superior Vena Cava, Percutaneous Approach (ICD-10-PCS; 2017-07-01)
PROC: 05HM33Z Insertion of Infusion Device into Right Internal Jugular Vein, Percutaneous Approach (ICD-10-PCS; 2017-07-01)
PROC: B548ZZA Ultrasonography of Superior Vena Cava, Guidance (ICD-10-PCS; 2017-07-01)
PROC: 5A1D70Z Performance of Urinary Filtration, Intermittent, Less than 6 Hours Per Day (ICD-10-PCS; 2017-07-01)
PROC: 30233N1 Transfusion of Nonautologous Red Blood Cells into Peripheral Vein, Percutaneous Approach (ICD-10-PCS; 2017-07-04)
DX: T81.4XXA Infection following a procedure, initial encounter (principal); J96.00 Acute respiratory failure, unspecified whether with hypoxia or hypercapnia; J69.0 Pneumonitis due to inhalation of food and vomit; K65.1 Peritoneal abscess; A41.9 Sepsis, unspecified organism; E87.2 Acidosis; J95.89 Other postprocedural complications and disorders of respiratory system, not elsewhere classified; N17.9 Acute kidney failure, unspecified; D69.6 Thrombocytopenia, unspecified; K91.89 Other postprocedural complications and disorders of digestive system; K56.7 Ileus, unspecified; Z68.41 Body mass index [BMI] 40.0-44.9, adult; J98.11 Atelectasis; Z99.11 Dependence on respirator [ventilator] status; K91.71 Accidental puncture and laceration of a digestive system organ or structure during a digestive system procedure; E11.22 Type 2 diabetes mellitus with diabetic chronic kidney disease; E11.65 Type 2 diabetes mellitus with hyperglycemia; E78.5 Hyperlipidemia, unspecified; R00.0 Tachycardia, unspecified; E86.0 Dehydration; D50.9 Iron deficiency anemia, unspecified; I12.9 Hypertensive chronic kidney disease with stage 1 through stage 4 chronic kidney disease, or unspecified chronic kidney disease; N18.9 Chronic kidney disease, unspecified; Y83.8 Other surgical procedures as the cause of abnormal reaction of the patient, or of later complication, without mention of misadventure at the time of the procedure; Y92.019 Unspecified place in single-family (private) house as the place of occurrence of the external cause; B95.2 Enterococcus as the cause of diseases classified elsewhere; B96.5 Pseudomonas (aeruginosa) (mallei) (pseudomallei) as the cause of diseases classified elsewhere; E66.01 Morbid (severe) obesity due to excess calories; E83.42 Hypomagnesemia; E87.6 Hypokalemia; I16.0 Hypertensive urgency; J45.909 Unspecified asthma, uncomplicated; I95.9 Hypotension, unspecified; D72.829 Elevated white blood cell count, unspecified
CPT/HCPCS: 36415; 36569; 36600; 71010; 71250; 74000; 74176; 76775; 76937; 80048; 80053; 80061; 80076; 80202; 81003; 82150; 82247; 82248; 82550; 82607; 82728; 82746; 82803; 82962; 82977; 83036; 83540; 83550; 83605; 83690; 83735; 83880; 84100; 84300; 84443; 84484; 84550; 85007; 85025; 85379; 85610; 85730; 86140; 86705; 86709; 86803; 86850; 86900; 86901; 86920; 87040; 87070; 87075; 87081; 87086; 87181; 87205; 87340; 87449; 89050; 93306; 93970; 94002; 94003; 94150; 94640; 94664; 94760; 99285; A4246; J1815; J2250; J2405; J2765; J7620; J8499; S5561